=== PATIENT | female | born 1985 | race Caucasian/White ===

== ENCOUNTER 2019-01-02 12:45 | Emergency (ER) | payer SELFPAY ==
[~2019-01-02] VITALS: Ht 170.2 cm; Wt 81.6 kg
--- OUTSIDE RECORDS SUMMARY | 2019-01-02 12:51 | XMS REPORT ---
Author Author SHAYY DIAZ [facility] Address [address] [place] [address] Care Team Providers Care Wheelage Clerk Name Role Phone SHAYY DIAZ Unavailable PROBLEMS Type Condition ICD9-CM Code NCL16-KN Code Onset Dates Condition Status SNOMED Code Problem Leukorrhea, not specified as infective 623.5 Active 598355125 Problem Unspecified vaginitis and vulvovaginitis 616.10 Active 691336241 Problem Other sign and symptom in breast 611.79 Active 689890900 Problem Dysthymic disorder 300.4 Active 56556552 Problem Screening for malignant neoplasm of the cervix V76.2 Active 797289867 Problem Nondependent tobacco use disorder 305.1 Active 978924029 Problem Acute upper respiratory infections of unspecified site 465.9 Active 59583050 Problem Acute bronchitis 466.0 Active 92088886 Problem Acute sinusitis, unspecified 461.9 Active 48855442 Problem Acute pharyngitis 462 Active 046260634 Problem Other general counseling and advice for contraceptive management V25.09 Active 706532042 Problem General counseling for initiation of other contraceptive measures V25.02 Active 675998042436579 Problem Screening examination for venereal disease V74.5 Active 688548827 Problem Encounter for long-term (current) use of other medications V58.69 Active 514679406 Problem Papanicolaou smear of cervix with atypical squamous cells cannot exclude high grade squamous intraepithelial lesion (ASC-H) 795.02 Active 719336014 Problem Other symptoms involving urinary system 788.99 Active 035137021 Problem General counseling for prescription of oral contraceptives V25.01 Active 994586680414887 Problem Cellulitis and abscess of upper arm and forearm 682.3 Active 718969019 Problem Special screening examination, human papillomavirus [HPV] V73.81 Active 440561994 Problem Unspecified symptom associated with female genital organs 625.9 Active 777545903 ALLERGIES No Information ENCOUNTERS Encounter Location Date Diagnosis [facility] [id number], [place] [id number] Oct, [facility] [place] [address] [place] [address] [id number] Sep, Acute cystitis with hematuria N30.01 [facility] [place] [id number] [place] [address] [id number] Aug, Dysuria R30.0 ; Vaginal odor N89.8 ; Nausea R11.0 and CVA tenderness M54.9 [facility] [place] [id number] [place] [address] [id number] Jun, Vaginal irritation N89.8 and Vaginal odor N89.8 [facility] [id number] [place] [address] 76796- 3706 Jan, [facility] [id number] [place] [address] 45661- 9236 Jan, [facility] [place] [id number] [place] [address] [id number] Oct, [facility] [id number] [place] [address] 82636- 7176 Oct, [facility] [id number] [place] [address] 51604- 7002 Aug, [facility] [id number] [place] [address] 72980- 2176 March, [facility] [place] [id number], [place] [id number] March, [facility] [id number] [place] [address] 29592- 6186 March, [facility] [id number] [place] [address] 50941 2546 March, [facility] [address] [place] [address] [id number] March, [facility] [place] [address] [place] [address] [id number] March, [facility] [id number] [place] [address] 90737- 8586 March, [facility] [place] [facility] [address] [facility] [id number] [place] [address]- 8[address] March, [facility] [place] [address] [facility] [id number][place] [id number] Jan, [facility] [place] [facility] [address] [facility] [id number] [place] [address]- 0656 Jan, [facility] [place] [facility] [address] [facility] [id number] [address]- 9776 Jan, [facility] [place] [address] [facility] [id number] [place] [id number] Jan, [facility] [place] [facility] [address] [id number] [address]- 6706 Jan, [facility] [place] [facility] [address]00565100[place] [address]- 7801 Dec, [facility] [place] [address] [id number][place] 464994444 Dec, [facility] [place] [facility] [address] [id number] [address]- 6157 Dec, [facility] [place] [address] [id number], [place] [address]44826628 Dec, [facility] [place] [facility] [address]00565100[place] [address]- 5028 Dec, [facility] [place] [facility] [address] [id number] [address]- 0047 Dec, [facility] [place] [address] [facility] [id number], [place] 392141457 Dec, [facility] [place] [facility] [address]00565100[place] [address]- 9956 Dec, [facility] [place] [address] [facility] [id number][place] 545277239 Dec, [facility] [place] [facility] [address] [id number] [address]- 7550 Dec, [facility] [address] [id number] [address]- 3560 Nov, [facility] [place] [facility] [address] [facility] [id number] [address]- 7566 Nov, [facility] [place] [facility] [address] [facility] [id number] [address]- 7942 Nov, [facility] [place] [facility] [address] [facility] [id number] [address]- 3822 Nov, [facility] [place] [address] [id number], [place] 7480945[address] Nov, [facility] [place] [facility] [address] [facility] [id number] [place] [address]- 8765 Nov, [facility] [place] [address] [id number], [place] 540648653 Nov, [facility] [address]00565100[place] [address]- 8056 Nov, [facility] [place] [address] [id number], [place] 019385795 Oct, [facility] [address] [facility] [id number] [address]- 6260 Oct, [facility] [place] [address] [id number], [place] [id number] Sep, [facility] [address] [facility] [id number] [place] [address] 2546 Sep, [facility] [place] [address] [id number], [place] [id number] Sep, [facility] [place] [facility] [address] [id number] [address]- 2546 Sep, [facility] [place] [address] [id number], [place] 1915[address] Jul, [facility] [place] [address] [id number] [place] 110933[place] Jun, [facility] [place] [address] [id number], [place] 567929409 Jun, [facility] [place] [address] [id number] [place] 611[address] Apr, [facility] [place] [address] [id number] [place] [id number] March, [facility] [place] [address] [id number] [place] [id number] Jan, [facility] [address] [facility] [id number] [address]- 6859 Jan, [facility] [address] [facility] [id number] [place] [address]- 2627 Jan, [facility] [address] [facility] [id number] [place] [address] 59709- 9453 Jan, [facility] [address] [id number] 54[address]380[address]- 3235 Jan, [facility] [place] [address] [facility] [id number], [place] [id number] Jan, [facility] [place] [address] [facility] [id number], [place] 810394571 Aug, [facility] [place] [address] [id number], [place] 382664861 Aug, [facility] [address] [facility] [id number] [address]- 3268 Aug, [facility] [address]00565100[place] [address]- 6862 Aug, [facility] [place] [address] [id number], [place] 527061302 Aug, [facility] [place] [address] [facility] [id number], [place] 333531776 May, [facility] [address] [facility] [id number] [place] [address]- 8186 May, [facility] [place] [address] [id number], [place] [id number] May, [facility] [place] [address] [facility] [id number], [place] 320155441 May, [facility] [place] [address] [id number] [place] [address] Apr, [facility] [place] [address] [id number] [place] [address] Apr, [facility] [place] [address] [id number] [place] 691472444 March, [facility] [place] [address] [id number] [place] [id number] March, [facility] [place] [address] [id number] [place] 892759059 March, [facility] [place] [address] [id number] [place] 8380532[address] Dec, [facility] [place] [address] [id number] [place] 8440727[address] Nov, [facility] [place] [address] [id number] [place] 54897[address] Nov, [facility] [place] [facility] [address]00565100[place] [address]- 5876 Nov, [facility] [place] [facility] [address]00565100[place] [address]- 5956 Nov, [facility] [place] [facility] [address]00565100[place] [address]- 2606 Nov, [facility] [place] [address] [id number] [place] 5307207[address] Nov, [facility] [place] [address] [id number], [place] 793462768 Nov, [facility] [place] [facility] [address] [facility] [id number] [place] [address]- 2216 Nov, [facility] [place] [facility] [address] [facility] [id number] [address]- 4856 Nov, [facility] [place] [facility] [address] [facility] [id number] [place] [address]- 2346 Nov, [facility] [place] [address] [id number] [place] [id number] Nov, [facility] [place] [facility] [address] [id number] [address]- 3836 Oct, [facility] [address]00565100[place] [address]- 2669 Oct, [facility] [address]00565100[place] [address]- 6445 Sep, [facility] [address]00565100[place] [address]- 7397 Sep, [facility] [address]00565100[place] [address]- 8044 Dec, [facility] [id number] [place] [address] 30924- 1158 Sep, [facility] [address]00565100[place] [address]- 4159 Sep, [facility] [address]00565100[place] [address]- 6498 Sep, [facility] [address] [id number] [address]- 1083 Jun, IMMUNIZATIONS No Known Immunizations SOCIAL HISTORY Never Assessed REASON FOR VISIT UTI update PLAN OF CARE VITAL SIGNS MEDICATIONS Medication Instructions Dosage Frequency Start Date End Date Duration Status Phenazopyridine HCl 200 mg Orally Three times a day 1 tablet after meals 8h Oct, Oct, 2 day(s) Active RESULTS No Results PROCEDURES No Known procedures INSTRUCTIONS MEDICATIONS ADMINISTERED No Known Medications MEDICAL (GENERAL) HISTORY Type Description Date Medical History depression Medical History tachycardia
--- OUTSIDE RECORDS SUMMARY | 2019-01-02 12:51 | XMS REPORT ---
Author Author SHAYY DIAZ [facility] Address [address] [place] [address] Care Team Providers Care Disabilities Services Officer Name Role Phone SHAYY DIAZ Unavailable PROBLEMS Type Condition ICD9-CM Code DRF60-MD Code Onset Dates Condition Status SNOMED Code Problem Leukorrhea, not specified as infective 623.5 Active 787014594 Problem Unspecified vaginitis and vulvovaginitis 616.10 Active 340033735 Problem Other sign and symptom in breast 611.79 Active 257524299 Problem Dysthymic disorder 300.4 Active 14282183 Problem Screening for malignant neoplasm of the cervix V76.2 Active 897907130 Problem Nondependent tobacco use disorder 305.1 Active 238664412 Problem Acute upper respiratory infections of unspecified site 465.9 Active 64843340 Problem Acute bronchitis 466.0 Active 59215644 Problem Acute sinusitis, unspecified 461.9 Active 05670703 Problem Acute pharyngitis 462 Active 383350669 Problem Other general counseling and advice for contraceptive management V25.09 Active 659165988 Problem General counseling for initiation of other contraceptive measures V25.02 Active 533131358312331 Problem Screening examination for venereal disease V74.5 Active 743645626 Problem Encounter for long-term (current) use of other medications V58.69 Active 898937950 Problem Papanicolaou smear of cervix with atypical squamous cells cannot exclude high grade squamous intraepithelial lesion (ASC-H) 795.02 Active 137643038 Problem Other symptoms involving urinary system 788.99 Active 000307459 Problem General counseling for prescription of oral contraceptives V25.01 Active 344645896581612 Problem Cellulitis and abscess of upper arm and forearm 682.3 Active 999192304 Problem Special screening examination, human papillomavirus [HPV] V73.81 Active 592888050 Problem Unspecified symptom associated with female genital organs 625.9 Active 223788901 ALLERGIES Substance Reaction Event Type Date Status Bactrim DS nausea and vomiting Drug Allergy Sep, Active ENCOUNTERS Encounter Location Date Diagnosis [facility] [address] [id number] Oct, [facility] [id number] [place] [address] [id number] Sep, Acute cystitis with hematuria N30.01 [address] [place] [address] [id number] Aug, Dysuria R30.0 ; Vaginal odor N89.8 ; Nausea R11.0 and CVA tenderness M54.9 [id number] [place] [address] [id number] Jun, Vaginal irritation N89.8 and Vaginal odor N89.8 [facility] [id number] [place] [address] 88022- 2546 Jan, [facility] [address] [address]- [address] Jan, [facility] [address] [place] [address] [id number] Oct, [facility] [id number] [place] [address] 07510- 7566 Oct, [facility] [id number] [place] [address] 22637- 0041 Aug, [facility] [id number] [place] [address] 88876- 1113 March, [facility] [address] [id number] March, [facility] [id number] [place] [address] 87667- 1359 March, [facility] [id number] [place] [address] 49215 2546 March, [facility] [address] [place] [address] [id number] March, [address] [place] [address] [id number] March, [facility] [place] [facility] [address] [facility] [id number], [place] [address]- 8646 March, [facility] [place] [facility] [address] [facility] [id number], [place] [address]- 2699 March, [facility] [place] [address] [facility] [id number], [place] 151046986 Jan, [facility] [place] [facility] [address]00565100[place], [place] [address] 2546 Jan, [facility] [place] [facility] [address] [facility] [id number], [place] [address]- 2546 Jan, [facility] [place] [address] [id number], [place] 326810901 Jan, [facility] [place] [facility] [address]00565100[place], [place] [address]- 2546 Jan, [facility] [place] [facility] [address]005[address], [place] [address]- 8462 Dec, [facility] [place] [id number], [place] [address]115550 Dec, [facility] [place] [facility] [address]00565[address], [place] [address]- 5326 Dec, [facility] [place] [address] [id number], [place] 695777265 Dec, [facility] [place] [facility] [address] [id number], [place] [address]- 1566 Dec, [facility] [place] [facility] [address] [id number], [place] [address]- 2546 Dec, [facility] [place] [address] [facility] [id number], [place] 608927590 Dec, [facility] [place] [facility] [address] [id number], [place] [address]- 2506 Dec, [facility] [place] [address] [id number], [place] 698365452 Dec, [facility] [place] [facility] [address]00565100[place], [place] [address]- 7861 Dec, [facility] [place] [facility] [address] [facility] [id number], [place] [address]- 7951 Nov, [facility] [place] [facility] [address] [facility] [id number], [place] [address]- 6979 Nov, [facility] [place] [facility] [address] [facility] [id number], [place] [address]- 3575 Nov, [facility] [place] [facility] [address] [facility] [id number], [place] [address]- 7207 Nov, [facility] [place] [address] [facility] [id number], [place] 627481865 Nov, [facility] [place] [facility] [address] [facility] [id number], [place] [address]- 6540 Nov, [facility] [place] [id number], [place] 585470149 Nov, [facility] [place] [facility] [address] [facility] [id number], [place] [address]- 3298 Nov, [facility] [place] [address] [id number], [place] 723527594 Oct, [facility] [address] [facility] [id number], [place] [address]- 5709 Oct, [facility] [place] [address] [id number], [place] 962936709 Sep, [facility] [place] [facility] [address] [facility] [id number], [place] [address]- 7432 Sep, [facility] [place] [address] [id number], [place] 437686603 Sep, [facility] [place] [facility] [address] [facility] [id number], [place] [address]- 7149 Sep, [facility] [place] [address] [id number], [place] 221679605 Jul, [facility] [place] [address] [id number], [place] 588212863 Jun, [facility] [place] [address] [id number] [place] 1870[place] Jun, [facility] [place] [address] [id number] [place] [id number] Apr, [facility] [place] [address] [id number] [place] [id number] March, [facility] [place] [address] [id number] [place] 422354675 Jan, [facility] [place] [facility] [address] [facility] [id number], [place] [address]- 3086 Jan, [facility] [place] [facility] [address] [facility] [id number], [place] [address]- 0302 Jan, [facility] [place] [facility] [address] [facility] [id number], [place] [address]- 5443 Jan, [facility] [address]00565100[place], [place] [address]- 5093 Jan, [facility] [place] [address] [id number], [place] 838614262 Jan, [facility] [place] [address] [id number], [place] 013472221 Aug, [facility] [place] [address] [id number], [place] 569876865 Aug, [facility] [place] [facility] [address] [facility] [id number], [place] [address]- 6069 Aug, [facility] [place] [facility] [address] [facility] [id number], [place] [address]- 4609 Aug, [facility] [place] [address] [id number], [place] 019994386 Aug, [facility] [place] [address] [id number], [place] 688616250 May, [facility] [place] [facility] [address] [facility] [id number], [place] [address]- 1106 May, [facility] [place] [address] [id number], [place] 255721390 May, [facility] [place] [address] [id number] [place] [id number] May, [facility] [place] [address] [id number] [place] 267640849 Apr, [facility] [place] [address] [id number] [place] 352977[address] Apr, [facility] [place] [address] [id number] [place] [id number] March, [facility] [place] [address] [id number] [place] 165123755 March, [facility] [place] [address] [id number] [place] 031863068 March, [facility] [place] [address] [id number] [place] 589804391 Dec, [facility] [place] [address] [id number] [place] [id number] Nov, [facility] [place] [address] [id number] [place] 460317[address] Nov, [facility] [place] [facility] [address] [facility] [id number], [place] [address]- 8026 Nov, [facility] [place] [facility] [address] [facility] [id number], [place] [address]- 8826 Nov, [facility] [place] [facility] [address] [facility] [id number], [place] [address]- 8094 Nov, [facility] [place] [address] [id number], [place] [id number] Nov, [facility] [place] [address] [id number], [place] [id number] Nov, [facility] [place] [facility] [address] [facility] [id number], [place] [address]- 6917 Nov, [facility] [place] [facility] [address] [facility] [id number], [place] [address]- 0376 Nov, [facility] [address] [facility] [id number], [place] [address] Nov, [facility] [address] [id number] [place] [id number] Nov, [facility] [address] [id number] [address] Oct, [facility] [id number] [address] Oct, [facility] [id number], [place] [address] Sep, [facility] [address] [id number] [address] Sep, [facility] [id number], [place] [address] Dec, [facility] [id number] [place] [address] Sep, [facility] [id number], [place] [address] Sep, [facility] [id number], [place] [address] Sep, [facility] [address] [id number], [place] [address] Jun, IMMUNIZATIONS No Known Immunizations SOCIAL HISTORY Never Assessed REASON FOR VISIT UTI symptoms- frequent urination, pressure abd pain Aditi [facility] PLAN OF CARE Activity Details Follow Up prn Reason: VITAL SIGNS Height 67 in 2017-09-28 Weight 174.2 lbs 2017-09-28 Temperature 98.1 degrees Fahrenheit 2017-09-28 Heart Rate 86 bpm 2017-09-28 Respiratory Rate 16 2017-09-28 BMI 27.28 kg/m2 2017-09-28 Blood pressure systolic 122 mmHg 2017-09-28 Blood pressure diastolic 68 mmHg 2017-09-28 MEDICATIONS Medication Instructions Dosage Frequency Start Date End Date Duration Status Tenormin 50 mg Orally Once a day 1 tablet 24h Active Cranberry 405 MG Not-Taking Cipro 500 mg Orally Twice a day 1 tablet 12h Sep, Oct, 05 days Active Xanax 0.5 MG Orally Twice a day 1 tablet 12h Active Celexa 40 MG Orally Once a day 0.5 tablet 24h Active Zofran 8 MG Orally 2 times a day prn 1 tablet Aug, 30 day(s) Active RESULTS Name Result Date Reference Range UA LONG DIP (IN HOUSE) 2017-09-28 Lot # [id number] Exp date 01/2018 Clarity clear Color yellow Odor no GLU neg MARCUS neg KET trace SG 1.025 BLO 2+ pH 6.0 Protein neg URO 1.0 NIT neg REBECA trace Lot # Exp date PROCEDURES Procedure Date Ordered Result Body Site URINALYSIS, AUTO, W/O SCOPE Sep 28, 2017 INSTRUCTIONS MEDICATIONS ADMINISTERED No Known Medications MEDICAL (GENERAL) HISTORY Type Description Date Medical History depression Medical History tachycardia
--- OUTSIDE RECORDS SUMMARY | 2019-01-02 12:51 | XMS REPORT ---
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 Name Role Phone RABIA LINN Unavailable PROBLEMS Type Condition ICD9-CM Code POR90-SG Code Onset Dates Condition Status SNOMED Code Problem Leukorrhea, not specified as infective 623.5 Active 380374467 Problem Unspecified vaginitis and vulvovaginitis 616.10 Active 914661125 Problem Other sign and symptom in breast 611.79 Active 583380337 Problem Dysthymic disorder 300.4 Active 79332143 Problem Screening for malignant neoplasm of the cervix V76.2 Active 166639297 Problem Nondependent tobacco use disorder 305.1 Active 505590926 Problem Acute upper respiratory infections of unspecified site 465.9 Active 04747139 Problem Acute bronchitis 466.0 Active 21165215 Problem Acute sinusitis, unspecified 461.9 Active 73343347 Problem Acute pharyngitis 462 Active 714953323 Problem Other general counseling and advice for contraceptive management V25.09 Active 978606737 Problem General counseling for initiation of other contraceptive measures V25.02 Active 325247514558709 Problem Screening examination for venereal disease V74.5 Active 381450455 Problem Encounter for long-term (current) use of other medications V58.69 Active 155698812 Problem Papanicolaou smear of cervix with atypical squamous cells cannot exclude high grade squamous intraepithelial lesion (ASC-H) 795.02 Active 502150032 Problem Other symptoms involving urinary system 788.99 Active 619413567 Problem General counseling for prescription of oral contraceptives V25.01 Active 141377530534553 Problem Cellulitis and abscess of upper arm and forearm 682.3 Active 499908003 Problem Special screening examination, human papillomavirus [HPV] V73.81 Active 123856005 Problem Unspecified symptom associated with female genital organs 625.9 Active 966265744 ALLERGIES Substance Reaction Event Type Date Status Bactrim DS nausea and vomiting Drug Allergy Aug, Active ENCOUNTERS Encounter Location Date Diagnosis [facility] [id number] [id number] Oct, [place] [id number] [place] [id number] Sep, Acute cystitis with hematuria N30.01 [place] [id number] [place] [id number] Aug, Dysuria R30.0 ; Vaginal odor N89.8 ; Nausea R11.0 and CVA tenderness M54.9 [place] [id number] [place] [id number] Jun, Vaginal irritation N89.8 and Vaginal odor N89.8 [facility] [id number] [place] [address] Jan, [facility] [id number] [place] [address]- [address] Jan, [place] [id number] [place] [id number] Oct, [facility] [id number] [place] [address]- 9916 Oct, [facility] [id number] [place] [address]- [address] Aug, [facility] [id number] [place] [address]- 99[address] March, [facility] [id number] [place] [address] [id number] March, [facility] [id number] [place] [address]- 1616 March, [facility] [id number] [place] [address] 2546 March, [facility] [id number] [place] [address] [id number] March, [place] [id number] [place] [address] [phone] March, [facility] [place] [facility] [address] [facility] [id number] [place] [address] March, [facility] [place] [facility] [address] [facility] [id number] [address] March, [facility] [place] [address] [facility] [id number] [place] [id number] Jan, [facility] [place] [facility] [address] [facility] [id number] [address] Jan, [facility] [place] [facility] [address] [facility] [id number] [place] [address] Jan, [facility] [place] [address] [facility] [id number] [place] [id number] Jan, [facility] [place] [facility] [address], [place] [address] Jan, [facility] [place] [facility] [id number], [place] [address] Dec, [facility] [place] [address] [place] [id number] [id number] Dec, [facility] [place] [facility] [id number] [address] Dec, [facility] [place] [address] [id number] [place] [id number] Dec, [facility] [place] [facility] [address], [place] [address] Dec, [facility] [place] [facility] [address] [facility] [id number] [address] 18 Dec, 2013 [facility] [address] [facility] [id number] [place] [id number] Dec, [facility] [place] [facility] [address] [facility] [id number] [address]46 Dec, [facility] [place] [address] [place] [id number] [place] [id number] Dec, [facility] [place] [facility] [address] [id number] [address] Dec, [facility] [place] [facility] [address] [facility] [id number] [place] [address]- 5[address] Nov, [facility] [address] [facility] [id number] [place] [address]- 3848 Nov, [facility] [place] [facility] [address] [facility] [id number] [place] [address]- 5949 Nov, [facility] [address] [facility] [id number] [place] [address]- 2456 Nov, [facility] [place] [address] [facility] [id number] [place] [id number] Nov, [facility] [address], [place] [address] Nov, [facility] [place] [address] [facility] [id number] [place] [id number] Nov, [facility] [address] [facility] [id number] [address] Nov, [facility] [place] [address] [id number] [place] [id number] Oct, [facility] [address] [facility] [id number] [address] Oct, [facility] [place] [address] [id number] [place] [id number] Sep, [facility] [place] [facility] [address] [facility] [id number] [address]- [address]061 Sep, [facility] [place] [address] [id number] [place] [id number] Sep, [facility] [place] [facility] [address] [facility] [id number] [address] 6484 Sep, [facility] [place] [address] [id number] [place] [id number] Jul, [facility] [place] [address] [id number] [place] [id number] Jun, [facility] [place] [address] [id number] [place] [id number] Jun, [facility] [place] [address] [id number] [place] [id number] Apr, [facility] [place] [address] [id number] [place] [id number] March, [facility] [place] [address] [id number] [place] [id number] Jan, [facility] [place] [facility] [address] [facility] [id number] [place] [address]- 0126 Jan, [facility] [place] [facility] [address] [facility] [id number] [place] [address], [place] [address]- [address] Jan, [facility] [place] [facility] [address] [facility] [id number] [place] [address]- 5677 Jan, [facility] [place] [facility] [address] [id number] [address]- [address] Jan, [facility] [place] [address] [id number] [place] [id number] Jan, [facility] [place] [address] [id number] [place] [id number] Aug, [facility] [place] [address] [id number] [place] [id number] Aug, [facility] [place] [facility] [address] [facility] [id number], [place] [address]- 2796 Aug, [facility] [place] [facility] [address] [facility] [id number], [place] [address]- [address] Aug, [facility] [place] [address] [id number] [place] [id number] Aug, [facility] [place] [address] [id number] [place] [id number] May, [facility] [place] [facility] [address] [facility] [id number] [address]- [address]96 May, [facility] [place] [address] [id number] [place] [id number] May, [facility] [place] [address] [id number] [place] [address] May, [facility] [place] [address] [id number] [place] [id number] Apr, [facility] [place] [address] [id number] [place] [id number] Apr, [facility] [place] [address] [id number] [place] [id number] March, [facility] [place] [address] [id number] [place] [id number] March, [facility] [place] [address] [id number] [place] [id number] March, [facility] [place] [address] [id number] [place] [id number] Dec, [facility] [place] [address] [id number] [place] [id number] Nov, [facility] [place] [address] [id number] [place] [id number] Nov, [facility] [address] [facility] [id number] [address]- 6159 Nov, [facility] [place] [facility] [address], [place] [address]- 7[address] Nov, [facility] [place] [facility] [address] [facility] [id number], [place] [address]- [address]109 Nov, [facility] [place] [address] [id number] [place] [id number] Nov, [facility] [place] [address] [id number] [place] [id number] Nov, [facility] [place] [facility] [address] [facility] [id number] [address]- [address] Nov, [facility] [place] [facility] [address] [facility] [id number] [address]- 9844 Nov, [facility] [place] [facility] [address] [facility] [id number] [address]- 4327 Nov, [facility] [place] [address] [id number] [place] [id number] Nov, [facility] [address] [facility] [id number]75[place] [address]17 Oct, [facility] [address] [id number] [address]676 Oct, [facility] [address] [facility] [id number] [address]- [address] Sep, [facility] [address] [id number]707 Sep, [facility] [address] [id number] Dec, [facility] [id number], [place] [address]- 5106 Sep, [facility] [address] [address]- [address] Sep, [facility] [address] [facility] [id number] [address]- 1730 Sep, [facility] [address] [id number] [address] Jun, IMMUNIZATIONS No Known Immunizations SOCIAL HISTORY Never Assessed REASON FOR VISIT Possible UTI, bilat flank pain , states she still has vaginal odor Manuel RN PLAN OF CARE Activity Details Follow Up if not improving Reason: VITAL SIGNS Height 67 in 2017-08-13 Weight 166.4 lbs 2017-08-13 Temperature 96.9 degrees Fahrenheit 2017-08-13 Heart Rate 118 bpm 2017-08-13 Respiratory Rate 18 2017-08-13 BMI 26.06 kg/m2 2017-08-13 Blood pressure systolic 110 mmHg 2017-08-13 Blood pressure diastolic 60 mmHg 2017-08-13 MEDICATIONS Medication Instructions Dosage Frequency Start Date End Date Duration Status Celexa 40 MG Orally Once a day 0.5 tablet 24h Active Cipro 500 mg Orally Twice a day 1 tablet 12h Aug, Aug, 07 days Active Zofran 8 MG Orally 2 times a day prn 1 tablet Aug, 30 day(s) Active Xanax 0.5 MG Orally Twice a day 1 tablet 12h Active Tenormin 50 MG Orally Once a day 1 tablet 24h Active Cranberry 405 MG Not-Taking Fluconazole 200 mg Orally Once a day 1 tablet today, again in 5 days and last dose after another 5 days 24h Aug, Aug, 03 days Active RESULTS No Results PROCEDURES Procedure Date Ordered Result Body Site URINALYSIS, AUTO, W/O SCOPE Aug 13, 2017 URINE TEST Aug 13, 2017 URINE CULTURE/COLONY COUNT Aug 13, 2017 INSTRUCTIONS MEDICATIONS ADMINISTERED No Known Medications MEDICAL (GENERAL) HISTORY Type Description Date Medical History depression Medical History tachycardia
--- OUTSIDE RECORDS SUMMARY | 2019-01-02 12:52 | XMS REPORT ---
Author Author RABIA LINN [facility] Address [address] [place] [address] Care Team Providers [employer] Regist[employer] Name Role Phone RABIA LINN Unavailable PROBLEMS Type Condition ICD9-CM Code ONA56-CY Code Onset Dates Condition Status SNOMED Code Problem Leukorrhea, not specified as infective 623.5 Active 732732180 Problem Unspecified vaginitis and vulvovaginitis 616.10 Active 221123698 Problem Other sign and symptom in breast 611.79 Active 408510635 Problem Dysthymic disorder 300.4 Active 80611514 Problem Screening for malignant neoplasm of the cervix V76.2 Active 113584794 Problem Nondependent tobacco use disorder 305.1 Active 943282534 Problem Acute upper respiratory infections of unspecified site 465.9 Active 90502582 Problem Acute bronchitis 466.0 Active 33382021 Problem Acute sinusitis, unspecified 461.9 Active 94335912 Problem Acute pharyngitis 462 Active 412380696 Problem Other general counseling and advice for contraceptive management V25.09 Active 038022471 Problem General counseling for initiation of other contraceptive measures V25.02 Active 098661427334175 Problem Screening examination for venereal disease V74.5 Active 026726722 Problem Encounter for long-term (current) use of other medications V58.69 Active 434738544 Problem Papanicolaou smear of cervix with atypical squamous cells cannot exclude high grade squamous intraepithelial lesion (ASC-H) 795.02 Active 821361153 Problem Other symptoms involving urinary system 788.99 Active 266518132 Problem General counseling for prescription of oral contraceptives V25.01 Active 585630271861517 Problem Cellulitis and abscess of upper arm and forearm 682.3 Active 223026381 Problem Special screening examination, human papillomavirus [HPV] V73.81 Active 027006698 Problem Unspecified symptom associated with female genital organs 625.9 Active 192132111 ALLERGIES Substance Reaction Event Type Date Status Bactrim DS nausea and vomiting Drug Allergy Jun, Active ENCOUNTERS Encounter Location Date Diagnosis [facility] [address] [id number] Oct, [place] [id number] [place] [id number] Sep, Acute cystitis with hematuria N30.01 [place] [id number] [place] [address] [id number] Aug, Dysuria R30.0 ; Vaginal odor N89.8 ; Nausea R11.0 and CVA tenderness M54.9 [place] [id number] [place] [id number] Jun, Vaginal irritation N89.8 and Vaginal odor N89.8 [facility] [id number] [place] [address] Jan, [facility] [id number] [place] [address]- [address] Jan, [place] [id number] [place] [id number] Oct, [facility] [id number] [place] [address]- [address] Oct, [facility] [id number] [place] [address]- [address] Aug, [facility] [id number] [place] [address]- [address] March, [facility] [id number] [place] [address] [id number] March, [facility] [id number] [place] [address]60- 7466 March, [facility] [id number] [place] [id number] 2546 March, [facility] [address] [place] [address] [id number] March, [place] [id number] [place] [address] [id number] March, [facility] [place] [facility] [address] [facility] [id number] [place] [address] March, [facility] [place] [facility] [address] [facility] [id number] [address] March, [facility] [place] [address] [facility] [id number] [id number] Jan, [facility] [place] [facility] [address] [facility] [id number] [place] [address] Jan, [facility] [place] [facility] [address] [facility] [id number] [place] [address] 288[address] Jan, [facility] [place] [address] [facility] [id number] [id number] Jan, [facility] [place] [facility] [address] [address] Jan, [facility] [place] [facility] [address] [address] Dec, [facility] [place] [address] [id number] [id number] Dec, [facility] [place] [facility] [address] [id number] [address] Dec, [facility] [place] [address] [id number] [id number] Dec, [facility] [place] [facility] [address]65[address] [address] Dec, [facility] [place] [facility] [address] [facility] [id number] [place] [address] 18 Dec, 2013 [facility] [place] [address] [facility] [id number][place] [id number] Dec, [facility] [place] [facility] [address] [facility] [id number] [place] [address] 25[address] Dec, [facility] [place] [address] [id number] [id number] Dec, [facility] [place] [facility] [address] [id number] [place] [address] Dec, [facility] [place] [facility] [address] [facility] [id number] [place] [address]- 8[address] Nov, [facility] [address] [facility] [id number] [place] [address]- 1177 Nov, [facility] [place] [facility] [address] [facility] [id number] [place] [address]- 0373 Nov, [facility] [address] [facility] [id number] [place] [address]- 1588 Nov, [facility] [place] [address] [facility] [id number][place] [id number] Nov, [facility] [address] [address] Nov, [facility] [place] [address] [facility] [id number] [id number] Nov, [facility] [address] [facility] [id number] [place] [address] Nov, [facility] [place] [address] [id number] [id number] Oct, [facility] [address] [facility] [id number] [place] [address] Oct, [facility] [place] [address] [id number][place] [id number] Sep, [facility] [place] [facility] [address] [facility] [id number] [place] [address] 8261 Sep, [facility] [place] [address] [id number], [place] [id number] Sep, [facility] [place] [facility] [address] [facility] [id number] [place] [address] Sep, [facility] [place] [address] [id number] [place] [id number] Jul, [facility] [place] [address] [id number][place] [id number] Jun, [facility] [place] [address] [id number] [place] [id number] Jun, [facility] [place] [address] [id number] [place] [id number] Apr, [facility] [place] [address] [id number] [place] [id number] March, [facility] [place] [address] [id number] [place] [id number] Jan, [facility] [place] [facility] [address] [facility] [id number] [place] [address]- 7716 Jan, [facility] [place] [facility] [address] [facility] [id number] [place] [address], [place] [address]- [address] Jan, [facility] [place] [facility] [address] [facility] [id number] [place] [address]- 1256 Jan, [facility] [place] [facility] [address] [id number] [address]- [address] Jan, [facility] [place] [address] [id number] [place] [id number] Jan, [facility] [place] [address] [id number] [place] [id number] Aug, [facility] [place] [address] [id number] [place] [id number] Aug, [facility] [place] [facility] [address] [facility] [id number] [place] [address]- 365[address] Aug, [facility] [place] [facility] [address] [facility] [id number] [place] [address]- 0416 Aug, [facility] [place] [address] [id number] [place] [id number] Aug, [facility] [place] [address] [id number] [place] [id number] May, [facility] [place] [facility] [address] [facility] [id number] [place] [address]- [address]676 May, [facility] [place] [address] [id number] [place] [id number] May, [facility] [place] [address] [id number] [place] [id number] May, [facility] [place] [address] [id number] [place] [id number] Apr, [facility] [place] [address] [id number] [place] [id number] Apr, [facility] [place] [address] [id number] [place] [id number] March, [facility] [place] [address] [id number] [place] [id number] March, [facility] [place] [address] [id number] [place] [id number] March, [facility] [place] [address] [id number] [place] [id number] Dec, [facility] [place] [address] [id number] [place] [id number] Nov, [facility] [place] [address] [id number] [place] [id number] Nov, [facility] [address] [facility] [id number] [place] [address]- 0064 Nov, [facility] [place] [facility] [address] [address]- 57[address] Nov, [facility] [place] [facility] [address] [facility] [id number] [place] [address]- 8[address] Nov, [facility] [place] [address] [id number] [place] [id number] Nov, [facility] [place] [address] [id number], [place] [id number] Nov, [facility] [place] [facility] [address] [facility] [id number] [place] [address]- 0409 Nov, [facility] [place] [facility] [address] [facility] [id number] [place] [address]- 1836 Nov, [facility] [place] [facility] [address] [facility] [id number] [place] [address]- 9767 Nov, [facility] [place] [address] [id number][place] [id number] Nov, [facility] [address] [facility] [id number] [place] [address]- 8220 Oct, [facility] [id number] [address] Oct, [facility] [address] [facility] [id number] [place] [address]- 57[address] Sep, [facility] [address] [id number] [address]- 0[address] Sep, [facility] [address] [id number] [address] Dec, [facility] [address] [address]- 8525 Sep, [facility] [address] [address]- 8575 Sep, [facility] [address] [facility] [id number] [place] [address]- 70[address] Sep, [facility] [address] [id number] [address]- [address] Jun, IMMUNIZATIONS No Known Immunizations SOCIAL HISTORY Never Assessed REASON FOR VISIT UTI symptoms, fishy odor, leakage Manuel MCKEON PLAN OF CARE Activity Details Follow Up if not improving, recommend WWE with PAP Reason: VITAL SIGNS Height 67 in 2017-06-04 Weight 167.2 lbs 2017-06-04 Temperature 99.1 degrees Fahrenheit 2017-06-04 Heart Rate 108 bpm 2017-06-04 Respiratory Rate 18 2017-06-04 BMI 26.18 kg/m2 2017-06-04 Blood pressure systolic 120 mmHg 2017-06-04 Blood pressure diastolic 60 mmHg 2017-06-04 MEDICATIONS Medication Instructions Dosage Frequency Start Date End Date Duration Status Xanax 0.5 MG Orally Twice a day 1 tablet 12h Active Cranberry 405 MG Active Tenormin 50 MG Orally Once a day 1 tablet 24h Active Celexa 40 MG Orally Once a day 0.5 tablet 24h Active RESULTS Name Result Date Reference Range TRICHOMONAS (IN HOUSE) 2017-06-04 TRICHOMONAS negative Control positive Lot # [id number] Exp date 03/18 UA LONG DIP (IN HOUSE) 2017-06-04 Lot # [id number] Exp date 03/31/18 Clarity clear Color yellow Odor no GLU neg MARCUS neg KET neg SG 1.025 BLO trace-lysed pH 5.5 Protein neg URO o.2 NIT neg REBECA neg Lot # Exp date BACTERIAL VAGINOSIS (IN HOUSE) 2017-06-04 RESULTS negative Control positive Lot # [id number] Exp date 12/21 GC/CHLAM PROBE (STATE) 2017-06-04 CHLAMYDIA GC PROCEDURES Procedure Date Ordered Result Body Site Bacterial Vaginosis In House Jun 04, 2017 TRICHOMONAS ASSAY W/OPTIC Jun 04, 2017 No Charge Jun 04, 2017 URINALYSIS, AUTO, W/O SCOPE Jun 04, 2017 INSTRUCTIONS MEDICATIONS ADMINISTERED No Known Medications MEDICAL (GENERAL) HISTORY Type Description Date Medical History depression Medical History tachycardia
--- OUTSIDE RECORDS SUMMARY | 2019-01-02 12:52 | XMS REPORT | Continuity of Care Document ---
Author Author [facility] Address Unknown Phone Unavailable Allergies There is no data. Medications There is no data. Problems Date Dx Coded Attending Type Code Diagnosis Diagnosed By 05/18/2008 V22.0 PC NORMAL FIRST 05/18/2008 V22.0 PC NORMAL FIRST 05/18/2008 V22.0 PC NORMAL FIRST 05/18/2008 GABRIEL NIEVES DOA K V22.0 PC NORMAL FIRST 05/18/2008 GABRIEL NIEVES DOA K V22.0 PC NORMAL FIRST 05/18/2008 NIEVES DO EMILE K V22.0 PC NORMAL FIRST 05/18/2008 ARABELLA CARLOS APRN V22.0 PC NORMAL FIRST 05/18/2008 GABRIEL NIEVES DOA K V22.0 PC NORMAL FIRST 05/18/2008 NIEVES DO EMILE K V22.0 PC NORMAL FIRST 05/18/2008 GABRIEL NIEVES DOA K V22.0 PC NORMAL FIRST 05/31/2008 477.9 RHINITIS ALLERGIC 05/31/2008 477.9 RHINITIS ALLERGIC 05/31/2008 477.9 RHINITIS ALLERGIC 05/31/2008 GABRIEL NIEVES DOA K 477.9 RHINITIS ALLERGIC 05/31/2008 GABRIEL NIEVES DOA K 477.9 RHINITIS ALLERGIC 05/31/2008 NIEVES DO EMILE K 477.9 RHINITIS ALLERGIC 05/31/2008 ARABELLA CARLOS APRN 477.9 RHINITIS ALLERGIC 05/31/2008 NIEVES GABRIEL WHITTINGTONA K 477.9 RHINITIS ALLERGIC 05/31/2008 NIEVES DO EMILE K 477.9 RHINITIS ALLERGIC 05/31/2008 NIEVES DO EMILE K 477.9 RHINITIS ALLERGIC 06/15/2008 V22.1 PC OTHER NORMAL 06/15/2008 V22.1 PC OTHER NORMAL 06/15/2008 V22.1 PC OTHER NORMAL 06/15/2008 NIEVES DO, EMILE K V22.1 PC OTHER NORMAL 06/15/2008 NIEVES DO EMILE K V22.1 PC OTHER NORMAL 06/15/2008 NIEVES DO EMILE K V22.1 PC OTHER NORMAL 06/15/2008 ARABELLA CARLOS APRN V22.1 PC OTHER NORMAL 06/15/2008 NIEVES DO EMILE K V22.1 PC OTHER NORMAL 06/15/2008 NIEVES DO EMILE K V22.1 PC OTHER NORMAL 06/15/2008 NIEVES DO EMILE K V22.1 PC OTHER NORMAL 08/27/2008 V25.41 SURVEILLANCE OF CONTRACEPTIVE PILL 08/27/2008 V72.31 COMMERCIAL ELECTRICIAN EXAM, ROUTINE 08/27/2008 V25.41 SURVEILLANCE OF CONTRACEPTIVE PILL 08/27/2008 V72.31 COMMERCIAL ELECTRICIAN EXAM, ROUTINE 08/27/2008 V25.41 SURVEILLANCE OF CONTRACEPTIVE PILL 08/27/2008 V72.31 COMMERCIAL ELECTRICIAN EXAM, ROUTINE 08/27/2008 NIEVES DOGABRIELA K V25.41 SURVEILLANCE OF CONTRACEPTIVE PILL 08/27/2008 GABRIEL NIEVES DOA K V72.31 COMMERCIAL ELECTRICIAN EXAM, ROUTINE 08/27/2008 NIEVES DO EMILE K V25.41 SURVEILLANCE OF CONTRACEPTIVE PILL 08/27/2008 NIEVES DO EMILE K V72.31 COMMERCIAL ELECTRICIAN EXAM, ROUTINE 08/27/2008 NIEVES DO EMILE K V25.41 SURVEILLANCE OF CONTRACEPTIVE PILL 08/27/2008 NIEVES DO EMILE K V72.31 COMMERCIAL ELECTRICIAN EXAM, ROUTINE 08/27/2008 ARABELLA CARLOS APRN E V25.41 SURVEILLANCE OF CONTRACEPTIVE PILL 08/27/2008 ARABELLA CARLOS APRN V72.31 COMMERCIAL ELECTRICIAN EXAM, ROUTINE 08/27/2008 NIEVES DO EMILE K V25.41 SURVEILLANCE OF CONTRACEPTIVE PILL 08/27/2008 NIEVES DO EMILE K V72.31 COMMERCIAL ELECTRICIAN EXAM, ROUTINE 08/27/2008 NIEVES DO EMILE K V25.41 SURVEILLANCE OF CONTRACEPTIVE PILL 08/27/2008 NIEVES DO EMILE K V72.31 COMMERCIAL ELECTRICIAN EXAM, ROUTINE 08/27/2008 NIEVES DO EMILE K V25.41 SURVEILLANCE OF CONTRACEPTIVE PILL 08/27/2008 NIEVES DO EMILE K V72.31 COMMERCIAL ELECTRICIAN EXAM, ROUTINE 09/18/2008 380.10 OTITIS EXTERNA HEMORRHAGIC 09/18/2008 382.00 OTITIS MEDIA ACUTE SUPPURATIVE 09/18/2008 V72.41 TEST NEGATIVE RESULT 09/18/2008 380.10 OTITIS EXTERNA HEMORRHAGIC 09/18/2008 382.00 OTITIS MEDIA ACUTE SUPPURATIVE 09/18/2008 V72.41 TEST NEGATIVE RESULT 09/18/2008 380.10 OTITIS EXTERNA HEMORRHAGIC 09/18/2008 382.00 OTITIS MEDIA ACUTE SUPPURATIVE 09/18/2008 V72.41 TEST NEGATIVE RESULT 09/18/2008 NIEVES DO, EMILE K 380.10 OTITIS EXTERNA HEMORRHAGIC 09/18/2008 NIEVES DO, EMILE K 382.00 OTITIS MEDIA ACUTE SUPPURATIVE 09/18/2008 NIEVES DO, EMILE K V72.41 TEST NEGATIVE RESULT 09/18/2008 NIEVES DO, EMILE K 380.10 OTITIS EXTERNA HEMORRHAGIC 09/18/2008 NIEVES DO, EMILE K 382.00 OTITIS MEDIA ACUTE SUPPURATIVE 09/18/2008 NIEVES DO, EMILE K V72.41 TEST NEGATIVE RESULT 09/18/2008 NIEVES DO, EMILE K 380.10 OTITIS EXTERNA HEMORRHAGIC 09/18/2008 NIEVES DO, EMILE K 382.00 OTITIS MEDIA ACUTE SUPPURATIVE 09/18/2008 NIEVES DO, EMILE K V72.41 TEST NEGATIVE RESULT 09/18/2008 PAMGABRIEL NIELSEN APRNSIE E 380.10 OTITIS EXTERNA HEMORRHAGIC 09/18/2008 PAMGABRIEL NIELSEN APRNSIE E 382.00 OTITIS MEDIA ACUTE SUPPURATIVE 09/18/2008 PAMMORALES SPECIAL SERVICES AGENT, ARABELLA E V72.41 TEST NEGATIVE RESULT 09/18/2008 NIEVES DO, EMILE K 380.10 OTITIS EXTERNA HEMORRHAGIC 09/18/2008 NIEVES DO, EMILE K 382.00 OTITIS MEDIA ACUTE SUPPURATIVE 09/18/2008 NIEVES DO, EMILE K V72.41 TEST NEGATIVE RESULT 09/18/2008 NIEVES DO, EMILE K 380.10 OTITIS EXTERNA HEMORRHAGIC 09/18/2008 NIEVES DO, EMIEL K 382.00 OTITIS MEDIA ACUTE SUPPURATIVE 09/18/2008 NIEVES DO, EMILE K V72.41 TEST NEGATIVE RESULT 09/18/2008 NIEVES DO, EMILE K 380.10 OTITIS EXTERNA HEMORRHAGIC 09/18/2008 NIEVES DO, EMILE K 382.00 OTITIS MEDIA ACUTE SUPPURATIVE 09/18/2008 NIEVES DO, EMILE K V72.41 TEST NEGATIVE RESULT 09/21/2008 786.2 COUGH 09/21/2008 786.2 COUGH 09/21/2008 786.2 COUGH 09/21/2008 NIEVES DO, EMILE K 786.2 COUGH 09/21/2008 NIEVES DO, EMILE K 786.2 COUGH 09/21/2008 NIEVES DO, EMILE K 786.2 COUGH 09/21/2008 ARABELLA CARLOS APRN E 786.2 COUGH 09/21/2008 NIEVES DO, EMILE K 786.2 COUGH 09/21/2008 NIEVES DO, EMILE K 786.2 COUGH 09/21/2008 NIEVES DO, EMILE K 786.2 COUGH 11/22/2008 285.9 ANEMIA 11/22/2008 535.50 GASTRITIS 11/22/2008 285.9 ANEMIA 11/22/2008 535.50 GASTRITIS 11/22/2008 285.9 ANEMIA 11/22/2008 535.50 GASTRITIS 11/22/2008 NIEVES DO, EMILE K 285.9 ANEMIA 11/22/2008 NIEVES DO, EMILE K 535.50 GASTRITIS 11/22/2008 NIEVES DO, EMILE K 285.9 ANEMIA 11/22/2008 NIEVES DO, EMILE K 535.50 GASTRITIS 11/22/2008 NIEVES DO, EMILE K 285.9 ANEMIA 11/22/2008 NIEVES DO, EMILE K 535.50 GASTRITIS 11/22/2008 PAMARABELLA NIELSEN APRN E 285.9 ANEMIA 11/22/2008 [facility] E 535.50 GASTRITIS 11/22/2008 NIEVES DO, EMILE K 285.9 ANEMIA 11/22/2008 NIEVES DO, EMILE K 535.50 GASTRITIS 11/22/2008 NIEVES DO, EMILE K 285.9 ANEMIA 11/22/2008 NIEVES DO, EMILE K 535.50 GASTRITIS 11/22/2008 NIEVES DO, EMILE K 285.9 ANEMIA 11/22/2008 NIEVES DO, EMILE K 535.50 GASTRITIS 05/24/2009 300.00 anxiety 05/24/2009 795.03 Pap Smear (+ ) Low Grade Squamous Intraepithelial Lesion 05/24/2009 300.00 anxiety 05/24/2009 795.03 Pap Smear (+ ) Low Grade Squamous Intraepithelial Lesion 05/24/2009 300.00 anxiety 05/24/2009 795.03 Pap Smear (+ ) Low Grade Squamous Intraepithelial Lesion 05/24/2009 NIEVES DO, EMILE K 300.00 anxiety 05/24/2009 NIEVES DO, EMILE K 795.03 Pap Smear (+) Low Grade Squamous Intraepithelial Lesion 05/24/2009 NIEVES DO, EMILE K 300.00 anxiety 05/24/2009 NIEVES DO, EMILE K 795.03 Pap Smear (+) Low Grade Squamous Intraepithelial Lesion 05/24/2009 NIEVES DO, EMILE K 300.00 anxiety 05/24/2009 NIEVES DO, EMILE K 795.03 Pap Smear (+) Low Grade Squamous Intraepithelial Lesion 05/24/2009 [employer] AGENT, ARABELLA E 300.00 anxiety 05/24/2009 HELLWIG SPECIAL SERVICES AGENT, ARABELLA E 795.03 Pap Smear (+) Low Grade Squamous Intraepithelial Lesion 05/24/2009 NIEVES DO, EMILE K 300.00 anxiety 05/24/2009 NIEVES DO, EMILE K 795.03 Pap Smear (+) Low Grade Squamous Intraepithelial Lesion 05/24/2009 NIEVES DO, EMILE K 300.00 anxiety 05/24/2009 NIEVES DO, EMILE K 795.03 Pap Smear (+) Low Grade Squamous Intraepithelial Lesion 05/24/2009 NIEVES DO, EMILE K 300.00 anxiety 05/24/2009 NIEVES DO, EMILE K 795.03 Pap Smear (+) Low Grade Squamous Intraepithelial Lesion 06/12/2009 622.11 CERVICAL DYSPLASIA: MILD 06/12/2009 622.11 CERVICAL DYSPLASIA: MILD 06/12/2009 622.11 CERVICAL DYSPLASIA: MILD 06/12/2009 NIEVES DO, EMILE K 622.11 CERVICAL DYSPLASIA: MILD 06/12/2009 NIEVES DO, EMILE K 622.11 CERVICAL DYSPLASIA: MILD 06/12/2009 NIEVES DO, EMILE K 622.11 CERVICAL DYSPLASIA: MILD 06/12/2009 HELLWIG SPECIAL SERVICES AGENT, ARABELLA E 622.11 CERVICAL DYSPLASIA: MILD 06/12/2009 NIEVES DO, EMILE K 622.11 CERVICAL DYSPLASIA: MILD 06/12/2009 NIEVES DO, EMILE K 622.11 CERVICAL DYSPLASIA: MILD 06/12/2009 NIEVES DO, EMILE K 622.11 CERVICAL DYSPLASIA: MILD 12/20/2009 V62.4 SOCIAL MALADJUSTMENT 12/20/2009 V62.4 SOCIAL MALADJUSTMENT 12/20/2009 V62.4 SOCIAL MALADJUSTMENT 12/20/2009 NIEVES DO, EMILE K V62.4 SOCIAL MALADJUSTMENT 12/20/2009 NIEVES DO, EMILE K V62.4 SOCIAL MALADJUSTMENT 12/20/2009 NIEVES DO, EMILE K V62.4 SOCIAL MALADJUSTMENT 12/20/2009 ARABELLA CARLOS APRN V62.4 SOCIAL MALADJUSTMENT 12/20/2009 NIEVES DO, EMILE K V62.4 SOCIAL MALADJUSTMENT 12/20/2009 NIEVES DO, EMILE K V62.4 SOCIAL MALADJUSTMENT 12/20/2009 NIEVES DO, EMILE K V62.4 SOCIAL MALADJUSTMENT 01/30/2010 706.1 ACNE 01/30/2010 706.1 ACNE 01/30/2010 706.1 ACNE 01/30/2010 NIEVES DO, EMILE K 706.1 ACNE 01/30/2010 NIEVES DO, EMILE K 706.1 ACNE 01/30/2010 NIEVES DO, EMILE K 706.1 ACNE 01/30/2010 ARABELLA CARLOS APRN 706.1 ACNE 01/30/2010 NIEVES DO, EMILE K 706.1 ACNE 01/30/2010 NIEVES DO, EMILE K 706.1 ACNE 01/30/2010 NIEVES DO, EMILE K 706.1 ACNE 11/07/2010 V22.2 INCIDENTAL 11/07/2010 V25.9 CONTRACEPTIVE MANAGEMENT, UNSPECIFIED 11/07/2010 V22.2 INCIDENTAL 11/07/2010 V25.9 CONTRACEPTIVE MANAGEMENT, UNSPECIFIED 11/07/2010 V22.2 INCIDENTAL 11/07/2010 V25.9 CONTRACEPTIVE MANAGEMENT, UNSPECIFIED 11/07/2010 NIEVES DO, EMILE K V22.2 INCIDENTAL 11/07/2010 NIEVES DO, EMILE K V25.9 CONTRACEPTIVE MANAGEMENT, UNSPECIFIED 11/07/2010 NIEVES DO, EMILE K V22.2 INCIDENTAL 11/07/2010 NIEVES DO, EMILE K V25.9 CONTRACEPTIVE MANAGEMENT, UNSPECIFIED 11/07/2010 NIEVES DO, EMILE K V22.2 INCIDENTAL 11/07/2010 NIEVES DO, EMILE K V25.9 CONTRACEPTIVE MANAGEMENT, UNSPECIFIED 11/07/2010 ARABELLA CARLOS APRN V22.2 INCIDENTAL 11/07/2010 ARABELLA CARLOS APRN V25.9 CONTRACEPTIVE MANAGEMENT, UNSPECIFIED 11/07/2010 NIEVES DO, EMILE K V22.2 INCIDENTAL 11/07/2010 NIEVES DO, EMILE K V25.9 CONTRACEPTIVE MANAGEMENT, UNSPECIFIED 11/07/2010 NIEVES DO, EMILE K V22.2 INCIDENTAL 11/07/2010 NIEVES DO, EMILE K V25.9 CONTRACEPTIVE MANAGEMENT, UNSPECIFIED 11/07/2010 NIEVES DO, EMILE K V22.2 INCIDENTAL 11/07/2010 NIEVES DO, EMILE K V25.9 CONTRACEPTIVE MANAGEMENT, UNSPECIFIED 01/02/2011 599.0 URINARY TRACT INFECTION 01/02/2011 724.2 BACK PAIN, LOWER 01/02/2011 599.0 URINARY TRACT INFECTION 01/02/2011 724.2 BACK PAIN, LOWER 01/02/2011 599.0 URINARY TRACT INFECTION 01/02/2011 724.2 BACK PAIN, LOWER 01/02/2011 NIEVES DO, EMLIE K 599.0 URINARY TRACT INFECTION 01/02/2011 NIEVES DO, EMILE K 724.2 BACK PAIN, LOWER 01/02/2011 NIEVES DO, EMILE K 599.0 URINARY TRACT INFECTION 01/02/2011 NIEVES DO, EMILE K 724.2 BACK PAIN, LOWER 01/02/2011 NIEVES DO, EMILE K 599.0 URINARY TRACT INFECTION 01/02/2011 NIEVES DO, EMILE K 724.2 BACK PAIN, LOWER 01/02/2011 ARABELLA CARLOS APRN E 599.0 URINARY TRACT INFECTION 01/02/2011 ARABELLA CARLOS APRN E 724.2 BACK PAIN, LOWER 01/02/2011 NIEVES DO, EMILE K 599.0 URINARY TRACT INFECTION 01/02/2011 NIEVES DO, EMILE K 724.2 BACK PAIN, LOWER 01/02/2011 NIEVES DO, EMILE K 599.0 URINARY TRACT INFECTION 01/02/2011 NIEVES DO, EMILE K 724.2 BACK PAIN, LOWER 01/02/2011 NIEVES DO, EMILE K 599.0 URINARY TRACT INFECTION 01/02/2011 NIEVES DO, EMILE K 724.2 BACK PAIN, LOWER 01/05/2011 635.90 LEGALLY INDUCED UNSPECIFIED WITHOUT COMPLICATION 01/05/2011 789.09 ABDOMINAL PAIN OTHER SPECIFIED SITE 01/05/2011 795.04 ABNORMAL PAP - HGSIL 01/05/2011 V69.2 HIGH-RISK SEXUAL BEHAVIOR 01/05/2011 635.90 LEGALLY INDUCED UNSPECIFIED WITHOUT COMPLICATION 01/05/2011 789.09 ABDOMINAL PAIN OTHER SPECIFIED SITE 01/05/2011 795.04 ABNORMAL PAP - HGSIL 01/05/2011 V69.2 HIGH-RISK SEXUAL BEHAVIOR 01/05/2011 635.90 LEGALLY INDUCED UNSPECIFIED WITHOUT COMPLICATION 01/05/2011 789.09 ABDOMINAL PAIN OTHER SPECIFIED SITE 01/05/2011 795.04 ABNORMAL PAP - HGSIL 01/05/2011 V69.2 HIGH-RISK SEXUAL BEHAVIOR 01/05/2011 GABRIEL NIEVES DOA Dimitrios 635.90 LEGALLY INDUCED UNSPECIFIED WITHOUT COMPLICATION 01/05/2011 GABRIEL NIEVES DOA Dimitrios 789.09 ABDOMINAL PAIN OTHER SPECIFIED SITE 01/05/2011 GABRIEL NIEVES DOA Dimitrios 795.04 ABNORMAL PAP - HGSIL 01/05/2011 GABRIEL NIEVES DOA Dimitrios V69.2 HIGH-RISK SEXUAL BEHAVIOR 01/05/2011 GABRIEL NIEVES DOA K 635.90 LEGALLY INDUCED UNSPECIFIED WITHOUT COMPLICATION 01/05/2011 GABRIEL NIEVES DOA K 789.09 ABDOMINAL PAIN OTHER SPECIFIED SITE 01/05/2011 EMILE NIEVES DO 795.04 ABNORMAL PAP - HGSIL 01/05/2011 GABRIEL NIEVES DOA K V69.2 HIGH-RISK SEXUAL BEHAVIOR 01/05/2011 GABRIEL NIEVES DOA K 635.90 LEGALLY INDUCED UNSPECIFIED WITHOUT COMPLICATION 01/05/2011 GABRIEL NIEVES DOA Dimitrios 789.09 ABDOMINAL PAIN OTHER SPECIFIED SITE 01/05/2011 GABRIEL NIEVES DOA K 795.04 ABNORMAL PAP - HGSIL 01/05/2011 NIEVES DO EMILE K V69.2 HIGH-RISK SEXUAL BEHAVIOR 01/05/2011 ARABELLA CARLOS APRN 635.90 LEGALLY INDUCED UNSPECIFIED WITHOUT COMPLICATION 01/05/2011 ARABELLA CARLOS APRN E 789.09 ABDOMINAL PAIN OTHER SPECIFIED SITE 01/05/2011 ARABELLA CARLOS APRN 795.04 ABNORMAL PAP - HGSIL 01/05/2011 ARABELLA CARLOS APRN V69.2 HIGH-RISK SEXUAL BEHAVIOR 01/05/2011 NIEVES DO, EMILE K 635.90 LEGALLY INDUCED UNSPECIFIED WITHOUT COMPLICATION 01/05/2011 NIEVES DO, EMILE K 789.09 ABDOMINAL PAIN OTHER SPECIFIED SITE 01/05/2011 NIEVES DO, EMILE K 795.04 ABNORMAL PAP - HGSIL 01/05/2011 NIEVES DO, EMILE K V69.2 HIGH-RISK SEXUAL BEHAVIOR 01/05/2011 NIEVES DO, EMILE K 635.90 LEGALLY INDUCED UNSPECIFIED WITHOUT COMPLICATION 01/05/2011 NIEVES DO, EMILE K 789.09 ABDOMINAL PAIN OTHER SPECIFIED SITE 01/05/2011 NIEVES DO, EMILE K 795.04 ABNORMAL PAP - HGSIL 01/05/2011 NIEVES DO, EMILE K V69.2 HIGH-RISK SEXUAL BEHAVIOR 01/05/2011 NIEVES DO, EMILE K 635.90 LEGALLY INDUCED UNSPECIFIED WITHOUT COMPLICATION 01/05/2011 NIEVES DO, EMILE K 789.09 ABDOMINAL PAIN OTHER SPECIFIED SITE 01/05/2011 NIEVES DO EMILE K 795.04 ABNORMAL PAP - HGSIL 01/05/2011 NIEVES DO, EMILE K V69.2 HIGH-RISK SEXUAL BEHAVIOR 01/26/2011 784.1 THROAT PAIN 01/26/2011 784.1 THROAT PAIN 01/26/2011 784.1 THROAT PAIN 01/26/2011 NIEVES DO, EMILE K 784.1 THROAT PAIN 01/26/2011 NIEVES DO, EMILE K 784.1 THROAT PAIN 01/26/2011 NIEVES DO, EMILE K 784.1 THROAT PAIN 01/26/2011 ARABELLA CARLOS APRN 784.1 THROAT PAIN 01/26/2011 NIEVES DO, EMILE K 784.1 THROAT PAIN 01/26/2011 NIEVES DO, EMILE K 784.1 THROAT PAIN 01/26/2011 NIEVES DO, EMILE K 784.1 THROAT PAIN 01/28/2011 795.01 ABNORMAL PAP - ASCUS 01/28/2011 795.01 ABNORMAL PAP - ASCUS 01/28/2011 795.01 ABNORMAL PAP - ASCUS 01/28/2011 NIEVES DO, EMILE K 795.01 ABNORMAL PAP - ASCUS 01/28/2011 NIEVES DO, EMILE K 795.01 ABNORMAL PAP - ASCUS 01/28/2011 NIEVES DO, EMILE K 795.01 ABNORMAL PAP - ASCUS 01/28/2011 HELLWIG SPECIAL SERVICES AGENTGABRIELARABELLA E 795.01 ABNORMAL PAP - ASCUS 01/28/2011 NIEVES DO, EMILE K 795.01 ABNORMAL PAP - ASCUS 01/28/2011 NIEVES DO, EMILE K 795.01 ABNORMAL PAP - ASCUS 01/28/2011 NIEVES DO, EMILE K 795.01 ABNORMAL PAP - ASCUS 06/04/2011 788.1 pain during urination (dysuria) 06/04/2011 788.41 URINARY FREQUENCY 06/04/2011 788.63 URINARY URGENCY 06/04/2011 788.1 pain during urination (dysuria) 06/04/2011 788.41 URINARY FREQUENCY 06/04/2011 788.63 URINARY URGENCY 06/04/2011 788.1 pain during urination (dysuria) 06/04/2011 788.41 URINARY FREQUENCY 06/04/2011 788.63 URINARY URGENCY 06/04/2011 NIEVES DO, EMILE K 788.1 pain during urination (dysuria) 06/04/2011 NIEVES DO, EMILE K 788.41 URINARY FREQUENCY 06/04/2011 NIEVES DO, EMILE K 788.63 URINARY URGENCY 06/04/2011 NIEVES DO, EMILE K 788.1 pain during urination (dysuria) 06/04/2011 NIEVES DO, EMILE K 788.41 URINARY FREQUENCY 06/04/2011 NIEVES DO, EMILE K 788.63 URINARY URGENCY 06/04/2011 NIEVES DO, EMILE K 788.1 pain during urination (dysuria) 06/04/2011 NIEVES DO, EMILE K 788.41 URINARY FREQUENCY 06/04/2011 NIEVES DO, EMILE K 788.63 URINARY URGENCY 06/04/2011 [employer] AGENT ARABELLA E 788.1 pain during urination (dysuria) 06/04/2011 HELLW[employer] SERVICES AGENT ARABELLA E 788.41 URINARY FREQUENCY 06/04/2011 HELLWIG SPECIAL SERVICES AGENT ARABELLA E 788.63 URINARY URGENCY 06/04/2011 NIEVES DO, EMILE K 788.1 pain during urination (dysuria) 06/04/2011 NIEVES DO, EMILE K 788.41 URINARY FREQUENCY 06/04/2011 NIEVES DO, EMILE K 788.63 URINARY URGENCY 06/04/2011 NIEVES DO, EMILE K 788.1 pain during urination (dysuria) 06/04/2011 NIEVES DO, EMILE K 788.41 URINARY FREQUENCY 06/04/2011 NIEVES DO, EMILE K 788.63 URINARY URGENCY 06/04/2011 NIEVES DO, EMILE K 788.1 pain during urination (dysuria) 06/04/2011 NIEVES DOGABRIELA K 788.41 URINARY FREQUENCY 06/04/2011 NIEVES DO, EMILE K 788.63 URINARY URGENCY 10/15/2011 079.99 VIRAL SYNDROME 10/15/2011 079.99 VIRAL SYNDROME 10/15/2011 079.99 VIRAL SYNDROME 10/15/2011 NIEVES DO, EMILE K 079.99 VIRAL SYNDROME 10/15/2011 NIEVES DO, EMILE K 079.99 VIRAL SYNDROME 10/15/2011 NIEVES DO, EMILE K 079.99 VIRAL SYNDROME 10/15/2011 ARABELLA CARLOS APRN 079.99 VIRAL SYNDROME 10/15/2011 NIEVES DO EMILE K 079.99 VIRAL SYNDROME 10/15/2011 NIEVES DO, EMILE K 079.99 VIRAL SYNDROME 10/15/2011 NIEVES DO, EMILE K 079.99 VIRAL SYNDROME 11/02/2011 623.5 LEUKORRHEA NOT SPECIFIED INFECTIVE 11/02/2011 795.02 ABNORMAL PAP - ASCUS-H 11/02/2011 623.5 LEUKORRHEA NOT SPECIFIED INFECTIVE 11/02/2011 795.02 ABNORMAL PAP - ASCUS-H 11/02/2011 623.5 LEUKORRHEA NOT SPECIFIED INFECTIVE 11/02/2011 795.02 ABNORMAL PAP - ASCUS-H 11/02/2011 EMILE NIEVES DO 623.5 LEUKORRHEA NOT SPECIFIED INFECTIVE 11/02/2011 EMILE NIEVES DO 795.02 ABNORMAL PAP - ASCUS-H 11/02/2011 EMILE NIEVES DO 623.5 LEUKORRHEA NOT SPECIFIED INFECTIVE 11/02/2011 EMILE NIEVES DO 795.02 ABNORMAL PAP - ASCUS-H 11/02/2011 EMILE NIEVES DO 623.5 LEUKORRHEA NOT SPECIFIED INFECTIVE 11/02/2011 EMILE NIEVES DO 795.02 ABNORMAL PAP - ASCUS-H 11/02/2011 ARABELLA CARLOS APRN 623.5 LEUKORRHEA NOT SPECIFIED INFECTIVE 11/02/2011 ARABELLA CARLOS APRN 795.02 ABNORMAL PAP - ASCUS-H 11/02/2011 EZEQUIEL DO EMILE K 623.5 LEUKORRHEA NOT SPECIFIED INFECTIVE 11/02/2011 NIEVES DO, EMILE K 795.02 ABNORMAL PAP - ASCUS-H 11/02/2011 NIEVES DO, EMILE K 623.5 LEUKORRHEA NOT SPECIFIED INFECTIVE 11/02/2011 NIEVES DO, EMILE K 795.02 ABNORMAL PAP - ASCUS-H 11/02/2011 NIEVES DO, EMILE K 623.5 LEUKORRHEA NOT SPECIFIED INFECTIVE 11/02/2011 EZEQUIEL DO EMILE K 795.02 ABNORMAL PAP - ASCUS-H 11/17/2011 V76.2 Cervical Pap Smear 11/17/2011 V76.2 Cervical Pap Smear 11/17/2011 V76.2 Cervical Pap Smear 11/17/2011 EZEQUIEL DO EMILE K V76.2 Cervical Pap Smear 11/17/2011 NIEVES DO, EMILE K V76.2 Cervical Pap Smear 11/17/2011 NIEVES DO, EMILE K V76.2 Cervical Pap Smear 11/17/2011 ARABELLA CARLOS APRN V76.2 Cervical Pap Smear 11/17/2011 NIEVES DO, EMILE K V76.2 Cervical Pap Smear 11/17/2011 NIEVES DO, EMILE K V76.2 Cervical Pap Smear 11/17/2011 NIEVES DO, EMILE K V76.2 Cervical Pap Smear 01/27/2012 300.4 DYSTHYMIC DIS 01/27/2012 300.4 DYSTHYMIC DIS 01/27/2012 300.4 DYSTHYMIC DIS 01/27/2012 EZEQUIEL DO EMILE K 300.4 DYSTHYMIC DIS 01/27/2012 EZEQUIEL DO EMILE K 300.4 DYSTHYMIC DIS 01/27/2012 NIEVES DO EMILE K 300.4 DYSTHYMIC DIS 01/27/2012 ARABELLA CARLOS APRN 300.4 DYSTHYMIC DIS 01/27/2012 NIEVES DO EMILE K 300.4 DYSTHYMIC DIS 01/27/2012 NIEVES DO EMILE K 300.4 DYSTHYMIC DIS 01/27/2012 NIEVES DO, EMILE K 300.4 DYSTHYMIC DIS 03/01/2012 V25.02 Contraceptives 03/01/2012 V58.69 taking high- risk medication 03/01/2012 V25.02 Contraceptives 03/01/2012 V58.69 taking high- risk medication 03/01/2012 V25.02 Contraceptives 03/01/2012 V58.69 taking high- risk medication 03/01/2012 NIEVES DO, EMILE K V25.02 Contraceptives 03/01/2012 NIEVES DO, EMILE K V58.69 taking high-risk medication 03/01/2012 NIEVES DO, EMILE K V25.02 Contraceptives 03/01/2012 NIEVES DO, EMILE K V58.69 taking high-risk medication 03/01/2012 NIEVES DO, EMILE K V25.02 Contraceptives 03/01/2012 NIEVES DO, EMILE K V58.69 taking high-risk medication 03/01/2012 ARABELLA CARLOS APRN V25.02 Contraceptives 03/01/2012 ARABELLA CARLOS APRN V58.69 taking high-risk medication 03/01/2012 NIEVES DO, EMILE K V25.02 Contraceptives 03/01/2012 NIEVES DO, EMILE K V58.69 taking high-risk medication 03/01/2012 NIEVES DO, EMILE K V25.02 Contraceptives 03/01/2012 NIEVES DO, EMILE K V58.69 taking high-risk medication 03/01/2012 NIEVES DO, EMILE K V25.02 Contraceptives 03/01/2012 NIEVES DO, EMILE K V58.69 taking high-risk medication 03/29/2012 465.9 UPPER RESPIRATORY INFECTION 03/29/2012 465.9 UPPER RESPIRATORY INFECTION 03/29/2012 465.9 UPPER RESPIRATORY INFECTION 03/29/2012 NIEVES DO, EMILE K 465.9 UPPER RESPIRATORY INFECTION 03/29/2012 NIEVES DO, EMILE K 465.9 UPPER RESPIRATORY INFECTION 03/29/2012 NIEVES DO, EMILE K 465.9 UPPER RESPIRATORY INFECTION 03/29/2012 ARABELLA CARLOS APRN 465.9 UPPER RESPIRATORY INFECTION 03/29/2012 NIEVES DO, EMILE K 465.9 UPPER RESPIRATORY INFECTION 03/29/2012 NIEVES DO, EMILE K 465.9 UPPER RESPIRATORY INFECTION 03/29/2012 NIEVES DO, EMIEL K 465.9 UPPER RESPIRATORY INFECTION 05/02/2012 682.3 CELLULITIS AND ABSCESS OF UPPER ARM AND FOREARM 05/02/2012 682.3 CELLULITIS AND ABSCESS OF UPPER ARM AND FOREARM 05/02/2012 682.3 CELLULITIS AND ABSCESS OF UPPER ARM AND FOREARM 05/02/2012 EMILE NIEVES DO 682.3 CELLULITIS AND ABSCESS OF UPPER ARM AND FOREARM 05/02/2012 GABRIEL NIEVES DOA Dimitrios 682.3 CELLULITIS AND ABSCESS OF UPPER ARM AND FOREARM 05/02/2012 EMILE NIEVES DO K 682.3 CELLULITIS AND ABSCESS OF UPPER ARM AND FOREARM 05/02/2012 ARABELLA CARLOS APRN 682.3 CELLULITIS AND ABSCESS OF UPPER ARM AND FOREARM 05/02/2012 EMILE NIEVES DO 682.3 CELLULITIS AND ABSCESS OF UPPER ARM AND FOREARM 05/02/2012 EMILE NIEVES DO K 682.3 CELLULITIS AND ABSCESS OF UPPER ARM AND FOREARM 05/02/2012 EMILE NIEVES DO 682.3 CELLULITIS AND ABSCESS OF UPPER ARM AND FOREARM 05/25/2012 616.10 VAGINITIS VULVOVAGINITIS UNSPECIFIED 05/25/2012 616.10 VAGINITIS VULVOVAGINITIS UNSPECIFIED 05/25/2012 616.10 VAGINITIS VULVOVAGINITIS UNSPECIFIED 05/25/2012 EMILE NIEVES DO 616.10 VAGINITIS VULVOVAGINITIS UNSPECIFIED 05/25/2012 EMILE NIEVES DO 616.10 VAGINITIS VULVOVAGINITIS UNSPECIFIED 05/25/2012 EMILE NIEVES DO 616.10 VAGINITIS VULVOVAGINITIS UNSPECIFIED 05/25/2012 ARABELLA CARLOS APRN 616.10 VAGINITIS VULVOVAGINITIS UNSPECIFIED 05/25/2012 EMILE NIEVES DO K 616.10 VAGINITIS VULVOVAGINITIS UNSPECIFIED 05/25/2012 EMILE NIEVES DO K 616.10 VAGINITIS VULVOVAGINITIS UNSPECIFIED 05/25/2012 EMILE NIEVES DO K 616.10 VAGINITIS VULVOVAGINITIS UNSPECIFIED 08/02/2012 305.1 TOBACCO ABUSE 08/02/2012 788.99 OTHER SYMPTOMS INVOLVING URINARY SYSTEM 08/02/2012 305.1 TOBACCO ABUSE 08/02/2012 788.99 OTHER SYMPTOMS INVOLVING URINARY SYSTEM 08/02/2012 305.1 TOBACCO ABUSE 08/02/2012 788.99 OTHER SYMPTOMS INVOLVING URINARY SYSTEM 08/02/2012 NIEVES DO, EMILE K 305.1 TOBACCO ABUSE 08/02/2012 NIEVES DO, EMILE K 788.99 OTHER SYMPTOMS INVOLVING URINARY SYSTEM 08/02/2012 NIEVES DO, EMILE K 305.1 TOBACCO ABUSE 08/02/2012 NIEVES DO, EMILE K 788.99 OTHER SYMPTOMS INVOLVING URINARY SYSTEM 08/02/2012 NIEVES DO, EMILE K 305.1 TOBACCO ABUSE 08/02/2012 NIEVES DO, EMILE K 788.99 OTHER SYMPTOMS INVOLVING URINARY SYSTEM 08/02/2012 [employer], ARABELLA E 305.1 TOBACCO ABUSE 08/02/2012 [employer], ARABELLA E 788.99 OTHER SYMPTOMS INVOLVING URINARY SYSTEM 08/02/2012 NIEVES DO, EMILE K 305.1 TOBACCO ABUSE 08/02/2012 NIEVES DO, EMILE K 788.99 OTHER SYMPTOMS INVOLVING URINARY SYSTEM 08/02/2012 NIEVES DO, EMILE K 305.1 TOBACCO ABUSE 08/02/2012 NIEVES DO, EMILE K 788.99 OTHER SYMPTOMS INVOLVING URINARY SYSTEM 08/02/2012 NIEVES DO, EMILE K 305.1 TOBACCO ABUSE 08/02/2012 NIEVES DO, EMILE K 788.99 OTHER SYMPTOMS INVOLVING URINARY SYSTEM 02/14/2013 V25.09 CONTRACEPTIVE COUNSELING - GENERAL 02/14/2013 V73.81 HPV SCREENING 02/14/2013 V74.5 STD SCREEN 02/14/2013 V25.09 CONTRACEPTIVE COUNSELING - GENERAL 02/14/2013 V73.81 HPV SCREENING 02/14/2013 V74.5 STD SCREEN 02/14/2013 NIEVES DO EMILE K V25.09 CONTRACEPTIVE COUNSELING - GENERAL 02/14/2013 NIEVES DO, EMILE K V73.81 HPV SCREENING 02/14/2013 NIEEVS DO EMILE K V74.5 STD SCREEN 02/14/2013 NIEVES DO EMILE K V25.09 CONTRACEPTIVE COUNSELING - GENERAL 02/14/2013 NIEVES DO, EMILE K V73.81 HPV SCREENING 02/14/2013 NIEVES DO, EMILE K V74.5 STD SCREEN 02/14/2013 NIEVES DO EMILE K V25.09 CONTRACEPTIVE COUNSELING - GENERAL 02/14/2013 NIEVES DO, EMILE K V73.81 HPV SCREENING 02/14/2013 NIEVES DO, EMILE K V74.5 STD SCREEN 02/14/2013 PAMARABELLA NIELSEN APRN V25.09 CONTRACEPTIVE COUNSELING - GENERAL 02/14/2013 ARABELLA CARLOS APRN E V73.81 HPV SCREENING 02/14/2013 PAMARABELLA NIELSEN APRN V74.5 STD SCREEN 02/14/2013 NIEVES DO, EMILE K V25.09 CONTRACEPTIVE COUNSELING - GENERAL 02/14/2013 NIEVES DO, EMILE K V73.81 HPV SCREENING 02/14/2013 NIEVES DO, EMILE K V74.5 STD SCREEN 02/14/2013 NIEVES DO, EMILE K V25.09 CONTRACEPTIVE COUNSELING - GENERAL 02/14/2013 NIEVES DO, EMILE K V73.81 HPV SCREENING 02/14/2013 NIEVES DO, EMILE K V74.5 STD SCREEN 02/14/2013 NIEVES DO, EMILE K V25.09 CONTRACEPTIVE COUNSELING - GENERAL 02/14/2013 NIEVES DO, EMILE K V73.81 HPV SCREENING 02/14/2013 NIEVES DO, EMILE K V74.5 STD SCREEN 04/04/2013 461.9 SINUSITIS ACUTE 04/04/2013 466.0 BRONCHITIS, ACUTE 04/04/2013 NIEVES DO, EMILE K 461.9 SINUSITIS ACUTE 04/04/2013 NIEVES DO, EMILE K 466.0 BRONCHITIS, ACUTE 04/04/2013 NIEVES DO, EMILE K 461.9 SINUSITIS ACUTE 04/04/2013 NIEVES DO, EMILE K 466.0 BRONCHITIS, ACUTE 04/04/2013 NIEVES DO, EMILE K 461.9 SINUSITIS ACUTE 04/04/2013 NIEVES DO, EMILE K 466.0 BRONCHITIS, ACUTE 04/04/2013 PAMLARABELLA NIELSEN APRN 461.9 SINUSITIS ACUTE 04/04/2013 PAMARABELLA NIELSEN APRN 466.0 BRONCHITIS, ACUTE 04/04/2013 NIEVES DO, EMILE K 461.9 SINUSITIS ACUTE 04/04/2013 NIEVES DO, EMILE K 466.0 BRONCHITIS, ACUTE 04/04/2013 NIEVES DO, EMILE K 461.9 SINUSITIS ACUTE 04/04/2013 NIEVES DO, EMILE K 466.0 BRONCHITIS, ACUTE 04/04/2013 NIEVES DO, EMILE K 461.9 SINUSITIS ACUTE 04/04/2013 EMILE NIEVES DO K 466.0 BRONCHITIS, ACUTE 09/29/2013 EMILE INEVES DO K 462 ACUTE PHARYNGITIS 09/29/2013 GABRIEL NIEVES DOA K 462 ACUTE PHARYNGITIS 09/29/2013 ARABELLA CARLOS APRN 462 ACUTE PHARYNGITIS 09/29/2013 EMILE NIEVES DO K 462 ACUTE PHARYNGITIS 09/29/2013 GABRIEL NIEVES DOA K 462 ACUTE PHARYNGITIS 09/29/2013 NIEVES GABRIEL WHITT[place]A K 462 ACUTE PHARYNGITIS 11/08/2013 GABRIEL NIEVES DOA K V25.01 GENERAL COUNSELING ON PRESCRIPTION OF ORAL CONTRACEPTIVES 11/08/2013 ARABELLA CARLOS APRN V25.01 GENERAL COUNSELING ON PRESCRIPTION OF ORAL CONTRACEPTIVES 11/08/2013 EMILE NIEVES DO V25.01 GENERAL COUNSELING ON PRESCRIPTION OF ORAL CONTRACEPTIVES 11/08/2013 EMILE NIEVES DO V25.01 GENERAL COUNSELING ON PRESCRIPTION OF ORAL CONTRACEPTIVES 11/08/2013 EMILE NIEVES DO K V25.01 GENERAL COUNSELING ON PRESCRIPTION OF ORAL CONTRACEPTIVES 12/15/2013 ARABELLA CARLOS APRN 625.9 UNSPECIFIED SYMPTOM ASSOCIATED WITH FEMALE GENITAL ORGANS 12/15/2013 EMILE NIEVES DO 625.9 UNSPECIFIED SYMPTOM ASSOCIATED WITH FEMALE GENITAL ORGANS 12/15/2013 EMILE NIEVES DO K 625.9 UNSPECIFIED SYMPTOM ASSOCIATED WITH FEMALE GENITAL ORGANS 12/15/2013 EMILE NIEVES DO 625.9 UNSPECIFIED SYMPTOM ASSOCIATED WITH FEMALE GENITAL ORGANS 01/30/2014 EMILE NIEVES DO 611.79 OTHER SIGNS AND SYMPTOMS IN BREAST 01/30/2014 EMILE NIEVES DO 611.79 OTHER SIGNS AND SYMPTOMS IN BREAST Procedures Code [place] [address] GC/CHLAM PROBE (STATE) 02/14/2013 77654 PAP SMEAR 02/14/2013 Q0091 PAP SMEAR OBTAIN SMEAR 02/14/2013 02195 URINE TEST (IN- HOUSE) 02/14/2013 19849 TRICHOMONAS (IN-HOUSE) 02/14/2013 95210 CULTURE UROGENITAL 02/15/2013 63687 STREP A (IN-HOUSE) 09/29/2013 96787 TEST, URINE (IN- HOUSE) 11/08/2013 44670 UA LONG DIP 11/08/2013 87191 GC/CHLAM URINE (STATE) 11/08/2013 12551 TEST, URINE (IN- HOUSE) 12/15/2013 15980 UA LONG DIP 12/15/2013 40359 CULTURE UROGENITAL 12/16/2013 54741 ROUTINE VENIPUNCTURE 12/18/2013 51857 US PELVIC COMPL (REFLEX CPT - 73659) 12/18/2013 16028 HCV QUANTITATIVE RNA BY PCR 12/18/2013 64677 US BREAST(S) ULTRASOUND, BOTH 01/30/2014 57307 CULTURE WOUND (AEROBIC) 02/03/2014 42832 UA LONG DIP 03/21/2014 18726 CULTURE URINE 03/21/2014 10987 GC/CHLAM URINE (STATE) 03/21/2014 Results Test Result Range CULTURE, URINE - 08/13/17 13:01 CULTURE, URINE, ROUTINE SEE NOTE NRG Encounters ACCT No. Visit Date/Time Discharge Status Pt. Type Provider Facility Loc./Unit Complaint [id number] 03/21/2014 10:01:00 03/21/2014 23:59:59 CLS Outpatient EMILE NIEVES DO [id number] 01/30/2014 15:17:00 01/30/2014 23:59:59 CLS Outpatient EMILE NIEVES DO [id number] 12/18/2013 09:59:00 12/18/2013 23:59:59 CLS Outpatient EMILE NIEVES DO [id number] 12/15/2013 15:24:00 12/15/2013 23:59:59 CLS Outpatient ARABELLA CARLOS APRN [id number] 11/08/2013 10:20:00 11/08/2013 23:59:59 CLS Outpatient EMILE NIEVES DO [id number] 09/29/2013 15:34:00 09/29/2013 23:59:59 CLS Outpatient EMILE NIEVES DO [id number] 07/28/2013 15:12:00 07/28/2013 23:59:59 [place] [id number] 08/29/2012 16:01:00 08/29/2012 23:59:59 CLS Outpatient [id number] 04/04/2013 09:52:00 Document Registration [id number] 02/14/2013 10:13:00 Document Registration [id number] 09/28/2017 16:00:00 09/28/2017 23:59:59 [facility] Outpatient [facility] [place] [id number] 08/13/2017 12:40:00 Document Registration
[2019-01-02] MEDS ORDERED: NS IV 1000 ML 1,000 ML IV SCH (13:00)
[2019-01-02] MEDS ORDERED: CITA10TA12 (13:05)
[2019-01-02] MEDS ORDERED: ALPR0.5T (13:05)
[2019-01-02] MEDS ORDERED: [UNRECOGNIZED DRUG - OTHER] (13:05)
[2019-01-02 13:14] LABS: BASOPHILS # (AUTO) 0.1 10^3/uL (0.0-0.1); BASOPHILS % (AUTO) 1 % (0-10); EOSINOPHILS # (AUTO) 0.3 10^3/uL (0.0-0.3); EOSINOPHILS % (AUTO) 3 % (0-10); HEMATOCRIT 46 % (35-52); HEMOGLOBIN 15.1 G/DL (11.5-16.0); LYMPHOCYTES # (AUTO) 2.4 X 10^3 (1.0-4.0); LYMPHOCYTES % (AUTO) 24 % (12-44); MEAN CORPUSCULAR HEMOGLOBIN 30 PG (25-34); MEAN CORPUSCULAR HGB CONC 33 G/DL (32-36); MEAN CORPUSCULAR VOLUME 91 FL (80-99); MEAN PLATELET VOLUME 11.3 FL (7.4-10.4); MONOCYTES % (AUTO) 10 % (0-12); NEUTROPHILS # (AUTO) 6.2 X 10^3 (1.8-7.8); NEUTROPHILS % (AUTO) 62 % (42-75); PLATELET COUNT 241 10^3/uL (130-400); RED CELL DISTRIBUTION WIDTH 13.1 % (10.0-14.5)
[2019-01-02 13:35] LABS: ALANINE AMINOTRANSFERASE 53 U/L (0-55); ALBUMIN 4.5 GM/DL (3.2-4.5); ALKALINE PHOSPHATASE 115 U/L (40-136); BILIRUBIN,TOTAL 0.3 MG/DL (0.1-1.0); BUN/CREATININE RATIO 13; CALCIUM 10.7 MG/DL (8.5-10.1); CARBON DIOXIDE 27 MMOL/L (21-32); CHLORIDE 100 MMOL/L (98-107); CREATININE SERUM 0.78 MG/DL (0.60-1.30); GFR ESTIMATED > 60; GLUCOSE 107 MG/DL (70-105); POTASSIUM 3.7 MMOL/L (3.6-5.0); SODIUM 136 MMOL/L (135-145); TOTAL PROTEIN 7.9 GM/DL (6.4-8.2)
[2019-01-02 14:11] LABS: BILIRUBIN,URINE NEGATIVE (NEGATIVE); CLARITY,URINE CLEAR; COLOR,URINE YELLOW; GLUCOSE, URINE (UA) NEGATIVE (NEGATIVE); KETONES,URINE NEGATIVE (NEGATIVE); LEUKOCYTE ESTERASE ,URINE 1+ (NEGATIVE); NITRITE,URINE NEGATIVE (NEGATIVE); PH,URINE 7 (5-9); PROTEIN,URINE NEGATIVE (NEGATIVE); UROBILINOGEN,URINE NORMAL (NORMAL)
[2019-01-02] MEDS ORDERED: MECLIZINE 25 MG (ANTIVERT) TAB PO ONE (14:15)
[2019-01-02 14:21] LABS: BACTERIA,URINE FEW /HPF; RBC,URINE RARE /HPF
--- NOTE | 2019-01-02 14:36 | ED General ---
General Chief Complaint: Dizziness/Syncope Stated Complaint: LIGHT HEADED Nursing Triage Note: PT PRESENTS TO ER WITH COMPLAINT OF LIGHTHEADNESS AND DIZZINESS. PT STATES HER DIZZINESS STARTED WEDNESDAY MORNING. PT STATES SHE HAS HAD IT OFF AND ON SINCE. STATES SHE WAS TANNING, AND STOOD UP AND BECAME EXTREMELY LIGHTHEADED. Nursing Sepsis Screen: No Definite Risk Source of Information: Patient Exam Limitations: No Limitations History of Present Illness Date Seen by Provider: Jan 02, 2019 Time Seen by Provider: 12:57 Initial Comments 33-year-old female who presents to the emergency room with complaints of lightheadedness and dizziness that started 2 days ago. She's had intermittent dizziness on and off for the past 2 days. She denies nausea and vomiting. She reports that she witnessed hand on her lunch break and when she stood up from the bed she became extremely lightheaded. Timing/Duration: 2-3 Days Allergies and Home Medications Allergies Coded Allergies: Sulfa (Sulfonamide Antibiotics) (Verified Allergy, Unknown, 01/02/19) ciprofloxacin (Verified Allergy, Unknown, 01/02/19) Home Medications Meclizine HCl 25 Mg Tablet, 25 MG PO Q8H Prescribed by: SHYLA GREGORIO on 01/02/19 1442 Ondansetron HCl 4 Mg Tab, 4 MG PO Q4H PRN for NAUSEA/VOMITING-1ST LINE Prescribed by: SHYLA GREGORIO on 01/02/19 1442 Patient Home Medication List Home Medication List Reviewed: Yes Review of Systems Review of Systems Constitutional: see HPI, dizziness Cardiovascular: see HPI; No chest pain, No syncope All Other Systems Reviewed Negative Unless Noted: Yes Past Miqydpt-Bkubty-Pofosn Hx Past Med/Social Hx: Reviewed Nursing Past Med/Soc Hx Patient Social History Alcohol Use: Denies Use Recreational Drug Use: No Smoking Status: Current Everyday Smoker Type Used: Cigarettes Recent Foreign Travel: No Contact w/Someone Who Travel: No Recent Infectious Disease Expo: No Recent Hopitalizations: No Immunizations Up To Date Tetanus Booster (TDap): Unknown PED Vaccines UTD: Yes Seasonal Allergies Seasonal Allergies: No Past Medical History Surgeries: No Respiratory: No Cardiac: No Neurological: No 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 oz. 81.185570vx; BMI Method:Stated General Appearance: No Apparent Distress, WD/WN Eyes: Bilateral Eye Normal Inspection, Bilateral Eye PERRL, Bilateral Eye EOMI HEENT: PERRL/EOMI, TMs Normal, Normal ENT Inspection, Pharynx Normal Respiratory: Chest Non Tender, Lungs Clear, Normal Breath Sounds, No Accessory Muscle Use, No Respiratory Distress Cardiovascular: Regular Rate, Rhythm, No Edema, No Gallop, No JVD, No Murmur, Normal Peripheral Pulses Extremity: Normal Capillary Refill Neurologic/Psychiatric: Alert, Oriented x3, Normal Mood/Affect Skin: Normal Color, Warm/Dry Progress/Results/Core Measures Suspected Sepsis Recent Fever Within 48 Hours: No Infection Criteria Present: None New/Unexplained Altered Menta: No Sepsis Screen: No Definite Risk SIRS Temperature:96.8 Pulse: 102 Respiratory Rate: 15 Laboratory Tests 01/02/19 13:05: White Blood Count 10.0 Blood Pressure 146 /88 Mean: 107 Laboratory Tests 01/02/19 13:05: Creatinine 0.78, Platelet Count 241, Total Bilirubin 0.3 Results/Orders Lab Results Laboratory Tests Test 01/02/19 13:05 01/02/19 14:06 Range/Units White Blood Count 10.0 4.3-11.0 10^3/uL Red Blood Count 5.10 4.35-5.85 10^6/uL Hemoglobin 15.1 11.5-16.0 G/DL Hematocrit 46 35-52 % Mean Corpuscular Volume 91 80-99 FL Mean Corpuscular Hemoglobin 30 25-34 PG Mean Corpuscular Hemoglobin Concent 33 32-36 G/DL Red Cell Distribution Width 13.1 10.0-14.5 % Platelet Count 241 130-400 10^3/uL Mean Platelet Volume 11.3 H 7.4-10.4 FL Neutrophils (%) (Auto) 62 42-75 % Lymphocytes (%) (Auto) 24 12-44 % Monocytes (%) (Auto) 10 0-12 % Eosinophils (%) (Auto) 3 0-10 % Basophils (%) (Auto) 1 0-10 % Neutrophils # (Auto) 6.2 1.8-7.8 X 10^3 Lymphocytes # (Auto) 2.4 1.0-4.0 X 10^3 Monocytes # (Auto) 1.0 0.0-1.0 X 10^3 Eosinophils # (Auto) 0.3 0.0-0.3 10^3/uL Basophils # (Auto) 0.1 0.0-0.1 10^3/uL Sodium Level 136 135-145 MMOL/L Potassium Level 3.7 3.6-5.0 MMOL/L Chloride Level 100 98-107 MMOL/L Carbon Dioxide Level 27 21-32 MMOL/L Anion Gap 9 5-14 MMOL/L Blood Urea Nitrogen 10 7-18 MG/DL Creatinine 0.78 0.60-1.30 MG/DL Estimat Glomerular Filtration Rate > 60 BUN/Creatinine Ratio 13 Glucose Level 107 H 70-105 MG/DL Calcium Level 10.7 H 8.5-10.1 MG/DL Corrected Calcium 10.3 H 8.5-10.1 MG/DL Total Bilirubin 0.3 0.1-1.0 MG/DL Aspartate Amino Transf (AST/SGOT) 31 5-34 U/L Alanine Aminotransferase (ALT/SGPT) 53 0-55 U/L Alkaline Phosphatase 115 40-136 U/L Total Protein 7.9 6.4-8.2 GM/DL Albumin 4.5 3.2-4.5 GM/DL Urine Color YELLOW Urine Clarity CLEAR Urine pH 7 5-9 Urine Specific [place] 1.010 L 1.016-1.022 Urine Protein NEGATIVE NEGATIVE Urine Glucose (UA) NEGATIVE NEGATIVE Urine Ketones NEGATIVE NEGATIVE Urine Nitrite NEGATIVE NEGATIVE Urine Bilirubin NEGATIVE NEGATIVE Urine Urobilinogen NORMAL NORMAL MG/DL Urine Leukocyte Esterase 1+ H NEGATIVE Urine RBC (Auto) NEGATIVE NEGATIVE Urine RBC RARE /HPF Urine WBC 2-5 /HPF Urine Squamous Epithelial Cells 5-10 /HPF Urine Crystals NONE /LPF Urine Bacteria FEW H /HPF Urine Casts NONE /LPF Urine Mucus NEGATIVE /LPF Urine Culture Indicated NO My Orders Orders - SHYLA GREGORIO Comprehensive Metabolic Panel (01/02/19 12:55) Ua Culture If Indicated (01/02/19 12:55) Saline Lock/Iv-Start (01/02/19 12:55) Cbc With Automated Diff (01/02/19 12:55) Ns Iv 1000 Ml (Sodium Chloride 0.9%) (01/02/19 13:00) Ekg Tracing (01/02/19 12:55) Meclizine Tablet (Antivert Tablet) (01/02/19 14:15) Medications Given in ED Current Medications Medications Dose Ordered Sig/Amara Route Start Time Stop Time Status Last Admin Dose Admin Meclizine HCl 25 mg ONCE ONCE PO 01/02/19 14:15 01/02/19 14:16 DC 01/02/19 14:18 25 MG Vital Signs/I&O 01/02/19 01/02/19 12:45 15:00 Temp 96.8 Pulse 102 92 Resp 15 14 B/P (MAP) 146/88 (107) 134/84 (101) Pulse Ox 98 99 O2 Delivery Room Air Room Air Capillary Refill : Less Than 3 Seconds Blood Pressure Mean: 107 Progress Note : Time: 14:33 Progress Note I have seen and evaluated the patient. Her orthostatic blood pressures did not change from lying sitting or standing. [place]-Hallpike maneuver was performed and she did elicit increasing dizziness when her head was turned towards the right. Nystagmus is not noted. She will be treated with meclizine and home maneuver paperwork was provided. She agrees with plan of care, plans for discharge, return precautions were given. Departure Impression Primary Impression: Vertigo Additional Impression: Benign paroxysmal positional vertigo Qualified Codes: H81.11 - Benign paroxysmal vertigo, right ear Disposition: 01 HOME, SELF-CARE Condition: Stable/Unchanged Departure-Patient Inst. Decision time for Depature: 14:33 Patient Instructions: Vertigo (a Type of Dizziness) (DC) Add. Discharge Instructions: Take medications as directed. You may use the exercises that were provided for you to attempt to treat your vertigo. Return back to the emergency room for worsening symptoms or concerns as needed. Follow-up with her primary care provider within 1 week for recheck. All discharge instructions reviewed with patient and/or family. Voiced understanding. Scripts Meclizine HCl (Meclizine HCl) 25 Mg Tablet 25 MG PO Q8H, #10 TAB Prov: SHYLA GREGORIO 01/02/19 Ondansetron HCl (Zofran) 4 Mg Tab 4 MG PO Q4H PRN for NAUSEA/VOMITING-1ST LINE, #14 TAB Prov: SHYLA GREGORIO 01/02/19 SHYLA GREGORIO Jan 02, 2019 14:35
[2019-01-02] MEDS ORDERED: MECL-106 PO (14:42)
[2019-01-02] MEDS ORDERED: ONDN4T PO (14:42)
[2019-01-02 15:00] VITALS: BP 134/84
== END 2019-01-02 15:00 | disposition home or self-care (01) ==
LOC: EDUNIT# 12:45 → ER 12:46
DX: R42 Dizziness and giddiness (principal); H81.11 Benign paroxysmal vertigo, right ear; F41.9 Anxiety disorder, unspecified; F17.210 Nicotine dependence, cigarettes, uncomplicated; Z97.5 Presence of (intrauterine) contraceptive device; Z88.2 Allergy status to sulfonamides; Z88.1 Allergy status to other antibiotic agents
CPT/HCPCS: 36415; 80053; 81000; 85025; 93005

== ENCOUNTER → 2019-01-25 | Outpatient (CLI) | payer OTHER ==
[~2019-01-25] MED LIST: ALPR0.5T; CITA10TA12; MECL-106 PO; ONDN4T PO; [UNRECOGNIZED DRUG - OTHER]
--- NOTE | 2019-01-25 11:09 | Diagnostic Imaging Report ---
PROCEDURE: US Gallbladder. TECHNIQUE: Multiple real-time grayscale images were obtained over the right upper quadrant in various projections. INDICATION: Abdominal pain. FINDINGS: The liver is normal in size at 15 cm. No discrete liver mass is identified. Portal vein is patent and shows normal direction of flow. Gallbladder is without stones or sludge. No wall thickening or biliary duct dilatation is seen. The visualized pancreas is unremarkable. Right kidney is unremarkable. There is no ascites. IMPRESSION: Unremarkable gallbladder ultrasound. Dictated by: Dictated on workstation # [id number]
== END ==
LOC: RAD 07:51
PROVIDERS: ATTEND Surgery
DX: R10.13 Epigastric pain (principal)
CPT/HCPCS: 76705

== ENCOUNTER → 2019-02-03 | Outpatient (CLI) | payer OTHER ==
[~2019-02-03] MED LIST changes: +CATHETER FLUSH 10 ML SYR IV PRN
--- NOTE | 2019-02-03 18:39 | Diagnostic Imaging Report ---
INDICATION: Epigastric pain. EXAMINATION: Patient received 5.2 mCi Tc 99m Choletec with sequential imaging over the abdomen performed. At the 45 minute interval, gallbladder stimulation was performed with patient ingestion of a fatty meal with additional imaging and gallbladder ejection fraction quantified. FINDINGS: Uptake throughout the liver appears unremarkable. There is rapid excretion of radiopharmacy through the intrahepatic and extrahepatic bile ducts spilling into the proximal bowel. Activity began to accumulate within the gallbladder at the 30 minute interval. With gallbladder stimulation, there was very minimal gallbladder ejection. Calculated ejection fraction is 24% by the 1 hour interval, visually it may be even less. IMPRESSION: 1. Diminished gallbladder ejection calculated at 24%. This may overstate the true ejection. 2. No evidence for cystic or common duct obstruction, however. Dictated by: Dictated on workstation # [id number]
== END ==
LOC: CARD 08:33
PROVIDERS: ATTEND Surgery
DX: R10.13 Epigastric pain (principal)
CPT/HCPCS: 78227

== ENCOUNTER 2019-02-08 05:35 | Outpatient (CLI) | payer OTHER ==
[~2019-02-08] VITALS: Ht 168.9 cm; Wt 84.8 kg
[~2019-02-08 05:35] MED LIST changes: -ALPR0.5T; +ALPR0.5T PO; -CATHETER FLUSH 10 ML SYR IV PRN
[2019-02-08] MEDS ORDERED: CITA40TA19 PO (08:57)
[2019-02-09] MEDS ORDERED: METR500T PO (08:25)
[2019-02-09] MEDS ORDERED: DOCU-143 PO (09:41)
[2019-02-09] MEDS ORDERED: ACHD5005 PO (09:41)
== END 2019-02-08 09:18 | disposition home or self-care (01) ==
LOC: PREOP 05:35
PROVIDERS: ATTEND Surgery
DX: Z01.818 Encounter for other preprocedural examination (principal)

== ENCOUNTER 2019-02-09 06:59 | Day surgery (SDC) | payer OTHER ==
[~2019-02-09] VITALS: Ht 168.9 cm; Wt 84.8 kg
[~2019-02-09 06:59] MED LIST changes: +CITA40TA19 PO
--- OUTSIDE RECORDS SUMMARY | 2019-02-09 07:05 | XMS REPORT ---
Author Author Migration, Doctor Organization [facility] Address Unknown Phone Unavailable Care Team Providers Care Dance Master Name Role Phone Migration, Doctor Unavailable Unavailable PROBLEMS Type Condition ICD9-CM Code EVQ23-JN Code Onset Dates Condition Status SNOMED Code Problem Encounter for long-term (current) use of other medications V58.69 Active 872441221 Problem Screening examination for venereal disease V74.5 Active 330555053 Problem General counseling for initiation of other contraceptive measures V25.02 Active 472549070080764 Problem Other general counseling and advice for contraceptive management V25.09 Active 668342524 Problem Special screening examination, human papillomavirus [HPV] V73.81 Active 859475732 Problem General counseling for prescription of oral contraceptives V25.01 Active 884292701202389 Problem Other symptoms involving urinary system 788.99 Active 023113973 Problem Papanicolaou smear of cervix with atypical squamous cells cannot exclude high grade squamous intraepithelial lesion (ASC-H) 795.02 Active 867174583 Problem Leukorrhea, not specified as infective 623.5 Active 183947812 Problem Other sign and symptom in breast 611.79 Active 530488590 Problem Unspecified vaginitis and vulvovaginitis 616.10 Active 952896175 Problem Nondependent tobacco use disorder 305.1 Active 399846589 Problem Unspecified symptom associated with female genital organs 625.9 Active 343005092 Problem Dysthymic disorder 300.4 Active 86486926 Problem Cellulitis and abscess of upper arm and forearm 682.3 Active 250591551 Problem Screening for malignant neoplasm of the cervix V76.2 Active 993732700 Problem Acute bronchitis 466.0 Active 79052919 Problem Acute upper respiratory infections of unspecified site 465.9 Active 80182246 Problem Acute pharyngitis 462 Active 940642292 Problem Acute sinusitis, unspecified 461.9 Active 56802641 ALLERGIES No Information ENCOUNTERS Encounter Location Date Diagnosis [facility] 120 [facility] [id number] [place] [id number] Oct, [facility] [id number] [place] [address] [id number] Sep, Acute cystitis with hematuria N30.01 [facility] [place] [id number] [place] [address] [id number] Aug, Dysuria R30.0 ; Vaginal odor N89.8 ; Nausea R11.0 and CVA tenderness M54.9 [facility] [place] [id number] [place] [address] [id number] Jun, Vaginal irritation N89.8 and Vaginal odor N89.8 [facility] [id number] [place] [address] 46672- 2826 Jan, [facility] [address] [address]- [address] Jan, [facility] [place] [id number] [place] [address] [id number] Oct, [facility] [id number] [place] [address] 92315- 2326 Oct, [facility] [id number] [place] [address] 10553- 5254 Aug, [facility] [id number] [place] [address] 37554- 8176 March, [facility] [place] [id number] [place] [address] [id number] March, [facility] [id number] [place] [address] 63455- 7016 March, [facility] [id number] [place] [address] 36578- 2546 March, [facility] [id number] [place] [address] [id number] March, [facility] [id number] [place] [address] [id number] March, [facility] [id number] [place] [address] 06095- 9166 March, [facility] [address] [id number] [address] 0130 March, [facility] [place] [address] [facility] [id number], [place] [id number] Jan, [facility] [place] [facility] [address] [id number], [place] [address]- 7909 Jan, [facility] [place] [facility] [address]00565[address], [place] [address] 254 Jan, [facility] [place] [address] [id number], [place] [id number] Jan, [facility] [place] [facility] [address]00565100[place], [place] [address]- 2314 Jan, [facility] [place] [facility] [address]00565[address], [place] [address]- 8695 Dec, [facility] [place] [id number], [place] [address] Dec, [facility] [place] [facility] [address]00565[address], [place] [address]- 2716 Dec, [facility] [place] [id number], [place] [id number] Dec, [facility] [place] [facility] [address]00565100[place], [place] [address]- 3854 Dec, [facility] [place] [facility] [address]00565100[place], [place] [address]- 1402 Dec, [facility] [place] [id number], [place] [address] Dec, [facility] [place] [facility] [address] [id number], [place] [address]- 2875 Dec, [facility] [place] [id number], [place] [address] Dec, [facility] [place] [facility] [address]00565100[place], [place] [address]- 4433 Dec, [facility] [place] [facility] [address] [place] [address] 90151- 7863 Nov, [facility] [address] [facility] [id number], [place] [address]- 9524 Nov, [facility] [place] [facility] [address] [facility] [id number], [place] [address]- 7526 Nov, [facility] [address] [facility] [id number], [place] [address]- 6453 Nov, [facility] [place] [address] [id number], [place] [address]64430784 Nov, [facility] [place] [facility] [address] [facility] [id number], [place] [address]- 3338 Nov, [facility] [place] [address] [id number], [place] [id number] Nov, [facility] [address]00565100[place], [place] [address]- 4521 Nov, [facility] [place] [address] [id number], [place] 647836045 Oct, [facility] [address] [id number], [place] [address]- 0383 Oct, [facility] [place] [address] [id number], [place] [id number] Sep, [facility] [address] [id number], [place] [address]- 3143 Sep, [facility] [place] [address] [id number], [place] 368230594 Sep, [facility] [place] [facility] [address] [facility] [id number], [place] [address]- 3626 Sep, [facility] [place] [address] [id number], [place] 950431138 Jul, [facility] [place] [address] [id number], [place] 828364120 Jun, [facility] [place] [address] [id number], [place] 801498551 Jun, [facility] [place] [address] [id number], [place] 450120854 Apr, [facility] [place] [address] [id number] [place] [address] March, [facility] [place] [address] [id number] [place] [address] Jan, [facility] [place] [facility] [address] [facility] [id number] [place]- 2499 Jan, [facility] [place] [facility] [address] [facility] [id number] [place]- 1867 Jan, [facility] [place] [facility] [address] [facility] [id number] [place] 0[place] 5353 Jan, [facility] [place] [facility] [address] [facility] [id number] [place] 432[place]- 7009 Jan, [facility] [place] [address] [id number] [place] [address] Jan, [facility] [place] [address] [id number] [place] [id number] Aug, [facility] [place] [address] [id number], [place] 800757263 Aug, [facility] [address] [facility] [id number] [place] [address]- 8826 Aug, [facility] [address] [facility] [id number], [place] [address]- 7305 Aug, [facility] [place] [address] [id number] [place] [address] Aug, [facility] [place] [address] [id number], [place] 681632225 May, [facility] [address] [facility] [id number] [place] [address]- 0068 May, [facility] [place] [address] [id number] [place] 50224[address] May, [facility] [place] [address] [id number], [place] 811528338 May, [facility] [place] [address] [id number], [place] 079237391 Apr, [facility] [place] [address] [id number] [place] 450[place]461 Apr, [facility] [place] [address] [id number] [place] 17839[address] March, [facility] [place] [address] [id number] [place] [id number] March, [facility] [place] [address] [id number] [place] [id number] March, [facility] [place] [address] [id number] [place] 3834[address] Dec, [facility] [place] [address] [id number] [place] 137[address]34816 Nov, [facility] [place] [address] [id number] [place] [address] Nov, [facility] [place] [facility] [address] [facility] [id number], [place] [address]- 8916 Nov, [facility] [place] [facility] [address] [facility] [id number], [place] [address]- 8046 Nov, [facility] [place] [facility] [address] [facility] [id number], [place] [address]- 5856 Nov, [facility] [place] [address] [id number] [place] 62925[place] Nov, [facility] [place] [address] [id number] [place] 923328866 Nov, [facility] [place] [facility] [address] [facility] [id number], [place] [address]- 2576 Nov, [facility] [place] [facility] [address] [facility] [id number], [place] [address]- 2956 Nov, [facility] [place] [facility] [address] [facility] [id number], [place] [address]- 1056 Nov, [facility] [place] [address] [id number] [place] [address] Nov, [facility] [place] [facility] [address] [facility] [id number], [place] [address]- 3346 Oct, [facility] [address]00565[address], [place] [address]- 9251 15 Oct, 2011 [facility] [address]00565[address], [place] [address]- 7321 29 Sep, 2011 [facility] [address]65100[place], [place] [address]- 6998 Sep, [facility] [id number] [place] [address] 51623- 9034 Dec, [facility] [id number] [place] [address] 80041- 6451 Sep, [facility] [id number] [place] [address] 90242- 2190 Sep, [facility] [address]65100[place], [place] [address]- 1111 Sep, [facility] [address]65[address], [place] [address]- 3637 Jun, IMMUNIZATIONS No Known Immunizations SOCIAL HISTORY Never Assessed [place]ASON FOR [place] [place] VITAL SIGNS MEDICATIONS Unknown Medications RESULTS No Results PROCEDURES No Known procedures INSTRUCTIONS MEDICATIONS ADMINISTERED No Known Medications MEDICAL (GENERAL) HISTORY Type Description Date Medical History depression Medical History tachycardia
--- OUTSIDE RECORDS SUMMARY | 2019-02-09 07:05 | XMS REPORT ---
Author Author Migration, Doctor Organization [facility] Address Unknown Phone Unavailable Care Team Providers Care Kitchen Aide Name Role Phone Migration, Doctor Unavailable Unavailable PROBLEMS Type Condition ICD9-CM Code VUE85-TC Code Onset Dates Condition Status SNOMED Code Problem Encounter for long-term (current) use of other medications V58.69 Active 462955747 Problem Screening examination for venereal disease V74.5 Active 482592298 Problem General counseling for initiation of other contraceptive measures V25.02 Active 594912762304480 Problem Other general counseling and advice for contraceptive management V25.09 Active 939855061 Problem Special screening examination, human papillomavirus [HPV] V73.81 Active 498438751 Problem General counseling for prescription of oral contraceptives V25.01 Active 585814771906603 Problem Other symptoms involving urinary system 788.99 Active 357783485 Problem Papanicolaou smear of cervix with atypical squamous cells cannot exclude high grade squamous intraepithelial lesion (ASC-H) 795.02 Active 381505104 Problem Leukorrhea, not specified as infective 623.5 Active 438676407 Problem Other sign and symptom in breast 611.79 Active 003833908 Problem Unspecified vaginitis and vulvovaginitis 616.10 Active 852118959 Problem Nondependent tobacco use disorder 305.1 Active 441812448 Problem Unspecified symptom associated with female genital organs 625.9 Active 692621674 Problem Dysthymic disorder 300.4 Active 82677194 Problem Cellulitis and abscess of upper arm and forearm 682.3 Active 545363036 Problem Screening for malignant neoplasm of the cervix V76.2 Active 845000726 Problem Acute bronchitis 466.0 Active 89061575 Problem Acute upper respiratory infections of unspecified site 465.9 Active 13368434 Problem Acute pharyngitis 462 Active 435369702 Problem Acute sinusitis, unspecified 461.9 Active 19713854 ALLERGIES No Information ENCOUNTERS Encounter Location Date Diagnosis [facility] 120 [facility] [id number] [place] [id number] Oct, [facility] [id number] [place] [address] [id number] Sep, Acute cystitis with hematuria N30.01 [facility] [place] [id number] [place] [address] [id number] Aug, Dysuria R30.0 ; Vaginal odor N89.8 ; Nausea R11.0 and CVA tenderness M54.9 [facility] [place] [id number] [place] [address] [id number] Jun, Vaginal irritation N89.8 and Vaginal odor N89.8 [facility] [id number] [place] [address] 31591- 3686 Jan, [facility] [address] [address]85- 7141 Jan, [facility] [place] [id number] [place] [address] [id number] Oct, [facility] [id number] [place] [address] 52567- 6706 Oct, [facility] [id number] [place] [address] 88073- 9208 Aug, [facility] [id number] [place] [address] 09563- 1496 March, [facility] [place] [id number] [place] [address] [id number] March, [facility] [id number] [place] [address] 06418- 9026 March, [facility] [id number] [place] [address] 48237- 2546 March, [facility] [address] [place] [address] [id number] March, [facility] [address] [place] [address] [id number] March, [facility] [id number] [place] [address] 34011- 1486 March, [facility] [address] [id number], [place] [address]- 8700 March, [facility] [place] [address] [facility] [id number], [place] [address]88 Jan, [facility] [place] [facility] [address] [id number], [place] [address]- 1231 Jan, [facility] [place] [facility] [address]00565100[place], [place] [address] 2549 Jan, [facility] [place] [address] [id number], [place] 88[address]59726 Jan, [facility] [place] [facility] [address]00565100[place], [place] [address]- 4995 Jan, [facility] [place] [facility] [address]00565100[place], [place] [address]- 1167 Dec, [facility] [place] [id number], [place] 284049304 Dec, [facility] [place] [facility] [address]00565100[place], [place] [address]- 0591 Dec, [facility] [place] [id number], [place] 859872586 Dec, [facility] [place] [facility] [address]00565100[place], [place] [address]- 0435 Dec, [facility] [place] [facility] [address]00565100[place], [place] [address]- 6443 Dec, [facility] [place] [id number], [place] 701341794 Dec, [facility] [place] [facility] [address] [id number], [place] [address]- 0760 Dec, [facility] [place] [id number], [place] 772318599 Dec, [facility] [place] [facility] [address]00565100[place], [place] [address]- 7542 Dec, [facility] [place] [facility] [address] [place] [address] 86442- 6338 Nov, [facility] [address] [facility] [id number], [place] [address]- 3214 Nov, [facility] [place] [facility] [address] [facility] [id number], [place] [address]- 4803 Nov, [facility] [address] [facility] [id number], [place] [address]- 6259 Nov, [facility] [place] [address] [id number], [place] 198042445 Nov, [facility] [place] [facility] [address] [facility] [id number], [place] [address]- 0296 Nov, [facility] [place] [address] [id number], [place] 424212526 Nov, [facility] [address]00565100[place], [place] [address]- 5402 Nov, [facility] [place] [address] [id number], [place] 535800650 Oct, [facility] [address] [id number], [place] [address]- 0931 Oct, [facility] [place] [address] [id number], [place] 773050312 Sep, [facility] [address] [id number], [place] [address]- 9777 Sep, [facility] [place] [address] [id number], [place] 796895870 Sep, [facility] [place] [facility] [address] [facility] [id number], [place] [address]- 5997 Sep, [facility] [place] [address] [id number], [place] 41[address]79[address] Jul, [facility] [place] [address] [id number], [place] 7[address]10821 Jun, [facility] [place] [address] [id number], [place] 390159658 Jun, [facility] [place] [address] [id number], [place] 635860463 Apr, [facility] [place] [address] [id number] [place] 18[place] March, [facility] [place] [address] [id number] [place] 107[address] Jan, [facility] [place] [facility] [address] [facility] [id number] [place]48[place]- 1921 Jan, [facility] [place] [facility] [address] [facility] [id number] [place] 33786289- 1527 Jan, [facility] [place] [facility] [address] [facility] [id number] [place] 87415879- 8528 Jan, [facility] [place] [facility] [address] [facility] [id number] [place] 91488717- 3230 Jan, [facility] [place] [address] [id number] [place] [address]311940 Jan, [facility] [place] [address] [id number] [place] 945944022 Aug, [facility] [place] [address] [id number], [place] 429044274 Aug, [facility] [address] [facility] [id number] [place] [address]- 4963 Aug, [facility] [address] [facility] [id number], [place] [address]- 3627 Aug, [facility] [place] [address] [id number] [place] 287[address]88[address] Aug, [facility] [place] [address] [id number], [place] 514894247 May, [facility] [address] [facility] [id number] [place] [address]- 2596 May, [facility] [place] [address] [id number] [place] [address]82607976 May, [facility] [place] [address] [id number], [place] 810973610 May, [facility] [place] [address] [id number], [place] 095871478 Apr, [facility] [place] [address] [id number] [place] 07[place] Apr, [facility] [place] [address] [id number] [place] 483039392 March, [facility] [place] [address] [id number] [place] 600847709 March, [facility] [place] [address] [id number] [place] 224124535 March, [facility] [place] [address] [id number] [place] 821467635 Dec, [facility] [place] [address] [id number] [place] 35[address]3828 Nov, [facility] [place] [address] [id number] [place] 108422617 Nov, [facility] [place] [facility] [address] [facility] [id number], [place] [address]- 1506 Nov, [facility] [place] [facility] [address] [facility] [id number], [place] [address]- 6836 Nov, [facility] [place] [facility] [address] [facility] [id number], [place] [address]- 1276 Nov, [facility] [place] [address] [id number] [place] 232614540 Nov, [facility] [place] [address] [id number] [place] [id number] Nov, [facility] [place] [facility] [address] [facility] [id number], [place] [address]- 2596 Nov, [facility] [place] [facility] [address] [facility] [id number], [place] [address]- 4726 Nov, [facility] [place] [facility] [address] [facility] [id number], [place] [address]- 1236 Nov, [facility] [place] [address] [id number] [place] 467106485 Nov, [facility] [place] [facility] [address] [facility] [id number], [place] [address] Oct, [facility] [id number] [address] 15 Oct, 2011 [facility] [id number], [place] [address] 29 Sep, 2011 [facility] [id number], [place] [address] Sep, [facility] [id number] [place] [id number] Dec, [facility] [id number] [place] [address] Sep, [facility] [id number] [place] [address] Sep, [facility] [id number], [place] [address] Sep, [facility] [id number], [place] [address] Jun, IMMUNIZATIONS No Known Immunizations SOCIAL HISTORY Never Assessed REASON FOR VISIT EMR[place] [place] OF CARE VITAL SIGNS MEDICATIONS Unknown Medications RESULTS No Results PROCEDURES No Known procedures INSTRUCTIONS MEDICATIONS ADMINISTERED No Known Medications MEDICAL (GENERAL) HISTORY Type Description Date Medical History depression Medical History tachycardia
--- OUTSIDE RECORDS SUMMARY | 2019-02-09 07:05 | XMS REPORT ---
Author Author Migration, Doctor Organization [facility] Address Unknown Phone Unavailable Care Team Providers Care Master Planner Name Role Phone Migration, Doctor Unavailable Unavailable PROBLEMS Type Condition ICD9-CM Code MEK79-US Code Onset Dates Condition Status SNOMED Code Problem Encounter for long-term (current) use of other medications V58.69 Active 150444566 Problem Screening examination for venereal disease V74.5 Active 097966277 Problem General counseling for initiation of other contraceptive measures V25.02 Active 883815594733111 Problem Other general counseling and advice for contraceptive management V25.09 Active 212481463 Problem Special screening examination, human papillomavirus [HPV] V73.81 Active 382242053 Problem General counseling for prescription of oral contraceptives V25.01 Active 761260661720865 Problem Other symptoms involving urinary system 788.99 Active 914941791 Problem Papanicolaou smear of cervix with atypical squamous cells cannot exclude high grade squamous intraepithelial lesion (ASC-H) 795.02 Active 228826183 Problem Leukorrhea, not specified as infective 623.5 Active 397587638 Problem Other sign and symptom in breast 611.79 Active 415877212 Problem Unspecified vaginitis and vulvovaginitis 616.10 Active 782655974 Problem Nondependent tobacco use disorder 305.1 Active 112101727 Problem Unspecified symptom associated with female genital organs 625.9 Active 147106687 Problem Dysthymic disorder 300.4 Active 73939461 Problem Cellulitis and abscess of upper arm and forearm 682.3 Active 558739623 Problem Screening for malignant neoplasm of the cervix V76.2 Active 291793843 Problem Acute bronchitis 466.0 Active 73947521 Problem Acute upper respiratory infections of unspecified site 465.9 Active 45582496 Problem Acute pharyngitis 462 Active 225148089 Problem Acute sinusitis, unspecified 461.9 Active 12252348 ALLERGIES No Information ENCOUNTERS Encounter Location Date Diagnosis [facility] 120 [facility] [id number] [place] [id number] Oct, [facility] [id number] [place] [address] [id number] Sep, Acute cystitis with hematuria N30.01 [facility] [place] [id number] [place] [address] [id number] Aug, Dysuria R30.0 ; Vaginal odor N89.8 ; Nausea R11.0 and CVA tenderness M54.9 [facility] [place] [id number] [place] [address] [id number] Jun, Vaginal irritation N89.8 and Vaginal odor N89.8 [facility] [id number] [place] [address]27- 1096 Jan, [facility] [address] [address]- [address] Jan, [facility] [place] [id number] [place] [address] [id number] Oct, [facility] [id number] [place] [address] 74914- [address] Oct, [facility] [id number] [place] [address] 72233- [address]37 Aug, [facility] [id number] [place] [address] 06616- 1266 March, [facility] [place] [id number] [place] [address] [id number] March, [facility] [id number] [place] [address] 99802- [address] March, [facility] [id number] [place] [address] 11001- 2546 March, [facility] [id number] [place] [address] [id number] March, [facility] [id number] [place] [address] [id number] March, [facility] [id number] [place] [address] 06239- 0916 March, [facility] [address] [id number] [address]- 7472 March, [facility] [place] [address] W [facility] [id number], [place] [id number] Jan, [facility] [place] [facility] [address] [id number] [address]- 2940 Jan, [facility] [place] [facility] [address]00565100[place] [address] 2542 Jan, [facility] [place] [address] [id number], [place] [address]23643[address] Jan, [facility] [place] [facility] [address]00565100[place] [address]- 4574 Jan, [facility] [place] [facility] [address]00565100[place] [address]- 0903 Dec, [facility] [place] [id number], [place] [id number] Dec, [facility] [place] [facility] [address]00565100[place] [address]- 1765 Dec, [facility] [place] [id number], [place] [id number] Dec, [facility] [place] [facility] [address]00565100[place] [address]- 5691 Dec, [facility] [place] [facility] [address]00565100[place] [address]- 4095 Dec, [facility] [place] [id number], [place] 026613524 Dec, [facility] [place] [facility] [address] [id number] [address]- 8117 Dec, [facility] [place] [id number], [place] [id number] Dec, [facility] [place] [facility] [address]00565100[place] [address]- 9153 Dec, [facility] [place] [facility] [address] [place] [address] 45869- 0162 Nov, [facility] [address] [facility] [id number] [place] [address]- 8687 Nov, [facility] [place] [facility] [address] [facility] [id number] [address]- 2856 Nov, [facility] [address] [facility] [id number] [place] [address]- 6754 Nov, [facility] [place] [address] [id number], [place] [id number] Nov, [facility] [place] [facility] [address] [facility] [id number] [place] [address]- 8123 Nov, [facility] [place] [address] [id number], [place] 188530871 Nov, [facility] [address]00565100[place] [address]- 2432 Nov, [facility] [place] [address] [id number], [place] [id number] Oct, [facility] [address] [id number] [address]- 8588 Oct, [facility] [place] [address] [id number], [place] [id number] Sep, [facility] [address] [id number] [address]- 6781 Sep, [facility] [place] [address] [id number], [place] [id number] Sep, [facility] [place] [facility] [address] [facility] [id number] [place] [address]- 7527 Sep, [facility] [place] [address] [id number], [place] [id number] Jul, [facility] [place] [address] [id number], [place] [id number] Jun, [facility] [place] [address] [id number], [place] [id number] Jun, [facility] [place] [address] [id number], [place] [id number] Apr, [facility] [place] [address] [id number] [place] [id number] March, [facility] [place] [address] [id number] [place] [id number] Jan, [facility] [place] [facility] [address] [facility] [id number] [place] [id number]- 9933 Jan, [facility] [place] [facility] [address] [facility] [id number] [place] [id number]- 0924 Jan, [facility] [place] [facility] [address] [facility] [id number] [place] [id number]- 7558 Jan, [facility] [place] [facility] [address] [facility] [id number] [place] [id number]- 4274 Jan, [facility] [place] [address] [id number] [place] [id number] Jan, [facility] [place] [address] [id number] [place] [id number] Aug, [facility] [place] [address] [id number], [place] [id number] Aug, [facility] [address] [facility] [id number] [place] [address]- 8014 Aug, [facility] [address] [facility] [id number] [place] [address]- 2199 Aug, [facility] [place] [address] [id number] [place] [id number] Aug, [facility] [place] [address] [id number], [place] [id number] May, [facility] [address] [facility] [id number] [place] [address]- 7775 May, [facility] [place] [address] [id number] [place] [id number] May, [facility] [place] [address] [id number], [place] [id number] May, [facility] [place] [address] [id number], [place] [id number] Apr, [facility] [place] [address] [id number] [place] [id number] Apr, [facility] [place] [address] [id number] [place] [id number] March, [facility] [place] [address] [id number] [place] [id number] March, [facility] [place] [address] [id number] [place] [id number] March, [facility] [place] [address] [id number] [place] [id number] Dec, [facility] [place] [address] [id number] [place] [id number] Nov, [facility] [place] [address] [id number] [place] [id number] Nov, [facility] [place] [facility] [address] [facility] [id number] [place] [address]- 6626 Nov, [facility] [place] [facility] [address] [facility] [id number] [place] [address]- 7286 Nov, [facility] [place] [facility] [address] [facility] [id number] [place] [address]- 3706 Nov, [facility] [place] [address] [id number] [place] [id number] Nov, [facility] [place] [address] [id number] [place] [id number] Nov, [facility] [place] [facility] [address] [facility] [id number] [place] [address]- 2506 Nov, [facility] [place] [facility] [address] [facility] [id number] [place] [address]- 0526 Nov, [facility] [facility] [address] [facility] [id number] [place] [address]- 4476 Nov, [facility] [place] [address] [id number] [place] [id number] Nov, [facility] [facility] [address] [facility] [id number] [place] [address]- 7376 Oct, [facility] [address] [id number] [address]- 2361 Oct, [facility] [address]00565100[place] 79655579- 2012 Sep, [facility] [address]00565100[place] [address]- 9009 Sep, [facility] [address]00565100[place] [address]- 0123 Dec, [facility] [address]00565100[place] [address]- 1018 Sep, [facility] [address]00565100[place] [address]- 1931 Sep, [facility] [address]00565100[place] [address]- 4291 Sep, [facility] [address]00565100[place] [address]- 8949 Jun, IMMUNIZATIONS No Known Immunizations SOCIAL HISTORY Never Assessed REASON FOR VISIT EMR-[facility] PLAN OF CARE VITAL SIGNS MEDICATIONS Medication Instructions Dosage Frequency Start Date End Date Duration Status Metronidazole 500 mg SI tab(s) orally 2 times a day for 7 day(s) Nov, Active Zithromax Z-Jorge 250 mg 2 tablet by Oral route 1 time per day for 5 days on day 1 then take 1 tab daily on days 2-5 Jul, Active Celexa 40 mg take 1 tablet by Oral route 1 time per day Oct, Active Bactrim DS 800-160 mg 1 tablet by Oral route 2 times per day for 10 day(s) May, Active Flagyl 500 mg 1 tablet by Oral route 2 times per day for 7 days May Active Cleocin T 1 % 1 kiana by Topical route 2 times per day Sep, Active Doxycycline Hyclate 100 mg 1 tablet by Oral route 2 times per day for 10 days Apr, Active RESULTS No Results PROCEDURES No Known procedures INSTRUCTIONS MEDICATIONS ADMINISTERED No Known Medications MEDICAL (GENERAL) HISTORY Type Description Date Medical History depression Medical History tachycardia
--- OUTSIDE RECORDS SUMMARY | 2019-02-09 07:06 | XMS REPORT ---
Author Author Migration, Doctor Organization [facility] Address Unknown Phone Unavailable Care Team Providers Care Fur Polisher Name Role Phone Migration, Doctor Unavailable Unavailable PROBLEMS Type Condition ICD9-CM Code GNV05-RS Code Onset Dates Condition Status SNOMED Code Problem Encounter for long-term (current) use of other medications V58.69 Active 770644142 Problem Screening examination for venereal disease V74.5 Active 909391832 Problem General counseling for initiation of other contraceptive measures V25.02 Active 761300789127687 Problem Other general counseling and advice for contraceptive management V25.09 Active 411913255 Problem Special screening examination, human papillomavirus [HPV] V73.81 Active 932630795 Problem General counseling for prescription of oral contraceptives V25.01 Active 663476703230457 Problem Other symptoms involving urinary system 788.99 Active 143494317 Problem Papanicolaou smear of cervix with atypical squamous cells cannot exclude high grade squamous intraepithelial lesion (ASC-H) 795.02 Active 488313211 Problem Leukorrhea, not specified as infective 623.5 Active 071302506 Problem Other sign and symptom in breast 611.79 Active 461577478 Problem Unspecified vaginitis and vulvovaginitis 616.10 Active 550249702 Problem Nondependent tobacco use disorder 305.1 Active 694487015 Problem Unspecified symptom associated with female genital organs 625.9 Active 273588352 Problem Dysthymic disorder 300.4 Active 67610417 Problem Cellulitis and abscess of upper arm and forearm 682.3 Active 764025726 Problem Screening for malignant neoplasm of the cervix V76.2 Active 307976664 Problem Acute bronchitis 466.0 Active 85210762 Problem Acute upper respiratory infections of unspecified site 465.9 Active 36436722 Problem Acute pharyngitis 462 Active 931156828 Problem Acute sinusitis, unspecified 461.9 Active 68556119 ALLERGIES No Information ENCOUNTERS Encounter Location Date Diagnosis [facility] 120 [facility] [id number] [id number] Oct, [facility] [id number] [place] [address] [id number] Sep, Acute cystitis with hematuria N30.01 [facility] [place] [id number] [place] [address] [id number] Aug, Dysuria R30.0 ; Vaginal odor N89.8 ; Nausea R11.0 and CVA tenderness M54.9 [facility] [place] [id number] [place] [address] [id number] Jun, Vaginal irritation N89.8 and Vaginal odor N89.8 [facility] [id number] [place] [address] 78719- 6926 Jan, [facility] [address] [address]- [address] Jan, [facility] [place] [id number] [place] [address] [id number] Oct, [facility] [id number] [place] [address] 63179- 8656 Oct, [facility] [id number] [place] [address] 63057- 4032 Aug, [facility] [id number] [place] [address] 11022- 1836 March, [facility] [place] [id number] [place] [address] [id number] March, [facility] [id number] [place] [address] 70764- 9516 March, [facility] [id number] [place] [address] 99277- 2546 March, [facility] [id number] [place] [address] [id number] March, [facility] [address] [place] [address] [id number] March, [facility] [id number] [place] [address] 79333- 1606 March, [facility] [address] [id number] [address]- 9862 March, [facility] [place] [address] [facility] [id number], [place] [id number] Jan, [facility] [place] [facility] [address] [id number] [address]- 4069 Jan, [facility] [place] [facility] [address]00565100[place], [place] [address] 2547 Jan, [facility] [place] [address] [id number], [place] 446371154 Jan, [facility] [place] [facility] [address]00565100[place], [place] [address]- 0845 Jan, [facility] [place] [facility] [address]00565100[place], [place] [address]- 5462 Dec, [facility] [place] [id number], [place] [id number] Dec, [facility] [place] [facility] [address]00565100[place], [place] [address]- 3192 Dec, [facility] [place] [id number], [place] [id number] Dec, [facility] [place] [facility] [address]00565100[place] [address]- 7212 Dec, [facility] [place] [facility] [address]005[address]100[place] [address]- 7320 Dec, [facility] [place] [id number], [place] [id number] Dec, [facility] [place] [facility] [address] [id number] [address]- 0864 Dec, [facility] [place] [id number], [place] [id number] Dec, [facility] [place] [facility] [address]100[place], [place] [address]- 0226 Dec, [facility] [place] [facility] [id number] [place] [address] 18421- 6221 Nov, [facility] [address] [facility] [id number] [address]- 7511 Nov, [facility] [place] [facility] [address] [facility] [id number] [address]- 7667 Nov, [facility] [address] [facility] [id number][place] [address]- 7133 Nov, [facility] [place] [address] [id number], [place] [id number] Nov, [facility] [place] [facility] [address] [facility] [id number] [address]- 4044 Nov, [facility] [place] [address] [id number], [place] [id number] Nov, [facility] [address]005[address]100[place] [address]- 6893 Nov, [facility] [place] [address] [id number], [place] 848478893 Oct, [facility] [address] [id number] [address]- 3540 Oct, [facility] [place] [address] [id number], [place] 516782214 Sep, [facility] [address] [id number] [address]- 3969 Sep, [facility] [place] [address] [id number], [place] [id number] Sep, [facility] [place] [facility] [address] [facility] [id number], [place] [address]- 0261 Sep, [facility] [place] [address] [id number], [place] [id number] Jul, [facility] [place] [address] [id number], [place] 153357384 Jun, [facility] [place] [address] [id number], [place] 675974282 Jun, [facility] [place] [address] [id number], [place] [id number] Apr, [facility] [place] [address] [id number] [place] [id number] March, [facility] [place] [address] [id number] [place] [id number] Jan, [facility] [place] [facility] [address] [facility] [id number] [place] 028880[place]- 9565 Jan, [facility] [place] [facility] [address] [facility] [id number] [place] 937[place]- 7164 Jan, [facility] [place] [facility] [address] [facility] [id number] [place] 17874618- 4284 Jan, [facility] [place] [facility] [address] [facility] [id number] [place] 13059534- 7799 Jan, [facility] [place] [address] [id number] [place] [id number] Jan, [facility] [place] [address] [id number] [place] [id number] Aug, [facility] [place] [address] [id number], [place] [id number] Aug, [facility] [address] [facility] [id number] [place] [address]- 6899 Aug, [facility] [address] [facility] [id number], [place] [address]- 9241 Aug, [facility] [place] [address] [id number] [place] [id number] Aug, [facility] [place] [address] [id number], [place] [id number] May, [facility] [address] [facility] [id number] [place] [address]- 9407 May, [facility] [place] [address] [id number] [place] [id number] May, [facility] [place] [address] [id number], [place] [id number] May, [facility] [place] [address] [id number], [place] 033743690 Apr, [facility] [place] [address] [id number] [place] 8[place]3417[address] Apr, [facility] [place] [address] [id number] [place] [id number] March, [facility] [place] [address] [id number] [place] [id number] March, [facility] [place] [address] [id number] [place] [id number] March, [facility] [place] [address] [id number] [place] 065137146 Dec, [facility] [place] [address] [id number] [place] [id number] Nov, [facility] [place] [address] [id number] [place] [id number] Nov, [facility] [address] [facility] [id number] [address] Nov, [facility] [address] [facility] [id number] [address] Nov, [facility] [address] [facility] [id number][place] [address] Nov, [facility] [place] [address] [id number] [place] [id number] Nov, [facility] [place] [address] [id number] [place] [id number] Nov, [facility] [address] [facility] [id number], [place] [address] Nov, [facility] [address] [facility] [id number], [place] [address] Nov, [facility] [address] [facility] [id number][place] [address] Nov, [facility] [place] [address] [id number] [place] [id number] Nov, [facility] [address] [facility] [id number][place] [address] Oct, [facility] [id number] [address] 15 Oct, 2011 [facility] [id number], [place] [address] 29 Sep, 2011 [facility] [id number], [place] [address] Sep, [facility] [id number] [place] [address] Dec, [facility] [id number] [place] [address] Sep, [facility] [id number] [place] [address] Sep, [facility] [id number], [place] [address] Sep, [facility] [id number], [place] [address] Jun, IMMUNIZATIONS No Known Immunizations SOCIAL HISTORY Never Assessed [place] [place] VITAL SIGNS MEDICATIONS Unknown Medications RESULTS No Results PROCEDURES No Known procedures INSTRUCTIONS MEDICATIONS ADMINISTERED No Known Medications MEDICAL (GENERAL) HISTORY Type Description Date Medical History depression Medical History tachycardia
--- OUTSIDE RECORDS SUMMARY | 2019-02-09 07:06 | XMS REPORT ---
Author Author Migration, Doctor Organization [facility] Address Unknown Phone Unavailable Care Team Providers Care Minister Assistant Name Role Phone Migration, Doctor Unavailable Unavailable PROBLEMS Type Condition ICD9-CM Code HBN62-VA Code Onset Dates Condition Status SNOMED Code Problem Encounter for long-term (current) use of other medications V58.69 Active 014700178 Problem Screening examination for venereal disease V74.5 Active 848667866 Problem General counseling for initiation of other contraceptive measures V25.02 Active 110015998580371 Problem Other general counseling and advice for contraceptive management V25.09 Active 190755683 Problem Special screening examination, human papillomavirus [HPV] V73.81 Active 253569582 Problem General counseling for prescription of oral contraceptives V25.01 Active 455415519177338 Problem Other symptoms involving urinary system 788.99 Active 013511226 Problem Papanicolaou smear of cervix with atypical squamous cells cannot exclude high grade squamous intraepithelial lesion (ASC-H) 795.02 Active 048244698 Problem Leukorrhea, not specified as infective 623.5 Active 970437437 Problem Other sign and symptom in breast 611.79 Active 861153097 Problem Unspecified vaginitis and vulvovaginitis 616.10 Active 246469753 Problem Nondependent tobacco use disorder 305.1 Active 097451329 Problem Unspecified symptom associated with female genital organs 625.9 Active 902922057 Problem Dysthymic disorder 300.4 Active 88518639 Problem Cellulitis and abscess of upper arm and forearm 682.3 Active 999440512 Problem Screening for malignant neoplasm of the cervix V76.2 Active 027914802 Problem Acute bronchitis 466.0 Active 91878270 Problem Acute upper respiratory infections of unspecified site 465.9 Active 39698757 Problem Acute pharyngitis 462 Active 026365516 Problem Acute sinusitis, unspecified 461.9 Active 78502052 ALLERGIES No Information ENCOUNTERS Encounter Location Date Diagnosis [facility] 120 [facility] [id number] [place] [id number] Oct, [facility] [id number] [place] [address] [id number] Sep, Acute cystitis with hematuria N30.01 [facility] [place] [id number] [place] [address] [id number] Aug, Dysuria R30.0 ; Vaginal odor N89.8 ; Nausea R11.0 and [address]A tenderness M54.9 [facility] [place] [id number] [place] [address] [id number] Jun, Vaginal irritation N89.8 and Vaginal odor N89.8 [facility] [id number] [place] [address] 09818- 2056 Jan, [facility] [address] [address] Jan, [facility] [place] [id number] [place] [address] [id number] Oct, [facility] [id number] [place] [address] 71676- 8276 Oct, [facility] [id number] [place] [address] 09557- 0392 Aug, [facility] [id number] [place] [address] 77734- 1886 March, [facility] [place] [id number] [place] [address] [id number] March, [facility] [id number] [place] [address] 78608- 7756 March, [facility] [id number] [place] [address] 60372- 2546 March, [facility] [id number] [place] [address] [id number] March, [facility] [address] [place] [address] [id number] March, [facility] [id number] [place] [address] 20321- 2446 March, [facility] [address] [id number] [address]- 0071 March, [facility] [place] [address] [facility] [id number][place] [id number] Jan, [facility] [place] [facility] [address] [id number], [place] [address]- 5774 Jan, [facility] [place] [facility] [address]005[address], [place] [address] 254 Jan, [facility] [place] [address] [id number], [place] [id number] Jan, [facility] [place] [facility] [address]00565[address], [place] [address]- 9287 Jan, [facility] [place] [facility] [address]00565[address], [place] [address]- 3573 Dec, [facility] [place] [id number], [place] 795230642 Dec, [facility] [place] [facility] [address]00565[address], [place] [address]- 8586 Dec, [facility] [place] [id number], [place] [id number] Dec, [facility] [place] [facility] [address]00565[address], [place] [address]- 4792 Dec, [facility] [place] [facility] [address]00565[address], [place] [address]- 5687 Dec, [facility] [place] [id number], [place] [id number] Dec, [facility] [place] [facility] [address] [id number], [place] [address]- 1609 Dec, [facility] [place] [id number], [place] [id number] Dec, [facility] [place] [facility] [address]00565100[place], [place] [address]- 3313 Dec, [facility] [place] [facility] [id number] [place] [address] 44819- 3038 Nov, [facility] [address] [facility] [id number], [place] [address]- 4111 Nov, [facility] [place] [facility] [address] [facility] [id number], [place] [address]- 8379 Nov, [facility] [address] [facility] [id number], [place] [address]- 6315 Nov, [facility] [place] [address] [id number], [place] [id number] Nov, [facility] [place] [facility] [address] [facility] [id number], [place] [address]- 4612 Nov, [facility] [place] [address] [id number], [place] 788195766 Nov, [facility] [address]00565100[place], [place] [address]- 7238 Nov, [facility] [place] [address] [id number], [place] [id number] Oct, [facility] [address] [id number], [place] [address]- 6007 Oct, [facility] [place] [address] [id number], [place] 958[place]012 Sep, [facility] [address] [id number], [place] [address]- 0002 Sep, [facility] [place] [address] [id number], [place] 810628083 Sep, [facility] [place] [facility] [address] [facility] [id number], [place] [address]- 3479 Sep, [facility] [place] [address] [id number], [place] [id number] Jul, [facility] [place] [address] [id number], [place] 688403394 Jun, [facility] [place] [address] [id number], [place] 885966971 Jun, [facility] [address] [id number], [place] [id number] Apr, [facility] [address] [id number] [place] [address] March, [facility] [address] [id number] [place] 143148498 Jan, [facility] [place] [facility] [address] [facility] [id number] [place] 234[place] 0467 Jan, [facility] [place] [facility] [address] [facility] [id number] [place] 118809[place]- 3123 Jan, [facility] [place] [facility] [address] [facility] [id number] [place] 062088[place]- 9888 Jan, [facility] [place] [facility] [address] [facility] [id number] [place] 54544[place]- 7746 Jan, [facility] [address] [id number] [place] [id number] Jan, [facility] [address] [id number] [place] [id number] Aug, [facility] [address] [id number], [place] 188762791 Aug, [facility] [address] [facility] [id number] [place] [address]- 2669 Aug, [facility] [address] [facility] [id number], [place] [address]- 1639 Aug, [facility] [place] [address] [id number] [place] [id number] Aug, [facility] [place] [address] [id number], [place] 740066235 May, [facility] [address] [facility] [id number] [place] [address]- 9102 May, [facility] [place] [address] [id number] [place] 545694377 May, [facility] [address] [id number], [place] 142592741 May, [facility] [address] [id number], [place] 521057123 Apr, [facility] [address] [id number] [place] 723411276 Apr, [facility] [place] [address] [id number] [place] 618[address] March, [facility] [place] [address] [id number] [place] 937[place]98[place] March, [facility] [address] [id number] [place] 638647374 March, [facility] [place] [address] [id number] [place] 176855283 Dec, [facility] [place] [address] [id number] [place] 559366381 Nov, [facility] [place] [address] [id number] [place] 612622931 Nov, [facility] [place] [facility] [address] [facility] [id number], [place] [address]- 8596 Nov, [facility] [place] [facility] [address] [facility] [id number] [address]- 2876 Nov, [facility] [place] [facility] [address] [facility] [id number], [place] [address]- 6346 Nov, [facility] [place] [address] [id number] [place] [id number] Nov, [facility] [address] [id number] [place] 230073594 Nov, [facility] [place] [facility] [address] [facility] [id number], [place] [address]- 9756 Nov, [facility] [place] [facility] [address] [facility] [id number], [place] [address]- 8906 Nov, [facility] [place] [facility] [address] [facility] [id number], [place] [address]- 8236 Nov, [facility] [address] [id number] [place] [id number] Nov, [facility] [place] [facility] [address] [facility] [id number], [place] [address]- 2956 Oct, [facility] [address]00565[address], [place] [address]- 4733 15 Oct, 2011 [facility] [address]00565[address], [place] [address]- 8961 29 Sep, 2011 [facility] [address]00565[address], [place] [address]- 3557 Sep, [facility] [id number] [place] [address] 54329- 3262 Dec, [facility] [id number] [place] [address] 34620- 1044 Sep, [facility] [id number] [place] [address] 81354- 1337 Sep, [facility] [address]65[address], [place] [address]- 4527 Sep, [facility] [address]65[address], [place] [address]- 3950 Jun, IMMUNIZATIONS No Known Immunizations SOCIAL HISTORY Never Assessed REASON FOR VISIT [place] [place] VITAL SIGNS MEDICATIONS Unknown Medications RESULTS No Results PROCEDURES No Known procedures INSTRUCTIONS MEDICATIONS ADMINISTERED No Known Medications MEDICAL (GENERAL) HISTORY Type Description Date Medical History depression Medical History tachycardia
--- OUTSIDE RECORDS SUMMARY | 2019-02-09 07:06 | XMS REPORT ---
Author Author Migration, Doctor Organization [facility] Address Unknown Phone Unavailable Care Team Providers Care Fashion Stylist Name Role Phone Migration, Doctor Unavailable Unavailable PROBLEMS Type Condition ICD9-CM Code EYN88-XP Code Onset Dates Condition Status SNOMED Code Problem Encounter for long-term (current) use of other medications V58.69 Active 419558440 Problem Screening examination for venereal disease V74.5 Active 145301245 Problem General counseling for initiation of other contraceptive measures V25.02 Active 630907328130792 Problem Other general counseling and advice for contraceptive management V25.09 Active 971395315 Problem Special screening examination, human papillomavirus [HPV] V73.81 Active 411197765 Problem General counseling for prescription of oral contraceptives V25.01 Active 046694595917351 Problem Other symptoms involving urinary system 788.99 Active 464193141 Problem Papanicolaou smear of cervix with atypical squamous cells cannot exclude high grade squamous intraepithelial lesion (ASC-H) 795.02 Active 842543032 Problem Leukorrhea, not specified as infective 623.5 Active 361373195 Problem Other sign and symptom in breast 611.79 Active 429803795 Problem Unspecified vaginitis and vulvovaginitis 616.10 Active 524902665 Problem Nondependent tobacco use disorder 305.1 Active 010005642 Problem Unspecified symptom associated with female genital organs 625.9 Active 971556438 Problem Dysthymic disorder 300.4 Active 30185624 Problem Cellulitis and abscess of upper arm and forearm 682.3 Active 556202854 Problem Screening for malignant neoplasm of the cervix V76.2 Active 029379314 Problem Acute bronchitis 466.0 Active 70333068 Problem Acute upper respiratory infections of unspecified site 465.9 Active 78619522 Problem Acute pharyngitis 462 Active 179863115 Problem Acute sinusitis, unspecified 461.9 Active 95438694 ALLERGIES No Information ENCOUNTERS Encounter Location Date Diagnosis [facility] 120 [facility] [id number] [place] [id number] Oct, [facility] [id number] [place] [address] [id number] Sep, [facility]stit[facility] with [facility]uria N30.01 [facility] [place] [id number] [place] [address] [id number] Aug, Dysuria R30.0 ; Vaginal odor N89.8 ; Nausea R11.0 and CVA tenderness M54.9 [facility] [place] [id number] [place] [address] [id number] Jun, Vaginal irritation N89.8 and Vaginal odor N89.8 [facility] [id number] [place] [address] 82035- 7876 Jan, [facility] [address] [address]- 8447 Jan, [facility] [place] [id number] [place] [address] [id number] Oct, [facility] [id number] [place] [address] 01598- 4096 Oct, [facility] [id number] [place] [address] 73595- 1542 Aug, [facility] [id number] [place] [address] 43807- 4066 March, [facility] [place] [id number] [place] [address] [id number] March, [facility] [id number] [place] [address] 81952- 9796 March, [facility] [id number] [place] [address] 38015- 2546 March, [facility] [address] [place] [address] [id number] March, [facility] [address] [place] [address] [id number] March, [facility] [id number] [place] [address] 76682- 1326 March, [facility] [address] [id number], [place] [address]- 9649 March, [facility] [place] [address] [facility] [id number][place] 728180821 Jan, [facility] [place] [facility] [address] [id number], [place] [address]- 0380 Jan, [facility] [place] [facility] [address]00565[address], [place] [address] 2544 Jan, [facility] [place] [address] [id number], [place] 789274812 Jan, [facility] [place] [facility] [address]00565100[place], [place] [address]- 9148 Jan, [facility] [place] [facility] [address]00565100[place], [place] [address]- 3600 Dec, [facility] [place] [id number], [place] [id number] Dec, [facility] [place] [facility] [address]00565100[place], [place] [address]- 9243 Dec, [facility] [place] [id number], [place] 537719047 Dec, [facility] [place] [facility] [address]00565100[place], [place] [address]- 1537 Dec, [facility] [place] [facility] [address]00565100[place], [place] [address]- 9772 Dec, [facility] [place] [id number], [place] 062661474 Dec, [facility] [place] [facility] [address] [id number], [place] [address]- 7522 Dec, [facility] [place] [id number], [place] 765084096 Dec, [facility] [place] [facility] [address]00565100[place], [place] [address]- 7460 Dec, [facility] [place] [facility] [address] [place] [address] 17326- 5986 Nov, [facility] [address] [facility] [id number], [place] [address]- 7980 Nov, [facility] [place] [facility] [address] [facility] [id number], [place] [address]- 1770 Nov, [facility] [address] [facility] [id number], [place] [address]- 5549 Nov, [facility] [place] [address] [id number], [place] 054017979 Nov, [facility] [place] [facility] [address] [facility] [id number], [place] [address]- 6053 Nov, [facility] [place] [address] [id number], [place] [id number] Nov, [facility] [address]00565100[place], [place] [address]- 9752 Nov, [facility] [place] [address] [id number], [place] 452758597 Oct, [facility] [address] [id number], [place] [address]- 7400 Oct, [facility] [place] [address] [id number], [place] 876367701 Sep, [facility] [address] [id number], [place] [address]- 7835 Sep, [facility] [place] [address] [id number], [place] 487549057 Sep, [facility] [place] [facility] [address] [facility] [id number], [place] [address]- 9759 Sep, [facility] [place] [address] [id number], [place] 339183077 Jul, [facility] [place] [address] [id number], [place] 353614488 Jun, [facility] [place] [address] [id number], [place] 859020255 Jun, [facility] [place] [address] [id number], [place] 765871159 Apr, [facility] [place] [address] [id number] [place] [id number] March, [facility] [place] [address] [id number] [place] 935142614 Jan, [facility] [place] [facility] [address] [facility] [id number] [place] 151257[place]- 8344 Jan, [facility] [place] [facility] [address] [facility] [id number] [place] 77501[place]- 5214 Jan, [facility] [place] [facility] [address] [facility] [id number] [place] 9501112[place]- 6234 Jan, [facility] [place] [facility] [address] [facility] [id number] [place] 49284943- 3922 Jan, [facility] [place] [address] [id number] [place] [id number] Jan, [facility] [address] [id number] [place] [id number] Aug, [facility] [place] [address] [id number], [place] 415901686 Aug, [facility] [place] [facility] [address] [facility] [id number] [place] [address]- 6066 Aug, [facility] [place] [address] [facility] [id number], [place] [address]- 3018 Aug, [facility] [place] [address] [id number] [place] [id number] Aug, [facility] [place] [address] [id number], [place] 086788367 May, [facility] [place] [address] [facility] [id number] [place] [address]- 2386 May, [facility] [place] [address] [id number] [place] [id number] May, [facility] [place] [address] [id number], [place] 861477601 May, [facility] [place] [address] [id number], [place] 333316755 Apr, [facility] [place] [address] [id number] [place] [address] Apr, [facility] [place] [address] [id number] [place] 9110119[address] March, [facility] [place] [address] [id number] [place] 0668525[place] March, [facility] [place] [address] [id number] [place] [id number] March, [facility] [place] [address] [id number] [place] 143745[address] Dec, [facility] [place] [address] [id number] [place] 0778220[address] Nov, [facility] [place] [address] [id number] [place] 562480747 Nov, [facility] [place] [facility] [address] [facility] [id number], [place] [address]- 3736 Nov, [facility] [place] [facility] [address] [facility] [id number], [place] [address]- 2156 Nov, [facility] [place] [facility] [address] [facility] [id number], [place] [address]- 4186 Nov, [facility] [place] [address] [id number] [place] [id number] Nov, [facility] [place] [address] [id number] [place] [id number] Nov, [facility] [place] [facility] [address] [facility] [id number], [place] [address] Nov, [facility] [address] [facility] [id number], [place] [address] Nov, [facility] [address] [facility] [id number], [place] [address] Nov, [facility] [address] [id number] [place] [id number] Nov, [facility] [address] [facility] [id number], [place] [address] Oct, [facility] [id number] [address] 15 Oct, 2011 [facility] [id number] [address] 29 Sep, 2011 [facility] [id number], [place] [address] Sep, [facility] [id number] [place] [id number] Dec, [facility] [id number] [place] [id number] Sep, [facility] [id number] [place] [id number] Sep, [facility] [id number], [place] [address] Sep, [facility] [id number], [place] [address] Jun, IMMUNIZATIONS No Known Immunizations SOCIAL HISTORY Never Assessed REASON FOR VISIT EMR-[facility] PLAN OF CARE VITAL SIGNS MEDICATIONS Unknown Medications RESULTS No Results PROCEDURES No Known procedures INSTRUCTIONS MEDICATIONS ADMINISTERED No Known Medications MEDICAL (GENERAL) HISTORY Type Description Date Medical History depression Medical History tachycardia
--- OUTSIDE RECORDS SUMMARY | 2019-02-09 07:06 | XMS REPORT ---
Author Author Migration, Doctor Organization [facility] Address Unknown Phone Unavailable Care Team Providers Care Stencil Typist Name Role Phone Migration, Doctor Unavailable Unavailable PROBLEMS Type Condition ICD9-CM Code ACY06-HA Code Onset Dates Condition Status SNOMED Code Problem Encounter for long-term (current) use of other medications V58.69 Active 105823833 Problem Screening examination for venereal disease V74.5 Active 989264201 Problem General counseling for initiation of other contraceptive measures V25.02 Active 968858856506131 Problem Other general counseling and advice for contraceptive management V25.09 Active 256671528 Problem Special screening examination, human papillomavirus [HPV] V73.81 Active 898721986 Problem General counseling for prescription of oral contraceptives V25.01 Active 841976671205971 Problem Other symptoms involving urinary system 788.99 Active 554117526 Problem Papanicolaou smear of cervix with atypical squamous cells cannot exclude high grade squamous intraepithelial lesion (ASC-H) 795.02 Active 646399923 Problem Leukorrhea, not specified as infective 623.5 Active 582242471 Problem Other sign and symptom in breast 611.79 Active 734059957 Problem Unspecified vaginitis and vulvovaginitis 616.10 Active 397480438 Problem Nondependent tobacco use disorder 305.1 Active 093357443 Problem Unspecified symptom associated with female genital organs 625.9 Active 717469125 Problem Dysthymic disorder 300.4 Active 85031376 Problem Cellulitis and abscess of upper arm and forearm 682.3 Active 485042547 Problem Screening for malignant neoplasm of the cervix V76.2 Active 309587227 Problem Acute bronchitis 466.0 Active 89121999 Problem Acute upper respiratory infections of unspecified site 465.9 Active 02705848 Problem Acute pharyngitis 462 Active 131952749 Problem Acute sinusitis, unspecified 461.9 Active 61306116 ALLERGIES No Information ENCOUNTERS Encounter Location Date Diagnosis [facility] [address] [facility] [id number] [place] [id number] Oct, [facility] [id number] [place] [address] [id number] Sep, Acute cystitis with hematuria N30.01 [facility] [place] [id number] [place] [address] [id number] Aug, Dysuria R30.0 ; Vaginal odor N89.8 ; Nausea R11.0 and CVA tenderness M54.9 [facility] [place] [id number] [place] [address] [id number] Jun, Vaginal irritation N89.8 and Vaginal odor N89.8 [facility] [id number] [place] [address] 51107- 6246 Jan, [facility] [address] [address]- 4146 Jan, [facility] [place] [id number] [place] [address] [id number] Oct, [facility] [id number] [place] [address] 62935- 5286 Oct, [facility] [id number] [place] [address] 66456- 7646 Aug, [facility] [id number] [place] [address] 38418- 6126 March, [facility] [place] [id number] [place] [address] [id number] March, [facility] [id number] [place] [address] 54174- 1246 March, [facility] [id number] [place] [address] 21722- 2546 March, [facility] [id number] [place] [address] [id number] March, [facility] [id number] [place] [address] [id number] March, [facility] [id number] [place] [address] 25135- 4866 March, [facility] [address] [id number] [address]- 4630 March, [facility] [place] [address] [facility] [id number][place] [id number] Jan, [facility] [place] [facility] [address] [id number], [place] [address]- 4752 Jan, [facility] [place] [facility] [id number], [place] [address] 2547 Jan, [facility] [place] [address] [id number] [id number] Jan, [facility] [place] [facility] [id number], [place] [address]- 4583 Jan, [facility] [place] [facility] [id number], [place] [address]- 1530 Dec, [facility] [place] [id number], [place] [id number] Dec, [facility] [place] [facility] [id number], [place] [address]- 9384 Dec, [facility] [id number], [place] 310768800 Dec, [facility] [place] [facility] [id number], [place] [address]- 9127 Dec, [facility] [place] [facility] [id number], [place] [address]- 7677 Dec, [facility] [id number], [place] [id number] Dec, [facility] [place] [facility] [address] [id number], [place] [address]- 3667 Dec, [facility] [id number], [place] [id number] Dec, [facility] [place] [facility] [id number], [place] [address]- 0230 Dec, [facility] [place] [facility] [id number] [place] [address] 79501- 6482 Nov, [facility] [address] [facility] [id number], [place] [address]- 2173 Nov, [facility] [place] [facility] [address] [facility] [id number][place] [address]- 9254 Nov, [facility] [address] [facility] [id number], [place] [address]- 6464 Nov, [facility] [address] [id number], [place] [id number] Nov, [facility] [place] [facility] [address] [facility] [id number], [place] [address]- 6208 Nov, [facility] [address] [id number], [place] [id number] Nov, [facility] [id number], [place] [address]- 3266 Nov, [facility] [place] [address] [id number], [place] [id number] Oct, [facility] [address] [id number], [place] [address]- 5814 Oct, [facility] [address] [id number], [place] 845376026 Sep, [facility] [address] [id number], [place] [address]- 1298 Sep, [facility] [address] [id number], [place] 28230[address]857 Sep, [facility] [place] [facility] [address] [facility] [id number] [address]- 0157 Sep, [facility] [address] [id number], [place] [id number] Jul, [facility] [address] [id number], [place] 193984944 Jun, [facility] [address] [id number], [place] 488895959 Jun, [facility] [address] [id number], [place] 437407749 Apr, [facility] [address] [id number] [place] [id number] March, [facility] [address] [id number] [place] 332181894 Jan, [facility] [place] [facility] [address] [facility] [id number] [place] 43351570- 6196 Jan, [facility] [place] [facility] [address] [facility] [id number] [place] 34380477- 7181 Jan, [facility] [place] [facility] [address] [facility] [id number] [place] 49015822- 6569 Jan, [facility] [place] [facility] [address] [facility] [id number] [place] 79506907- 3585 Jan, [facility] [address] [id number] [place] 838889959 Jan, [facility] [address] [id number] [place] 185558103 Aug, [facility] [address] [id number], [place] 044535510 Aug, [facility] [address] [facility] [id number] [place] [address]- 5009 Aug, [facility] [address] [facility] [id number], [place] [address]- 3415 Aug, [facility] [address] [id number] [place] 102965219 Aug, [facility] [address] [id number], [place] 609596355 May, [facility] [address] [facility] [id number] [place] [address]- 6172 May, [facility] [address] [id number] [place] 013589964 May, [facility] [address] [id number], [place] 868185815 May, [facility] [address] [id number], [place] 472973254 Apr, [facility] [address] [id number] [place] 6[place] Apr, [facility] [address] [id number] [place] 0784[place]687 March, [facility] [address] [id number] [place] 79124[place]25 March, [facility] [address] [id number] [place] 8[place]259[address] March, [facility] [address] [id number] [place] 298528055 Dec, [facility] [address] [id number] [place] 00997[place] Nov, [facility] [address] [id number] [place] 256866803 Nov, [facility] [place] [facility] [address] [facility] [id number], [place] [address]- 5056 Nov, [facility] [place] [facility] [address] [facility] [id number], [place] [address]- 5966 Nov, [facility] [place] [facility] [address] [facility] [id number], [place] [address]- 3246 Nov, [facility] [address] [id number] [place] 025502328 Nov, [facility] [address] [id number] [place] 367122672 Nov, [facility] [place] [facility] [address] [facility] [id number], [place] [address]- 8726 Nov, [facility] [place] [facility] [address] [facility] [id number], [place] [address]- 0126 Nov, [facility] [place] [facility] [address] [facility] [id number][place] [address]- 5066 Nov, [facility] [address] [id number] [place] [id number] Nov, [facility] [place] [facility] [address] [facility] [id number], [place] [address]- 4316 Oct, [facility] [id number], [place] [address]- 6433 15 Oct, 2011 [facility] [id number], [place] [address]- 8395 29 Sep, 2011 [facility] [id number], [place] [address]- 3208 Sep, [facility] [id number] [place] [address] 59372- 5103 Dec, [facility] [id number] [place] [address] 62628- 4992 Sep, [facility] [id number] [place] [address] 52752- 4967 Sep, [facility] [id number], [place] [address]- 1395 Sep, [facility] [id number], [place] [address]- 7837 Jun, IMMUNIZATIONS No Known Immunizations SOCIAL HISTORY Never Assessed REASON FOR VISIT [place] [place] VITAL SIGNS MEDICATIONS Unknown Medications RESULTS No Results PROCEDURES No Known procedures INSTRUCTIONS MEDICATIONS ADMINISTERED No Known Medications MEDICAL (GENERAL) HISTORY Type Description Date Medical History depression Medical History tachycardia
--- OUTSIDE RECORDS SUMMARY | 2019-02-09 07:07 | XMS REPORT ---
Author Author Migration, Doctor Organization [facility] Address Unknown Phone Unavailable Care Team Providers Care Small Order Cutter Name Role Phone Migration, Doctor Unavailable Unavailable PROBLEMS Type Condition ICD9-CM Code OEW32-OK Code Onset Dates Condition Status SNOMED Code Problem Encounter for long-term (current) use of other medications V58.69 Active 354216060 Problem Screening examination for venereal disease V74.5 Active 585779785 Problem General counseling for initiation of other contraceptive measures V25.02 Active 369896010607889 Problem Other general counseling and advice for contraceptive management V25.09 Active 483663613 Problem Special screening examination, human papillomavirus [HPV] V73.81 Active 423342820 Problem General counseling for prescription of oral contraceptives V25.01 Active 828176906660299 Problem Other symptoms involving urinary system 788.99 Active 876455150 Problem Papanicolaou smear of cervix with atypical squamous cells cannot exclude high grade squamous intraepithelial lesion (ASC-H) 795.02 Active 483284478 Problem Leukorrhea, not specified as infective 623.5 Active 018398613 Problem Other sign and symptom in breast 611.79 Active 623766166 Problem Unspecified vaginitis and vulvovaginitis 616.10 Active 202154071 Problem Nondependent tobacco use disorder 305.1 Active 910263723 Problem Unspecified symptom associated with female genital organs 625.9 Active 783566465 Problem Dysthymic disorder 300.4 Active 89392312 Problem Cellulitis and abscess of upper arm and forearm 682.3 Active 277869711 Problem Screening for malignant neoplasm of the cervix V76.2 Active 596890861 Problem Acute bronchitis 466.0 Active 03112882 Problem Acute upper respiratory infections of unspecified site 465.9 Active 12611580 Problem Acute pharyngitis 462 Active 509895373 Problem Acute sinusitis, unspecified 461.9 Active 53656990 ALLERGIES No Information ENCOUNTERS Encounter Location Date Diagnosis [facility] 120 [facility] [id number] [place] [id number] Oct, [facility] [id number] [place] [address] [id number] Sep, Acute cystitis with hematuria N30.01 [facility] [place] [id number] [place] [address] [id number] Aug, Dysuria R30.0 ; Vaginal odor N89.8 ; Nausea R11.0 and CVA tenderness M54.9 [facility] [place] [id number] [place] [address] [id number] Jun, Vaginal irritation N89.8 [address] Vaginal odor N89.8 [facility] [id number] [place] [address] 12905- 7676 Jan, [facility] [address] [address]- 9924 Jan, [facility] [place] [id number] [place] [address] [id number] Oct, [facility] [id number] [place] [address] 50899- 0956 Oct, [facility] [id number] [place] [address] 04219- 3167 Aug, [facility] [id number] [place] [address] 79234- 3776 March, [facility] [place] [id number] [place] [address] [id number] March, [facility] [id number] [place] [address] 60755- 4586 March, [facility] [id number] [place] [address] 55831- 2546 March, [facility] [id number] [place] [address] [id number] March, [facility] [id number] [place] [address] [id number] March, [facility] [id number] [place] [address] 44398- 0006 March, [facility] [address] [id number] [address]- 6076 March, [facility] [address] [facility] [id number][place] 939144788 Jan, [facility] [place] [facility] [address] [id number] [address]- 5140 Jan, [facility] [place] [facility] [address]00565100[place] [address] 2541 Jan, [facility] [address] [id number], [place] 082987446 Jan, [facility] [place] [facility] [address]00565100[place] [address]- 8394 Jan, [facility] [place] [facility] [address]00565100[place] [address]- 5667 Dec, [facility] [id number], [place] 940485719 Dec, [facility] [place] [facility] [address]00565100[place] [address]- 8264 Dec, [facility] [id number], [place] 680808086 Dec, [facility] [place] [facility] [address]00565[address] [address]- 3480 Dec, [facility] [place] [facility] [address]00565[address] [address]- 2377 Dec, [facility] [id number], [place] 998257323 Dec, [facility] [place] [facility] [address] [id number] [address]- 8431 Dec, [facility] [id number], [place] 290488117 Dec, [facility] [place] [facility] [address]005[address] [address]- 7395 Dec, [facility] [place] [facility] [address] [place] [address] 02228- 8586 Nov, [facility] [address] [facility] [id number] [address]- 6495 Nov, [facility] [place] [facility] [address] [facility] [id number] [address]- 7232 Nov, [facility] [address] [facility] [id number] [address]- 0989 Nov, [facility] [address] [id number], [place] [id number] Nov, [facility] [place] [facility] [address] [facility] [id number] [address]- 4169 Nov, [facility] [address] [id number], [place] 417218677 Nov, [facility] [address]005[address] [address]- 5100 Nov, [facility] [address] [id number], [place] 817011720 Oct, [facility] [address] [id number] [address]- 0566 Oct, [facility] [address] [id number], [place] 366481638 Sep, [facility] [address] [id number] [address]- 8378 Sep, [facility] [address] [id number], [place] 404876660 Sep, [facility] [place] [facility] [address] [facility] [id number] [address]- 0362 Sep, [facility] [address] [id number], [place] 962234368 Jul, [facility] [address] [id number], [place] 966112366 Jun, [facility] [address] [id number], [place] 020060105 Jun, [facility] [address] [id number], [place] 157580851 Apr, [facility] [place] [address] [id number] [place] 309500216 March, [facility] [address] [id number] [place] 796608726 Jan, [facility] [place] [facility] [address] [facility] [id number] [place] 31737172- 0066 Jan, [facility] [place] [facility] [address] [facility] [id number] [place] 85640359- 0311 Jan, [facility] [place] [facility] [address] [facility] [id number] [place] 38490409- 7311 Jan, [facility] [place] [facility] [address] [facility] [id number] [place] 40139116- 9563 Jan, [facility] [address] [id number] [place] [id number] Jan, [facility] [address] [id number] [place] [id number] Aug, [facility] [address] [id number], [place] 583892758 Aug, [facility] [address] [facility] [id number] [place] [address]- 2774 Aug, [facility] [address] [facility] [id number] [address]- 8886 Aug, [facility] [place] [address] [id number] [place] [id number] Aug, [facility] [address] [id number], [place] 515932758 May, [facility] [address] [facility] [id number] [place] [address]- 5056 May, [facility] [address] [id number] [place] [id number] May, [facility] [place] [address] [id number], [place] 389907816 May, [facility] [place] [address] [id number], [place] 276428963 Apr, [facility] [place] [address] [id number] [place] 455945[place] Apr, [facility] [place] [address] [id number] [place] 597709720 March, [facility] [place] [address] [id number] [place] 549640398 March, [facility] [place] [address] [id number] [place] 4774873[address] March, [facility] [place] [address] [id number] [place] 843674949 Dec, [facility] [place] [address] [id number] [place] 731802621 Nov, [facility] [place] [address] [id number] [place] [id number] Nov, [facility] [place] [facility] [address] [facility] [id number] [address]- 8386 Nov, [facility] [place] [facility] [address] [facility] [id number] [place] [address]- 6106 Nov, [facility] [place] [facility] [address] [facility] [place] [id number] [place] [address] Nov, [facility] [address] [id number] [place] [id number] Nov, [facility] [address] [id number] [place] [id number] Nov, [facility] [address] [facility] [place] [id number] [place] [address] Nov, [facility] [address] [facility] [place] [id number] [place] [address] Nov, [facility] [address] [facility] [place] [id number] [place] [address] Nov, [facility] [address] [id number] [place] [id number] Nov, [facility] [address] [facility] [place] [id number] [place] [address] Oct, [facility] [id number] [address] 15 Oct, 2011 [facility] [id number] [address] 29 Sep[address] [facility] [id number] [address] Sep, [facility] [id number] [place] [address] Dec, [facility] [id number] [place] [address] Sep, [facility] [id number] [place] [address] Sep, [facility] [id number] [address] Sep, [facility] [id number] [address] Jun, IMMUNIZATIONS No Known Immunizations SOCIAL HISTORY Never Assessed REASON FOR [place]ISIT [place] [place] C[place] VITAL SIGNS MEDICATIONS Unknown Medications RESULTS No Results PROCEDURES No Known procedures INSTRUCTIONS MEDICATIONS ADMINISTERED No Known Medications MEDICAL (GENERAL) HISTORY Type Description Date Medical History depression Medical History tachycardia
--- OUTSIDE RECORDS SUMMARY | 2019-02-09 07:07 | XMS REPORT ---
Author Author Migration, Doctor Organization [facility] Address Unknown Phone Unavailable Care Team Providers Care Contact Clerk Name Role Phone Migration, Doctor Unavailable Unavailable PROBLEMS Type Condition ICD9-CM Code WUC76-IZ Code Onset Dates Condition Status SNOMED Code Problem Encounter for long-term (current) use of other medications V58.69 Active 675161626 Problem Screening examination for venereal disease V74.5 Active 596737071 Problem General counseling for initiation of other contraceptive measures V25.02 Active 532075174887097 Problem Other general counseling and advice for contraceptive management V25.09 Active 676135103 Problem Special screening examination, human papillomavirus [HPV] V73.81 Active 132476186 Problem General counseling for prescription of oral contraceptives V25.01 Active 865953210901070 Problem Other symptoms involving urinary system 788.99 Active 425890526 Problem Papanicolaou smear of cervix with atypical squamous cells cannot exclude high grade squamous intraepithelial lesion (ASC-H) 795.02 Active 044052445 Problem Leukorrhea, not specified as infective 623.5 Active 263163182 Problem Other sign and symptom in breast 611.79 Active 004592752 Problem Unspecified vaginitis and vulvovaginitis 616.10 Active 867823321 Problem Nondependent tobacco use disorder 305.1 Active 397819436 Problem Unspecified symptom associated with female genital organs 625.9 Active 993478635 Problem Dysthymic disorder 300.4 Active 80339192 Problem Cellulitis and abscess of upper arm and forearm 682.3 Active 078337788 Problem Screening for malignant neoplasm of the cervix V76.2 Active 581653770 Problem Acute bronchitis 466.0 Active 84229232 Problem Acute upper respiratory infections of unspecified site 465.9 Active 87653986 Problem Acute pharyngitis 462 Active 008480893 Problem Acute sinusitis, unspecified 461.9 Active 30558492 ALLERGIES No Information ENCOUNTERS Encounter Location Date Diagnosis [facility] 120 [facility] [id number] [place] [id number] Oct, [facility] [id number] [place] [address] [id number] Sep, Acute cystitis with hematuria N30.01 [facility] [place] [id number] [place] [address] [id number] Aug, Dysuria R30.0 ; Vaginal odor N89.8 ; Nausea R11.0 and CVA tenderness M54.9 [facility] [place] [id number] [place] [address] [id number] Jun, Vaginal irritation N89.8 and Vaginal odor N89.8 [facility] [id number] [place] [address] 47230- 1926 Jan, [facility] [address] [address] Jan, [facility] [place] [id number] [place] [address] [id number] Oct, [facility] [id number] [place] [address] 41133- 2056 Oct, [facility] [id number] [place] [address] 07459- 9844 Aug, [facility] [id number] [place] [address] 62313- 2206 March, [facility] [place] [id number] [place] [address] [id number] March, [facility] [id number] [place] [address] 86919- 5596 March, [facility] [id number] [place] [address] 86070- 2546 March, [facility] [id number] [place] [address] [id number] March, [facility] [id number] [place] [address] [id number] March, [facility] [id number] [place] [address] 20339- 3226 March, [facility] [address] [id number] [address] 389[address] March, [facility] [place] [address] [facility] [id number][place] [id number] Jan, [facility] [place] [facility] [address] [id number], [place] [address]- 7856 Jan, [facility] [place] [facility] [address]00565100[place], [place] [address] 2548 Jan, [facility] [place] [address] [id number], [place] [address] Jan, [facility] [place] [facility] [address]00565100[place], [place] [address]- 9813 Jan, [facility] [place] [facility] [address]00565100[place], [place] [address]- 5977 Dec, [facility] [place] [id number], [place] [address] Dec, [facility] [place] [facility] [id number], [place] [address]- 2215 Dec, [facility] [place] [id number], [place] [id number] Dec, [facility] [place] [facility] [address]00565100[place], [place] [address]- 2437 Dec, [facility] [place] [facility] [address]00565100[place], [place] [address]- 3220 Dec, [facility] [place] [id number], [place] 25[address]25 Dec, [facility] [place] [facility] [address] [id number], [place] [address]- 5707 Dec, [facility] [place] [id number], [place] [id number] Dec, [facility] [place] [facility] [address]00565100[place], [place] [address]- 4751 Dec, [facility] [place] [facility] [id number] [place] [address] 05476- 3921 Nov, [facility] [address] [facility] [id number] [address]- 3757 Nov, [facility] [place] [facility] [address] [facility] [id number] [address]- 4313 Nov, [facility] [address] [facility] [id number] [address]- 4678 Nov, [facility] [place] [address] [id number], [place] 494133001 Nov, [facility] [place] [facility] [address] [facility] [id number] [address]- 2628 Nov, [facility] [place] [address] [id number], [place] [address] Nov, [facility] [address]00565100[place], [place] [address]- 7746 Nov, [facility] [place] [address] [id number], [place] [id number] Oct, [facility] [address] [id number], [place] [address]- 5552 Oct, [facility] [place] [address] [id number], [place] 9[address]16926 Sep, [facility] [address] [id number], [place] [address]- 9636 Sep, [facility] [place] [address] [id number], [place] [id number] Sep, [facility] [place] [facility] [address] [facility] [id number] [address]- 3396 Sep, [facility] [place] [address] [id number], [place] 8[address] Jul, [facility] [place] [address] [id number], [place] 930210143 Jun, [facility] [place] [address] [id number], [place] 070237520 Jun, [facility] [place] [address] [id number], [place] 36[address]81 Apr, [facility] [place] [address] [id number] [place] [id number] March, [facility] [place] [address] [id number] [place] 0[place] Jan, [facility] [place] [facility] [address] [facility] [id number] [place] 67804[place]- 6784 Jan, [facility] [place] [facility] [address] [facility] [id number] [place] 67[place]- 4813 Jan, [facility] [place] [facility] [address] [facility] [id number] [place] 44265[place]- 7286 Jan, [facility] [place] [facility] [address] [facility] [id number] [place] 63750916- 5180 Jan, [facility] [place] [address] [id number] [place] [id number] Jan, [facility] [place] [address] [id number] [place] [id number] Aug, [facility] [place] [address] [id number], [place] 041225455 Aug, [facility] [address] [facility] [id number] [place] [address]- 6591 Aug, [facility] [address] [facility] [id number], [place] [address]- 4657 Aug, [facility] [place] [address] [id number] [place] 635[place]697 Aug, [facility] [place] [address] [id number], [place] 579303331 May, [facility] [address] [facility] [id number] [place] [address]- 1367 May, [facility] [place] [address] [id number] [place] [id number] May, [facility] [place] [address] [id number], [place] 212146196 May, [facility] [place] [address] [id number], [place] [id number] Apr, [facility] [place] [address] [id number] [place] 6[address] Apr, [facility] [place] [address] [id number] [place] [id number] March, [facility] [place] [address] [id number] [place] [address] March, [facility] [place] [address] [id number] [place] 928737378 March, [facility] [place] [address] [id number] [place] 807394326 Dec, [facility] [place] [address] [id number] [place] [id number] Nov, [facility] [place] [address] [id number] [place] [id number] Nov, [facility] [place] [facility] [address] [facility] [id number] [address]- 3546 Nov, [facility] [place] [facility] [address] [facility] [id number] [address]- 7086 Nov, [facility] [place] [facility] [address] [facility] [id number] [address]- 2986 Nov, [facility] [place] [address] [id number] [place] [id number] Nov, [facility] [place] [address] [id number] [place] [id number] Nov, [facility] [place] [facility] [address] [facility] [id number] [address]- 2806 Nov, [facility] [place] [facility] [address] [facility] [id number] [address]- 9036 Nov, [facility] [place] [facility] [address] [facility] [id number] [address]- 4356 Nov, [facility] [place] [address] [id number] [place] 717033289 Nov, [facility] [place] [facility] [address] [facility] [id number], [place] [address]- 9826 Oct, [facility] [address]00565100[place], [place] [address]- 7732 15 Oct, 2011 [facility] [id number], [place] [address]- 6475 29 Sep, 2011 [facility] [id number], [place] [address]- 5891 Sep, [facility] [id number] [place] [address] 92762- 4074 Dec, [facility] [id number] [place] [address] 82558- 9808 Sep, [facility] [id number] [place] [address] 73973- 1542 Sep, [facility] [address]00565100[place], [place] [address]- 6670 Sep, [facility] [address]00565100[place], [place] [address]- 6171 Jun, IMMUNIZATIONS No Known Immunizations SOCIAL HISTORY Never Assessed REASON FOR VISIT EMR-[facility] PLAN OF CARE VITAL SIGNS MEDICATIONS Unknown Medications RESULTS No Results PROCEDURES No Known procedures INSTRUCTIONS MEDICATIONS ADMINISTERED No Known Medications MEDICAL (GENERAL) HISTORY Type Description Date Medical History depression Medical History tachycardia
--- OUTSIDE RECORDS SUMMARY | 2019-02-09 07:07 | XMS REPORT ---
Author Author Migration, Doctor Organization [facility] Address Unknown Phone Unavailable Care Team Providers Care Director Of Laboratory Operations Name Role Phone Migration, Doctor Unavailable Unavailable PROBLEMS Type Condition ICD9-CM Code DGN10-RY Code Onset Dates Condition Status SNOMED Code Problem Encounter for long-term (current) use of other medications V58.69 Active 970907443 Problem Screening examination for venereal disease V74.5 Active 634925877 Problem General counseling for initiation of other contraceptive measures V25.02 Active 288899375028357 Problem Other general counseling and advice for contraceptive management V25.09 Active 473549799 Problem Special screening examination, human papillomavirus [HPV] V73.81 Active 652883695 Problem General counseling for prescription of oral contraceptives V25.01 Active 952589442955822 Problem Other symptoms involving urinary system 788.99 Active 216759077 Problem Papanicolaou smear of cervix with atypical squamous cells cannot exclude high grade squamous intraepithelial lesion (ASC-H) 795.02 Active 074802551 Problem Leukorrhea, not specified as infective 623.5 Active 788228602 Problem Other sign and symptom in breast 611.79 Active 749444443 Problem Unspecified vaginitis and vulvovaginitis 616.10 Active 348101978 Problem Nondependent tobacco use disorder 305.1 Active 470616158 Problem Unspecified symptom associated with female genital organs 625.9 Active 866036166 Problem Dysthymic disorder 300.4 Active 12397255 Problem Cellulitis and abscess of upper arm and forearm 682.3 Active 060594700 Problem Screening for malignant neoplasm of the cervix V76.2 Active 221111425 Problem Acute bronchitis 466.0 Active 33137148 Problem Acute upper respiratory infections of unspecified site 465.9 Active 85550756 Problem Acute pharyngitis 462 Active 077480427 Problem Acute sinusitis, unspecified 461.9 Active 57333690 ALLERGIES No Information ENCOUNTERS Encounter Location Date Diagnosis [facility] 120 [facility] [id number] [place] [id number] Oct, [facility] [id number] [place] [address] [id number] Sep, Acute cystitis with hematuria N30.01 [facility] [place] [id number] [place] [address] [id number] Aug, Dysuria R30.0 ; Vaginal odor N89.8 ; Nausea R11.0 and CVA tenderness M54.9 [facility] [place] [id number] [place] [address] [id number] Jun, Vaginal irritation N89.8 and Vaginal odor N89.8 [facility] [id number] [place] [address] 21724- 3916 Jan, [facility] [address] [address]- 4896 Jan, [facility] [place] [id number] [place] [address] [id number] Oct, [facility] [id number] [place] [address] 08795- 8056 Oct, [facility] [id number] [place] [address] 44649- 5228 Aug, [facility] [id number] [place] [address] 13830- 5806 March, [facility] [place] [id number] [place] [address] [id number] March, [facility] [id number] [place] [address] 51853- 3916 March, [facility] [id number] [place] [address] 39259- 2546 March, [facility] [id number] [place] [address] [id number] March, [facility] [id number] [place] [address] [id number] March, [facility] [id number] [place] [address] 06206- 7706 March, [facility] [address] [id number], [place] [address]- 7114 March, [facility] [place] [address] [facility] [id number], [place] [id number] Jan, [facility] [place] [facility] [address] [id number], [place] [address]- 4380 Jan, [facility] [place] [facility] [address]00565100[place], [place] [address] 2544 Jan, [facility] [place] [address] [id number], [place] [address] Jan, [facility] [place] [facility] [address]00565100[place], [place] [address]- 5332 Jan, [facility] [place] [facility] [address]00565100[place], [place] [address]- 2827 Dec, [facility] [place] [id number], [place] [id number] Dec, [facility] [place] [facility] [address]00565100[place], [place] [address]- 8088 Dec, [facility] [place] [id number], [place] 45[address]3060 Dec, [facility] [place] [facility] [address]00565100[place], [place] [address]- 8166 Dec, [facility] [place] [facility] [address]00565100[place], [place] [address]- 0200 Dec, [facility] [place] [id number], [place] 82[address]89186 Dec, [facility] [place] [facility] [address] [id number], [place] [address]- 0578 Dec, [facility] [place] [id number], [place] 469038089 Dec, [facility] [place] [facility] [address]00565100[place], [place] [address]- 2672 Dec, [facility] [place] [facility] [address] [place] [address] 98927- 6434 Nov, [facility] [address] [facility] [id number], [place] [address]- 3356 Nov, [facility] [place] [facility] [address] [facility] [id number], [place] [address]- 7308 Nov, [facility] [address] [facility] [id number], [place] [address]- 3761 Nov, [facility] [place] [address] [id number], [place] 273651590 Nov, [facility] [place] [facility] [address] [facility] [id number], [place] [address]- 4914 Nov, [facility] [place] [address] [id number], [place] 286134789 Nov, [facility] [address]00565100[place], [place] [address]- 0091 Nov, [facility] [place] [address] [id number], [place] 036340853 Oct, [facility] [address] [id number], [place] [address]- 8763 Oct, [facility] [place] [address] [id number], [place] 331700876 Sep, [facility] [address] [id number], [place] [address]- 6627 Sep, [facility] [place] [address] [id number], [place] 606135699 Sep, [facility] [place] [facility] [address] [facility] [id number], [place] [address]- 1002 Sep, [facility] [place] [address] [id number], [place] 192855582 Jul, [facility] [place] [address] [id number], [place] [id number] Jun, [facility] [place] [address] [id number], [place] 746234539 Jun, [facility] [place] [address] [id number], [place] 091956568 Apr, [facility] [place] [address] [id number] [place] [id number] March, [facility] [place] [address] [id number] [place] 2496[address] Jan, [facility] [place] [facility] [address] [facility] [id number] [place]- 6211 Jan, [facility] [place] [facility] [address] [facility] [id number] [place] 6[place]27[place]- 6471 Jan, [facility] [place] [facility] [address] [facility] [id number] [place] 57[address]- 4055 Jan, [facility] [place] [facility] [address] [facility] [id number] [place] 35[place]66[place]- 5291 Jan, [facility] [place] [address] [id number] [place] 500[address]72[address] Jan, [facility] [place] [address] [id number] [place] [id number] Aug, [facility] [place] [address] [id number], [place] 821082567 Aug, [facility] [address] [facility] [id number] [place] [address]- 1638 Aug, [facility] [address] [facility] [id number], [place] [address]- 2703 Aug, [facility] [place] [address] [id number] [place] [address]018782 Aug, [facility] [place] [address] [id number], [place] 465648881 May, [facility] [address] [facility] [id number] [place] [address]- 1898 May, [facility] [place] [address] [id number] [place] [id number] May, [facility] [place] [address] [id number], [place] 57[address]20767 May, [facility] [place] [address] [id number], [place] 560604755 Apr, [facility] [place] [address] [id number] [place] [id number] Apr, [facility] [place] [address] [id number] [place] 010803203 March, [facility] [place] [address] [id number] [place] 540554753 March, [facility] [place] [address] [id number] [place] [id number] March, [facility] [place] [address] [id number] [place] 989378930 Dec, [facility] [place] [address] [id number] [place] [id number] Nov, [facility] [place] [address] [id number] [place] [address]10[address] Nov, [facility] [place] [facility] [address] [facility] [id number], [place] [address]- 1146 Nov, [facility] [place] [facility] [address] [facility] [id number], [place] [address]- 7576 Nov, [facility] [place] [facility] [address] [facility] [id number] [address]- 2326 Nov, [facility] [place] [address] [id number] [place] 7447927[address] Nov, [facility] [place] [address] [id number] [place] [id number] Nov, [facility] [place] [facility] [address] [facility] [id number][place] [address]- 1996 Nov, [facility] [place] [facility] [address] [facility] [id number], [place] [address]- 6656 Nov, [facility] [address] [facility] [id number], [place] [address] Nov, [facility] [address] [id number] [place] [id number] Nov, [facility] [address] [facility] [id number], [place] [address] Oct, [facility] [place] [id number] [address] 15 Oct, 2011 [facility] [place] [id number] [address] 29 Sep, 2011 [facility] [place] [id number] [address] Sep, [facility] [place] [id number] [place] [address] Dec, [facility] [place] [id number] [place] [address] Sep, [facility] [place] [id number] [place] [address] Sep, [facility] [place] [id number], [place] [address] Sep, [facility] [place] [id number] [address] Jun, IMMUNIZATIONS No Known Immunizations SOCIAL HISTORY Never Assessed REASON FOR VISIT EMR-[facility] PLAN OF CARE VITAL SIGNS MEDICATIONS Unknown Medications RESULTS No Results PROCEDURES No Known procedures INSTRUCTIONS MEDICATIONS ADMINISTERED No Known Medications MEDICAL (GENERAL) HISTORY Type Description Date Medical History depression Medical History tachycardia
--- OUTSIDE RECORDS SUMMARY | 2019-02-09 07:08 | XMS REPORT ---
Author Author Migration, Doctor Organization [facility] Address Unknown Phone Unavailable Care Team Providers Care Scientific Publications Editor Name Role Phone Migration, Doctor Unavailable Unavailable PROBLEMS Type Condition ICD9-CM Code JXP70-ZZ Code Onset Dates Condition Status SNOMED Code Problem Encounter for long-term (current) use of other medications V58.69 Active 937639462 Problem Screening examination for venereal disease V74.5 Active 237262634 Problem General counseling for initiation of other contraceptive measures V25.02 Active 668590299903261 Problem Other general counseling and advice for contraceptive management V25.09 Active 579355470 Problem Special screening examination, human papillomavirus [HPV] V73.81 Active 821738201 Problem General counseling for prescription of oral contraceptives V25.01 Active 847192647383092 Problem Other symptoms involving urinary system 788.99 Active 638173895 Problem Papanicolaou smear of cervix with atypical squamous cells cannot exclude high grade squamous intraepithelial lesion (ASC-H) 795.02 Active 830468464 Problem Leukorrhea, not specified as infective 623.5 Active 861822018 Problem Other sign and symptom in breast 611.79 Active 708832247 Problem Unspecified vaginitis and vulvovaginitis 616.10 Active 539023826 Problem Nondependent tobacco use disorder 305.1 Active 414069941 Problem Unspecified symptom associated with female genital organs 625.9 Active 419185997 Problem Dysthymic disorder 300.4 Active 26652629 Problem Cellulitis and abscess of upper arm and forearm 682.3 Active 322104758 Problem Screening for malignant neoplasm of the cervix V76.2 Active 044444474 Problem Acute bronchitis 466.0 Active 70289061 Problem Acute upper respiratory infections of unspecified site 465.9 Active 23271476 Problem Acute pharyngitis 462 Active 037831754 Problem Acute sinusitis, unspecified 461.9 Active 26869461 ALLERGIES No Information ENCOUNTERS Encounter Location Date Diagnosis [facility] 120 [facility] [id number] [place] [id number] Oct, [facility] [id number] [place] [address] [id number] Sep, Acute cystitis with hematuria N30.01 [facility] [place] [id number] [place] [address] [id number] Aug, Dysuria R30.0 ; Vaginal odor N89.8 ; Nausea R11.0 and CVA tenderness M54.9 [facility] [place] [id number] [place] [address] [id number] Jun, Vaginal irritation N89.8 [address] Vaginal odor N89.8 [facility] [id number] [place] [address] 09394- 6486 Jan, [facility] [address] [address] Jan, [facility] [place] [id number] [place] [address] [id number] Oct, [facility] [id number] [place] [address] 96620- 1466 Oct, [facility] [id number] [place] [address] 10211- 9278 Aug, [facility] [id number] [place] [address] 95818- 3576 March, [facility] [place] [id number] [place] [address] [id number] March, [facility] [id number] [place] [address] 83179- 0626 March, [facility] [id number] [place] [address] 87735- 2546 March, [facility] [id number] [place] [address] [id number] March, [facility] [address] [place] [address] [id number] March, [facility] [id number] [place] [address] 88158- 5976 March, [facility] [address] [id number], [place] [address]- 8742 March, [facility] [place] [address] [facility] [id number] [address]28[place] Jan, [facility] [place] [facility] [address] [id number], [place] [address]- 0403 Jan, [facility] [place] [facility] [address]00565[address], [place] [address] 2545 Jan, [facility] [place] [address] [id number], [place] [id number] Jan, [facility] [place] [facility] [address]00565100[place], [place] [address]- 9690 Jan, [facility] [place] [facility] [address]00565100[place], [place] [address]- 6553 Dec, [facility] [place] [id number], [place] 767353753 Dec, [facility] [place] [facility] [address]00565100[place], [place] [address]- 9974 Dec, [facility] [place] [id number], [place] 918563807 Dec, [facility] [place] [facility] [address]00565100[place], [place] [address]- 7784 Dec, [facility] [place] [facility] [address]00565100[place], [place] [address]- 7952 Dec, [facility] [place] [id number], [place] [id number] Dec, [facility] [place] [facility] [address] [id number], [place] [address]- 1528 Dec, [facility] [place] [id number], [place] 657144059 Dec, [facility] [place] [facility] [address]00565100[place], [place] [address]- 5453 Dec, [facility] [place] [facility] [id number] [place] [address] 92795- 9665 Nov, [facility] [address] [facility] [id number], [place] [address]- 4590 Nov, [facility] [place] [facility] [address] [facility] [id number], [place] [address]- 6670 Nov, [facility] [address] [facility] [id number], [place] [address]- 3665 Nov, [facility] [place] [address] [id number], [place] [id number] Nov, [facility] [place] [facility] [address] [facility] [id number], [place] [address]- 0194 Nov, [facility] [place] [address] [id number], [place] 645910216 Nov, [facility] [address]00565[address], [place] [address]- 1449 Nov, [facility] [place] [address] [id number], [place] 210063355 Oct, [facility] [address] [id number], [place] [address]- 6159 Oct, [facility] [place] [address] [id number], [place] [id number] Sep, [facility] [address] [id number], [place] [address]- 3992 Sep, [facility] [place] [address] [id number], [place] 251252526 Sep, [facility] [place] [facility] [address] [facility] [id number], [place] [address]- 4710 Sep, [facility] [place] [address] [id number], [place] 3[place] Jul, [facility] [place] [address] [id number], [place] 998239691 Jun, [facility] [place] [address] [id number], [place] 321112698 Jun, [facility] [place] [address] [id number], [place] 159499996 Apr, [facility] [place] [address] [id number] [place] [id number] March, [facility] [place] [address] [id number] [place] [id number] Jan, [facility] [place] [facility] [address] [facility] [id number] [place] 00[place]- 0792 Jan, [facility] [place] [facility] [address] [facility] [id number] [place] 327[place]- 2916 Jan, [facility] [place] [facility] [address] [facility] [id number] [place] 47814[place]- 4926 Jan, [facility] [place] [facility] [address] [facility] [id number] [place] 830[place]- 8428 Jan, [facility] [place] [address] [id number] [place] [id number] Jan, [facility] [place] [address] [id number] [place] 914098757 Aug, [facility] [place] [address] [id number], [place] 317778192 Aug, [facility] [address] [facility] [id number] [place] [address]- 9945 Aug, [facility] [address] [facility] [id number], [place] [address]- 9396 Aug, [facility] [place] [address] [id number] [place] [id number] Aug, [facility] [place] [address] [id number], [place] 835966714 May, [facility] [address] [facility] [id number] [place] [address]- 1868 May, [facility] [place] [address] [id number] [place] 095661675 May, [facility] [place] [address] [id number], [place] 595607833 May, [facility] [place] [address] [id number], [place] 516633787 Apr, [facility] [place] [address] [id number] [place] 282948[place] Apr, [facility] [place] [address] [id number] [place] 438666361 March, [facility] [place] [address] [id number] [place] [id number] March, [facility] [place] [address] [id number] [place] [id number] March, [facility] [place] [address] [id number] [place] 519072972 Dec, [facility] [place] [address] [id number] [place] 943669223 Nov, [facility] [place] [address] [id number] [place] 196260282 Nov, [facility] [place] [facility] [address] [facility] [id number], [place] [address]- 3786 Nov, [facility] [place] [facility] [address] [facility] [id number], [place] [address]- 0836 Nov, [facility] [place] [facility] [address] [facility] [id number], [place] [address]- 7906 Nov, [facility] [place] [address] [id number] [place] [id number] Nov, [facility] [place] [address] [id number] [place] [id number] Nov, [facility] [place] [facility] [address] [facility] [id number], [place] [address]- 1786 Nov, [facility] [place] [facility] [address] [facility] [id number], [place] [address]- 3016 Nov, [facility] [place] [facility] [address] [facility] [id number], [place] [address]- 3036 Nov, [facility] [place] [address] [id number] [place] [id number] Nov, [facility] [place] [facility] [address] [facility] [id number], [place] [address]- [address] Oct, [facility] [address]00565100[place], [place] [address]- 9[address] [address], [address] [facility] [address]00565100[place], [place] [address]- 2488 [address], [address] [facility] [address]00565100[place], [place] [address]- [address]290 Sep, [facility] [id number] [place] [address] 89546- 2388 Dec, [facility] [id number] [place] [address] 67911- 6310 Sep, [facility] [id number] [place] [address] 39658- 8985 Sep, [facility] [address]00565100[place], [place] [address]- [address] Sep, [facility] [address]65[address], [place] [address]- 6581 Jun, IMMUNIZATIONS No Known Immunizations SOCIAL HISTORY Never Assessed REASON FOR VISIT EMR-[facility] PLAN OF CARE VITAL SIGNS MEDICATIONS Unknown Medications RESULTS No Results PROCEDURES No Known procedures INSTRUCTIONS MEDICATIONS ADMINISTERED No Known Medications MEDICAL (GENERAL) HISTORY Type Description Date Medical History depression Medical History tachycardia
--- OUTSIDE RECORDS SUMMARY | 2019-02-09 07:08 | XMS REPORT ---
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 Name Role Phone Migration, Doctor Unavailable Unavailable PROBLEMS Type Condition ICD9-CM Code FAO10-DQ Code Onset Dates Condition Status SNOMED Code Problem Encounter for long-term (current) use of other medications V58.69 Active 572750497 Problem Screening examination for venereal disease V74.5 Active 705189978 Problem General counseling for initiation of other contraceptive measures V25.02 Active 467509779776009 Problem Other general counseling and advice for contraceptive management V25.09 Active 895501756 Problem Special screening examination, human papillomavirus [HPV] V73.81 Active 568469744 Problem General counseling for prescription of oral contraceptives V25.01 Active 203289958062057 Problem Other symptoms involving urinary system 788.99 Active 372143661 Problem Papanicolaou smear of cervix with atypical squamous cells cannot exclude high grade squamous intraepithelial lesion (ASC-H) 795.02 Active 282372166 Problem Leukorrhea, not specified as infective 623.5 Active 188225223 Problem Other sign and symptom in breast 611.79 Active 477858059 Problem Unspecified vaginitis and vulvovaginitis 616.10 Active 448686392 Problem Nondependent tobacco use disorder 305.1 Active 908665164 Problem Unspecified symptom associated with female genital organs 625.9 Active 305428077 Problem Dysthymic disorder 300.4 Active 33072596 Problem Cellulitis and abscess of upper arm and forearm 682.3 Active 486280537 Problem Screening for malignant neoplasm of the cervix V76.2 Active 736046392 Problem Acute bronchitis 466.0 Active 82682917 Problem Acute upper respiratory infections of unspecified site 465.9 Active 98444274 Problem Acute pharyngitis 462 Active 344478291 Problem Acute sinusitis, unspecified 461.9 Active 36135576 ALLERGIES No Information ENCOUNTERS Encounter Location Date Diagnosis [facility] 120 [facility] [id number] [place] [id number] Oct, [facility] [id number] [place] [address] [id number] Sep, Acute cystitis with hematuria N30.01 [facility] [place] [id number] [place] [address] [id number] Aug, Dysuria R30.0 ; Vaginal odor N89.8 ; Nausea R11.0 [address] M54.9 [facility] [place] [id number] [place] [address] [id number] Jun, Vaginal irritation N89.8 and Vaginal odor N89.8 [facility] [id number] [place] [address] 13701- 7636 Jan, [facility] [address] [address]- [address]42 Jan, [facility] [place] [id number] [place] [address] [id number] Oct, [facility] [id number] [place] [address] 70347- 1366 Oct, [facility] [id number] [place] [address] 59041- 5505 Aug, [facility] [id number] [place] [address] 23961- 7926 March, [facility] [place] [id number] [place] [address] [id number] March, [facility] [id number] [place] [address] 90564- 5736 March, [facility] [id number] [place] [address] 86552- 2546 March, [facility] [id number] [place] [address] [id number] March, [facility] [id number] [place] [address] [id number] March, [facility] [id number] [place] [address] 69194- 1106 March, [facility] [address] [id number], [place] [address]- 3485 March, [facility] [place] [address] [facility] [id number][place] 415667277 Jan, [facility] [place] [facility] [address] [id number], [place] [address]- 1043 Jan, [facility] [place] [facility] [address]00565100[place], [place] [address] 254 Jan, [facility] [place] [address] [id number], [place] 412997194 Jan, [facility] [place] [facility] [address]00565100[place], [place] [address]- 9715 Jan, [facility] [place] [facility] [address]00565100[place], [place] [address]- 9362 Dec, [facility] [place] [id number], [place] 426369560 Dec, [facility] [place] [facility] [address]00565100[place], [place] [address]- 0731 Dec, [facility] [place] [id number], [place] 569212089 Dec, [facility] [place] [facility] [address]00565100[place], [place] [address]- 5606 Dec, [facility] [place] [facility] [address]00565100[place], [place] [address]- 7699 Dec, [facility] [place] [id number], [place] 263761645 Dec, [facility] [place] [facility] [address] [id number], [place] [address]- 2192 Dec, [facility] [place] [id number], [place] 029887464 Dec, [facility] [place] [facility] [address]00565100[place], [place] [address]- 6206 Dec, [facility] [place] [facility] [address] [place] [address] 75447- 4273 Nov, [facility] [address] [facility] [id number], [place] [address]- 1194 Nov, [facility] [place] [facility] [address] [facility] [id number], [place] [address]- 2978 Nov, [facility] [address] [facility] [id number], [place] [address]- 4177 Nov, [facility] [place] [address] [id number], [place] 144319636 Nov, [facility] [place] [facility] [address] [facility] [id number], [place] [address]- 4872 Nov, [facility] [place] [address] [id number], [place] 375907430 Nov, [facility] [address]00565100[place], [place] [address]- 9631 Nov, [facility] [place] [address] [id number], [place] 468703631 Oct, [facility] [address] [id number], [place] [address]- 8888 Oct, [facility] [place] [address] [id number], [place] 850785635 Sep, [facility] [address] [id number], [place] [address]- 2824 Sep, [facility] [place] [address] [id number], [place] 722833808 Sep, [facility] [place] [facility] [address] [facility] [id number], [place] [address]- 9189 Sep, [facility] [place] [address] [id number], [place] 550090863 Jul, [facility] [place] [address] [id number], [place] 719247032 Jun, [facility] [place] [address] [id number], [place] 254585101 Jun, [facility] [place] [address] [id number], [place] 969591799 Apr, [facility] [place] [address] [id number] [place] [id number] March, [facility] [place] [address] [id number] [place] 315767244 Jan, [facility] [place] [facility] [address] [facility] [id number] [place] 19241603- 8596 Jan, [facility] [place] [facility] [address] [facility] [id number] [place] 81016[place]- 3277 Jan, [facility] [place] [facility] [address] [facility] [id number] [place] 59134532- 8847 Jan, [facility] [place] [facility] [address] [facility] [id number] [place] 261065[place]- 0946 Jan, [facility] [place] [address] [id number] [place] [id number] Jan, [facility] [place] [address] [id number] [place] 899514822 Aug, [facility] [place] [address] [id number], [place] 020041273 Aug, [facility] [address] [facility] [id number] [place] [address]- 3226 Aug, [facility] [address] [facility] [id number], [place] [address]- 1875 Aug, [facility] [place] [address] [id number] [place] [id number] Aug, [facility] [place] [address] [id number], [place] 757276974 May, [facility] [address] [facility] [id number] [place] [address]- 4095 May, [facility] [place] [address] [id number] [place] 797128933 May, [facility] [place] [address] [id number], [place] 872412755 May, [facility] [place] [address] [id number], [place] 121511169 Apr, [facility] [place] [address] [id number] [place] 114321729 Apr, [facility] [place] [address] [id number] [place] 186562032 March, [facility] [place] [address] [id number] [place] [id number] March, [facility] [place] [address] [id number] [place] 960931224 March, [facility] [place] [address] [id number] [place] 176768623 Dec, [facility] [place] [address] [id number] [place] [id number] Nov, [facility] [place] [address] [id number] [place] [id number] Nov, [facility] [place] [facility] [address] [facility] [id number], [place] [address]- 4766 Nov, [facility] [place] [facility] [address] [facility] [id number], [place] [address]- 8666 Nov, [facility] [place] [facility] [address] [facility] [id number], [place] [address]- 8256 Nov, [facility] [place] [address] [id number] [place] [id number] Nov, [facility] [place] [address] [id number] [place] [id number] Nov, [facility] [place] [facility] [address] [facility] [id number][place] [address]- 1056 Nov, [facility] [place] [facility] [address] [facility] [id number][place] [address]- 5716 Nov, [facility] [place] [facility] [address] [facility] [id number], [place] [address]- 0116 Nov, [facility] [place] [address] [id number] [place] [id number] Nov, [facility] [place] [facility] [address] [facility] [id number], [place] [address]- 1036 Oct, [facility] [address]00565100[place], [place] [address]- 9884 15 Oct, 2011 [facility] [id number] [address] 29 Sep, 2011 [facility] [address] [address] Sep, [facility] [id number] [place] [id number] Dec, [facility] [id number] [place] [address] Sep, [facility] [id number] [place] [address] Sep, [facility] [id number] [address] Sep, [facility] [id number], [place] [address] Jun, IMMUNIZATIONS No Known Immunizations SOCIAL HISTORY Never Assessed REASON FOR VISIT EMR-[facility] PLAN OF CARE VITAL SIGNS MEDICATIONS Unknown Medications RESULTS No Results PROCEDURES No Known procedures INSTRUCTIONS MEDICATIONS ADMINISTERED No Known Medications MEDICAL (GENERAL) HISTORY Type Description Date Medical History depression Medical History tachycardia
--- OUTSIDE RECORDS SUMMARY | 2019-02-09 07:08 | XMS REPORT ---
Author Author Migration, Doctor Organization [facility] Address Unknown Phone Unavailable Care Team Providers Care [employer] I Assembler Name Role Phone Migration, Doctor Unavailable Unavailable PROBLEMS Type Condition ICD9-CM Code UIL28-WS Code Onset Dates Condition Status SNOMED Code Problem Encounter for long-term (current) use of other medications V58.69 Active 174215959 Problem Screening examination for venereal disease V74.5 Active 391100239 Problem General counseling for initiation of other contraceptive measures V25.02 Active 091979469885922 Problem Other general counseling and advice for contraceptive management V25.09 Active 012469742 Problem Special screening examination, human papillomavirus [HPV] V73.81 Active 445553718 Problem General counseling for prescription of oral contraceptives V25.01 Active 992321161919801 Problem Other symptoms involving urinary system 788.99 Active 185098463 Problem Papanicolaou smear of cervix with atypical squamous cells cannot exclude high grade squamous intraepithelial lesion (ASC-H) 795.02 Active 887303231 Problem Leukorrhea, not specified as infective 623.5 Active 457443396 Problem Other sign and symptom in breast 611.79 Active 985362151 Problem Unspecified vaginitis and vulvovaginitis 616.10 Active 334474451 Problem Nondependent tobacco use disorder 305.1 Active 574699406 Problem Unspecified symptom associated with female genital organs 625.9 Active 036510931 Problem Dysthymic disorder 300.4 Active 27680935 Problem Cellulitis and abscess of upper arm and forearm 682.3 Active 589516000 Problem Screening for malignant neoplasm of the cervix V76.2 Active 076144618 Problem Acute bronchitis 466.0 Active 84669709 Problem Acute upper respiratory infections of unspecified site 465.9 Active 43991604 Problem Acute pharyngitis 462 Active 405249083 Problem Acute sinusitis, unspecified 461.9 Active 07912354 ALLERGIES No Information ENCOUNTERS Encounter Location Date Diagnosis [facility] [address] [facility] [id number] [place] [id number] Oct, [facility] [id number] [place] [id number] Sep, Acute cystitis with hematuria N30.01 [facility] [place] [id number] [place] [address] [id number] Aug, Dysuria R30.0 ; Vaginal odor N89.8 ; Nausea R11.0 and CVA tenderness M54.9 [facility] [place] [id number] [place] [id number] Jun, Vaginal irritation N89.8 and Vaginal odor N89.8 [facility] [place] [id number] [place] [address]46- 5966 Jan, [facility] [address] [address] Jan, [facility] [place] [id number] [place] [address] [id number] Oct, [facility] [id number] [place] [address] 15283- 5526 Oct, [facility] [id number] [place] [address] 95927- 5729 Aug, [facility] [id number] [place] [address] 42816- 2746 March, [facility] [place] [id number] [place] [address] [id number] March, [facility] [id number] [place] [address] 98948- 1036 March, [facility] [id number] [place] [address] 72665- 2546 March, [facility] [id number] [place] [address] [id number] March, [facility] [id number] [place] [address] [id number] March, [facility] [id number] [place] [address]24- 2186 March, [facility] [address] [id number] [address] March, [facility] [place] [address] [facility] [id number] [id number] Jan, [facility] [place] [facility] [address] [id number] [address] Jan, [facility] [place] [facility] [address], [place] [address]43 Jan, [facility] [place] [address] [id number] [id number] Jan, [facility] [place] [facility] [address]005[address], [place] [address] 285[address] Jan, [facility] [place] [facility] [address], [place] [address] Dec, [facility] [place] [id number], [place] [id number] Dec, [facility] [place] [facility] [address], [place] [address] 14[address] Dec, [facility] [place] [id number], [place] [id number] Dec, [facility] [place] [facility] [address], [place] [address] 118[address] Dec, [facility] [place] [facility] [address], [place] [address] Dec, [facility] [place] [id number] [id number] Dec, [facility] [place] [facility] [address] [id number] [address] Dec, [facility] [place] [id number][place] [id number] Dec, [facility] [place] [facility] [address], [place] [address] Dec, [facility] [place] [facility] [address] [place] [address] 57341- 5346 Nov, [facility] [address] [facility] [id number], [place] [address] Nov, [facility] [place] [facility] [address] [facility] [id number] [address] 4365 Nov, [facility] [address] [facility] [id number], [place] [address] Nov, [facility] [place] [address] [id number][place] [id number] Nov, [facility] [place] [facility] [address] [facility] [id number] [address] 97[address] Nov, [facility] [place] [address] [id number], [place] [address] Nov, [facility] [address]65100[place], [place] [address] Nov, [facility] [place] [address] [id number], [place] [id number] Oct, [facility] [address] [id number], [place] [address] Oct, [facility] [place] [address] [id number], [place] [id number] Sep, [facility] [address] [id number], [place] [address] 7163 Sep, [facility] [place] [address] [id number], [place] [id number] Sep, [facility] [place] [facility] [address] [facility] [id number], [place] [address]- 2147 Sep, [facility] [place] [address] [id number], [place] [id number] Jul, [facility] [place] [address] [id number], [place] [id number] Jun, [facility] [place] [address] [id number], [place] [address] Jun, [facility] [place] [address] [id number], [place] [id number] Apr, [facility] [place] [address] [id number] [place] [id number] March, [facility] [place] [address] [id number] [place] [id number] Jan, [facility] [place] [facility] [address] [facility] [id number] [place] [id number]- [address]2 Jan, [facility] [place] [facility] [address] [facility] [id number] [place] 1268[address]- 1434 Jan, [facility] [place] [facility] [address] [facility] [id number] [place] [address]- [address]89 Jan, [facility] [place] [facility] [address] [facility] [id number] [place] 23840[place]- 2681 Jan, [facility] [place] [address] [id number] [place] [id number] Jan, [facility] [place] [address] [id number] [place] [id number] Aug, [facility] [place] [address] [id number], [place] [id number] Aug, [facility] [address] [facility] [id number] [place] [address]- 9315 Aug, [facility] [address] [facility] [id number][place] [address]- [address]31 Aug, [facility] [place] [address] [id number] [place] [id number] Aug, [facility] [place] [address] [id number], [place] [address] May, [facility] [address] [facility] [id number] [place] [address]- 6379 May, [facility] [place] [address] [id number] [place] [id number] May, [facility] [place] [address] [id number], [place] [id number] May, [facility] [place] [address] [id number], [place] [address] Apr, [facility] [place] [address] [id number] [place] [id number] Apr, [facility] [place] [address] [id number] [place] 8[address] March, [facility] [place] [address] [id number] [place] [id number] March, [facility] [place] [address] [id number] [place] [address] March, [facility] [place] [address] [id number] [place] [address] Dec, [facility] [place] [address] [id number] [place] [address] Nov, [facility] [place] [address] [id number] [place] [id number] Nov, [facility] [place] [facility] [address] [facility] [id number][place] [address]- 1226 Nov, [facility] [place] [facility] [address] [facility] [id number][place] [address]- 5696 Nov, [facility] [place] [facility] [address] [facility] [id number], [place] [address]- 8776 Nov, [facility] [place] [address] [id number] [place] [id number] Nov, [facility] [place] [address] [id number] [place] [id number] Nov, [facility] [place] [facility] [address] [facility] [id number][place] [address]- 2556 Nov, [facility] [place] [facility] [address] [facility] [id number][place] [address]- [address] Nov, [facility] [place] [facility] [address] [facility] [id number], [place] [address]- 9436 Nov, [facility] [place] [address] [id number] [place] [id number] Nov, [facility] [place] [facility] [address] [facility] [id number][place] [address]- 1786 Oct, [facility] [place] [address]00565100[place], [place] [address]- [address] 15 Oct, 2011 [facility] [place] [address]00565100[place], [place] [address]- 7146 29 Sep, 2011 [facility] [place] [address]00565100[place], [place] [address]- 1315 Sep, [facility] [place] [id number] [place] [address] 58097- 3308 Dec, [facility] [place] [id number] [place] [address] 65218- 6989 Sep, [facility] [place] [id number] [place] [address] 18097- 5993 Sep, [facility] [place] [address]65[address], [place] [address]- 8294 Sep, [facility] [place] [address]00565100[place], [place] [address]- 6273 Jun, IMMUNIZATIONS No Known Immunizations SOCIAL HISTORY Never Assessed [place]IT [place] [place] VITAL SIGNS MEDICATIONS Unknown Medications RESULTS No Results PROCEDURES No Known procedures INSTRUCTIONS MEDICATIONS ADMINISTERED No Known Medications MEDICAL (GENERAL) HISTORY Type Description Date Medical History depression Medical History tachycardia
--- OUTSIDE RECORDS SUMMARY | 2019-02-09 07:10 | XMS REPORT | Continuity of Care Document ---
Author Organization Unknown Address Unknown Allergies Active Description Code Type Severity Reaction Onset Reported/Identified Relationship to Patient Clinical Status Yes No Known Drug Allergies [id number] Drug Allergy Unknown N/A 07/16/2008 Yes ciprofloxacin [id number] Drug Allergy Unknown N/A 01/02/2019 Yes Sulfa (Sulfonamide Antibiotics) [id number] Drug Allergy Unknown N/A 2018 Medications There is no data. Problems Date Dx Coded Attending Type Code Diagnosis Diagnosed By 05/18/2008 V22.0 PC NORMAL FIRST 05/18/2008 V22.0 PC NORMAL FIRST 05/18/2008 V22.0 PC NORMAL FIRST 05/18/2008 EMILE NIEVES DO V22.0 PC NORMAL FIRST 05/18/2008 EMILE NIEVES DO K V22.0 PC NORMAL FIRST 05/18/2008 EMILE NIEVES DO K V22.0 PC NORMAL FIRST 05/18/2008 ARABELLA CARLOS APRN V22.0 PC NORMAL FIRST 05/18/2008 EMILE NIEVES DO K V22.0 PC NORMAL FIRST 05/18/2008 EMILE NIEVES DO K V22.0 PC NORMAL FIRST 05/18/2008 EMILE NIEVES DO K V22.0 PC NORMAL FIRST 05/31/2008 477.9 RHINITIS ALLERGIC 05/31/2008 477.9 RHINITIS ALLERGIC 05/31/2008 477.9 RHINITIS ALLERGIC 05/31/2008 GABRIEL NIEVES DOA K 477.9 RHINITIS ALLERGIC 05/31/2008 GABRIEL NIEVES DOA K 477.9 RHINITIS ALLERGIC 05/31/2008 GABRIEL NIEVES DOA K 477.9 RHINITIS ALLERGIC 05/31/2008 ARABELLA CARLOS APRN 477.9 RHINITIS ALLERGIC 05/31/2008 GABRIEL NIEVES DOA K 477.9 RHINITIS ALLERGIC 05/31/2008 GABRIEL NIEVES DOA K 477.9 RHINITIS ALLERGIC 05/31/2008 EMILE NIEVES DO K 477.9 RHINITIS ALLERGIC 06/15/2008 V22.1 PC OTHER NORMAL 06/15/2008 V22.1 PC OTHER NORMAL 06/15/2008 V22.1 PC OTHER NORMAL 06/15/2008 NIEVES DO EMILE K V22.1 PC OTHER NORMAL 06/15/2008 NIEVES DO EMILE K V22.1 PC OTHER NORMAL 06/15/2008 NIEVES DO EMILE K V22.1 PC OTHER NORMAL 06/15/2008 PAMLMORALES TECHNOLOGIST INFECTIOUS DISEASEARABELLA Velarde E V22.1 PC OTHER NORMAL 06/15/2008 NIEVES DO EMILE K V22.1 PC OTHER NORMAL 06/15/2008 NIEVES DO EMILE K V22.1 PC OTHER NORMAL 06/15/2008 NIEVES DO EMILE K V22.1 PC OTHER NORMAL 08/27/2008 V25.41 SURVEILLANCE OF CONTRACEPTIVE PILL 08/27/2008 V72.31 FOREST BOTANY INSTRUCTOR EXAM, ROUTINE 08/27/2008 V25.41 SURVEILLANCE OF CONTRACEPTIVE PILL 08/27/2008 V72.31 FOREST BOTANY INSTRUCTOR EXAM, ROUTINE 08/27/2008 V25.41 SURVEILLANCE OF CONTRACEPTIVE PILL 08/27/2008 V72.31 FOREST BOTANY INSTRUCTOR EXAM, ROUTINE 08/27/2008 NIEVES GABRIEL WHITTINGTONA K V25.41 SURVEILLANCE OF CONTRACEPTIVE PILL 08/27/2008 GABRIEL NIEVES DOA K V72.31 FOREST BOTANY INSTRUCTOR EXAM, ROUTINE 08/27/2008 NIEVES GABRIEL WHITTINGTONA K V25.41 SURVEILLANCE OF CONTRACEPTIVE PILL 08/27/2008 NIEVES GABRIEL WHITTINGTONA K V72.31 FOREST BOTANY INSTRUCTOR EXAM, ROUTINE 08/27/2008 GABRIEL NIEVES DOA K V25.41 SURVEILLANCE OF CONTRACEPTIVE PILL 08/27/2008 EZEQUIEL WHITTINGTON EMILE K V72.31 FOREST BOTANY INSTRUCTOR EXAM, ROUTINE 08/27/2008 PAMLMORALES TECHNOLOGIST INFECTIOUS DISEASEARABELLA Velarde E V25.41 SURVEILLANCE OF CONTRACEPTIVE PILL 08/27/2008 PAMLLALY NIELSEN APRNE E V72.31 FOREST BOTANY INSTRUCTOR EXAM, ROUTINE 08/27/2008 EZEQUIEL WHITTINGTON EMILE K V25.41 SURVEILLANCE OF CONTRACEPTIVE PILL 08/27/2008 NIEVES DO EMILE K V72.31 FOREST BOTANY INSTRUCTOR EXAM, ROUTINE 08/27/2008 NIEVES GABRIEL WHITTINGTONA K V25.41 SURVEILLANCE OF CONTRACEPTIVE PILL 08/27/2008 EZEQUIEL WHITTINGTON EMILE K V72.31 FOREST BOTANY INSTRUCTOR EXAM, ROUTINE 08/27/2008 EZEQUIEL WHITTINGTON EMILE K V25.41 SURVEILLANCE OF CONTRACEPTIVE PILL 08/27/2008 NIEVES DO, EMILE K V72.31 FOREST BOTANY INSTRUCTOR EXAM, ROUTINE 09/18/2008 380.10 OTITIS EXTERNA HEMORRHAGIC 09/18/2008 382.00 OTITIS MEDIA ACUTE SUPPURATIVE 09/18/2008 V72.41 TEST NEGATIVE RESULT 09/18/2008 380.10 OTITIS EXTERNA HEMORRHAGIC 09/18/2008 382.00 OTITIS MEDIA ACUTE SUPPURATIVE 09/18/2008 V72.41 TEST NEGATIVE RESULT 09/18/2008 380.10 OTITIS EXTERNA HEMORRHAGIC 09/18/2008 382.00 OTITIS MEDIA ACUTE SUPPURATIVE 09/18/2008 V72.41 TEST NEGATIVE RESULT 09/18/2008 NIEVES DO EMILE K 380.10 OTITIS EXTERNA HEMORRHAGIC 09/18/2008 NIEVES DO, EMILE K 382.00 OTITIS MEDIA ACUTE SUPPURATIVE 09/18/2008 NIEVES DO, EMILE K V72.41 TEST NEGATIVE RESULT 09/18/2008 EZEQUIEL WHITTINGTON EMILE K 380.10 OTITIS EXTERNA HEMORRHAGIC 09/18/2008 NIEVES DO, EMILE K 382.00 OTITIS MEDIA ACUTE SUPPURATIVE 09/18/2008 NIEVES DO, EMILE K V72.41 TEST NEGATIVE RESULT 09/18/2008 NIEVES DO EMILE K 380.10 OTITIS EXTERNA HEMORRHAGIC 09/18/2008 NIEVES DO, EMILE K 382.00 OTITIS MEDIA ACUTE SUPPURATIVE 09/18/2008 NIEVSE DO, EMILE K V72.41 TEST NEGATIVE RESULT 09/18/2008 PAMARABELLA NIELSEN APRN E 380.10 OTITIS EXTERNA HEMORRHAGIC 09/18/2008 PAMLALY NIELSEN APRNE E 382.00 OTITIS MEDIA ACUTE SUPPURATIVE 09/18/2008 PAMGABRIEL NIELSEN APRNSIE E V72.41 TEST NEGATIVE RESULT 09/18/2008 NIEVES DO EMILE K 380.10 OTITIS EXTERNA HEMORRHAGIC 09/18/2008 NIEVES DO EMILE K 382.00 OTITIS MEDIA ACUTE SUPPURATIVE 09/18/2008 NIEVES DO, EMILE K V72.41 TEST NEGATIVE RESULT 09/18/2008 NIEVES DO, EMILE K 380.10 OTITIS EXTERNA HEMORRHAGIC 09/18/2008 NIEVES DO EMILE K 382.00 OTITIS MEDIA ACUTE SUPPURATIVE [...] NIEVES DO, EMILE K 535.50 GASTRITIS 11/22/2008 ARABELLA CARLOS APRN 285.9 ANEMIA 11/22/2008 ARABELLA CARLOS APRN E 535.50 GASTRITIS 11/22/2008 NIEVES DO, [...] (+) Low Grade Squamous Intraepithelial Lesion 05/24/2009 PAMLARABELLA NIELSEN APRN E 300.00 anxiety 05/24/2009 PAMARABELLA NIELSEN APRN E 795.03 Pap Smear (+) Low Grade [...] K 622.11 CERVICAL DYSPLASIA: MILD 06/12/2009 HELLWIG TECHNOLOGIST INFECTIOUS DISEASELALY VelardeE E 622.11 CERVICAL DYSPLASIA: MILD 06/12/2009 NIEVES DO, EMILE K 622.11 CERVICAL DYSPLASIA: MILD 06/12/2009 NIEVES DO, EMILE K 622.11 CERVICAL DYSPLASIA: MILD 06/12/2009 NIEVES DOEMILE K 622.11 CERVICAL DYSPLASIA: MILD 12/20/2009 V62.4 SOCIAL MALADJUSTMENT 12/20/2009 V62.4 SOCIAL MALADJUSTMENT 12/20/2009 V62.4 SOCIAL MALADJUSTMENT 12/20/2009 NIEVES DOEMILE K V62.4 SOCIAL MALADJUSTMENT 12/20/2009 NIEVES DOGABRIELA K V62.4 SOCIAL MALADJUSTMENT 12/20/2009 NIEVES DOGABRIELA K V62.4 SOCIAL MALADJUSTMENT 12/20/2009 ARABELLA CARLOS APRN V62.4 SOCIAL MALADJUSTMENT 12/20/2009 NIEVES DOEMILE K V62.4 SOCIAL MALADJUSTMENT 12/20/2009 NIEVES DOGABRIELA K V62.4 SOCIAL MALADJUSTMENT 12/20/2009 NIEVES DO EMILE K V62.4 SOCIAL MALADJUSTMENT 01/30/2010 706.1 ACNE 01/30/2010 706.1 ACNE 01/30/2010 706.1 ACNE 01/30/2010 NIEVES DOGABRIELA K 706.1 ACNE 01/30/2010 NIEVES DO, EMILE K 706.1 ACNE 01/30/2010 NIEVES DO, EMILE K 706.1 ACNE 01/30/2010 ARABELLA CARLOS APRN 706.1 ACNE 01/30/2010 NIEVES DO, EMILE K 706.1 ACNE 01/30/2010 NIEVES DOGABRIELA K 706.1 ACNE 01/30/2010 NIEVES DOGABRIELA K 706.1 ACNE 11/07/2010 V22.2 INCIDENTAL 11/07/2010 V25.9 CONTRACEPTIVE MANAGEMENT, UNSPECIFIED 11/07/2010 V22.2 INCIDENTAL 11/07/2010 V25.9 CONTRACEPTIVE MANAGEMENT, UNSPECIFIED 11/07/2010 V22.2 INCIDENTAL 11/07/2010 V25.9 CONTRACEPTIVE MANAGEMENT, UNSPECIFIED 11/07/2010 GABRIEL NIEVES DOA K V22.2 INCIDENTAL 11/07/2010 NIEVES DOGABRIELA K V25.9 CONTRACEPTIVE MANAGEMENT, UNSPECIFIED 11/07/2010 GABRIEL NIEVES DOA K V22.2 INCIDENTAL 11/07/2010 GABRIEL NIEVES DOA K V25.9 CONTRACEPTIVE MANAGEMENT, UNSPECIFIED 11/07/2010 NIEVES DO, EMILE K V22.2 INCIDENTAL 11/07/2010 NIEVES DO, EIMLE K V25.9 CONTRACEPTIVE MANAGEMENT, UNSPECIFIED 11/07/2010 HELLWIG TECHNOLOGIST INFECTIOUS DISEASEARABELLA E V22.2 INCIDENTAL 11/07/2010 HELLWIG TECHNOLOGIST INFECTIOUS DISEASEGABRIELARABELLA E V25.9 CONTRACEPTIVE MANAGEMENT, UNSPECIFIED 11/07/2010 NIEVES DO, [...] EMILE K 724.2 BACK PAIN, LOWER 01/02/2011 HELLWIG TECHNOLOGIST INFECTIOUS DISEASELALYE E 599.0 URINARY TRACT INFECTION 01/02/2011 HELLWIG TECHNOLOGIST INFECTIOUS DISEASELALYE E 724.2 BACK PAIN, LOWER 01/02/2011 NIEVES DO, EMILE K 599.0 URINARY TRACT INFECTION 01/02/2011 NIEVES DO, EMILE K 724.2 BACK PAIN, LOWER 01/02/2011 NIEVES DO, EMILE K 599.0 URINARY TRACT INFECTION 01/02/2011 NIEVES DO, EMILE K 724.2 BACK PAIN, LOWER 01/02/2011 GABRIEL NIEVES DOA K 599.0 URINARY TRACT INFECTION 01/02/2011 EMILE NIEVES DO K 724.2 BACK PAIN, LOWER 01/05/2011 635.90 [...] HGSIL 01/05/2011 V69.2 HIGH-RISK SEXUAL BEHAVIOR 01/05/2011 EMILE NIEVES DO K 635.90 LEGALLY INDUCED UNSPECIFIED WITHOUT COMPLICATION 01/05/2011 GABRIEL NIEVES DOA K 789.09 ABDOMINAL PAIN OTHER SPECIFIED SITE 01/05/2011 GABRIEL NIEVES DOA K 795.04 ABNORMAL PAP - HGSIL 01/05/2011 GABRIEL NIEVES DOA K V69.2 HIGH-RISK SEXUAL BEHAVIOR 01/05/2011 GABRIEL NIEVES DOA K 635.90 LEGALLY INDUCED UNSPECIFIED WITHOUT COMPLICATION 01/05/2011 GABRIEL NIEVES DOA K 789.09 ABDOMINAL PAIN OTHER SPECIFIED SITE 01/05/2011 GABRIEL NIEVES DOA K 795.04 ABNORMAL PAP - HGSIL 01/05/2011 GABRIEL NIEVES DOA K V69.2 HIGH-RISK SEXUAL BEHAVIOR 01/05/2011 EZEQUIEL WHITTINGTON EMILE K 635.90 LEGALLY INDUCED UNSPECIFIED WITHOUT COMPLICATION 01/05/2011 GABRIEL NIEVES DOA K 789.09 ABDOMINAL PAIN OTHER SPECIFIED SITE 01/05/2011 GABRIEL NIEVES DOA K 795.04 ABNORMAL PAP - HGSIL 01/05/2011 EZEQUILE WHITTINGTON EMILE K V69.2 HIGH-RISK SEXUAL BEHAVIOR 01/05/2011 ARABELLA CARLOS APRN 635.90 LEGALLY INDUCED UNSPECIFIED WITHOUT COMPLICATION 01/05/2011 ARABELLA CARLOS APRN 789.09 ABDOMINAL PAIN OTHER SPECIFIED SITE 01/05/2011 PAMARABELLA NIELSEN APRN E 795.04 ABNORMAL PAP - HGSIL 01/05/2011 PAMMORALES FARIASNARABELLA E V69.2 HIGH-RISK SEXUAL BEHAVIOR 01/05/2011 NIEVES DO, [...] DO, EMILE K 784.1 THROAT PAIN 01/26/2011 TERRANCE TECHNOLOGIST INFECTIOUS DISEASEARABELLA E 784.1 THROAT PAIN 01/26/2011 NIEVES DO, EMILE [...] K 795.01 ABNORMAL PAP - ASCUS 01/28/2011 ARABELLA CARLOS APRN 795.01 ABNORMAL PAP - ASCUS 01/28/2011 NIEVES [...] DO, EMILE K 788.63 URINARY URGENCY 06/04/2011 ARABELLA CARLOS APRN 788.1 pain during urination (dysuria) 06/04/2011 ARABELLA CARLOS APRN 788.41 URINARY FREQUENCY 06/04/2011 ARABELLA CARLOS APRN 788.63 URINARY URGENCY 06/04/2011 NIEVES DO, EMILE [...] CARLOS APRN 079.99 VIRAL SYNDROME 10/15/2011 NIEVES DO, EMILE [...] DO 623.5 LEUKORRHEA NOT SPECIFIED INFECTIVE 11/02/2011 GABRIEL NIEVES DOA K 795.02 ABNORMAL PAP - ASCUS-H 11/02/2011 EMILE NIEVES DO 623.5 LEUKORRHEA NOT SPECIFIED INFECTIVE 11/02/2011 NIEVES DOEMILE 795.02 ABNORMAL PAP - ASCUS-H 11/02/2011 EZEQUIEL DOEMILE K 623.5 LEUKORRHEA NOT SPECIFIED INFECTIVE 11/02/2011 EZEQUIEL DOEMILE K 795.02 ABNORMAL PAP - ASCUS-H 11/02/2011 ARABELLA CARLOS APRN 623.5 LEUKORRHEA NOT SPECIFIED INFECTIVE 11/02/2011 ARABELLA CARLOS APRN 795.02 ABNORMAL PAP - ASCUS-H 11/02/2011 EZEQUIEL DOEMILE K 623.5 LEUKORRHEA NOT SPECIFIED INFECTIVE 11/02/2011 EZEQUIEL DOEMILE K 795.02 ABNORMAL PAP - ASCUS-H 11/02/2011 EZEQUIEL DOEMILE K 623.5 LEUKORRHEA NOT SPECIFIED INFECTIVE 11/02/2011 EZEQUIEL DOEMILE 795.02 ABNORMAL PAP - ASCUS-H 11/02/2011 EZEQUIEL DOEMILE 623.5 LEUKORRHEA NOT SPECIFIED INFECTIVE 11/02/2011 EMILE NIEVES DO 795.02 ABNORMAL PAP - ASCUS-H 11/17/2011 V76.2 Cervical Pap Smear 11/17/2011 V76.2 Cervical Pap Smear 11/17/2011 V76.2 Cervical Pap Smear 11/17/2011 EMILE NIEVES DO K V76.2 Cervical Pap Smear 11/17/2011 EZEQUIEL DOEMILE K V76.2 Cervical Pap Smear 11/17/2011 NIEVES DOGABRIELA K V76.2 Cervical Pap Smear 11/17/2011 ARABELLA CARLOS APRN V76.2 Cervical Pap Smear 11/17/2011 EZEQUIEL DOEMILE K V76.2 Cervical Pap Smear 11/17/2011 NIEVES DOGABRIELA K V76.2 Cervical Pap Smear 11/17/2011 NIEVES DOGABRIELA K V76.2 Cervical Pap Smear 01/27/2012 300.4 DYSTHYMIC DIS 01/27/2012 300.4 DYSTHYMIC DIS 01/27/2012 300.4 DYSTHYMIC DIS 01/27/2012 EMILE NIEVES DO K 300.4 DYSTHYMIC DIS 01/27/2012 EMILE NIEVES DO K 300.4 DYSTHYMIC DIS 01/27/2012 EZEQUIEL DOEMILE K 300.4 DYSTHYMIC DIS 01/27/2012 ARABELLA CARLOS APRN 300.4 DYSTHYMIC DIS 01/27/2012 NIEVES DO, EMILE K 300.4 DYSTHYMIC DIS 01/27/2012 NIEVES DO, EMILE K 300.4 DYSTHYMIC DIS 01/27/2012 NIEVES [...] DO, EMILE K 465.9 UPPER RESPIRATORY INFECTION 05/02/2012 682.3 CELLULITIS AND ABSCESS OF UPPER ARM AND FOREARM 05/02/2012 682.3 CELLULITIS AND ABSCESS OF UPPER ARM AND FOREARM 05/02/2012 682.3 CELLULITIS AND ABSCESS OF UPPER ARM AND FOREARM 05/02/2012 NIEVES DO, EMILE K 682.3 CELLULITIS AND ABSCESS OF UPPER ARM AND FOREARM 05/02/2012 NIEVES DO, EMILE K 682.3 CELLULITIS AND ABSCESS OF UPPER ARM AND FOREARM 05/02/2012 NIEVES DO, EMILE K 682.3 CELLULITIS AND ABSCESS OF UPPER ARM AND FOREARM 05/02/2012 ARABELLA CARLOS APRN 682.3 CELLULITIS AND ABSCESS OF UPPER ARM AND FOREARM 05/02/2012 EZEQUIEL DOGABRIELA K 682.3 CELLULITIS AND ABSCESS OF UPPER ARM AND FOREARM 05/02/2012 NIEVES DO EMILE K 682.3 CELLULITIS AND ABSCESS OF UPPER ARM AND FOREARM 05/02/2012 NIEVES DO, EMILE K 682.3 CELLULITIS AND ABSCESS OF UPPER ARM AND FOREARM 05/25/2012 616.10 VAGINITIS VULVOVAGINITIS UNSPECIFIED 05/25/2012 616.10 VAGINITIS VULVOVAGINITIS UNSPECIFIED 05/25/2012 616.10 VAGINITIS VULVOVAGINITIS UNSPECIFIED 05/25/2012 EMILE NIEVES DO K 616.10 VAGINITIS VULVOVAGINITIS UNSPECIFIED 05/25/2012 GABRIEL NIEVES DOA K 616.10 VAGINITIS VULVOVAGINITIS UNSPECIFIED 05/25/2012 GABRIEL NIEVES DOA K 616.10 VAGINITIS VULVOVAGINITIS UNSPECIFIED 05/25/2012 ARABELLA CARLOS APRN 616.10 VAGINITIS VULVOVAGINITIS UNSPECIFIED 05/25/2012 GABRIEL NIEVES DOA K 616.10 VAGINITIS VULVOVAGINITIS UNSPECIFIED 05/25/2012 GABRIEL NIEVES DOA K 616.10 VAGINITIS VULVOVAGINITIS UNSPECIFIED 05/25/2012 NIEVES DO EMILE K 616.10 VAGINITIS VULVOVAGINITIS UNSPECIFIED 08/02/2012 305.1 [...] 788.99 OTHER SYMPTOMS INVOLVING URINARY SYSTEM 08/02/2012 PAMLMORALES TECHNOLOGIST INFECTIOUS DISEASEGABRIELARABELLA E 305.1 TOBACCO ABUSE 08/02/2012 TERRANCE FARIASN ARABELLA E 788.99 OTHER SYMPTOMS INVOLVING URINARY [...] HPV SCREENING 02/14/2013 V74.5 STD SCREEN 02/14/2013 GABRILE NIEVES DOA K V25.09 CONTRACEPTIVE COUNSELING - GENERAL 02/14/2013 NIEVES DO EMILE K V73.81 HPV SCREENING 02/14/2013 NIEVES DO EMILE K V74.5 STD SCREEN 02/14/2013 GABRIEL NIEVES DOA K V25.09 CONTRACEPTIVE COUNSELING - GENERAL 02/14/2013 NIEVES DO, EMILE K V73.81 HPV SCREENING 02/14/2013 NIEVES DO, EMILE K V74.5 STD SCREEN 02/14/2013 NIEVES DO, EMILE K V25.09 CONTRACEPTIVE COUNSELING - GENERAL 02/14/2013 NIEVES DO, EMILE K V73.81 HPV SCREENING 02/14/2013 NIEVES DO, EMILE K V74.5 STD SCREEN 02/14/2013 HELLWIG TECHNOLOGIST INFECTIOUS DISEASEARABELLA Velarde V25.09 CONTRACEPTIVE COUNSELING - GENERAL 02/14/2013 HELLWIG TECHNOLOGIST INFECTIOUS DISEASEARABELLA Velarde E V73.81 HPV SCREENING 02/14/2013 HELLWIG TECHNOLOGIST INFECTIOUS DISEASEARABELLA Velarde E V74.5 STD SCREEN 02/14/2013 NIEVES DO, EMILE [...] DO, EMILE K 466.0 BRONCHITIS, ACUTE 04/04/2013 PAMLWIG TECHNOLOGIST INFECTIOUS DISEASEARABELLA Velarde 461.9 SINUSITIS ACUTE 04/04/2013 PAMLWIG TECHNOLOGIST INFECTIOUS DISEASEARABELLA Velarde 466.0 BRONCHITIS, ACUTE 04/04/2013 NIEVES DO, EMILE K 461.9 SINUSITIS ACUTE 04/04/2013 NIEVES DO, EMILE K 466.0 BRONCHITIS, ACUTE 04/04/2013 NIEVES DO, EMILE K 461.9 SINUSITIS ACUTE 04/04/2013 NIEVES DO, EMILE K 466.0 BRONCHITIS, ACUTE 04/04/2013 NIEVES DO, EMILE K 461.9 SINUSITIS ACUTE 04/04/2013 NIEVES DO, EMILE K 466.0 BRONCHITIS, ACUTE 09/29/2013 NIEVES DO, EMILE K 462 ACUTE PHARYNGITIS 09/29/2013 NIEVES DO, EMILE K 462 ACUTE PHARYNGITIS 09/29/2013 ARABELLA CARLOS APRN 462 ACUTE PHARYNGITIS 09/29/2013 NIEVES DO, EMILE K 462 ACUTE PHARYNGITIS 09/29/2013 NIEVES DO, EMILE K 462 ACUTE PHARYNGITIS 09/29/2013 NIEVES DO, EMILE K 462 ACUTE PHARYNGITIS 11/08/2013 NIEVES DO EMILE K V25.01 GENERAL COUNSELING ON PRESCRIPTION OF ORAL CONTRACEPTIVES 11/08/2013 ARABELLA CARLOS APRN V25.01 GENERAL COUNSELING ON PRESCRIPTION OF ORAL CONTRACEPTIVES 11/08/2013 NIEVES DO EMILE K V25.01 GENERAL COUNSELING ON PRESCRIPTION OF ORAL CONTRACEPTIVES 11/08/2013 NIEVES DO EMILE K V25.01 GENERAL COUNSELING ON PRESCRIPTION OF ORAL CONTRACEPTIVES 11/08/2013 NIEVES DO EMILE K V25.01 GENERAL COUNSELING ON PRESCRIPTION OF ORAL CONTRACEPTIVES 12/15/2013 ARABELLA CARLOS APRN 625.9 UNSPECIFIED SYMPTOM ASSOCIATED WITH FEMALE GENITAL ORGANS 12/15/2013 NIEVES DO EMILE K 625.9 UNSPECIFIED SYMPTOM ASSOCIATED WITH FEMALE GENITAL ORGANS 12/15/2013 NIEVES DO EMILE K 625.9 UNSPECIFIED SYMPTOM ASSOCIATED WITH FEMALE GENITAL ORGANS 12/15/2013 NIEVES DO, EMILE K 625.9 UNSPECIFIED SYMPTOM ASSOCIATED WITH FEMALE GENITAL ORGANS 01/30/2014 NIEVES DO EMILE K 611.79 OTHER SIGNS AND SYMPTOMS IN BREAST 01/30/2014 NIEVES DO EMILE K 611.79 OTHER SIGNS AND SYMPTOMS IN BREAST 01/02/2019 SHYLA GREGORIO Ot F17.210 NICOTINE DEPENDENCE, CIGARETTES, UNCOMPL 01/02/2019 SHYLA GREGORIO Ot F41.9 ANXIETY DISORDER, UNSPECIFIED 01/02/2019 SHYLA GREGORIO Ot H81.11 BENIGN PAROXYSMAL VERTIGO, RIGHT EAR 01/02/2019 SHYLA GREGORIO Ot R42 DIZZINESS AND GIDDINESS 01/02/2019 DARLINE SHYLA Ot Z88.1 ALLERGY STATUS TO OTHER ANTIBIOTIC AGENT 01/02/2019 DARLINE SHYLA Ot Z88.2 ALLERGY STATUS TO SULFONAMIDES STATUS 01/02/2019 DARLINE SHYLA Ot Z97.5 PRESENCE OF (INTRAUTERINE) CONTRACEPTIVE 01/04/2019 SHYLA GREGORIO Ot F17.210 NICOTINE DEPENDENCE, CIGARETTES, UNCOMPL 01/04/2019 DARLINE SHYLA Ot F41.9 ANXIETY DISORDER, UNSPECIFIED 01/04/2019 BENJAMIN GREGORIOIS Ot H81.11 BENIGN PAROXYSMAL VERTIGO, RIGHT EAR 01/04/2019 DARLINE SHYLA Ot R42 DIZZINESS AND GIDDINESS 01/04/2019 DARLINE SHYLA Ot Z88.1 ALLERGY STATUS TO OTHER ANTIBIOTIC AGENT 01/04/2019 TAYLORSHYLA HAQUE Ot Z88.2 ALLERGY STATUS TO SULFONAMIDES STATUS 01/04/2019 SHYLA GREGORIO Ot Z97.5 PRESENCE OF (INTRAUTERINE) CONTRACEPTIVE 02/06/2019 RJ MCMULLEN DO Ot R10.13 EPIGASTRIC PAIN Procedures Code Description [place] [address] GC/CHLAM PROBE (STATE) 02/14/2013 24310 PAP SMEAR 02/14/2013 Q0091 PAP SMEAR OBTAIN SMEAR 02/14/2013 37675 URINE TEST (IN- HOUSE) 02/14/2013 52930 TRICHOMONAS (IN-HOUSE) 02/14/2013 52519 CULTURE UROGENITAL 02/15/2013 48310 STREP A (IN-HOUSE) 09/29/2013 61869 TEST, URINE (IN- HOUSE) 11/08/2013 99186 UA LONG DIP 11/08/2013 36297 GC/CHLAM URINE (STATE) 11/08/2013 54495 TEST, URINE (IN- HOUSE) 12/15/2013 07151 UA LONG DIP 12/15/2013 02468 CULTURE UROGENITAL 12/16/2013 04614 ROUTINE VENIPUNCTURE 12/18/2013 82459 US PELVIC COMPL (REFLEX CPT - 92879) 12/18/2013 71589 HCV QUANTITATIVE RNA BY PCR 12/18/2013 52710 US BREAST(S) ULTRASOUND, BOTH 01/30/2014 04842 CULTURE WOUND (AEROBIC) 02/03/2014 73797 UA LONG DIP 03/21/2014 32903 CULTURE URINE 03/21/2014 01810 GC/CHLAM URINE (STATE) 03/21/2014 Results Test Result Range CULTURE, URINE - 08/13/17 13:01 CULTURE, URINE, ROUTINE SEE NOTE NRG Complete blood count (CBC) with automated white blood cell (WBC) differential - 01/02/19 13:05 Blood leukocytes automated count (number/volume) 10.0 10*3/uL 4.3-11.0 Blood erythrocytes automated count (number/volume) 5.10 10*6/uL 4.35-5.85 Venous blood hemoglobin measurement (mass/volume) 15.1 g/dL 11.5-16.0 Blood hematocrit (volume fraction) 46 % 35-52 Automated erythrocyte mean corpuscular volume 91 [foz_us] 80-99 Automated erythrocyte mean corpuscular hemoglobin (mass per erythrocyte) 30 pg 25-34 Automated erythrocyte mean corpuscular hemoglobin concentration measurement ( mass/volume) 33 g/dL 32-36 Automated erythrocyte distribution width ratio 13.1 % 10.0-14.5 Automated blood platelet count (count/volume) 241 10*3/uL 130-400 Automated blood platelet mean volume measurement 11.3 [foz_us] 7.4-10.4 Automated blood neutrophils/100 leukocytes 62 % 42-75 Automated blood lymphocytes/100 leukocytes 24 % 12-44 Blood monocytes/100 leukocytes 10 % 0-12 Automated blood eosinophils/100 leukocytes 3 % 0-10 Automated blood basophils/100 leukocytes 1 % 0-10 Blood neutrophils automated count (number/volume) 6.2 10*3 1.8-7.8 Blood lymphocytes automated count (number/volume) 2.4 10*3 1.0-4.0 Blood monocytes automated count (number/volume) 1.0 10*3 0.0-1.0 Automated eosinophil count 0.3 10*3/uL 0.0-0.3 Automated blood basophil count (count/volume) 0.1 10*3/uL 0.0-0.1 Comprehensive metabolic panel - 01/02/19 13:05 Serum or plasma sodium measurement (moles/volume) 136 mmol/L 135-145 Serum or plasma potassium measurement (moles/volume) 3.7 mmol/L 3.6-5.0 Serum or plasma chloride measurement (moles/volume) 100 mmol/L 98-107 Carbon dioxide 27 mmol/L 21-32 Serum or plasma anion gap determination (moles/volume) 9 mmol/L 5-14 Serum or plasma urea nitrogen measurement (mass/volume) 10 mg/dL 7-18 Serum or plasma creatinine measurement (mass/volume) 0.78 mg/dL 0.60-1.30 Serum or plasma urea nitrogen/creatinine mass ratio 13 NRG Serum or plasma creatinine measurement with calculation of estimated glomerular filtration rate > NRG Serum or plasma glucose measurement (mass/volume) 107 mg/dL 70-105 Serum or plasma calcium measurement (mass/volume) 10.7 mg/dL 8.5-10.1 Serum or plasma total bilirubin measurement (mass/volume) 0.3 mg/dL 0.1-1.0 Serum or plasma alkaline phosphatase measurement (enzymatic activity/volume) 115 U/L 40-136 Serum or plasma aspartate aminotransferase measurement (enzymatic activity/ volume) 31 U/L 5-34 Serum or plasma alanine aminotransferase measurement (enzymatic activity/volume ) 53 U/L 0-55 Serum or plasma protein measurement (mass/volume) 7.9 g/dL 6.4-8.2 Serum or plasma albumin measurement (mass/volume) 4.5 g/dL 3.2-4.5 CALCIUM CORRECTED 10.3 mg/dL 8.5-10.1 Complete urinalysis with reflex to culture - 01/02/19 14:06 Urine color determination YELLOW NRG Urine clarity determination CLEAR NRG Urine pH measurement by test strip 7 5-9 Specific gravity of urine by test strip 1.010 1.016- 1.022 Urine protein assay by test strip, semi-quantitative NEGATIVE NEGATIVE Urine glucose detection by automated test strip NEGATIVE NEGATIVE Erythrocytes detection in urine sediment by light microscopy NEGATIVE NEGATIVE Urine ketones detection by automated test strip NEGATIVE NEGATIVE Urine nitrite detection by test strip NEGATIVE NEGATIVE Urine total bilirubin detection by test strip NEGATIVE NEGATIVE Urine urobilinogen measurement by automated test strip (mass/volume) NORMAL NORMAL Urine leukocyte esterase detection by dipstick 1+ NEGATIVE Automated urine sediment erythrocyte count by microscopy (number/high power field) RARE NRG Automated urine sediment leukocyte count by microscopy (number/high power field ) [HPF] NRG Bacteria detection in urine sediment by light microscopy FEW NRG Squamous epithelial cells detection in urine sediment by light microscopy 5-10 NRG Crystals detection in urine sediment by light microscopy NONE NRG Casts detection in urine sediment by light microscopy NONE NRG Mucus detection in urine sediment by light microscopy NEGATIVE NRG Complete urinalysis with reflex to culture NO NRG Encounters ACCT No. Visit Date/Time Discharge Status Pt. Type Provider Facility Loc./Unit Complaint [id number] 03/21/2014 10:01:00 03/21/2014 23:59:59 CLS Outpatient EMILE NIEVES DO [id number] 01/30/2014 15:17:00 01/30/2014 23:59:59 CLS Outpatient NIEVES EMILE [place] [id number] 12/18/2013 09:59:00 12/18/2013 23:59:59 CLS Outpatient NIEVES EMILE [place] [id number] 12/15/2013 15:24:00 12/15/2013 23:59:59 CLS Outpatient TERRANCE ARABELLA PRITCHARD [id number] 11/08/2013 10:20:00 11/08/2013 23:59:59 CLS Outpatient EMILE NIEVES DO [id number] 09/29/2013 15:34:00 09/29/2013 23:59:59 CLS Outpatient EMILE NIEVES DO [id number] 07/28/2013 15:12:00 07/28/2013 23:59:59 CLS Outpatient NIEVES EMILE [place] [id number] 08/29/2012 16:01:00 08/29/2012 23:59:59 CLS Outpatient [id number] 04/04/2013 09:52:00 Document Registration [id number] 02/14/2013 10:13:00 Document Registration [id number] 02/08/2019 05:35:00 02/08/2019 09:18:00 DIS Outpatient RJ MCMULLEN DO [facility] PREOP BILIARY DYSKINESIA [id number] 02/03/2019 08:33:00 02/03/2019 23:59:59 CLS Outpatient RJ MCMULLEN DO [facility] CARD ABD PAIN,EPIGASTRIC [id number] 01/25/2019 07:51:00 01/25/2019 23:59:59 CLS Outpatient RJ MCMULLEN DO [facility] RAD ABD PAIN [id number] 01/02/2019 12:46:00 01/02/2019 15:00:00 DIS Emergency SHYLA GREGORIO [facility] ER LIGHT HEADED [id number] 02/09/2019 06:59:00 ACT Outpatient RJ MCMULLEN DO [facility] SDC BILIARY DYSKINESIA [id number] 09/28/2017 16:00:00 09/28/2017 23:59:59 CLS Outpatient CINTHYA ESQUEDA APRN [facility] [id number] 08/13/2017 12:40:00 Document Registration
[2019-02-09] MEDS ORDERED: ceFAZolin 2 GM IV Premixed 50 ML IV ONE (07:15)
[2019-02-09] MEDS ORDERED: CATHETER FLUSH 10 ML SYR IV PRN (07:15)
[2019-02-09] MEDS ORDERED: NEOSTIGMINE 1 MG/ML 5 ML SYRINGE ONE ×2 (07:20→07:50)
[2019-02-09] MEDS ORDERED: proPOfol 200 MG/20 ML (DIPRIVAN) VIAL IV ONE ×2 (07:20→07:50)
[2019-02-09] MEDS ORDERED: GLYCOPYRROLATE 0.2 MG/ML (ROBINUL) 2 ML VIAL ONE ×2 (07:20→07:50)
[2019-02-09] MEDS ORDERED: ONDANSETRON 4 MG/2 ML (SDV) Z0FRAN ONE ×3 (07:20→09:21)
[2019-02-09] MEDS ORDERED: LIDOCAINE PF 2% 5 ML (XYLOCAINE) VIAL ONE ×2 (07:20→07:50)
[2019-02-09] MEDS ORDERED: ROCURONIUM 10 MG/ML 5 ML SYRINGE IV ONE ×2 (07:20→07:50)
[2019-02-09] MEDS ORDERED: SEVOFLURANE (ULTANE) 15 ML INHAL SOLN ONE ×2 (07:20→07:50)
[2019-02-09] MEDS ORDERED: DEXAMETHASONE 10 MG/ML (DECADRON) 1 ML VIAL ONE ×2 (07:20→07:50)
[2019-02-09] MEDS ORDERED: LIDOCAINE 1% INJ 20 ML 20 ML VIAL ONE (07:25)
[2019-02-09] MEDS ORDERED: BUP/EPI 0.5% 1:200,000 (SENSORCAINE) 30 ML VIAL ONE (07:25)
[2019-02-09] MEDS ORDERED: MIDAZOLAM 2 MG/2 ML (VERSED) VIAL IV ONE (07:30)
[2019-02-09 07:35] VITALS: BP 122/82
[2019-02-09] MEDS: LACTATED RINGERS 1,000 ML IV PRN ×2 (07:35→09:36)
--- NOTE | 2019-02-09 07:43 | Progress Note-Pre Operative ---
Pre-Operative Progress Note H&P Reviewed The H&P was reviewed, patient examined and found to have biliary dyskinesia. Risks and benefits discussed for laparoscopic cholecystectomy all other indicated procedures and she wishes to proceed. Date Seen by Provider: Feb 09, 2019 Time Seen by Provider: 07:42 Date H&P Reviewed: Feb 09, 2019 Time H&P Reviewed: 07:43 Pre-Operative Diagnosis: biliary dyskinesia RJ MCMULLEN DO Feb 09, 2019 07:43
[2019-02-09] MEDS ORDERED: fentaNYL INJECTION 100 MCG/2 ML AMP ONE ×2 (07:50→09:39)
[2019-02-09] MEDS ORDERED: METR500T PO (08:25)
--- NOTE | 2019-02-09 09:40 | Progress Note-Post Operative ---
Post-Operative Progess Note Surgeon (s)/Contact Center Team Lead (s) Surgeon RJ MCMULLEN DO Contact Center Team Lead: Dr. Platt Pre-Operative Diagnosis biliary dyskinesia Post-Operative Diagnosis same Procedure & Operative Findings Date of Procedure 02/09/19 Procedure Performed/Findings lap juan a c ioc Anesthesia Type gen Estimated Blood Loss Estimated blood loss (mL): min Specimens/Packing Specimens Removed gallbladder RJ MCMULLEN DO Feb 09, 2019 09:40
[2019-02-09] MEDS ORDERED: DOCU-143 PO (09:41)
[2019-02-09] MEDS ORDERED: ACHD5005 PO (09:41)
--- NOTE | 2019-02-09 09:42 | Discharge Inst-Simple/Standard ---
Discharge Inst-Standard Discharge Medications New, Converted or Re-Newed RX: RX on Chart Patient Instructions/Follow Up Plan of Care/Instructions/FU: 2 weeks Hermila Activity as Tolerated: No Discharge Diet: Regular Diet Other Inst to Patient Follow up Appt: Make appointment for 2 weeks. Instructions: No lifting greater than 10 pounds. No strenuous activity. May shower in 24 hours, no tub bath or soaking. Use incentive spirometer at home as directed. No Smoking Skin/Wound Care: You have special glue over incisions it will fall off on its own. Symptoms to Report: Appetite Changes, Extremity Discoloration, Numbness/Tingling, Swelling Increased , Bleeding Excessive, Eyesight Changes, Pain Increased, Urine Color Change, Constipation(Persistent), Fever over 101 degree F, Pain/Pressure in chest, Urinating Difficulty, Cough Up/Vomit Blood, Heart Beat Irreg/Pounding, Pain/ Pressure in jaw, Vaginal Bleeding Increase, Cramps in feet or legs, Lightheadedness, Pain/Pressure in shoulder, Diarrhea(Persistent), Memory Changes Suddenly, Questions/Concerns, Weight gain consecutive days, Dizziness/ Fainting, Nausea/Vomiting, Shortness of Breath, Weight gain over 2 pounds. If eyes or skin turn yellow notify physician. If questions or concerns contact your physician Or seek help at emergency department. RJ MCMULLEN DO Feb 09, 2019 09:42
[2019-02-09] MEDS ORDERED: HYDROmorphone 2 MG/ML VIAL (DILAUDID) IV ONE (10:00)
[2019-02-09] MEDS: ONDANSETRON 4 MG/2 ML (SDV) Z0FRAN IVP PRN ×2 (10:20→10:59)
[2019-02-09 10:40] VITALS: BP 115/78
[2019-02-09] MEDS ORDERED: HYDROcodone/APAP 5 MG/325 MG (LORTAB) TAB ONE (10:43)
[2019-02-09] MEDS ORDERED: HYDROcodone/APAP 5 MG/325 MG (LORTAB) TAB PO ONE (10:45)
[2019-02-09 11:10] VITALS: BP 110/70
[2019-02-09 11:40] VITALS: BP 117/77
[2019-02-09 11:50] VITALS: BP 117/77
--- NOTE | 2019-02-09 12:19 | Diagnostic Imaging Report ---
INDICATION: Gallbladder disease. FINDINGS: Intraoperative cholangiogram demonstrates normal caliber of the intrahepatic and extrahepatic biliary ducts. No intrinsic or extrinsic filling defects are appreciated. There is free spill of contrast into the duodenum. There is no pathological extravasation of contrast. IMPRESSION: Unremarkable intraoperative cholangiogram status post cholecystectomy. Please correlate with the formal operative report. Dictated by: Dictated on workstation # [id number]
--- NOTE | 2019-02-09 12:57 | Anesthesia-General Post-Op ---
General Patient Condition Mental Status/LOC: Same as Preop Cardiovascular: Satisfactory Nausea/Vomiting: Absent Respiratory: Satisfactory Pain: Controlled Complications: Absent Post Op Complications Complications None Follow Up Care/Instructions Patient Instructions None needed. Anesthesia/Patient Condition Patient Condition Patient is doing well, no complaints, stable vital signs, no apparent adverse anesthesia problems. No complications reported per nursing. ADRIAN CARR CRNA Feb 09, 2019 12:56
--- NOTE | 2019-02-10 06:31 | OPERATIVE REPORT ---
DATE OF SERVICE: 02/09/2019 PREOPERATIVE DIAGNOSIS: Biliary dyskinesia. POSTOPERATIVE DIAGNOSIS: Biliary dyskinesia. PROCEDURE: Laparoscopic cholecystectomy with intraoperative cholangiogram. SURGEON: Rj Cleaning DO GRADING CLERK: Dr. Platt, assisted in retraction, dissection, and closure. ANESTHESIA: General. ESTIMATED BLOOD LOSS: Minimal. COMPLICATIONS: None. INDICATIONS: The patient is a 33-year-old female with abdominal pain and workup that was consistent with biliary dyskinesia. She understands risks and benefits of procedure and wished to proceed with procedure. Consent was signed in the chart. PROCEDURE: The patient was taken to the operating suite. She was prepped and draped in sterile fashion. Timeout was performed. Local anesthetic was infiltrated below the umbilicus. Incision was made and dissection was taken down to the fascia, which was scored, elevated and the abdomen was entered. A 0 Vicryl was placed in a nqqxbq-fr-egqen fashion for closure at the end. Balloon trocar was inserted in the abdomen and the abdomen was insufflated. Under direct visualization of laparoscope, two 5 mm trocars were placed in the right lower quadrant. The gallbladder was then grasped and elevated. There were some adhesions to the gallbladder and cautery was used to take these off of the gallbladder. The cystic duct and cystic artery were then dissected out. Clips were placed on the proximal and distal portion of the cystic artery and distal portion of the cystic duct. The duct was then partially transected. Arrow catheter was inserted into the duct and cholangiogram was performed. There were no filling defects. Contrast made its way into the duodenum without difficulty. The catheter was removed. Clips were placed on the proximal portion of the cystic duct and then the duct and artery were then completely transected. Hook cautery was used to dissect the gallbladder from the gallbladder fossa achieving hemostasis. Once removed, it was then placed in an Endobag and removed through the 12 mm trocar site. The abdomen was then irrigated with copious amounts of irrigation. The hemostasis was achieved. The abdomen was then desufflated, the trocars were then removed. The 0 Vicryl that was placed at the beginning of the case was then tied closing the 12 mm fascial defect. The skin was then closed using 4-0 Monocryl in a subcuticular fashion. The abdomen was then washed and dried and Skin Affix was placed over the incisions. The patient tolerated the procedure well without any complications. She was taken to recovery room in stable condition. Job ID: [id number] DocumentID: [id number] Dictated Date: 02/09/2019 21:01:21 Molecular Physicist Date: 02/10/2019 05:36:22 Dictated By: RJ CLEANING DO
== END 2019-02-09 11:50 | disposition home or self-care (01) ==
LOC: SDC 06:59
PROVIDERS: ATTEND Surgery
DX: K81.1 Chronic cholecystitis (principal); F41.9 Anxiety disorder, unspecified; E16.2 Hypoglycemia, unspecified; F17.210 Nicotine dependence, cigarettes, uncomplicated; Z79.899 Other long term (current) drug therapy
CPT/HCPCS: 84703; 87081; 88304

== ENCOUNTER 2019-03-30 05:45 | Outpatient (CLI) | payer OTHER ==
[~2019-03-30] VITALS: Ht 168.9 cm; Wt 84.8 kg
[~2019-03-30 05:45] MED LIST changes: +ACHD5005 PO; +DOCU-143 PO; +METR500T PO
[2019-03-30] MEDS ORDERED: SPIR25TA5 PO (09:55)
== END 2019-03-30 09:57 | disposition home or self-care (01) ==
LOC: PREOP 05:45
PROVIDERS: ATTEND Surgery
DX: Z01.818 Encounter for other preprocedural examination (principal)

== ENCOUNTER 2019-04-03 07:03 | Day surgery (SDC) | payer OTHER ==
[~2019-04-03] VITALS: Ht 168.9 cm; Wt 84.8 kg
[~2019-04-03 07:03] MED LIST changes: +SPIR25TA5 PO
[2019-04-03] MEDS ORDERED: LACTATED RINGERS 1,000 ML IV ONE (07:06)
--- OUTSIDE RECORDS SUMMARY | 2019-04-03 07:06 | XMS REPORT ---
Author Author Migration, Doctor Organization [facility] Address Unknown Phone Unavailable Care Team Providers Care Building Code Inspector Name Role Phone Migration, Doctor Unavailable Unavailable PROBLEMS Type Condition ICD9-CM Code QQX32-QW Code Onset Dates Condition Status SNOMED Code Problem Encounter for long-term (current) use of other medications V58.69 Active 353353805 Problem Screening examination for venereal disease V74.5 Active 671337946 Problem General counseling for initiation of other contraceptive measures V25.02 Active 058839179770986 Problem Other general counseling and advice for contraceptive management V25.09 Active 342224914 Problem Special screening examination, human papillomavirus [HPV] V73.81 Active 474008444 Problem General counseling for prescription of oral contraceptives V25.01 Active 035959670827294 Problem Other symptoms involving urinary system 788.99 Active 339961746 Problem Papanicolaou smear of cervix with atypical squamous cells cannot exclude high grade squamous intraepithelial lesion (ASC-H) 795.02 Active 876195519 Problem Leukorrhea, not specified as infective 623.5 Active 230480006 Problem Other sign and symptom in breast 611.79 Active 121422222 Problem Unspecified vaginitis and vulvovaginitis 616.10 Active 023000727 Problem Nondependent tobacco use disorder 305.1 Active 264684595 Problem Unspecified symptom associated with female genital organs 625.9 Active 411651831 Problem Dysthymic disorder 300.4 Active 37857783 Problem Cellulitis and abscess of upper arm and forearm 682.3 Active 602013411 Problem Screening for malignant neoplasm of the cervix V76.2 Active 547998252 Problem Acute bronchitis 466.0 Active 84909228 Problem Acute upper respiratory infections of unspecified site 465.9 Active 60876136 Problem Acute pharyngitis 462 Active 295445800 Problem Acute sinusitis, unspecified 461.9 Active 18597665 ALLERGIES No Information ENCOUNTERS Encounter Location Date Diagnosis [facility] [address] [facility] [id number] [place] [id number] Oct, [facility] [id number] [place] [id number] Sep, Acute cystitis with hematuria N30.01 [facility] [place] [id number] [place] [id number] Aug, Dysuria R30.0 ; Vaginal odor N89.8 ; Nausea R11.0 and CVA tenderness M54.9 [facility] [place] [id number] [place] [address] [id number] Jun, Vaginal irritation N89.8 and Vaginal odor N89.8 [facility] [id number] [place] [address] Jan, [facility] [address] [address] Jan, [facility] [place] [id number] [place] [id number] Oct, [facility] [id number] [place] [address] Oct, [facility] [id number] [place] [phone] Aug, [facility] [id number] [place] [address] March, [facility] [place] [id number] [place] [id number] March, [facility] [id number] [place] [address] March, [facility] [id number] [place] [address] March, [facility] [id number] [place] [id number] March, [facility] [id number] [place] [id number] March, [facility] [id number] [place] [address] March, [facility] [address] [id number] [address] March, [facility] [place] [address] [facility] [id number][place] [id number] Jan, [facility] [place] [facility] [address] [id number] [address] Jan, [facility] [place] [facility] [id number] [address] Jan, [facility] [place] [address] [id number][place] [id number] Jan, [facility] [place] [facility] [id number] [address] Jan, [facility] [place] [facility] [id number] [address] Dec, [facility] [place] [id number], [place] [id number] Dec, [facility] [place] [facility] [address]100[place] [address] Dec, [facility] [place] [id number], [place] [id number] Dec, [facility] [place] [facility] [id number] [address] Dec, [facility] [place] [facility] [id number] [address] Dec, [facility] [place] [id number], [place] [id number] Dec, [facility] [place] [facility] [address] [id number] [address] Dec, [facility] [place] [id number], [place] [id number] Dec, [facility] [place] [facility] [id number] [address] Dec, [facility] [place] [facility] [id number] [place] [address] Nov, [facility] [address] [facility] [id number] [place] [address] Nov, [facility] [place] [facility] [address] [facility] [id number] [place] [address] Nov, [facility] [address] [facility] [id number] [place] [address] Nov, [facility] [place] [address] [id number][place] [id number] Nov, [facility] [place] [facility] [address] [facility] [id number] [place] [address] Nov, [facility] [place] [address] [id number], [place] [id number] Nov, [facility] [address] [address] Nov, [facility] [place] [address] [id number], [place] [id number] Oct, [facility] [address] [id number] [address] Oct, [facility] [place] [address] [id number], [place] [id number] Sep, [facility] [address] [id number] [address] Sep, [facility] [place] [address] [id number], [place] [id number] Sep, [facility] [place] [facility] [address] [facility] [id number] [place] [address] Sep, [facility] [place] [address] [id number][place] [id number] Jul, [facility] [place] [address] [id number], [place] [id number] Jun, [facility] [place] [address] [id number], [place] [id number] Jun, [facility] [place] [address] [id number], [place] [id number] Apr, [facility] [place] [address] [id number] [place] [id number] March, [facility] [place] [address] [id number] [place] [id number] Jan, [facility] [place] [facility] [address] [facility] [id number] [place] [address] Jan, [facility] [place] [facility] [address] [facility] [id number] [place] [address] Jan, [facility] [place] [facility] [address] [facility] [id number] [place] [address] Jan, [facility] [place] [facility] [address] [facility] [id number] [place] [address] Jan, [facility] [place] [address] [id number] [place] [id number] Jan, [facility] [place] [address] [id number] [place] [id number] Aug, [facility] [place] [address] [id number], [place] [id number] Aug, [facility] [address] [facility] [id number] [place] [address] Aug, [facility] [address] [facility] [id number] [place] [address] Aug, [facility] [place] [address] [id number] [place] [id number] Aug, [facility] [place] [address] [id number], [place] [id number] May, [facility] [address] [facility] [id number] [place] [address] May, [facility] [place] [address] [id number] [place] [id number] May, [facility] [place] [address] [id number], [place] [id number] May, [facility] [place] [address] [id number], [place] [id number] Apr, [facility] [place] [address] [id number] [place] [id number] Apr, [facility] [place] [address] [id number] [place] [id number] March, [facility] [place] [address] [id number] [place] [id number] March, [facility] [place] [address] [id number] [place] [id number] March, [facility] [place] [address] [id number] [place] [id number] Dec, [facility] [place] [address] [id number] [place] [id number] Nov, [facility] [place] [address] [id number] [place] [id number] Nov, [facility] [place] [facility] [address] [facility] [id number] [place] [address] Nov, [facility] [place] [facility] [address] [facility] [id number] [place] [address] Nov, [facility] [place] [facility] [address] [facility] [id number] [place] [address] Nov, [facility] [place] [address] [id number] [place] [id number] Nov, [facility] [place] [address] [id number] [place] [id number] Nov, [facility] [place] [facility] [address] [facility] [id number] [place] [address] Nov, [facility] [place] [facility] [address] [facility] [id number] [place] [address] Nov, [facility] [place] [facility] [address] [facility] [id number] [place] [address] Nov, [facility] [place] [address] [id number] [place] [id number] Nov, [facility] [place] [facility] [address] [facility] [id number] [place] [address] Oct, [facility] [id number] [address] 15 Oct, 2011 [facility] [id number] [address] 29 Sep, 2011 [facility] [id number] [address] Sep, [facility] [id number] [place] [address] Dec, [facility] [id number] [place] [address] Sep, [facility] [id number] [place] [address] Sep, [facility] [id number] [address] Sep, [facility] [id number] [address] Jun, IMMUNIZATIONS No Known Immunizations SOCIAL HISTORY Never Assessed REASON FOR VISIT EMR[place] [place]AN OF CARE VITAL SIGNS MEDICATIONS Unknown Medications RESULTS No Results PROCEDURES No Known procedures INSTRUCTIONS MEDICATIONS ADMINISTERED No Known Medications MEDICAL (GENERAL) HISTORY Type Description Date Medical History depression Medical History tachycardia
--- OUTSIDE RECORDS SUMMARY | 2019-04-03 07:06 | XMS REPORT ---
Author Author Migration, Doctor Organization [facility] Address Unknown Phone Unavailable Care Team Providers Care Clinical Laboratory Technician Name Role Phone Migration, Doctor Unavailable Unavailable PROBLEMS Type Condition ICD9-CM Code OOJ10-GH Code Onset Dates Condition Status SNOMED Code Problem Encounter for long-term (current) use of other medications V58.69 Active 239411784 Problem Screening examination for venereal disease V74.5 Active 664307158 Problem General counseling for initiation of other contraceptive measures V25.02 Active 856009939504653 Problem Other general counseling and advice for contraceptive management V25.09 Active 979899689 Problem Special screening examination, human papillomavirus [HPV] V73.81 Active 406215054 Problem General counseling for prescription of oral contraceptives V25.01 Active 848116956279625 Problem Other symptoms involving urinary system 788.99 Active 987879114 Problem Papanicolaou smear of cervix with atypical squamous cells cannot exclude high grade squamous intraepithelial lesion (ASC-H) 795.02 Active 661065819 Problem Leukorrhea, not specified as infective 623.5 Active 604935400 Problem Other sign and symptom in breast 611.79 Active 326337424 Problem Unspecified vaginitis and vulvovaginitis 616.10 Active 873081772 Problem Nondependent tobacco use disorder 305.1 Active 296322545 Problem Unspecified symptom associated with female genital organs 625.9 Active 957574741 Problem Dysthymic disorder 300.4 Active 05246855 Problem Cellulitis and abscess of upper arm and forearm 682.3 Active 728877017 Problem Screening for malignant neoplasm of the cervix V76.2 Active 710189671 Problem Acute bronchitis 466.0 Active 34491783 Problem Acute upper respiratory infections of unspecified site 465.9 Active 76742147 Problem Acute pharyngitis 462 Active 102254283 Problem Acute sinusitis, unspecified 461.9 Active 92988867 ALLERGIES No Information ENCOUNTERS Encounter Location Date Diagnosis [facility] [address] [facility] [id number] [place] [id number] Oct, [facility] [id number] [place] [address] [id number] Sep, Acute cystitis with hematuria N30.01 [facility] [id number] [place] [address] [id number] Aug, Dysuria R30.0 ; Vaginal odor N89.8 ; Nausea R11.0 and CVA tenderness M54.9 [facility] [place] [id number] [place] [address] [id number] Jun, Vaginal irritation N89.8 and Vaginal odor N89.8 [facility] [id number] [place] [address] Jan, [facility] [address] [address] Jan, [facility] [id number] [place] [address] [id number] Oct, [facility] [id number] [place] [address] Oct, [facility] [id number] [place] [address] Aug, [facility] [id number] [place] [address] March, [facility] [id number] [place] [address] [id number] March, [facility] [id number] [place] [address] March, [facility] [id number] [place] [address] March, [facility] [id number] [place] [address] [phone] March, [facility] [address] [place] [address] [phone] March, [facility] [id number] [place] [address] March, [facility] [address] [id number] [address] March, [facility] [place] [address] [facility] [id number][place] [id number] Jan, [facility] [place] [facility] [address] [id number] [address] Jan, [facility] [place] [facility] [address]00565100[place], [place] [address] Jan, [facility] [place] [address] [id number][place] [id number] Jan, [facility] [place] [facility] [address]00565100[place], [place] [address] Jan, [facility] [place] [facility] [address]00565100[place], [place] [address] Dec, [facility] [place] [id number], [place] [id number] Dec, [facility] [place] [facility] [address]00565100[place], [place] [address] Dec, [facility] [id number], [place] [id number] Dec, [facility] [place] [facility] [address]00565100[place], [place] [address] Dec, [facility] [place] [facility] [address]00565100[place], [place] [address] Dec, [facility] [place] [id number], [place] [id number] Dec, [facility] [place] [facility] [address] [id number], [place] [address] Dec, [facility] [id number], [place] [id number] Dec, [facility] [place] [facility] [address]00565100[place], [place] [address] Dec, [facility] [place] [facility] [address] [place] [address] Nov, [facility] [address] [facility] [id number] [address] Nov, [facility] [place] [facility] [address] [facility] [id number], [place] [address] Nov, [facility] [address] [facility] [id number], [place] [address] Nov, [facility] [address] [id number], [place] [address] Nov, [facility] [place] [facility] [address] [facility] [id number], [place] [address] Nov, [facility] [address] [id number], [place] [address] Nov, [facility] [address]00565100[place], [place] [address] Nov, [facility] [address] [id number], [place] [address]648[address]133 Oct, [facility] [address] [id number], [place] [address] Oct, [facility] [address] [id number], [place] [address]384[address]171 Sep, [facility] [address] [id number], [place] [address] Sep, [facility] [address] [id number], [place] [id number] Sep, [facility] [place] [facility] [address] [facility] [id number], [place] [address] Sep, [facility] [address] [id number], [place] [id number] Jul, [facility] [address] [id number], [place] 336598904 Jun, [facility] [address] [id number], [place] [id number] Jun, [facility] [address] [id number], [place] [id number] Apr, [facility] [address] [id number] [place] [id number] March, [facility] [address] [id number] [place] [id number] Jan, [facility] [place] [facility] [address] [facility] [id number] [place] [address] Jan, [facility] [place] [facility] [address] [facility] [id number] [place] [address] Jan, [facility] [place] [facility] [address] [facility] [id number] [place] [address] Jan, [facility] [place] [facility] [address] [facility] [id number] [place] [address] Jan, [facility] [address] [id number] [place] 2005[address] Jan, [facility] [address] [id number] [place] 1512[address]491 Aug, [facility] [address] [id number], [place] 8547[address] Aug, [facility] [address] [facility] [id number] [place] [address] Aug, [facility] [address] [facility] [id number], [place] [address] Aug, [facility] [address] [id number] [place] [id number] Aug, [facility] [address] [id number], [place] [id number] May, [facility] [address] [facility] [id number] [place] [address] May, [facility] [address] [id number] [place] 1356[address] May, [facility] [address] [id number], [place] 67548[address] May, [facility] [address] [id number], [place] 017181807 Apr, [facility] [address] [id number] [place] [id number] Apr, [facility] [address] [id number] [place] [address]64[address] March, [facility] [address] [id number] [place] [address] March, [facility] [address] [id number] [place] [id number] March, [facility] [address] [id number] [place] 8005[address] Dec, [facility] [address] [id number] [place] [id number] Nov, [facility] [address] [id number] [place] 1285[address]47 Nov, [facility] [place] [facility] [address] [facility] [id number], [place] [address] Nov, [facility] [place] [facility] [address] [facility] [id number], [place] [address] Nov, [facility] [place] [facility] [address] [facility] [id number][place] [address] Nov, [facility] [address] [id number] [place] [id number] Nov, [facility] [address] [id number] [place] [id number] Nov, [facility] [place] [facility] [address] [facility] [id number], [place] [address] Nov, [facility] [place] [facility] [address] [facility] [id number], [place] [address] Nov, [facility] [place] [facility] [address] [facility] [id number], [place] [address] Nov, [facility] [address] [id number] [place] [id number] Nov, [facility] [place] [facility] [address] [facility] [id number], [place] [address] Oct, [facility] [address]00565100[place], [place] [address] 15 Oct, 2011 [facility] [address]00565100[place], [place] [address] 29 Sep, 2011 [facility] [address]00565100[place], [place] [address] Sep, [facility] [id number] [place] [address] Dec, [facility] [id number] [place] [address] Sep, [facility] [id number] [place] [address] Sep, [facility] [address]00565100[place], [place] [address] Sep, [facility] [address]00565100[place], [place] [address] Jun, IMMUNIZATIONS No Known Immunizations SOCIAL HISTORY Never Assessed REASON FOR VISIT EMR-[facility] PLAN OF CARE VITAL SIGNS MEDICATIONS Unknown Medications RESULTS No Results PROCEDURES No Known procedures INSTRUCTIONS MEDICATIONS ADMINISTERED No Known Medications MEDICAL (GENERAL) HISTORY Type Description Date Medical History depression Medical History tachycardia
--- OUTSIDE RECORDS SUMMARY | 2019-04-03 07:06 | XMS REPORT ---
Author Author Migration, Doctor Organization [facility] Address Unknown Phone Unavailable Care Team Providers Care Payroll Professional Name Role Phone Migration, Doctor Unavailable Unavailable PROBLEMS Type Condition ICD9-CM Code ENE68-QQ Code Onset Dates Condition Status SNOMED Code Problem Encounter for long-term (current) use of other medications V58.69 Active 321316931 Problem Screening examination for venereal disease V74.5 Active 740506726 Problem General counseling for initiation of other contraceptive measures V25.02 Active 115770400824400 Problem Other general counseling and advice for contraceptive management V25.09 Active 984438570 Problem Special screening examination, human papillomavirus [HPV] V73.81 Active 604256837 Problem General counseling for prescription of oral contraceptives V25.01 Active 255586497202055 Problem Other symptoms involving urinary system 788.99 Active 179832426 Problem Papanicolaou smear of cervix with atypical squamous cells cannot exclude high grade squamous intraepithelial lesion (ASC-H) 795.02 Active 027070503 Problem Leukorrhea, not specified as infective 623.5 Active 240971050 Problem Other sign and symptom in breast 611.79 Active 719130554 Problem Unspecified vaginitis and vulvovaginitis 616.10 Active 685871859 Problem Nondependent tobacco use disorder 305.1 Active 720068711 Problem Unspecified symptom associated with female genital organs 625.9 Active 272778782 Problem Dysthymic disorder 300.4 Active 05678115 Problem Cellulitis and abscess of upper arm and forearm 682.3 Active 708564436 Problem Screening for malignant neoplasm of the cervix V76.2 Active 108586694 Problem Acute bronchitis 466.0 Active 45032187 Problem Acute upper respiratory infections of unspecified site 465.9 Active 94295318 Problem Acute pharyngitis 462 Active 439447018 Problem Acute sinusitis, unspecified 461.9 Active 38515944 ALLERGIES No Information ENCOUNTERS Encounter Location Date Diagnosis [facility] [address] [facility] [id number] [place] [id number] Oct, [facility] [id number] [place] [address] [id number] Sep, Acute cystitis with hematuria N30.01 [facility] [id number] [place] [address] [id number] Aug, Dysuria R30.0 ; Vaginal odor N89.8 ; Nausea R11.0 and CVA tenderness M54.9 [facility] [id number] [place] [address] [id number] Jun, Vaginal irritation N89.8 and Vaginal odor N89.8 [facility] [id number] [place] [address] Jan, [facility] [address] [address] Jan, [facility] [place] [id number] [place] [address] [id number] Oct, [facility] [id number] [place] [address] Oct, [facility] [id number] [place] [address] Aug, [facility] [id number] [place] [address] March, [facility] [place] [id number] [place] [address] [id number] March, [facility] [id number] [place] [address] March, [facility] [id number] [place] [address] March, [facility] [id number] [place] [address] [id number] March, [facility] [id number] [place] [address] [id number] March, [facility] [id number] [place] [address] March, [facility] [address] [id number] [address] March, [facility] [address] [facility] [id number] [place] [id number] Jan, [facility] [place] [facility] [address] [id number] [address] Jan, [facility] [place] [facility] [address]00565100[place], [place] [address] Jan, [facility] [address] [id number] [place] 605813843 Jan, [facility] [place] [facility] [address]00565100[place], [place] [address] Jan, [facility] [place] [facility] [address]00565100[place], [place] [address] Dec, [facility] [id number] [place] [id number] Dec, [facility] [place] [facility] [address]00565100[place], [place] [address] Dec, [facility] [id number] [place] 940749671 Dec, [facility] [place] [facility] [address]00565100[place], [place] [address] Dec, [facility] [place] [facility] [address]00565100[place], [place] [address] Dec, [facility] [id number] [place] [id number] Dec, [facility] [place] [facility] [address] [id number] [address] Dec, [facility] [id number] [place] 744937067 Dec, [facility] [place] [facility] [address]00565100[place], [place] [address] Dec, [facility] [place] [facility] [id number] [place] [address] Nov, [facility] [address] [facility] [id number][place] [address] Nov, [facility] [place] [facility] [address] [facility] [id number][place] [address] Nov, [facility] [address] [facility] [id number][place] [address] Nov, [facility] [address] [id number] [place] 995212192 Nov, [facility] [place] [facility] [address] [facility] [id number][place] [address] Nov, [facility] [address] [id number] [place] 878234732 Nov, [facility] [address]00565100[place], [place] [address] Nov, [facility] [address] [id number] [place] 341469271 Oct, [facility] [address] [id number] [address] Oct, [facility] [address] [id number] [place] 417859729 Sep, [facility] [address] [id number] [address] Sep, [facility] [address] [id number] [place] [id number] Sep, [facility] [place] [facility] [address] [facility] [id number][place] [address] Sep, [facility] [address] [id number] [place] [id number] Jul, [facility] [address] [id number] [place] 856877333 Jun, [facility] [address] [id number] [place] 518705883 Jun, [facility] [address] [id number] [place] 868635512 Apr, [facility] [address] [id number] [place] [id number] March, [facility] [address] [id number] [place] 014737639 Jan, [facility] [place] [facility] [address] [facility] [id number] [place] [address] Jan, [facility] [place] [facility] [address] [facility] [id number] [place] [address] Jan, [facility] [place] [facility] [address] [facility] [id number] [place] [address] Jan, [facility] [place] [facility] [address] [facility] [id number] [place] [address] Jan, [facility] [address] [id number] [place] [id number] Jan, [facility] [address] [id number] [place] 65[address]2087 Aug, [facility] [address] [id number] [place] 085102711 Aug, [facility] [address] [facility] [id number] [place] [address] Aug, [facility] [address] [facility] [id number][place] [address] Aug, [facility] [address] [id number] [place] 065384741 Aug, [facility] [address] [id number] [place] 589175474 May, [facility] [address] [facility] [id number] [place] [address] May, [facility] [address] [id number] [place] 949120934 May, [facility] [address] [id number] [place] [id number] May, [facility] [address] [id number] [place] [id number] Apr, [facility] [place] [address] [id number] [place] 047671822 Apr, [facility] [place] [address] [id number] [place] 058646728 March, [facility] [place] [address] [id number] [place] 146146839 March, [facility] [place] [address] [id number] [place] [id number] March, [facility] [place] [address] [id number] [place] 127078915 Dec, [facility] [place] [address] [id number] [place] 875916783 Nov, [facility] [place] [address] [id number] [place] 050860902 Nov, [facility] [place] [facility] [address] [facility] [id number][place] [address] Nov, [facility] [place] [facility] [address] [facility] [id number][place] [address] Nov, [facility] [place] [facility] [address] [facility] [id number][place] [address] Nov, [facility] [place] [address] [id number] [place] 676884483 Nov, [facility] [place] [address] [id number] [place] [id number] Nov, [facility] [place] [facility] [address] [facility] [id number][place] [address] Nov, [facility] [address] [facility] [id number] [address] Nov, [facility] [address] [facility] [id number] [address] Nov, [facility] [address] [id number] [place] [id number] Nov, [facility] [address] [facility] [id number] [address] Oct, [facility] [id number] [address] 15 Oct, 2011 [facility] [id number] [address] 29 Sep, 2011 [facility] [id number] [address] Sep, [facility] [id number] [place] [address] Dec, [facility] [id number] [place] [id number] Sep, [facility] [id number] [place] [address] Sep, [facility] [id number] [address] Sep, [facility] [id number], [place] [address] Jun, IMMUNIZATIONS No Known Immunizations SOCIAL HISTORY Never Assessed REASON FOR VISIT EMR-[facility] PLAN OF CARE VITAL SIGNS MEDICATIONS Unknown Medications RESULTS No Results PROCEDURES No Known procedures INSTRUCTIONS MEDICATIONS ADMINISTERED No Known Medications MEDICAL (GENERAL) HISTORY Type Description Date Medical History depression Medical History tachycardia
[2019-04-03] MEDS ORDERED: LACTATED RINGERS 1,000 ML IV STA (07:09)
[2019-04-03] MEDS ORDERED: HURRICAINE EXT TUBE (BENZOCAINE) XX PRN (07:15)
[2019-04-03] MEDS ORDERED: PROPOFOL INJECTION 50 ML IV ONE (07:17)
[2019-04-03] MEDS ORDERED: LIDOCAINE PF 2% 5 ML (XYLOCAINE) VIAL ONE (07:18)
[2019-04-03] MEDS ORDERED: MIDAZOLAM 2 MG/2 ML (VERSED) VIAL ONE ×2 (07:18→07:25)
[2019-04-03 07:19] VITALS: BP 115/82
[2019-04-03] MEDS ORDERED: MIDAZOLAM 2 MG/2 ML (VERSED) VIAL IV ONE (07:30)
--- NOTE | 2019-04-03 08:25 | Progress Note-Pre Operative ---
Pre-Operative Progress Note H&P Reviewed The H&P was reviewed, patient examined and no changes noted. Time Seen by Provider: 08:21 Date H&P Reviewed: Apr 03, 2019 Time H&P Reviewed: 08:22 Pre-Operative Diagnosis: Gastritis, Upper abd pain, Family hx of colon ca HALIMA ADAMS DO Apr 03, 2019 08:24
[2019-04-03] MEDS ORDERED: HURRICAINE EXT TUBE (BENZOCAINE) ONE (08:27)
[2019-04-03 09:15] VITALS: BP 109/66
--- NOTE | 2019-04-03 09:29 | Progress Note-Post Operative ---
Post-Operative Progess Note Surgeon (s)/Nail Welter (s) Surgeon HALIMA ADAMS DO Nail Welter: none Pre-Operative Diagnosis Gastritis, Upper abd pain, Family hx of colon ca Post-Operative Diagnosis Gastritis Internal Hemorrhoids Procedure & Operative Findings Date of Procedure 04/03/19 Procedure Performed/Findings EGD with bx Colonoscopy Anesthesia Type IV sedation by MACHINE RIVETER Estimated Blood Loss Estimated blood loss (mL): scant Specimens/Packing Specimens Removed Antral bx body of stomach bx GE jxn bx HALIMA ADAMS DO Apr 03, 2019 09:29
--- NOTE | 2019-04-03 09:30 | Endoscopy Discharge Instruct ---
Endo Procedure/Findings Findings 1.: Gastritis 2.: Internal Hemorrhoids Discharge Instructions - Activity: You might feel a little sleepy until tomorrow. This is due to the medicine you received to relax you. Until tomorrow, you should: NOT drive a car, operate machinery or power tools. NOT drink any alcoholic beverages. NOT make any important decisions or sign importortant papers. Do not return to work until tomorrow, unless otherwise instructed. Resume previous activities tomorrow. Diet: Start by taking liquids. If you tolerate liquids, advance to solid food. Make an appointment for one week Notify Physician - If you experience excessive bleeding, unusual abdominal pain, fever, or chest pain, contact your doctor immediately. Follow-Up: - I have received and understand the above instructions and will call my doctor if I have any further questions. Patient Signature Date Nurse Signature Other (Relationship) HALIMA ADAMS DO Apr 03, 2019 09:30
[2019-04-03 09:45] VITALS: BP 92/55
[2019-04-03 10:48] VITALS: BP 92/55
--- NOTE | 2019-04-03 12:40 | Anesthesia-General Post-Op ---
MAC Patient Condition Mental Status/LOC: Same as Preop Cardiovascular: Satisfactory Nausea/Vomiting: Absent Respiratory: Satisfactory Pain: Controlled Complications: Absent Post Op Complications Complications None Follow Up Care/Instructions Patient Instructions None needed. Anesthesiology Discharge Order Discharge Order Patient is doing well, no complaints, stable vital signs, no apparent adverse anesthesia problems. No complications reported per nursing. ADRIAN CARR CRNA Apr 03, 2019 12:40
--- NOTE | 2019-04-04 04:22 | OPERATIVE REPORT ---
DATE OF SERVICE: PREOPERATIVE DIAGNOSES: Gastritis, upper abdominal pain, family history of colonoscopy. POSTOPERATIVE DIAGNOSES: 1. Gastritis. 2. Esophagitis. 3. Internal hemorrhoids. 4. Small hiatal hernia. PROCEDURES: 1. EGD with biopsy. 2. Colonoscopy. SURGEON: Vivek lPatt DO. ADULT AND PEDIATRIC NEUROLOGIST: None. ANESTHESIA: IV sedation by the FIELD SERVICE TECHNICIAN POULTRY. SPECIMEN: Biopsy from the antrum as well as a biopsy from the body of stomach and the GE junction. BLOOD LOSS: Scant. FLUIDS: Per anesthesia. POSTOPERATIVE CONDITION: Stable. INDICATION FOR PROCEDURE: The patient is a 33-year-old female who has been having some upper abdominal pain and chronic gastritis and she has a family history of colon cancer, needs an EGD and colonoscopy. FINDINGS: The patient had some gastritis as well as looked like possibly a small hiatal hernia and then had some hemorrhoids on the colonoscopy. PROCEDURE NOTE: After informed consent was obtained, the patient was brought to the endoscopy suite, placed in the bed in left lateral decubitus position. She was administered IV sedation by the FIELD SERVICE TECHNICIAN POULTRY who then monitored her vitals the entire time, heart rate, blood pressure and pulse ox. A scope was inserted down the mouth through the esophagus into the stomach. Upon entering the stomach and the antrum, saw some gastritis, took a picture of this, pushed into the duodenum. Duodenum looked fine. Backed up and did a biopsy of the antrum, did a biopsy of the body of stomach as well and then retroflexed the scope, saw what looked like a small hiatal hernia, took a picture of this and then pulled back into the GE junction, it looked like she had a mild esophagitis and did a biopsy here as well. I then pulled the scope up the esophagus and out the mouth. Switched scopes, switched gloves, went down below, started the colonoscopy, pushed the scope all the way in to about 140 cm, able to get to the cecum, took a picture of appendiceal orifice, noted the ileocecal valve, able to get into the terminal ileum, took a picture of this, looked fine and then slowly withdrew the scope insufflating to look circumferentially at the [place] ros[place] looking at the cecum up the ascending colon to the hepatic flexure, down the transverse colon, splenic flexure, into the descending colon, then down into the sigmoid and finally into the rectum, retroflexed the rectal vault, saw some very minimal internal hemorrhoids and then removed the scope. The patient tolerated the procedure and she was recovered in the endoscopy suite. Job ID: [id number] DocumentID: [id number] Dictated Date: 04/03/2019 16:32:28 Plaque Maker Date: 04/04/2019 04:21:11 Dictated By: VIVEK PLATT DO
== END 2019-04-03 10:00 | disposition home or self-care (01) ==
LOC: ENDO 07:03
PROVIDERS: ATTEND Surgery
DX: Z12.11 Encounter for screening for malignant neoplasm of colon (principal); K64.8 Other hemorrhoids; Z80.0 Family history of malignant neoplasm of digestive organs; K29.50 Unspecified chronic gastritis without bleeding; K20.9 Esophagitis, unspecified; K21.9 Gastro-esophageal reflux disease without esophagitis; K44.9 Diaphragmatic hernia without obstruction or gangrene; F41.9 Anxiety disorder, unspecified; F17.210 Nicotine dependence, cigarettes, uncomplicated; Z79.899 Other long term (current) drug therapy
CPT/HCPCS: 84703

== ENCOUNTER → 2019-06-07 | Outpatient (CLI) | payer OTHER ==
[2019-06-07 10:02] LABS: CARBON DIOXIDE 25 MMOL/L (21-32); CHLORIDE 105 MMOL/L (98-107); POTASSIUM 3.9 MMOL/L (3.6-5.0); SODIUM 139 MMOL/L (135-145)
[2019-06-07 10:03] LABS: ALANINE AMINOTRANSFERASE 16 U/L (0-55); ALBUMIN 4.1 GM/DL (3.2-4.5); ALKALINE PHOSPHATASE 107 U/L (40-136); BILIRUBIN,TOTAL 0.5 MG/DL (0.1-1.0); BUN/CREATININE RATIO 13; CALCIUM 9.7 MG/DL (8.5-10.1); CREATININE SERUM 0.83 MG/DL (0.60-1.30); GFR ESTIMATED > 60; GLUCOSE 87 MG/DL (70-105); TOTAL PROTEIN 7.1 GM/DL (6.4-8.2)
== END ==
LOC: LAB 09:25
PROVIDERS: ATTEND Nurse Practitioner Family
DX: O24.419 Gestational diabetes mellitus in pregnancy, unspecified control (principal); O99.280 Endocrine, nutritional and metabolic diseases complicating pregnancy, unspecified trimester; E83.52 Hypercalcemia; Z3A.00 Weeks of gestation of pregnancy not specified
CPT/HCPCS: 36415; 80053; 83036

== ENCOUNTER → 2019-06-21 | Outpatient (CLI) | payer OTHER ==
--- NOTE | 2019-06-21 14:12 | Diagnostic Imaging Report ---
PROCEDURE: US PELVIC (NON OB) TECHNIQUE: Multiple real-time grayscale images were obtained over the pelvis in various projections transabdominally. INDICATION: Acute pelvic pain. FINDINGS: The uterus measures 9.4 x 6.1 x 4.7 cm. Endometrium is 4 mm in thickness. IUD appears to be appropriately centered in the endometrial canal. No myometrial mass is seen. The right ovary measures 6.2 x 4.0 x 5.0 cm and contains a 4.7 x 3.8 x 5.7 cm cyst. Left ovary measures 2.8 x 2.1 x 1.2 cm. Trace free fluid is noted. IMPRESSION: 1. IUD is appropriately centered in the endometrial canal. 2. 5.7 cm simple appearing right ovarian cyst. Dictated by: Dictated on workstation # [id number]
== END ==
LOC: RAD 10:00
PROVIDERS: ATTEND Obstetrics & Gynecology
DX: R10.2 Pelvic and perineal pain (principal); Z97.5 Presence of (intrauterine) contraceptive device
CPT/HCPCS: 76856

== ENCOUNTER 2019-08-17 05:28 | Outpatient (CLI) | payer OTHER ==
[~2019-08-17] VITALS: Ht 168 cm; Wt 81.8 kg
[2019-08-17] MEDS ORDERED: OMEP20TA7 PO (08:57)
[2019-08-17] MEDS ORDERED: SPIR50TA4 PO (08:57)
== END 2019-08-17 09:45 | disposition home or self-care (01) ==
LOC: PREOP 05:28
PROVIDERS: ATTEND Obstetrics & Gynecology
DX: Z01.818 Encounter for other preprocedural examination (principal)

== ENCOUNTER 2019-08-30 11:43 | Emergency (ER) | payer OTHER ==
[~2019-08-30] VITALS: Ht 167 cm; Wt 84.7 kg
[~2019-08-30 11:43] MED LIST changes: +ACET-789 PO; +OMEP20TA7 PO; +SPIR50TA4 PO; +SUCR1TAB36 PO
[2019-08-30 12:22] LABS: BILIRUBIN,URINE NEGATIVE (NEGATIVE); CLARITY,URINE CLEAR; COLOR,URINE YELLOW; GLUCOSE, URINE (UA) NEGATIVE (NEGATIVE); KETONES,URINE NEGATIVE (NEGATIVE); LEUKOCYTE ESTERASE ,URINE NEGATIVE (NEGATIVE); NITRITE,URINE NEGATIVE (NEGATIVE); PH,URINE 7 (5-9); PROTEIN,URINE NEGATIVE (NEGATIVE)
[2019-08-30 12:23] LABS: BASOPHILS % (AUTO) 0 % (0-10); EOSINOPHILS # (AUTO) 0.4 10^3/uL (0.0-0.3); EOSINOPHILS % (AUTO) 3 % (0-10); HEMATOCRIT 43 % (35-52); LYMPHOCYTES # (AUTO) 2.5 X 10^3 (1.0-4.0); LYMPHOCYTES % (AUTO) 19 % (12-44); MEAN CORPUSCULAR HEMOGLOBIN 30 PG (25-34); MEAN CORPUSCULAR HGB CONC 33 G/DL (32-36); MEAN CORPUSCULAR VOLUME 90 FL (80-99); MEAN PLATELET VOLUME 10.7 FL (7.4-10.4); MONOCYTES # (AUTO) 1.3 X 10^3 (0.0-1.0); MONOCYTES % (AUTO) 9 % (0-12); NEUTROPHILS # (AUTO) 9.4 X 10^3 (1.8-7.8); NEUTROPHILS % (AUTO) 69 % (42-75); PLATELET COUNT 236 10^3/uL (130-400); RED CELL DISTRIBUTION WIDTH 13.2 % (10.0-14.5); WHITE BLOOD COUNT 13.6 10^3/uL (4.3-11.0)
[2019-08-30] MEDS ORDERED: CATHETER FLUSH 10 ML SYR IV PRN (12:30)
[2019-08-30] MEDS ORDERED: NS 100 ML (IVPB) BAG IV ONE (12:30)
[2019-08-30] MEDS ORDERED: HOLD METFORMIN - RECEIVED CONTRAST 20 ML VIAL IV SCH (12:30)
[2019-08-30] MEDS ORDERED: IOHEXOL 350 MG/ML 100 ML (OMNIPAQUE 350) VIAL IV ONE (12:30)
[2019-08-30 12:35] LABS: AMPHETAMINE SCREEN, URINE NEGATIVE (NEGATIVE); BACTERIA,URINE FEW /HPF; BARBITURATE SCREEN URINE NEGATIVE (NEGATIVE); BENZODIAZEPINES SCREEN URINE POSITIVE (NEGATIVE); CANNABINOID SCREEN, URINE NEGATIVE (NEGATIVE); COCAINE SCREEN URINE NEGATIVE (NEGATIVE); METHADONE STAT NEGATIVE (NEGATIVE); METHAMPHETAMINE SCREEN URINE S NEGATIVE (NEGATIVE); OPIATE SCREEN URINE NEGATIVE (NEGATIVE); OXYCODONE STAT NEGATIVE (NEGATIVE); PROPOXYPHENE STAT NEGATIVE (NEGATIVE); TRICYCLIC ANTIDEPRESSANTS SCRE NEGATIVE (NEGATIVE); WBC,URINE 0-2 /HPF
[2019-08-30 12:43] LABS: ALANINE AMINOTRANSFERASE 35 U/L (0-55); ALKALINE PHOSPHATASE 122 U/L (40-136); BILIRUBIN,TOTAL 0.4 MG/DL (0.1-1.0); BUN/CREATININE RATIO 9; CALCIUM 9.5 MG/DL (8.5-10.1); CARBON DIOXIDE 27 MMOL/L (21-32); CHLORIDE 103 MMOL/L (98-107); CREATININE SERUM 0.79 MG/DL (0.60-1.30); GFR ESTIMATED > 60; GLUCOSE 76 MG/DL (70-105); SODIUM 138 MMOL/L (135-145); TOTAL PROTEIN 7.1 GM/DL (6.4-8.2)
--- NOTE | 2019-08-30 12:48 | ED Abdominal Pain ---
General Chief Complaint: Abdominal/GI Problems Stated Complaint: BLOATING;ISSUES WITH BOWEL MOVEMENTS;ABD PAIN Nursing Triage Note: SENT OVER FROM DR TRIANA FOR A CT SCAN. ON WEDNESDAY HAD A LAP APPY, ENDOMETRIOUS CLEANED OUT AND CYST ON OVERY REMOVED. SINCE THEN HAS HAD ABD PAIN/BLOATING. BEEN TAKING LARGE AMOUNT OF MEDICATIONS FOR A BM AND NOW HAVING DIARRHEA. WAS SEEN AT [facility] ON SAT. Sepsis Screen: No Definite Risk History of Present Illness Date Seen by Provider: Aug 30, 2019 Time Seen by Provider: 12:15 Initial Comments Patient presents with 6 days of constipation. Reports attempting Miralax, enemas, supporitories and Mag Citrate with only small liquid stool. Patient reports abdominal bloating, denies nausea or vomiting, states has had decreased flatus. Patient reports that on the of this month Dr. Stapleton removed several areas of endometriosis and her appendix. Patient reports that she was seen in the [place] ER on 08/26/2019 for same complaints and had x-rays and a IV fluids. Timing/Duration: 5-6 Days Severity/Quality: Mild Location: Generalized Abdomen Radiation: No Radiation Activities at Onset: None Associated Symptoms: Denies Symptoms Allergies and Home Medications Allergies Coded Allergies: Sulfa (Sulfonamide Antibiotics) (Verified Allergy, Unknown, 01/02/19) ciprofloxacin (Verified Allergy, Unknown, 01/02/19) Home Medications Acetaminophen with Codeine 1 Each Tablet, 1 EACH PO Q4H Prescribed by: MICHELLE MACDONALD on 08/25/19 1216 Alprazolam 0.5 Mg Tablet, 0.5 MG PO BID PRN for ANXIETY, (Reported) Citalopram Hydrobromide 40 Mg Tablet, 40 MG PO DAILY, (Reported) Omeprazole 20 Mg Tablet.dr, 20 MG PO DAILY, (Reported) Spironolactone 50 Mg Tablet, 50 MG PO DAILY, (Reported) Sucralfate 1 Gm Tablet, 1 GM PO QID, (Reported) Patient Home Medication List Home Medication List Reviewed: Yes Review of Systems Review of Systems Constitutional: no symptoms reported, see HPI EENTM: No Symptoms Reported, See HPI Respiratory: No Symptoms Reported, See HPI Cardiovascular: No Symptoms Reported, See HPI Gastrointestinal: See HPI, Abdomen Distended, Constipated Genitourinary: No Symptoms Reported, See HPI Musculoskeletal: no symptoms reported, see HPI Skin: no symptoms reported, see HPI Psychiatric/Neurological: No Symptoms Reported, See HPI Endocrine: No Symptoms Reported, See HPI Hematologic/Lymphatic: No Symptoms Reported, See HPI All Other Systems Reviewed Negative Unless Noted: Yes Past Sakqnhb-Bavezi-Mwajum Hx Past Med/Social Hx: Reviewed Nursing Past Med/Soc Hx Patient Social History Alcohol Use: Denies Use Recreational Drug Use: No Smoking Status: Current Everyday Smoker Type Used: Cigarettes 2nd Hand Smoke Exposure: Yes Recent Foreign Travel: No Contact w/Someone Who Travel: No Recent Infectious Disease Expo: No Recent Hopitalizations: No Immunizations Up To Date Tetanus Booster (TDap): Unknown PED Vaccines UTD: Yes Date of Influenza Vaccine: Aug 01, 2019 Seasonal Allergies Seasonal Allergies: No Past Medical History Surgeries: Yes (wisdom,d&c) Appendectomy, Gallbladder Respiratory: No Currently Using CPAP: No Currently Using BIPAP: No Cardiac: No Neurological: No Female Reproductive Disorders: Polycystic Ovarian Dis 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 0.0oz. 84.767294dt; 30.00 BMI Method:Stated General Appearance: WD/WN, no apparent distress HEENT: PERRL/EOMI, normal ENT inspection Neck: non-tender, full range of motion Respiratory: chest non-tender, lungs clear, normal breath sounds, no respiratory distress, no accessory muscle use Cardiovascular: normal peripheral pulses, regular rate, rhythm, no edema Gastrointestinal: distended; No guarding, No rebound; tenderness (generalized); No hernia, No mass; other (RLQ hypoactive, all other quadrants normal) Rectal: deferred Extremities: normal range of motion, non-tender, normal inspection Back: normal inspection, no CVA tenderness 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-XII nml as tested, no motor/sensory deficits, alert, normal mood/affect, oriented x 3 Skin: normal color, warm/dry Lymphatic: no adenopathy Progress/Results/Core Measures Results/Orders Lab Results Laboratory Tests Test 08/30/19 12:15 Range/Units White Blood Count 13.6 H 4.3-11.0 10^3/uL Red Blood Count 4.75 4.35-5.85 10^6/uL Hemoglobin 14.0 11.5-16.0 G/DL Hematocrit 43 35-52 % Mean Corpuscular Volume 90 80-99 FL Mean Corpuscular Hemoglobin 30 25-34 PG Mean Corpuscular Hemoglobin Concent 33 32-36 G/DL Red Cell Distribution Width 13.2 10.0-14.5 % Platelet Count 236 130-400 10^3/uL Mean Platelet Volume 10.7 H 7.4-10.4 FL Neutrophils (%) (Auto) 69 42-75 % Lymphocytes (%) (Auto) 19 12-44 % Monocytes (%) (Auto) 9 0-12 % Eosinophils (%) (Auto) 3 0-10 % Basophils (%) (Auto) 0 0-10 % Neutrophils # (Auto) 9.4 H 1.8-7.8 X 10^3 Lymphocytes # (Auto) 2.5 1.0-4.0 X 10^3 Monocytes # (Auto) 1.3 H 0.0-1.0 X 10^3 Eosinophils # (Auto) 0.4 H 0.0-0.3 10^3/uL Basophils # (Auto) 0.0 0.0-0.1 10^3/uL Urine Color YELLOW Urine Clarity CLEAR Urine pH 7 5-9 Urine Specific [place] 1.005 L 1.016-1.022 Urine Protein NEGATIVE NEGATIVE Urine Glucose (UA) NEGATIVE NEGATIVE Urine Ketones NEGATIVE NEGATIVE Urine Nitrite NEGATIVE NEGATIVE Urine Bilirubin NEGATIVE NEGATIVE Urine Urobilinogen NORMAL NORMAL MG/DL Urine Leukocyte Esterase NEGATIVE NEGATIVE Urine RBC (Auto) 4+ H NEGATIVE Urine RBC NONE /HPF Urine WBC 0-2 /HPF Urine Squamous Epithelial Cells 10-25 H /HPF Urine Crystals NONE /LPF Urine Bacteria FEW H /HPF Urine Casts NONE /LPF Urine Mucus NEGATIVE /LPF Urine Culture Indicated NO Sodium Level 138 135-145 MMOL/L Potassium Level 4.0 3.6-5.0 MMOL/L Chloride Level 103 98-107 MMOL/L Carbon Dioxide Level 27 21-32 MMOL/L Anion Gap 8 5-14 MMOL/L Blood Urea Nitrogen 7 7-18 MG/DL Creatinine 0.79 0.60-1.30 MG/DL Estimat Glomerular Filtration Rate > 60 BUN/Creatinine Ratio 9 Glucose Level 76 70-105 MG/DL Calcium Level 9.5 8.5-10.1 MG/DL Corrected Calcium 9.5 8.5-10.1 MG/DL Total Bilirubin 0.4 0.1-1.0 MG/DL Aspartate Amino Transf (AST/SGOT) 26 5-34 U/L Alanine Aminotransferase (ALT/SGPT) 35 0-55 U/L Alkaline Phosphatase 122 40-136 U/L Total Protein 7.1 6.4-8.2 GM/DL Albumin 4.0 3.2-4.5 GM/DL Urine Opiates Screen NEGATIVE NEGATIVE Urine Oxycodone Screen NEGATIVE NEGATIVE Urine Methadone Screen NEGATIVE NEGATIVE Urine Propoxyphene Screen NEGATIVE NEGATIVE Urine Barbiturates Screen NEGATIVE NEGATIVE Ur Tricyclic Antidepressants Screen NEGATIVE NEGATIVE Urine Phencyclidine Screen NEGATIVE NEGATIVE Urine Amphetamines Screen NEGATIVE NEGATIVE Urine Methamphetamines Screen NEGATIVE NEGATIVE Urine Benzodiazepines Screen POSITIVE H NEGATIVE Urine Cocaine Screen NEGATIVE NEGATIVE Urine Cannabinoids Screen NEGATIVE NEGATIVE My Orders Orders - 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,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 Drug Screen Stat (Urine) (08/30/19 11:44) Ua Culture If Indicated (08/30/19 11:44) Urine Bedside (08/30/19 11:44) Ct Abdomen/Pelvis W (08/30/19 12:10) Cbc With Automated Diff (08/30/19 12:11) Comprehensive Metabolic Panel (08/30/19 12:11) Iohexol Injection (Omnipaque 350 Mg/Ml 1 (08/30/19 12:30) Received Contrast (Hold Metformin- Contr (08/30/19 12:30) Ns (Ivpb) (Sodium Chloride 0.9% Ivpb Bag (08/30/19 12:30) Sodium Chloride Flush (Catheter Flush Sy (08/30/19 12:30) Ns Iv 1000 Ml (Sodium Chloride 0.9%) (08/30/19 13:00) Medications Given in ED Current Medications Medications Dose Ordered Sig/Amara Route Start Time Stop Time Status Last Admin Dose Admin Iohexol 100 ml ONCE ONCE IV 08/30/19 12:30 08/30/19 12:31 DC 08/30/19 13:04 96 ML Sodium Chloride 10 ml NEEDED PRN IV 08/30/19 12:30 08/30/19 13:57 DC 08/30/19 13:05 10 ML Sodium Chloride 100 ml ONCE ONCE IV 08/30/19 12:30 08/30/19 12:31 DC 08/30/19 13:05 80 ML Vital Signs/I&O 08/30/19 08/30/19 11:50 14:43 Temp 36.9 Pulse 89 86 Resp 16 18 B/P (MAP) 108/71 (83) 130/85 Pulse Ox 96 100 O2 Delivery Room Air Room Air Blood Pressure Mean: 83 POS Progress Progress Note : Time: 12:15 Progress Note Seen and evaluated. Patient returned from CT at 1310. Patient remains free of nausea and denies wanting anything for the abdominal pain. Labs reviewed. 1400 Patient came out of her room to desk, told staff that she was being summoned to work and needed to leave AMA. 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 Diagnostic Imaging Diagonstic Imaging: CT Plain Films/CT/US/NM/MRI: abdomen, pelvis Comments NAME: BLANCA CHAVEZ [facility] REC#: [id number] PT STATUS: REG ER : 1985 PHYSICIAN: BILL READ ADMIT DATE: 08/30/19/ER Draft POSDate of Exam:08/30/19 CT ABDOMEN/PELVIS W CT ABDOMEN/PELVIS W PROCEDURE: CT abdomen and pelvis with contrast. TECHNIQUE: Multiple contiguous axial images were obtained through the abdomen and pelvis after administration of intravenous contrast. INDICATION: Surgery for endometriosis and appendectomy with abdominal distention. COMPARISON: None. FINDINGS: There is mild basal atelectasis with a small amount of right pleural fluid. Visualized heart is normal in size. There is mild low density in the liver indicating steatosis. Gallbladder is surgically absent. No pancreatic, splenic, adrenal gland, or renal abnormality is identified. There is mild pneumoperitoneum. There is a moderate amount of gas within the left abdominal wall subcutaneous tissues and musculature. There is an intrauterine device present within the endometrial canal. 1.5 cm cyst is seen in the right ovary. Small amount of pelvic fluid may be physiologic or related to recent surgery. Partially opacified urinary bladder is unremarkable. The appendix is surgically absent. There is no evidence of organized fluid collection to indicate significant hematoma or abscess. IMPRESSION: Mild basilar atelectasis and right pleural fluid with pneumoperitoneum and left abdominal wall gas likely related to recent surgery. No significant hematoma or abscess is identified. Bladder is unremarkable without evidence of perivesicular contrast extravasation. Dictated on workstation # [id number] Dict: 08/30/19 1311 Trans: 08/30/19 1315 [id number] Interpreted by: ALAN WALTERS MD Electronically signed by: Reviewed: Other (radiology report reviewed), Reviewed by Me Departure Impression Primary Impression: Abdominal pain Qualified Codes: R10.84 - Generalized abdominal pain Disposition: 07 AGAINST MEDICAL ADVICE Condition: Stable Departure-Patient Inst. Referrals: MICHELLE LEMOS MD (PCP/Family) Primary Care Physician Copy Copies To 1: MICHELLE LEMOS MD, AMY ARNP Aug 30, 2019 12:47 POS
[2019-08-30] MEDS ORDERED: NS IV 1000 ML 1,000 ML IV SCH (13:00)
--- NOTE | 2019-08-30 13:15 | Diagnostic Imaging Report ---
CT ABDOMEN/PELVIS W PROCEDURE: CT abdomen and pelvis with contrast. TECHNIQUE: Multiple contiguous axial images were obtained through the abdomen and pelvis after administration of intravenous contrast. INDICATION: Surgery for endometriosis and appendectomy with abdominal distention. COMPARISON: None. FINDINGS: There is mild basal atelectasis with a small amount of right pleural fluid. Visualized heart is normal in size. There is mild low density in the liver indicating steatosis. Gallbladder is surgically absent. No pancreatic, splenic, adrenal gland, or renal abnormality is identified. There is mild pneumoperitoneum. There is a moderate amount of gas within the left abdominal wall subcutaneous tissues and musculature. There is an intrauterine device present within the endometrial canal. 1.5 cm cyst is seen in the right ovary. Small amount of pelvic fluid may be physiologic or related to recent surgery. Partially opacified urinary bladder is unremarkable. The appendix is surgically absent. There is no evidence of organized fluid collection to indicate significant hematoma or abscess. IMPRESSION: Mild basilar atelectasis and right pleural fluid with pneumoperitoneum and left abdominal wall gas likely related to recent surgery. No significant hematoma or abscess is identified. Bladder is unremarkable without evidence of perivesicular contrast extravasation. Dictated by: Dictated on workstation # [id number]
--- NOTE | 2019-08-30 13:55 | NUR ---
Pt left AMA at this time.
[2019-08-30 14:43] VITALS: BP 130/85
== END 2019-08-30 13:57 | disposition left against medical advice (07) ==
LOC: EDUNIT# 11:43 → ER 11:44
DX: R10.84 Generalized abdominal pain (principal); K21.9 Gastro-esophageal reflux disease without esophagitis; F41.9 Anxiety disorder, unspecified; F17.210 Nicotine dependence, cigarettes, uncomplicated; Z90.49 Acquired absence of other specified parts of digestive tract; Z88.2 Allergy status to sulfonamides; Z88.1 Allergy status to other antibiotic agents; Z80.0 Family history of malignant neoplasm of digestive organs
CPT/HCPCS: 36415; 74177; 80053; 80306; 81000; 84703; 85025; 99282

== ENCOUNTER → 2019-09-18 | Outpatient (CLI) | payer OTHER ==
[~2019-09-18] MED LIST changes: +CATHETER FLUSH 10 ML SYR IV PRN
--- NOTE | 2019-09-19 12:31 | Diagnostic Imaging Report ---
INDICATION: Carcinoid tumor of the appendix. TECHNIQUE: Patient was administered 6.2 mCi of indium-111 octreotide, and whole body imaging was performed after a 4-hour delay as well as a 24-hour delay. FINDINGS: Normal physiologic activity within the liver, spleen, kidneys, and bladder is noted. There is some excretion of activity on the 24-hour images within the GI tract. No abnormal focus of tracer accumulation is identified. IMPRESSION: Normal 4-hour and 24-hour octreotide scan. Dictated by: Dictated on workstation # [id number]
--- NOTE | 2019-09-19 12:39 | Diagnostic Imaging Report ---
INDICATION: Carcinoid tumor of the appendix. TECHNIQUE: Patient was administered 6.2 mCi of indium-111 octreotide, and SPECT imaging of the abdomen and pelvis was performed. FINDINGS: There is physiologic activity within the liver and spleen as well as bilateral kidneys. No abnormal accumulations of activity are identified. IMPRESSION: Unremarkable SPECT octreotide scan. Dictated by: Dictated on workstation # [id number]
== END ==
LOC: CARD 09:46
PROVIDERS: ATTEND Internal Medicine Hematology & Oncology
DX: D3A.020 Benign carcinoid tumor of the appendix (principal)
CPT/HCPCS: 78803; 78804

== ENCOUNTER 2019-09-26 08:30 | Outpatient (CLI) | payer OTHER ==
[~2019-09-26] VITALS: Ht 170 cm; Wt 81.8 kg
[~2019-09-26 08:30] MED LIST changes: -CATHETER FLUSH 10 ML SYR IV PRN
[2019-09-26] MEDS ORDERED: PANT40TA2 PO (08:44)
[2019-09-26] MEDS ORDERED: ONDN4T PO (08:44)
== END 2019-09-26 09:07 | disposition home or self-care (01) ==
LOC: PREOP 08:30
PROVIDERS: ATTEND Surgery
DX: Z01.818 Encounter for other preprocedural examination (principal)

== ENCOUNTER 2019-10-02 06:49 | Inpatient (IN) | payer OTHER ==
[~2019-10-02] VITALS: Ht 170 cm; Wt 81.8 kg
[2019-10-02] VITALS (13 sets, daily range): BP systolic 106–134; BP diastolic 61–89
[~2019-10-02 06:49] MED LIST changes: +PANT40TA2 PO
[2019-10-02] MEDS ORDERED: proPOfol 200 MG/20 ML (DIPRIVAN) VIAL IV ONE (06:58)
[2019-10-02] MEDS ORDERED: LIDOCAINE PF 2% 5 ML (XYLOCAINE) VIAL ONE (06:58)
[2019-10-02] MEDS ORDERED: SEVOFLURANE (ULTANE) 15 ML INHAL SOLN ONE ×3 (06:58→09:30)
[2019-10-02] MEDS ORDERED: DEXAMETHASONE 10 MG/ML (DECADRON) 1 ML VIAL ONE (06:58)
[2019-10-02] MEDS ORDERED: GLYCOPYRROLATE 0.2 MG/ML (ROBINUL) 2 ML VIAL ONE (06:58)
[2019-10-02] MEDS ORDERED: ROCURONIUM 10 MG/ML 5 ML SYRINGE IV ONE (06:58)
[2019-10-02] MEDS ORDERED: MIDAZOLAM 2 MG/2 ML (VERSED) VIAL ONE (06:58)
[2019-10-02] MEDS ORDERED: NEOSTIGMINE 3 MG/3 ML VIAL ONE (06:58)
[2019-10-02] MEDS ORDERED: fentaNYL INJECTION 100 MCG/2 ML AMP ONE (06:58)
[2019-10-02] MEDS ORDERED: ONDANSETRON 4 MG/2 ML (SDV) Z0FRAN ONE ×2 (06:58→10:21)
[2019-10-02] MEDS ORDERED: BUP/EPI 0.5% 1:200,000 (MARCAINE) 10ML VIAL IJ ONE (07:18)
[2019-10-02 07:21] LABS: BASOPHILS % (AUTO) 0 % (0-10); EOSINOPHILS # (AUTO) 0.2 10^3/uL (0.0-0.3); EOSINOPHILS % (AUTO) 3 % (0-10); HEMATOCRIT 44 % (35-52); HEMOGLOBIN 14.8 G/DL (11.5-16.0); LYMPHOCYTES % (AUTO) 21 % (12-44); MEAN CORPUSCULAR HEMOGLOBIN 30 PG (25-34); MEAN CORPUSCULAR HGB CONC 34 G/DL (32-36); MEAN CORPUSCULAR VOLUME 89 FL (80-99); MEAN PLATELET VOLUME 10.8 FL (7.4-10.4); MONOCYTES % (AUTO) 11 % (0-12); NEUTROPHILS # (AUTO) 6.1 X 10^3 (1.8-7.8); NEUTROPHILS % (AUTO) 65 % (42-75); PLATELET COUNT 240 10^3/uL (130-400); RED CELL DISTRIBUTION WIDTH 13.6 % (10.0-14.5); WHITE BLOOD COUNT 9.4 10^3/uL (4.3-11.0)
[2019-10-02] MEDS ORDERED: ceFAZolin 2 GM IV Premixed 50 ML IV ONE (07:30)
[2019-10-02] MEDS: LACTATED RINGERS 1,000 ML IV PRN ×2 (07:41→09:17)
[2019-10-02] MEDS ORDERED: MIDAZOLAM 2 MG/2 ML (VERSED) VIAL IVP ONE (07:45)
[2019-10-02] MEDS ORDERED: ceFAZolin 2 GM/50 ML NS 50 ML ONE (07:47)
--- NOTE | 2019-10-02 08:11 | Progress Note-Pre Operative ---
Pre-Operative Progress Note H&P Reviewed The H&P was reviewed, patient examined and no changes noted. Time Seen by Provider: 08:03 Date H&P Reviewed: Oct 02, 2019 Time H&P Reviewed: 08:04 Pre-Operative Diagnosis: Carcinoid tumor of Appendix HALIMA ADAMS DO Oct 02, 2019 08:11 POS
[2019-10-02] MEDS ORDERED: OMEP40CA36 PO (08:13)
[2019-10-02] MEDS ORDERED: HYDROmorphone 2 MG/ML VIAL (DILAUDID) ONE (08:23)
[2019-10-02] MEDS ORDERED: ROPIVACAINE 5MG/ML 30ML VIAL ONE (08:36)
[2019-10-02] MEDS: KETOROLAC 30 MG/ML VIAL IVP SCH ×3 (09:30→21:45)
[2019-10-02] MEDS ORDERED: KETOROLAC 30 MG/ML VIAL ONE (09:30)
--- NOTE | 2019-10-02 09:44 | Progress Note-Post Operative ---
Post-Operative Progess Note Surgeon (s)/Mold Construction Supervisor (s) Surgeon HALIMA ADAMS DO Mold Construction Supervisor: Hermila Pre-Operative Diagnosis Carcinoid tumor of Appendix Post-Operative Diagnosis same pending path Procedure & Operative Findings Date of Procedure 10/02/19 Procedure Performed/Findings Lap Hand asst Right Hemicolectomy Anesthesia Type GET Estimated Blood Loss Estimated blood loss (mL): scant Specimens/Packing Specimens Removed Portion of TI, Cecum and Ascending colon HALIMA ADAMS DO Oct 02, 2019 09:44 POS
[2019-10-02] MEDS ORDERED: ONDANSETRON 4 MG/2 ML (SDV) Z0FRAN IVP PRN ×2 (09:45→10:15)
[2019-10-02] MEDS ORDERED: HYDROmorphone 2 MG/ML VIAL (DILAUDID) IV ONE (10:15)
[2019-10-02] MEDS: LACTATED RINGERS 1,000 ML IV SCH ×2 (10:24→20:22)
[2019-10-02] MEDS ORDERED: CATHETER FLUSH 10 ML SYR IV PRN (11:45)
[2019-10-02] MEDS: metroNIDAZOLE 500MG/100ML IVPB 100 ML IV SCH ×2 (12:35→20:17)
[2019-10-02] MEDS: ACETAMINOPHEN 500 MG TAB (TYLENOL) PO SCH ×2 (12:36→20:17)
--- NOTE | 2019-10-02 13:54 | OPERATIVE REPORT ---
DATE OF SERVICE: 10/02/2019 PREOPERATIVE DIAGNOSIS: Carcinoid tumor. POSTOPERATIVE DIAGNOSIS: Carcinoid tumor, pending pathology. PROCEDURE: Laparoscopic hand-assisted right hemicolectomy. SURGEON: Vivek Platt DO. LITHOPONE MILL WORKER: Hai Cleaning DO ANESTHESIA: General endotracheal tube. SPECIMEN: Portion of the right colon and portion of the terminal ileum. BLOOD LOSS: Scant. FLUIDS: Per anesthesia. POSTOPERATIVE CONDITION: Stable. INDICATION FOR PROCEDURE: The patient is a 34-year-old female who unfortunately had an appendectomy, found to have a carcinoid tumor in it, and needed a right hemicolectomy for completion surgery. FINDINGS: The patient had a right hemicolectomy performed, did not see anything in the liver, did not feel any lymph nodes. PROCEDURE NOTE: After informed consent was obtained, the patient was brought to the operating room, placed on the table in supine position. She was sterilely prepped and draped in normal fashion. A midline incision was made just above the umbilicus. Approximately 6 cm incision was made and carried down through the skin and subcutaneous tissue, then deepened down to subcutaneous tissue with Bovie electrocautery down to fascia. Fascia was incised with Bovie electrocautery, bluntly entered the abdomen, swept a finger around and then increased the incision superiorly and inferiorly, placed a GelPort and then placed a trocar through the Gelport, created pneumoperitoneum and then using direct visualization with a scope, made a small 5 mm incision down below using local lidocaine, 11 blade for stab incision and VersaStep system, all done under direct visualization and into the same and just above with a 12 port. Once this was done, then used the Bovie electrocautery and scored the pericolic gutter right at the cecum all the way up to the hepatic flexure and then gently pulled this into the midline along the white line of Toldt, freed up nicely, came across the top, pulled everything and could see the duodenum and once we had freed all this up and the right colon was loose, then opened the Gelport and able to pull all this through the abdominal wall, made a defect in the mesentery at the small intestine about 6 cm away from the terminal ileum and then across here placed a STEVEN, clamped and fired, thereby transecting, went above and made a small defect in the mesentery of the right colon and then made a small hole in the colon as well as a small hole in the terminal ileum, put the Endo-STEVEN one part of the stapler on either colon, clamped together, held for 30 seconds and then fired thereby creating the [id number] functional end-to-end anastomosis. I used a reload STEVEN and above this closed this enterocolostomy with a stapler and then used the LigaSure to come across the mesentery, clamping, coagulating and transecting in this fashion coming all the way across so that it was completely removed this part of the colon, passed this off the table through one 3-0 Vicryl crotch stitch, irrigated a little bit, placed this back into the abdomen, looked with the scope. Everything looked good. No bleeding and at this point elected to close the midline incision, closed with a #1 double stranded PDS suture running from superior portion to inferior portion tying to itself, looked at this with the scope, looked good and then removed the 5 mm and 12 mm port. Copiously irrigated the incision with normal saline and then closed the incision with 4-0 undyed Monocryl subcuticular stitches, running in the midline. A single interrupted 4-0 undyed suture at the 5 mm incision and two 4- 0 undyed Monocryl subcuticular stitch at the superior 12 mm incision. Area was cleaned and dried. Dermabond was placed. The patient tolerated the procedure. Sponge, instrument and needle count correct at the end of the case. Dr. Cleaning assisted in this case helping to make incisions, close incisions, identify anatomy and hold anatomy out of the way as well as help with the resections. Job ID: [id number] DocumentID: [id number] Dictated Date: 10/02/2019 09:43:05 Food Aide Date: 10/02/2019 13:54:25 Dictated By: DO DEVIN DENTON
[2019-10-02] MEDS ORDERED: ALPRAZolam 0.5 MG (XANAX) TAB PO PRN (16:15)
[2019-10-02] MEDS: ceFAZolin 2 GM/50 ML NS 50 ML IV SCH (17:07)
[2019-10-02] MEDS: ALPRAZolam 0.5 MG (XANAX) TAB PO SCH (20:17)
[2019-10-03] MEDS: ceFAZolin 2 GM/50 ML NS 50 ML IV SCH
[2019-10-03] MEDS: LACTATED RINGERS 1,000 ML IV SCH ×2 (03:03→09:58)
[2019-10-03] MEDS: ACETAMINOPHEN 500 MG TAB (TYLENOL) PO SCH ×2 (03:30→12:17)
[2019-10-03 03:45] VITALS: BP 114/61
[2019-10-03] MEDS: KETOROLAC 30 MG/ML VIAL IVP SCH ×3 (04:09→16:01)
[2019-10-03 07:30] VITALS: BP 118/58
--- NOTE | 2019-10-03 08:22 | Anesthesia-General Post-Op ---
General Patient Condition Mental Status/LOC: Same as Preop Cardiovascular: Satisfactory Nausea/Vomiting: Absent Respiratory: Satisfactory Pain: Controlled Complications: Absent Post Op Complications Complications None Follow Up Care/Instructions Patient Instructions None needed. Anesthesia/Patient Condition Patient Condition Patient is doing well, no complaints, stable vital signs, no apparent adverse anesthesia problems. No complications reported per nursing. [place] [facility] [place]: JENNIFFER Chao CRNA Oct 03, 2019 08:21 POS
--- NOTE | 2019-10-03 08:38 | Progress Note - Surgery ---
JENI LAMA,MED STUDENT 10/03/19 0838: Subjective Date Seen by a Provider: Oct 03, 2019 Time Seen by a Provider: 08:15 Subjective/Events-last exam Patient is 1 day pos-op of a colon resection. She says that she is feeling well and has some appetite. she reports having a liquids for breakfast and some of the solid food that was brought up later this morning. She says that she has not had a bowel movement since surgery but she has started to have flatulence. She says that she is voiding but that the quantity of her voids are less than normal. She reports that she has been getting up and walking around. Review of Systems General: No Chills, No Malaise HEENT: No Head Aches, No Visual Changes, No Ear Pain, No Sore Throat Pulmonary: No Dyspnea, No Cough Cardiovascular: Edema; No: Chest Pain Gastrointestinal: No: Nausea, Vomiting, Abdominal Pain, Diarrhea Musculoskeletal: other (She denies any muscle pain or weakness) Neurological: No: Weakness, Numbness Objective Exam Vital Signs Date Time Temp Pulse Resp B/P (MAP) Pulse Ox O2 Delivery O2 Flow Rate FiO2 10/03/19 07:30 37.2 86 20 118/58 (78) 96 Room Air 10/03/19 03:45 37.0 79 18 114/61 (78) 94 Room Air 10/02/19 23:30 37.0 87 20 112/61 (78) 92 Room Air 10/02/19 21:00 37.3 10/02/19 21:00 96 Room Air 2.00 10/02/19 19:32 37.3 99 20 134/61 (85) 96 Room Air 10/02/19 19:00 37.3 10/02/19 15:56 36.7 81 20 106/62 (77) 94 Room Air 10/02/19 11:10 37.2 97 16 122/76 (91) 95 Nasal Cannula 2.00 10/02/19 11:05 36.4 18 124/82 (96) 96 Nasal Cannula 2 10/02/19 11:05 Nasal Cannula 2 10/02/19 11:00 Nasal Cannula 2 10/02/19 11:00 18 124/82 (96) 95 Nasal Cannula 2 10/02/19 10:50 18 122/79 (93) 97 OxyMask 3 10/02/19 10:48 OxyMask 3 10/02/19 10:40 18 119/83 (95) 97 OxyMask 6 10/02/19 10:35 OxyMask 6 10/02/19 10:30 18 123/80 (94) 97 OxyMask 6 10/02/19 10:20 OxyMask 6 10/02/19 10:20 18 117/68 (84) 96 OxyMask 6 10/02/19 10:12 18 126/80 (95) 96 OxyMask 6 10/02/19 10:08 37.2 16 120/89 (99) 94 OxyMask 6 10/02/19 10:08 OxyMask 6 I & O 10/03/19 07:00 Intake Total 2115 ml Output Total 1200 ml Balance 915 ml Capillary Refill : Less Than 3 Seconds General Appearance: No Apparent Distress, WD/WN Neck: Non Tender, Supple Respiratory: Chest Non Tender, Lungs Clear, Normal Breath Sounds, No Accessory Muscle Use Cardiovascular: Regular Rate, Rhythm, No Murmur, Normal Peripheral Pulses Peripheral Pulses: 2+ Dorsalis Pedis (R), 2+ Left Dors-Pedis (L), 2+ Radial Pulses (R), 2+ Radial Pulses (L) Gastrointestinal: non tender, soft, no organomegaly, no pulsatile mass, other (bowel sounds were present on ausculation ) Extremity: Normal Capillary Refill, Normal Inspection, Non Tender, No Calf Tenderness, Pedal Edema Neurologic/Psychiatric: Oriented x3, No Motor/Sensory Deficits, Normal Mood/Affect Skin: Normal Color, Warm/Dry Results Lab Laboratory Tests 10/02/19 13:36: Glucometer 140H VIVEK PLATT DO 10/03/19 1258: Subjective Time Seen by a Provider: 12:41 Subjective/Events-last exam Pt seen and examined, looks good. Assessment/Plan Assessment/Plan Assessment/Plan S/P Right Colon resection Pt is tolerating diet with flatus, no BM yet. Pain is well controlled and she wants to go home. Supervisory-Addendum Brief Verification & Attestation Participated in pt care: history, MDM, physical Personally performed: exam, history, MDM Care discussed with: Medical Student Procedures: n/a Verification and Attestation of Medical Student E/M Service A medical student performed and documented this service in my presence. I reviewed and verified all information documented by the medical student and made modifications to such information, when appropriate. I personally performed the physical exam and medical decision making. Vivek Platt, Oct 03, 2019,12:58 JENI LAMA,MED STUDENT Oct 03, 2019 08:38 VIVEK PORTER DO Oct 03, 2019 12:58 POS
[2019-10-03] MEDS ORDERED: PANTOPRAZOLE 40 MG (PROTONIX) VIAL IVP SCH (09:00)
[2019-10-03] MEDS ORDERED: ENOXAPARIN 40 MG/0.4 ML (LOVENOX) SYR SC SCH (09:45)
[2019-10-03] MEDS: ALPRAZolam 0.5 MG (XANAX) TAB PO SCH (09:57)
[2019-10-03 12:00] VITALS: BP 89/53
[2019-10-03] MEDS ORDERED: KETO10TA PO (13:00)
--- NOTE | 2019-10-03 13:01 | Discharge Inst-Surgical ---
Discharge Inst-Surgical Reconcile Patient Problems Problems Reviewed?: Yes Depart Medication/Instructions New, Converted or Re-Newed RX: Transmitted to Pharmacy Patient Instructions Follow up Appt: Make appointment for 1 week. [phone] Instructions: No lifting greater than 20 pounds. No strenuous activity. May shower in 24 hours, no tub bath or soaking. Use incentive spirometer at home as directed. No Smoking Skin/Wound Care: May remove bandages in am. You need to leave the Dermabond on incision it will fall off on it's own. Symptoms to Report: Appetite Changes, Extremity Discoloration, Numbness/Tingling, Swelling Increased, Bleeding Excessive, Eyesight Changes, Pain Increased, Urine Color Change, Constipation(Persistent), Fever over 101 degree F, Pain/Pressure in chest, Urinating Difficulty, Cough Up/Vomit Blood, Heart Beat Irreg/Pounding, Pain/Pressure in jaw, Cramps in feet or legs, Lightheadedness, Pain/Pressure in shoulder, Diarrhea(Persistent), Memory Changes Suddenly, Questions/Concerns, Weight gain consecutive days, Dizziness/Fainting, Nausea/Vomiting, Shortness of Breath, Weight gain over 2 pounds If questions or concerns contact your physician Or seek help at emergency department. Activity Activity as Tolerated: Yes Activity Instructions: Avoid Stress to Incision Driving Instructions: No Driving/Refer to Diet Discharge Diet: No Restrictions (increase fluids, ok to use miralax in 2 days if needed) Diet After 24 Hours: Clear Liquid if Nauseous If Any Problems/Questions/Issu: Contact Your Physician, Go to Emergency Room Skin/Wound Care Infection Signs and Symptoms: Increased Redness, Foul Odor of Wound, Increased Drainage, Skin Itchy or Has a Rash, Increased Swelling, Temperature Above 101 F Bathing Instructions: Shower Stitches/Vinny/Dermabond Dis: Dermond HALIMA ADAMS DO Oct 03, 2019 13:01 POS
[2019-10-03 15:26] VITALS: BP 125/75
[2019-10-03 16:02] VITALS: BP 125/75
--- OUTSIDE RECORDS SUMMARY | 2019-10-26 16:19 | XMS REPORT | Continuity of Care Document ---
Author Organization Unknown Address Unknown Phone Unavailable Allergies Active Description Code Type Severity Reaction Onset Reported/Identified Relationship to Patient Clinical Status Yes No Known Drug Allergies [id number] Drug Allergy Unknown N/A 07/16/2008 Yes ciprofloxacin [id number] Brown g Allergy Unknown N/A 01/02/2019 Yes Sulfa (Sulfonamide Antibiotics) [id number] Drug Allergy Unknown N/A 019 Yes ciprofloxacin [id number] Brown g Allergy Moderate GI UPSET/DIZZIN 9 Yes Sulfa (Sulfonamide Antibiotics) [id number] Drug Allergy Moderate GI UPSET/DIZZIN 09/26/2019 Yes sulfamethoxazole [id number] Drug Allergy Moderate GI UPSET/DIZZIN Yes trimethoprim [id number] Drug Allergy Moderate GI UPSET/DIZZIN 9 Medications There is no data. Problems Date Dx Coded Attending Type Code Diagnosis Diagnosed By 05/18/2008 V22.0 PC N ORMAL FIRST 05/18/2008 V22.0 PC N ORMAL FIRST 05/18/2008 V22.0 PC N ORMAL FIRST 05/18/2008 EMILE NIEVES DO V22.0 PC NORMAL FIRST 05/18/2008 EMILE NIEVES DO V22.0 PC NORMAL FIRST 05/18/2008 EMILE NIEVES DO V22.0 PC NORMAL FIRST 05/18/2008 ARABELLA CARLOS APRN V22.0 PC NORMAL FIRST 05/18/2008 EMIEL NIEVES DO V22.0 PC NORMAL FIRST 05/18/2008 EMILE NIEVES DO V22.0 PC NORMAL FIRST 05/18/2008 EMILE NIEVES DO V22.0 PC NORMAL FIRST 05/31/2008 477.9 RHIN ITIS ALLERGIC 05/31/2008 477.9 RHIN ITIS ALLERGIC 05/31/2008 477.9 RHIN ITIS ALLERGIC 05/31/2008 NIEVES DO, EMILE K 477.9 RHINITIS ALLERGIC 05/31/2008 NIEVES DO, EMILE K 477.9 RHINITIS ALLERGIC 05/31/2008 NIEVES DO, EMILE K 477.9 RHINITIS ALLERGIC 05/31/2008 ARABELLA CARLOS APRN 477.9 RHINITIS ALLERGIC 05/31/2008 NIEVES DO, EMILE K 477.9 RHINITIS ALLERGIC 05/31/2008 NIEVES DO, EMILE K 477.9 RHINITIS ALLERGIC 05/31/2008 NIEVES DO, EMILE K 477.9 RHINITIS ALLERGIC 06/15/2008 V22.1 PC O THER NORMAL 06/15/2008 V22.1 PC O THER NORMAL 06/15/2008 V22.1 PC O THER NORMAL 06/15/2008 GABRIEL NIEVES DOA K V22.1 PC OTHER NORMAL 06/15/2008 NIEVES DO EMILE K V22.1 PC OTHER NORMAL 06/15/2008 EZEQUIEL WHITTINGTON EMILE K V22.1 PC OTHER NORMAL 06/15/2008 ARABELLA CARLOS APRN V22.1 PC OTHER NORMAL 06/15/2008 NIEVES DO EMILE K V22.1 PC OTHER NORMAL 06/15/2008 NIEVES DO EMILE K V22.1 PC OTHER NORMAL 06/15/2008 NIEVES DO EMILE K V22.1 PC OTHER NORMAL 08/27/2008 V25.41 ASHELY VEILLANCE OF CONTRACEPTIVE PILL 08/27/2008 V72.31 ARM MAKER EXAM, ROUTINE 08/27/2008 V25.41 ASHELY VEILLANCE OF CONTRACEPTIVE PILL 08/27/2008 V72.31 ARM MAKER EXAM, ROUTINE 08/27/2008 V25.41 ASHELY VEILLANCE OF CONTRACEPTIVE PILL 08/27/2008 V72.31 ARM MAKER EXAM, ROUTINE 08/27/2008 EZEQUIEL WHITTINGTON EMILE K V25.41 SURVEILLANCE OF CONTRACEPTIVE PILL 08/27/2008 NIEVES GABRIEL WHITTINGTONA K V72.31 ARM MAKER EXAM, ROUTINE 08/27/2008 NIEVES GABRIEL WHITTINGTONA K V25.41 SURVEILLANCE OF CONTRACEPTIVE PILL 08/27/2008 NIEVES DO EMILE K V72.31 ARM MAKER EXAM, ROUTINE 08/27/2008 NIEVES DO EMILE K V25.41 SURVEILLANCE OF CONTRACEPTIVE PILL 08/27/2008 EZEQUIEL WHITTINGTON EMILE K V72.31 ARM MAKER EXAM, ROUTINE 08/27/2008 ARABELLA CARLOS APRN V25.41 SURVEILLANCE OF CONTRACEPTIVE PILL 08/27/2008 ARABELLA CARLOS APRN V72.31 ARM MAKER EXAM, ROUTINE 08/27/2008 EMILE NIEVES DO K V25.41 SURVEILLANCE OF CONTRACEPTIVE PILL 08/27/2008 GABRIEL NIEVES DOA K V72.31 ARM MAKER EXAM, ROUTINE 08/27/2008 GABRIEL NIEVES DOA K V25.41 SURVEILLANCE OF CONTRACEPTIVE PILL 08/27/2008 GABRIEL NIEVES DOA K V72.31 ARM MAKER EXAM, ROUTINE 08/27/2008 GABRIEL NIEVES DOA K V25.41 SURVEILLANCE OF CONTRACEPTIVE PILL 08/27/2008 GABRIEL NIEVES DOA K V72.31 ARM MAKER EXAM, ROUTINE 09/18/2008 380.10 BRODIE TIS EXTERNA HEMORRHAGIC 09/18/2008 382.00 BRODIE TIS MEDIA ACUTE SUPPURATIVE 09/18/2008 V72.41 PRE GNANCY TEST NEGATIVE RESULT 09/18/2008 380.10 BRODIE TIS EXTERNA HEMORRHAGIC 09/18/2008 382.00 BRODIE TIS MEDIA ACUTE SUPPURATIVE 09/18/2008 V72.41 PRE GNANCY TEST NEGATIVE RESULT 09/18/2008 380.10 BRODIE TIS EXTERNA HEMORRHAGIC 09/18/2008 382.00 BRODIE TIS MEDIA ACUTE SUPPURATIVE 09/18/2008 V72.41 PRE GNANCY TEST NEGATIVE RESULT 09/18/2008 GABRIEL NIEVES DOA K 380.10 OTITIS EXTERNA HEMORRHAGIC 09/18/2008 EZEQUIEL WHITTINGTON EMILE K 382.00 OTITIS MEDIA ACUTE SUPPURATIVE 09/18/2008 GABRIEL NIEVES DOA K V72.41 TEST NEGATIVE RESULT 09/18/2008 GABRIEL NIEVES DOA K 380.10 OTITIS EXTERNA HEMORRHAGIC 09/18/2008 EZEQUIEL WHITTINGTON EMILE K 382.00 OTITIS MEDIA ACUTE SUPPURATIVE 09/18/2008 EZEQUIEL WHITTINGTON EMILE K V72.41 TEST NEGATIVE RESULT 09/18/2008 EZEQUIEL WHITTINGTON EMILE K 380.10 OTITIS EXTERNA HEMORRHAGIC 09/18/2008 EZEQUIEL WHITTINGTON EMILE K 382.00 OTITIS MEDIA ACUTE SUPPURATIVE 09/18/2008 EZEQUIEL WHITTINGTON EMILE K V72.41 TEST NEGATIVE RESULT 09/18/2008 ARABELLA CARLOS APRN E 380.10 OTITIS EXTERNA HEMORRHAGIC 09/18/2008 [employer] DATA INTEGRITY SPECIALIST, ARABELLA E 382.00 OTITIS MEDIA ACUTE SUPPURATIVE 09/18/2008 ARABELLA CARLOS APRN V72.41 TEST NEGATIVE RESULT 09/18/2008 NIEVES DO, [...] COUGH 09/21/2008 786.2 COUGH 09/21/2008 NIEVES DO, EIMLE K 786.2 COUGH 09/21/2008 NIEVES DO, EMILE K 786.2 COUGH 09/21/2008 NIEVES DO, EMILE K 786.2 COUGH 09/21/2008 ARABELLA CARLOS APRN 786.2 COUGH 09/21/2008 NIEVES DO, EMILE K 786.2 COUGH 09/21/2008 NIEVES DO, EMILE K 786.2 COUGH 09/21/2008 NIEVES DO, EMILE K 786.2 COUGH 11/22/2008 285.9 ANEMIA 11/22/2008 535.50 GAS TRITIS 11/22/2008 285.9 ANEMIA 11/22/2008 535.50 GAS TRITIS 11/22/2008 285.9 ANEMIA 11/22/2008 535.50 GAS TRITIS 11/22/2008 NIEVES DO, EMILE K 285.9 ANEMIA 11/22/2008 NIEVES DO, EMILE K 535.50 GASTRITIS 11/22/2008 NIEVES DO, EMILE K 285.9 ANEMIA 11/22/2008 NIEVES DO, EMILE K 535.50 GASTRITIS 11/22/2008 NIEVES DO, EMILE K 285.9 ANEMIA 11/22/2008 NIEVES DO, EMILE K 535.50 GASTRITIS 11/22/2008 ARABELLA CARLOS APRN 285.9 ANEMIA 11/22/2008 [facility] DATA INTEGRITY SPECIALISTGABRIELARABELLA E 535.50 GASTRITIS 11/22/2008 NIEVES DO, EMILE K 285.9 ANEMIA 11/22/2008 NIEVES DO, EMILE K 535.50 GASTRITIS 11/22/2008 NIEVES DO, EMILE K 285.9 ANEMIA 11/22/2008 NIEVES DO, EMILE K 535.50 GASTRITIS 11/22/2008 NIEVES DO, EMILE K 285.9 ANEMIA 11/22/2008 NIEVES DO, EMILE K 535.50 GASTRITIS 05/24/2009 300.00 anxiety 05/24/2009 795.03 Pap Smear (+) Low Grade Squamous Intraepithelial Lesion 05/24/2009 300.00 anxiety 05/24/2009 795.03 Pap Smear (+) Low Grade Squamous Intraepithelial Lesion 05/24/2009 300.00 anxiety 05/24/2009 795.03 Pap Smear (+) Low Grade Squamous [...] (+) Low Grade Squamous Intraepithelial Lesion 05/24/2009 [facility]TEGRITY SPECIALIST, ARABELLA E 300.00 anxiety 05/24/2009 [facility] MACHO ARABELLA E 795.03 Pap Smear (+) Low Grade Squamous Intraepithelial Lesio n 05/24/2009 NIEVES DO, EMILE K 300.00 anxiety [...] Low Grade Squamous Intraepithelial Lesion 06/12/2009 622.11 CER VICAL DYSPLASIA: MILD 06/12/2009 622.11 CER VICAL DYSPLASIA: MILD 06/12/2009 622.11 CER VICAL DYSPLASIA: MILD 06/12/2009 EMILE NIEVES DO 622.11 CERVICAL DYSPLASIA: MILD 06/12/2009 EMILE NIEVES DO 622.11 CERVICAL DYSPLASIA: MILD 06/12/2009 EMILE NIEVES DO 622.11 CERVICAL DYSPLASIA: MILD 06/12/2009 ARABELLA CARLOS APRN 622.11 CERVICAL DYSPLASIA: MILD 06/12/2009 EMILE NIEVES DO 622.11 CERVICAL DYSPLASIA: MILD 06/12/2009 EMILE NIEVES DO 622.11 CERVICAL DYSPLASIA: MILD 06/12/2009 EMILE NIEVES DO 622.11 CERVICAL DYSPLASIA: MILD 12/20/2009 V62.4 SOCI AL MALADJUSTMENT 12/20/2009 V62.4 SOCI AL MALADJUSTMENT 12/20/2009 V62.4 SOCI AL MALADJUSTMENT 12/20/2009 EMILE NIEVES DO V62.4 SOCIAL MALADJUSTMENT 12/20/2009 EMILE NIEVES DO V62.4 SOCIAL MALADJUSTMENT 12/20/2009 EMILE NIEVES DO V62.4 SOCIAL MALADJUSTMENT 12/20/2009 ARABELLA CARLOS APRN V62.4 SOCIAL MALADJUSTMENT 12/20/2009 EMILE NIEVES DO V62.4 SOCIAL MALADJUSTMENT 12/20/2009 EMILE NIEVES DO V62.4 SOCIAL MALADJUSTMENT 12/20/2009 EMILE NIEVES DO V62.4 SOCIAL MALADJUSTMENT 01/30/2010 706.1 ACNE 01/30/2010 706.1 ACNE 01/30/2010 706.1 ACNE 01/30/2010 EMILE NIEVES DO 706.1 ACNE 01/30/2010 EMILE NIEVES DO 706.1 ACNE 01/30/2010 EMILE NIEVES DO 706.1 ACNE 01/30/2010 ARABELLA CARLOS APRN 706.1 ACNE 01/30/2010 EMILE NIEVES DO 706.1 ACNE 01/30/2010 EMILE NIEVES DO 706.1 ACNE 01/30/2010 NIEVES DO, EMILE K 706.1 ACNE 11/07/2010 V22.2 PREG NANT INCIDENTAL 11/07/2010 V25.9 CONT RACEPTIVE MANAGEMENT, UNSPECIFIED 11/07/2010 V22.2 PREG NANT INCIDENTAL 11/07/2010 V25.9 CONT RACEPTIVE MANAGEMENT, UNSPECIFIED 11/07/2010 V22.2 PREG NANT INCIDENTAL 11/07/2010 V25.9 CONT RACEPTIVE MANAGEMENT, UNSPECIFIED 11/07/2010 NIEVES DO, EMILE K V22.2 INCIDENTAL 11/07/2010 NIEVES DO, EMILE K V25.9 CONTRACEPTIVE MANAGEMENT, UNSPECIFIED 11/07/2010 NIEVES DO, EMILE K V22.2 INCIDENTAL 11/07/2010 NIEVES DO, EMILE K V25.9 CONTRACEPTIVE MANAGEMENT, UNSPECIFIED 11/07/2010 NIEVES DO, EMILE K V22.2 INCIDENTAL 11/07/2010 NIEVES DO, EMILE K V25.9 CONTRACEPTIVE MANAGEMENT, UNSPECIFIED 11/07/2010 TERRANCE PRITCHARD ARABELLA E V22.2 INCIDENTAL 11/07/2010 TERRANCE PRITCHARD ARABELLA E V25.9 CONTRACEPTIVE MANAGEMENT, UNSPECIFIED 11/07/2010 NIEVES DO, EMILE K V22.2 INCIDENTAL 11/07/2010 NIEVES DO, EMILE K V25.9 CONTRACEPTIVE MANAGEMENT, UNSPECIFIED 11/07/2010 NIEVES DO, EMILE K V22.2 INCIDENTAL 11/07/2010 NIEVES DO, EMILE K V25.9 CONTRACEPTIVE MANAGEMENT, UNSPECIFIED 11/07/2010 NIEVES DO, EIMLE K V22.2 INCIDENTAL 11/07/2010 NIEVES DO, EMILE K V25.9 CONTRACEPTIVE MANAGEMENT, UNSPECIFIED 01/02/2011 599.0 URIN ANTONIO TRACT INFECTION 01/02/2011 724.2 BACK PAIN, LOWER 01/02/2011 599.0 URIN ANTONIO TRACT INFECTION 01/02/2011 724.2 BACK PAIN, LOWER 01/02/2011 599.0 URIN ANTONIO TRACT INFECTION 01/02/2011 724.2 BACK PAIN, LOWER 01/02/2011 NIEVES DO, EMILE K 599.0 URINARY TRACT INFECTION 01/02/2011 NIEVES DO, EMILE K 724.2 BACK PAIN, LOWER 01/02/2011 NIEVES DO, EMILE K 599.0 URINARY TRACT INFECTION 01/02/2011 NIEVES DO, EMILE K 724.2 BACK PAIN, LOWER 01/02/2011 NIEVES DO, EMILE K 599.0 URINARY TRACT INFECTION 01/02/2011 NIEVES DO, EMILE K 724.2 BACK PAIN, LOWER 01/02/2011 HELLW[employer] DATA INTEGRITY SPECIALIST, ARABELLA E 599.0 URINARY TRACT INFECTION 01/02/2011 HELLWIG DATA INTEGRITY SPECIALIST, ARABELLA E 724.2 BACK PAIN, LOWER 01/02/2011 NIEVES DO, EMILE K 599.0 URINARY TRACT INFECTION 01/02/2011 NIEVES DO, EMILE K 724.2 BACK PAIN, LOWER 01/02/2011 NIEVES DO, EMILE K 599.0 URINARY TRACT INFECTION 01/02/2011 NIEVES DO, EMILE K 724.2 BACK PAIN, LOWER 01/02/2011 NIEVES DO, EMILE K 599.0 URINARY TRACT INFECTION 01/02/2011 NIEVES DO, EMILE K 724.2 BACK PAIN, LOWER 01/05/2011 635.90 LEG ALLY INDUCED UNSPECIFIED WITHOUT COMPLICATION 01/05/2011 789.09 ABD OMINAL PAIN OTHER SPECIFIED SITE 01/05/2011 795.04 ABN ORMAL PAP - HGSIL 01/05/2011 V69.2 HIGH -RISK SEXUAL BEHAVIOR 01/05/2011 635.90 LEG ALLY INDUCED UNSPECIFIED WITHOUT COMPLICATION 01/05/2011 789.09 ABD OMINAL PAIN OTHER SPECIFIED SITE 01/05/2011 795.04 ABN ORMAL PAP - HGSIL 01/05/2011 V69.2 HIGH -RISK SEXUAL BEHAVIOR 01/05/2011 635.90 LEG ALLY INDUCED UNSPECIFIED WITHOUT COMPLICATION 01/05/2011 789.09 ABD OMINAL PAIN OTHER SPECIFIED SITE 01/05/2011 795.04 ABN ORMAL PAP - HGSIL 01/05/2011 V69.2 HIGH -RISK SEXUAL BEHAVIOR 01/05/2011 NIEVES DO, EMILE K 635.90 LEGALLY INDUCED UNSPECIFIED WITHOUT COMPLICATION 01/05/2011 NIEVES DO EMILE K 789.09 ABDOMINAL PAIN OTHER SPECIFIED SITE 01/05/2011 NIEVES DO EMILE K 795.04 ABNORMAL PAP - HGSIL 01/05/2011 NIEVES DO EMILE K V69.2 HIGH-RISK SEXUAL BEHAVIOR 01/05/2011 NIEVES DO EMILE K 635.90 LEGALLY INDUCED UNSPECIFIED WITHOUT [...] EMILE K V69.2 HIGH-RISK SEXUAL BEHAVIOR 01/05/2011 TERRANCE DATA INTEGRITY SPECIALISTARABELLA Velarde 635.90 LEGALLY INDUCED UNSPECIFIED WITHOUT COMPLICAT ION 01/05/2011 PAMLWIG DATA INTEGRITY SPECIALISTARABELLA 789.09 ABDOMINAL PAIN OTHER SPECIFIED SITE 01/05/2011 PAMLMORALES DATA INTEGRITY SPECIALISTARABELLA Velarde 795.04 ABNORMAL PAP - HGSIL 01/05/2011 PAMLWIG DATA INTEGRITY SPECIALISTARABELLA Velarde E V69.2 HIGH-RISK SEXUAL BEHAVIOR 01/05/2011 NIEVES [...] K V69.2 HIGH-RISK SEXUAL BEHAVIOR 01/26/2011 784.1 THRO AT PAIN 01/26/2011 784.1 THRO AT PAIN 01/26/2011 784.1 THRO AT PAIN 01/26/2011 NIEVES DOGABRIELA K 784.1 THROAT PAIN 01/26/2011 NIEVES DO, EMILE K 784.1 THROAT PAIN 01/26/2011 NIEVES DO, EMILE K 784.1 THROAT PAIN 01/26/2011 ARABELLA CARLOS APRN 784.1 THROAT PAIN 01/26/2011 NIEVES DO, EMILE K 784.1 THROAT PAIN 01/26/2011 NIEVES DO, EMILE K 784.1 THROAT PAIN 01/26/2011 NIEVES DOGABRIELA K 784.1 THROAT PAIN 01/28/2011 795.01 ABN ORMAL PAP - ASCUS 01/28/2011 795.01 ABN ORMAL PAP - ASCUS 01/28/2011 795.01 ABN ORMAL PAP - ASCUS 01/28/2011 GABRIEL NIEVES DOA K 795.01 ABNORMAL PAP - ASCUS 01/28/2011 NIEVES DOGABRIELA K 795.01 ABNORMAL PAP - ASCUS 01/28/2011 NIEVES DO, EMILE K 795.01 ABNORMAL PAP - ASCUS 01/28/2011 ARABELLA CARLOS APRN 795.01 ABNORMAL PAP - ASCUS 01/28/2011 NIEVES DOGABRIELA K 795.01 ABNORMAL PAP - ASCUS 01/28/2011 NIEVES DO EMILE K 795.01 ABNORMAL PAP - ASCUS 01/28/2011 NIEVES GABRIEL WHITTINGTONA K 795.01 ABNORMAL PAP - ASCUS 06/04/2011 788.1 pain during urination (dysuria) 06/04/2011 788.41 URI NARY FREQUENCY 06/04/2011 788.63 URI NARY URGENCY 06/04/2011 788.1 pain during urination (dysuria) 06/04/2011 788.41 URI NARY FREQUENCY 06/04/2011 788.63 URI NARY URGENCY 06/04/2011 788.1 pain during urination (dysuria) 06/04/2011 788.41 URI NARY FREQUENCY 06/04/2011 788.63 URI NARY URGENCY 06/04/2011 NIEVES DO, EMILE K 788.1 [...] K 788.1 pain during urination (dysuria) 06/04/2011 NIEEVS DO, EMILE K 788.41 URINARY FREQUENCY 06/04/2011 NIEVES DO, EMILE K 788.63 URINARY URGENCY 06/04/2011 NIEVES DO, EMILE K 788.1 pain during urination (dysuria) 06/04/2011 NIEVES DO, EMILE K 788.41 URINARY FREQUENCY 06/04/2011 NIEVES DO, EMILE K 788.63 URINARY URGENCY 10/15/2011 079.99 VIR AL SYNDROME 10/15/2011 079.99 VIR AL SYNDROME 10/15/2011 079.99 VIR AL SYNDROME 10/15/2011 NIEVES DO, EMILE K 079.99 VIRAL SYNDROME 10/15/2011 NIEVES DO, EMILE K 079.99 VIRAL SYNDROME 10/15/2011 NIEVES DO, EMILE K 079.99 VIRAL SYNDROME 10/15/2011 ARABELLA CARLOS APRN 079.99 VIRAL SYNDROME 10/15/2011 EMILE NIEVES DO 079.99 VIRAL SYNDROME 10/15/2011 EMILE NIEVES DO 079.99 VIRAL SYNDROME 10/15/2011 EMILE NIEVES DO 079.99 VIRAL SYNDROME 11/02/2011 623.5 LEUK ORRHEA NOT SPECIFIED INFECTIVE 11/02/2011 795.02 ABN ORMAL PAP - ASCUS-H 11/02/2011 623.5 LEUK ORRHEA NOT SPECIFIED INFECTIVE 11/02/2011 795.02 ABN ORMAL PAP - ASCUS-H 11/02/2011 623.5 LEUK ORRHEA NOT SPECIFIED INFECTIVE 11/02/2011 795.02 ABN ORMAL PAP - ASCUS-H 11/02/2011 EMILE NIEVES DO [...] APRN 795.02 ABNORMAL PAP - ASCUS-H 11/02/2011 EMILE NIEVES DO 623.5 LEUKORRHEA NOT SPECIFIED INFECTIVE 11/02/2011 EMILE NIEVES DO 795.02 ABNORMAL PAP - ASCUS-H 11/02/2011 EMILE NIEVES DO 623.5 LEUKORRHEA NOT SPECIFIED INFECTIVE 11/02/2011 EMILE NIEVES DO 795.02 ABNORMAL PAP - ASCUS-H 11/02/2011 EMILE NIEVES DO 623.5 LEUKORRHEA NOT SPECIFIED INFECTIVE 11/02/2011 EMILE NIEVES DO 795.02 ABNORMAL PAP - ASCUS-H 11/17/2011 V76.2 Cerv ical Pap Smear 11/17/2011 V76.2 Cerv ical Pap Smear 11/17/2011 V76.2 Cerv ical Pap Smear 11/17/2011 EMILE NIEVES DO K V76.2 Cervical Pap Smear 11/17/2011 EMILE NIEVES DO K V76.2 Cervical Pap Smear 11/17/2011 NIEVES DOGABRIELA K V76.2 Cervical Pap Smear 11/17/2011 ARABELLA CARLOS APRN V76.2 Cervical Pap Smear 11/17/2011 EMILE NIEVES DO K V76.2 Cervical Pap Smear 11/17/2011 GABRIEL NIEVES DOA K V76.2 Cervical Pap Smear 11/17/2011 NIEVES DOGABRIELA K V76.2 Cervical Pap Smear 01/27/2012 300.4 DYST HYMIC DIS 01/27/2012 300.4 DYST HYMIC DIS 01/27/2012 300.4 DYST HYMIC DIS 01/27/2012 EMILE NIEVES DO K 300.4 DYSTHYMIC DIS 01/27/2012 EMILE NIEVES DO K 300.4 DYSTHYMIC DIS 01/27/2012 EMILE NIEVES DO K 300.4 DYSTHYMIC DIS 01/27/2012 ARABELLA CARLOS APRN 300.4 DYSTHYMIC DIS 01/27/2012 EMILE NIEVES DO K 300.4 DYSTHYMIC DIS 01/27/2012 EMILE NIEVES DO K 300.4 DYSTHYMIC DIS 01/27/2012 EMILE NIEVES DO K 300.4 DYSTHYMIC DIS 03/01/2012 V25.02 Con traceptives 03/01/2012 V58.69 jacqueline ing high-risk medication 03/01/2012 V25.02 Con traceptives 03/01/2012 V58.69 jacqueline ing high-risk medication 03/01/2012 V25.02 Con traceptives 03/01/2012 V58.69 jacqueline ing high-risk medication 03/01/2012 EMILE NIEVES DO K V25.02 Contraceptives 03/01/2012 EMILE NIEVES DO K V58.69 taking high-risk medication 03/01/2012 EMILE NIEVES DO K V25.02 Contraceptives 03/01/2012 EMILE NIEVES DO K V58.69 taking high-risk medication 03/01/2012 EMILE NIEVES DO K V25.02 Contraceptives 03/01/2012 EMILE NIEVES DO K V58.69 taking high-risk medication 03/01/2012 ARABELLA [...] K V58.69 taking high-risk medication 03/29/2012 465.9 UPPE R RESPIRATORY INFECTION 03/29/2012 465.9 UPPE R RESPIRATORY INFECTION 03/29/2012 465.9 UPPE R RESPIRATORY INFECTION 03/29/2012 NIEVES DO, EMILE K 465.9 UPPER RESPIRATORY INFECTION 03/29/2012 NIEVES DO, EMILE K 465.9 UPPER RESPIRATORY INFECTION 03/29/2012 NIEVES DO, EMILE K 465.9 UPPER RESPIRATORY INFECTION 03/29/2012 ARABELLA CARLOS APRN E 465.9 UPPER RESPIRATORY INFECTION 03/29/2012 NIEVES DO, EMILE K 465.9 UPPER RESPIRATORY INFECTION 03/29/2012 NIEVES DO, EMILE K 465.9 UPPER RESPIRATORY INFECTION 03/29/2012 NIEVES DO, EMILE K 465.9 UPPER RESPIRATORY INFECTION 05/02/2012 682.3 CELL ULITIS AND ABSCESS OF UPPER ARM AND FOREARM 05/02/2012 682.3 CELL ULITIS AND ABSCESS OF UPPER ARM AND FOREARM 05/02/2012 682.3 CELL ULITIS AND ABSCESS OF UPPER ARM AND FOREARM [...] OF UPPER ARM AND FOREARM 05/25/2012 616.10 VAG INITIS VULVOVAGINITIS UNSPECIFIED 05/25/2012 616.10 VAG INITIS VULVOVAGINITIS UNSPECIFIED 05/25/2012 616.10 VAG INITIS VULVOVAGINITIS UNSPECIFIED 05/25/2012 EMILE NIEVES DO K [...] NIEVES DOA K 616.10 VAGINITIS VULVOVAGINITIS UNSPECIFIED 08/02/2012 305.1 TOBA DIRECTOR CONTENT MARKETING ABUSE 08/02/2012 788.99 OTH ER SYMPTOMS INVOLVING URINARY SYSTEM 08/02/2012 305.1 TOBA DIRECTOR CONTENT MARKETING ABUSE 08/02/2012 788.99 OTH ER SYMPTOMS INVOLVING URINARY SYSTEM 08/02/2012 305.1 TOBA DIRECTOR CONTENT MARKETING ABUSE 08/02/2012 788.99 OTH ER SYMPTOMS INVOLVING URINARY SYSTEM 08/02/2012 GABRIEL NIEVES DOA K 305.1 TOBACCO ABUSE 08/02/2012 GABRIEL NIEVES DOA K 788.99 OTHER SYMPTOMS INVOLVING URINARY SYSTEM 08/02/2012 GABRIEL NIEVES DOA K 305.1 TOBACCO ABUSE 08/02/2012 GABRIEL NIEVES DOA K 788.99 OTHER SYMPTOMS INVOLVING URINARY SYSTEM 08/02/2012 GABRIEL NIEVES DOA K 305.1 TOBACCO ABUSE 08/02/2012 NIEVES DO EMILE K 788.99 OTHER SYMPTOMS INVOLVING URINARY SYSTEM 08/02/2012 ARABELLA CARLOS APRN 305.1 TOBACCO ABUSE 08/02/2012 ARABELLA CARLOS APRN 788.99 OTHER SYMPTOMS INVOLVING URINARY SYSTEM 08/02/2012 [...] OTHER SYMPTOMS INVOLVING URINARY SYSTEM 02/14/2013 V25.09 CON TRACEPTIVE COUNSELING - GENERAL 02/14/2013 V73.81 HPV SCREENING 02/14/2013 V74.5 STD SCREEN 02/14/2013 V25.09 CON TRACEPTIVE COUNSELING - GENERAL 02/14/2013 V73.81 HPV SCREENING [...] DO EMILE K V74.5 STD SCREEN 02/14/2013 ARABELLA CARLOS APRN V25.09 CONTRACEPTIVE COUNSELING - GENERAL 02/14/2013 ARABELLA CARLOS APRN E V73.81 HPV SCREENING 02/14/2013 ARABELLA CARLOS APRN V74.5 STD SCREEN 02/14/2013 NIEVES DO EMILE K V25.09 CONTRACEPTIVE COUNSELING - GENERAL 02/14/2013 NIEVSE DO EMILE K V73.81 HPV SCREENING 02/14/2013 [...] EMILE K V74.5 STD SCREEN 04/04/2013 461.9 SINU SITIS ACUTE 04/04/2013 466.0 BRON CHITIS, ACUTE 04/04/2013 NIEVES DO, EMILE K 461.9 SINUSITIS ACUTE 04/04/2013 NIEVES DO, EMILE K 466.0 BRONCHITIS, ACUTE 04/04/2013 NIEVES DO, EMILE K 461.9 SINUSITIS ACUTE 04/04/2013 NIEVES DO, EMILE K 466.0 BRONCHITIS, ACUTE 04/04/2013 NIEVES DO, EMILE K 461.9 SINUSITIS ACUTE 04/04/2013 NIEVES DO, EMILE K 466.0 BRONCHITIS, ACUTE 04/04/2013 ARABELLA CARLOS APRN 461.9 SINUSITIS ACUTE 04/04/2013 ARABELLA CARLOS APRN E 466.0 BRONCHITIS, ACUTE 04/04/2013 NIEVES DO, EMILE K 461.9 SINUSITIS ACUTE 04/04/2013 NIVEES DO, EMILE K 466.0 BRONCHITIS, ACUTE 04/04/2013 [...] V25.01 GENERAL COUNSELING ON PRESCRIPTION OF ORAL CONTRACEPTI VES 11/08/2013 EMILE NIEVES DO K V25.01 GENERAL COUNSELING ON PRESCRIPTION OF ORAL CONTRACEPTIVES 11/08/2013 GABRIEL NIEVES DOA K V25.01 GENERAL COUNSELING ON PRESCRIPTION OF ORAL CONTRACEPTIVES 11/08/2013 GABRIEL NIEVES DOA K V25.01 GENERAL COUNSELING ON PRESCRIPTION OF ORAL CONTRACEPTIVES 12/15/2013 ARABELLA CARLOS APRN 625.9 UNSPECIFIED SYMPTOM ASSOCIATED WITH FEMALE GENITAL ORG ANS 12/15/2013 GABRIEL NIEVES DOA K 625.9 UNSPECIFIED SYMPTOM ASSOCIATED WITH FEMALE GENITAL ORGANS 12/15/2013 NIEVES DOGABRIELA K 625.9 UNSPECIFIED SYMPTOM ASSOCIATED WITH FEMALE GENITAL ORGANS 12/15/2013 GABRIEL NIEVES DOA K 625.9 UNSPECIFIED SYMPTOM ASSOCIATED WITH FEMALE GENITAL ORGANS 01/30/2014 EMILE NIEVES DO K 611.79 OTHER SIGNS AND SYMPTOMS IN BREAST 01/30/2014 EMILE NIEVES DO 611.79 OTHER SIGNS AND SYMPTOMS IN BREAST 01/02/2019 SHYLA GREGORIO Ot F17.210 NICOTINE DEPENDENCE, CIGARETTES, UNCOMPL 01/02/2019 SHYLA GREGORIO Ot F41.9 ANXIETY DISORDER, UNSPECIFIED 01/02/2019 SHYLA GREGORIO Ot H81.11 BENIGN PAROXYSMAL VERTIGO, RIGHT EAR 01/02/2019 SHYLA GREGORIO Ot R42 DIZZINESS AND GIDDINESS 01/02/2019 SHYLA GREGORIO Ot Z88.1 ALLERGY STATUS TO OTHER ANTIBIOTIC AGENT 01/02/2019 SHYLA GREGORIO Ot Z88.2 ALLERGY STATUS TO SULFONAMIDES STATUS 01/02/2019 SHYLA GREGORIO Ot Z97.5 PRESENCE OF (INTRAUTERINE) CONTRACEPTIVE 01/04/2019 SHYLA GREGORIO Ot F17.210 NICOTINE DEPENDENCE, CIGARETTES, UNCOMPL 01/04/2019 SHYLA GREGORIO Ot F41.9 ANXIETY DISORDER, UNSPECIFIED 01/04/2019 SHYLA GREGORIO Ot H81.11 BENIGN PAROXYSMAL VERTIGO, RIGHT EAR 01/04/2019 SHYLA GREGORIO Ot R42 DIZZINESS AND GIDDINESS 01/04/2019 SHYLA GREGORIO Ot Z88.1 ALLERGY STATUS TO OTHER ANTIBIOTIC AGENT 01/04/2019 SHYLA GREGORIO Ot Z88.2 ALLERGY STATUS TO SULFONAMIDES STATUS 01/04/2019 SHYLA GREGORIO Ot Z97.5 PRESENCE OF (INTRAUTERINE) CONTRACEPTIVE 02/06/2019 RJ MCMULLEN DO Ot R10. 13 EPIGASTRIC PAIN 02/08/2019 RJ MCMULLEN DO Ot Z01.818 ENCOUNTER FOR OTHER PREPROCEDURAL EXAMIN 02/09/2019 RJ MCMULLEN DO Ot Z01.818 ENCOUNTER FOR OTHER PREPROCEDURAL EXAMIN 02/09/2019 RJ MCMULLEN DO Ot E16. 2 HYPOGLYCEMIA, UNSPECIFIED 02/09/2019 RJ MCMULLEN DO D Ot F17.210 NICOTINE DEPENDENCE, CIGARETTES, UNCOMPL 02/09/2019 MCMULLEN DORJ D Ot F41. 9 ANXIETY DISORDER, UNSPECIFIED 02/09/2019 RJ MCMULLEN DO Ot K81. 1 CHRONIC CHOLECYSTITIS 02/09/2019 RJ MCMULLEN DO Ot Z79.899 OTHER PROFILER (CURRENT) DRUG THERAPY 02/13/2019 RJ MCMULLEN DO Ot E16. 2 HYPOGLYCEMIA, UNSPECIFIED 02/13/2019 RJ MCMULLEN DO Ot F17.210 NICOTINE DEPENDENCE, CIGARETTES, UNCOMPL 02/13/2019 MCMULLEN DORJ Ot F41. 9 ANXIETY DISORDER, UNSPECIFIED 02/13/2019 RJ MCMULLEN DO Ot K81. 1 CHRONIC CHOLECYSTITIS 02/13/2019 RJ MCMULLEN DO Ot Z79.899 OTHER PROFILER (CURRENT) DRUG THERAPY 03/09/2019 RJ MCMULLEN DO Ot R10. 13 EPIGASTRIC PAIN 03/09/2019 RJ MCMULLEN DO Ot R10. 13 EPIGASTRIC PAIN 03/09/2019 MCMULLENRJ JAFFE DO D Ot R10. 13 EPIGASTRIC PAIN 03/09/2019 MCMULLENRJ JAFFE DO D Ot R10. 13 EPIGASTRIC PAIN 03/30/2019 HALIMA ADAMS DO Ot Z01.8 18 ENCOUNTER FOR OTHER PREPROCEDURAL EXAMIN 03/31/2019 HALIMA ADAMS DO Ot Z01.8 18 ENCOUNTER FOR OTHER PREPROCEDURAL EXAMIN 04/03/2019 RJ MCMULLEN DO Ot R10. 13 EPIGASTRIC PAIN 04/03/2019 RJ MCMULLEN DO Ot R10. 13 EPIGASTRIC PAIN 04/03/2019 DELMAN DO, HALIMA B Ot F17.2 10 NICOTINE DEPENDENCE, CIGARETTES, UNCOMPL 04/03/2019 DELMAN DO, HALIMA B Ot F41.9 ANXIETY DISORDER, UNSPECIFIED 04/03/2019 DELMAN DO, HALIMA B Ot K20.9 ESOPHAGITIS, UNSPECIFIED 04/03/2019 DELMAN DO, HALIMA B Ot K21.9 GASTRO-ESOPHAGEAL REFLUX DISEASE WITHOUT 04/03/2019 DELMAN DO, HALIMA B Ot K29.5 0 UNSPECIFIED CHRONIC GASTRITIS WITHOUT BL 04/03/2019 DELMAN DO, HALIMA B Ot K44.9 DIAPHRAGMATIC HERNIA WITHOUT OBSTRUCTION 04/03/2019 DELMAN DO, HALIMA B Ot K64.8 OTHER HEMORRHOIDS 04/03/2019 DELMAN DO, HALIMA B Ot Z12.1 1 ENCOUNTER FOR SCREENING FOR MALIGNANT NE 04/03/2019 BRYAN DO, HALIMA B Ot Z79.8 99 OTHER PROFILER (CURRENT) DRUG THERAPY 04/03/2019 DELJESSICA DO, HALIMA B Ot Z80.0 FAMILY HISTORY OF MALIGNANT NEOPLASM OF 04/06/2019 BRYAN DO, HALIMA B Ot F17.2 10 NICOTINE DEPENDENCE, CIGARETTES, UNCOMPL 04/06/2019 BRYAN DO, HALIMA B Ot F41.9 ANXIETY DISORDER, UNSPECIFIED 04/06/2019 DELJESSICA DO, HALIMA B Ot K20.9 ESOPHAGITIS, UNSPECIFIED 04/06/2019 DELJESSICA DO, HALIMA B Ot K21.9 GASTRO-ESOPHAGEAL REFLUX DISEASE WITHOUT 04/06/2019 DELMAN DO, HALIMA B Ot K29.5 0 UNSPECIFIED CHRONIC GASTRITIS WITHOUT BL 04/06/2019 BRYAN DO, HALIMA B Ot K44.9 DIAPHRAGMATIC HERNIA WITHOUT OBSTRUCTION 04/06/2019 BRYAN DO, AHLIMA B Ot K64.8 OTHER HEMORRHOIDS 04/06/2019 DELJESSICA DO, HALIMA B Ot Z12.1 1 ENCOUNTER FOR SCREENING FOR MALIGNANT NE 04/06/2019 BRYAN DO, HALIMA B Ot Z79.8 99 OTHER PROFILER (CURRENT) DRUG THERAPY 04/06/2019 DELJESSICA DO, HALIMA B Ot Z80.0 FAMILY HISTORY OF MALIGNANT NEOPLASM OF 04/25/2019 RJ MCMULLEN DO D Ot R10. 13 EPIGASTRIC PAIN 04/25/2019 RJ MCMULLEN DO Ot R10. 13 EPIGASTRIC PAIN 04/25/2019 RJ MCMULLEN DO D Ot R10. 13 EPIGASTRIC PAIN 06/09/2019 LINNEA HARRISON DATA INTEGRITY SPECIALIST Ot E83.52 HYPERCALCEMIA 06/09/2019 LINNEA HARRISON DATA INTEGRITY SPECIALIST Ot O24.419 GESTATIONAL DIABETES MELLITUS IN PREGNAN 06/09/2019 LINNEA HARRISON DATA INTEGRITY SPECIALIST Ot O99.280 ENDO, NUTRITIONAL AND METAB DISEASES COM 06/09/2019 LINNEA HARRISON DATA INTEGRITY SPECIALIST Ot Z3A.00 WEEKS OF GESTATION OF NOT SPEC 08/17/2019 MICHELLE LEMOS MD, Ot Z01.818 ENCOUNTER FOR OTHER PREPROCEDURAL EXAMIN 08/25/2019 MICHELLE LEMOS MD, Ot E66.9 OBESITY, UNSPECIFIED 08/25/2019 MICHELLE LEMOS MD, Ot F17.200 NICOTINE DEPENDENCE, UNSPECIFIED, UNCOMP 08/25/2019 MICHELLE LEMOS MD, Ot F41.9 ANXIETY DISORDER, UNSPECIFIED 08/25/2019 MICHELLE LEMOS MD, Ot G89.29 OTHER CHRONIC PAIN 08/25/2019 MICHELLE LEMOS MD, Ot K21.9 GASTRO-ESOPHAGEAL REFLUX DISEASE WITHOUT 08/25/2019 MICHELLE LEMOS MD, Ot K37 UNSPECIFIED APPENDICITIS 08/25/2019 MICHELLE LEMOS MD, Ot 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.6 FEMALE PELVIC PERITONEAL ADHESIONS (POST 08/25/2019 MICHELLE LEMOS MD, Ot N80.0 ENDOMETRIOSIS OF UTERUS 08/25/2019 MICHELLE LEMOS MD, Ot N83.201 UNSPECIFIED OVARIAN CYST, RIGHT SIDE 08/25/2019 MICHELLE LEMOS MD, Ot R10.2 PELVIC AND PERINEAL PAIN 08/25/2019 MICHELLE LEMOS MD, Ot R59.9 ENLARGED LYMPH NODES, UNSPECIFIED 08/25/2019 MICHELLE LEMOS MD, Ot Z68.41 BODY MASS INDEX (BMI) 40.0-44.9, ADULT 08/25/2019 MICHELLE LEMOS MD, Ot Z88.1 ALLERGY STATUS TO OTHER ANTIBIOTIC AGENT 08/25/2019 MICHELLE LEMOS MD, Ot Z88.2 ALLERGY STATUS TO SULFONAMIDES STATUS 08/25/2019 MICHELLE LEMOS MD, Ot Z90.49 ACQUIRED ABSENCE OF OTHER SPECIFIED PART 08/30/2019 RORO, BILL WOOL SORTER Ot F17.210 NICOTINE DEPENDENCE, CIGARETTES, UNCOMPL 08/30/2019 RORO, BILL WOOL SORTER Ot F41.9 ANXIETY DISORDER, UNSPECIFIED 08/30/2019 RORO, BILL WOOL SORTER Ot K21.9 GASTRO-ESOPHAGEAL REFLUX DISEASE WITHOUT 08/30/2019 RORO, BILL WOOL SORTER Ot R10.84 GENERALIZED ABDOMINAL PAIN 08/30/2019 RORO, BILL WOOL SORTER Ot R10.9 UNSPECIFIED ABDOMINAL PAIN 08/30/2019 RORO, BILL WOOL SORTER Ot Z80.0 FAMILY HISTORY OF MALIGNANT NEOPLASM OF 08/30/2019 RORO, BILL WOOL SORTER Ot Z88.1 ALLERGY STATUS TO OTHER ANTIBIOTIC AGENT 08/30/2019 RORO, BILL WOOL SORTER Ot Z88.2 ALLERGY STATUS TO SULFONAMIDES STATUS 08/30/2019 RORO, BILL WOOL SORTER Ot Z90.49 ACQUIRED ABSENCE OF OTHER SPECIFIED PART 09/04/2019 RORO, BILL WOOL SORTER Ot F17.210 NICOTINE DEPENDENCE, CIGARETTES, UNCOMPL 09/04/2019 RORO, BILL WOOL SORTER Ot F41.9 ANXIETY DISORDER, UNSPECIFIED 09/04/2019 RORO, BILL WOOL SORTER Ot K21.9 GASTRO-ESOPHAGEAL REFLUX DISEASE WITHOUT 09/04/2019 RORO, BILL WOOL SORTER Ot R10.84 GENERALIZED ABDOMINAL PAIN 09/04/2019 RORO, BILL WOOL SORTER Ot R10.9 UNSPECIFIED ABDOMINAL PAIN 09/04/2019 RORO, BILL WOOL SORTER Ot Z80.0 FAMILY HISTORY OF MALIGNANT NEOPLASM OF 09/04/2019 RORO, BILL WOOL SORTER Ot Z88.1 ALLERGY STATUS TO OTHER ANTIBIOTIC AGENT 09/04/2019 RORO, BILL WOOL SORTER Ot Z88.2 ALLERGY STATUS TO SULFONAMIDES STATUS 09/04/2019 RORO, BILL WOOL SORTER Ot Z90.49 ACQUIRED ABSENCE OF OTHER SPECIFIED PART 09/05/2019 MICHELLE LEMOS MD Ot E66.9 OBESITY, UNSPECIFIED 09/05/2019 MICHELLE LEMOS MD, Ot F17.200 NICOTINE DEPENDENCE, UNSPECIFIED, UNCOMP 09/05/2019 MICHELLE LEMOS MD, Ot F41.9 ANXIETY DISORDER, UNSPECIFIED 09/05/2019 MICHELLE LEMOS MD, Ot G89.29 OTHER CHRONIC PAIN 09/05/2019 MICHELLE LEMOS MD, Ot K21.9 GASTRO-ESOPHAGEAL REFLUX DISEASE WITHOUT 09/05/2019 MICHELLE LEMOS MD, Ot K37 UNSPECIFIED APPENDICITIS 09/05/2019 MICHELLE LEMOS MD, Ot N73.6 FEMALE PELVIC PERITONEAL ADHESIONS (POST 09/05/2019 MICHELLE LEMOS MD, Ot N80.0 ENDOMETRIOSIS OF UTERUS 09/05/2019 MICHELLE LEMOS MD, Ot N83.201 UNSPECIFIED OVARIAN CYST, RIGHT SIDE 09/05/2019 MICHELLE LEMOS MD, Ot R10.2 PELVIC AND PERINEAL PAIN 09/05/2019 MICHELLE LEMOS MD, Ot R59.9 ENLARGED LYMPH NODES, UNSPECIFIED 09/05/2019 MICHELLE LEMOS MD, Ot Z68.41 BODY MASS INDEX (BMI) 40.0-44.9, ADULT 09/05/2019 MICHELLE LEMOS MD, Ot Z88.1 ALLERGY STATUS TO OTHER ANTIBIOTIC AGENT 09/05/2019 MICHELLE LEMOS MD, Ot Z88.2 ALLERGY STATUS TO SULFONAMIDES STATUS 09/05/2019 MICHELLE LEMOS MD, Ot Z90.49 ACQUIRED ABSENCE OF OTHER SPECIFIED PART 09/07/2019 MICHELLE LEMOS MD, Ot E66.9 OBESITY, UNSPECIFIED 09/07/2019 MICHELLE LEMOS MD, Ot F17.200 NICOTINE DEPENDENCE, UNSPECIFIED, UNCOMP 09/07/2019 MICHELLE LEMOS MD, Ot F41.9 ANXIETY DISORDER, UNSPECIFIED 09/07/2019 MICHELLE LEMOS MD, Ot G89.29 OTHER CHRONIC PAIN 09/07/2019 MICHELLE LEMOS MD, Ot K21.9 GASTRO-ESOPHAGEAL REFLUX DISEASE WITHOUT 09/07/2019 MICHELLE LEMSO MD, Ot K37 UNSPECIFIED APPENDICITIS 09/07/2019 MICHELLE LEMOS MD, Ot N73.6 FEMALE PELVIC PERITONEAL ADHESIONS (POST 09/07/2019 MICHELLE LEMSO MD, Ot N80.0 ENDOMETRIOSIS OF UTERUS 09/07/2019 AMINTA MD, MICHELLE G Ot N83.201 UNSPECIFIED OVARIAN CYST, RIGHT SIDE 09/07/2019 MICHELLE LEMOS MD Ot R10.2 PELVIC AND PERINEAL PAIN 09/07/2019 MICHELLE LEMOS MD, Ot R59.9 ENLARGED LYMPH NODES, UNSPECIFIED 09/07/2019 MICHELLE LEMOS MD, Ot Z68.41 BODY MASS INDEX (BMI) 40.0-44.9, ADULT 09/07/2019 MICHELLE LEMOS MD, Ot Z88.1 ALLERGY STATUS TO OTHER ANTIBIOTIC AGENT 09/07/2019 MICHELLE LEMOS MD, Ot Z88.2 ALLERGY STATUS TO SULFONAMIDES STATUS 09/07/2019 MICHELLE LEMOS MD, Ot Z90.49 ACQUIRED ABSENCE OF OTHER SPECIFIED PART 09/11/2019 MCMULLEN RJ WHITTINGTON D Ot R10. 13 EPIGASTRIC PAIN 09/11/2019 [place] RJ WHITTINGTON D Ot R10. 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 13 EPIGASTRIC PAIN 09/20/2019 MCMULLEN SIMA WHITTINGTONTT D Ot R10. 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 09/20/2019 ORTIZ CAROL Velarde Ot Z80.0 FAMILY HISTORY OF MALIGNANT NEOPLASM OF 09/20/2019 ORTIZ CAROL Velarde Ot Z87.891 PERSONAL HISTORY OF NICOTINE DEPENDENCE 09/20/2019 ORTIZCAROL Ot 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 09/20/2019 ORTIZCAROL Ot Z80.0 FAMILY HISTORY OF MALIGNANT NEOPLASM OF 09/20/2019 ORTIZ, CAROL Velarde Ot Z87.891 PERSONAL HISTORY OF NICOTINE DEPENDENCE 09/21/2019 ORTIZCAROL Ot 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 09/24/2019 ORTIZCAROL Ot 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 09/27/2019 HALIMA ADAMS DO Ot Z01.8 18 ENCOUNTER FOR OTHER PREPROCEDURAL EXAMIN 10/03/2019 HALIMA ADAMS DO Ot C7A.8 OTHER MALIGNANT NEUROENDOCRINE TUMORS 10/03/2019 HALIMA ADAMS DO Ot D3A.0 20 BENIGN CARCINOID TUMOR OF THE APPENDIX 10/03/2019 HALIMA ADAMS DO Ot F17.2 10 NICOTINE DEPENDENCE, CIGARETTES, UNCOMPL 10/03/2019 HALIMA ADAMS DO Ot F41.9 ANXIETY DISORDER, UNSPECIFIED 10/03/2019 HALIMA ADAMS DO Ot K21.9 GASTRO-ESOPHAGEAL REFLUX DISEASE WITHOUT 10/03/2019 HALIMA ADAMS DO Ot Z80.0 FAMILY HISTORY OF MALIGNANT NEOPLASM OF 10/03/2019 HALIMA ADAMS DO Ot Z90.4 9 ACQUIRED ABSENCE OF OTHER SPECIFIED PART Procedures Code [place] [address] GC/C HLAM PROBE (STATE) 02/14/2013 12849 PAP SMEAR 02/14/2013 Q0091 PAP SMEAR OBTAIN SMEAR 02/14/2013 74580 URIN E TEST (IN- HOUSE) 02/14/2013 03356 TRIC HOMONAS (IN-HOUSE) 02/14/2013 51130 CULT URE UROGENITAL 02/15/2013 18473 STRE P A (IN-HOUSE) 09/29/2013 84683 PREG CINTHYA TEST, URINE (IN- HOUSE) 11/08/2013 88221 UA L RENNY DIP 11/08/2013 84590 GC/C HLAM URINE (STATE) 11/08/2013 31593 PREG CINTHYA TEST, URINE (IN- HOUSE) 12/15/2013 05951 UA L RENNY DIP 12/15/2013 73667 CULT URE UROGENITAL 12/16/2013 73744 ROUT INE VENIPUNCTURE 12/18/2013 02321 US P ELVIC COMPL (REFLEX CPT- 75374) 12/18/2013 29420 HCV QUANTITATIVE RNA BY PCR 12/18/2013 01562 US B REAST(S) ULTRASOUND, BOTH 01/30/2014 64838 CULT URE WOUND (AEROBIC) 02/03/2014 28051 UA L RENNY DIP 03/21/2014 82444 CULT URE URINE 03/21/2014 12657 GC/C HLAM URINE (STATE) 03/21/2014 [id number] RE SECTION OF RIGHT LARGE INTESTINE, OPEN 10/02/2019 Results Test Result Range Complete blood count (CBC) with automate d white blood cell (WBC) differential - 01/02/19 13:05 Blood leukocytes automated count (number/volume) 10.0 10*3/uL 4.3-11.0 Blood erythrocytes automated count (number/volume) 5.10 10*6/uL 4.35-5.85 Venous blood hemoglobin measurement (mass/volume) 15.1 g/dL 11.5-16.0 Blood hematocrit (volume fraction) 46 % 35-52 Automated erythrocyte mean corpuscular volume 91 [ foz_us] 80-99 Automated erythrocyte mean corpuscular h emoglobin (mass per erythrocyte) 30 pg 25-34 Automated erythrocyte mean corpuscular h emoglobin concentration measurement (mass/volume) 33 g/dL 32-36 Automated erythrocyte distribution width ratio 13. 1 % 10.0- 14.5 Automated blood platelet count (count/volume) 241 10*3/uL [...] 10*3 1.0-4.0 Blood monocytes automated count (number/volume) 1. 0 10*3 0.0-1.0 Automated eosinophil count 0.3 10*3/uL 0 .0-0.3 Automated blood basophil count (count/volume) 0.1 10*3/uL 0.0-0.1 Comprehensive metabolic panel - 01/02/19 13:05 Serum or plasma sodium measurement (moles/volume) 136 mmol/L 135-145 Serum or plasma potassium measurement (moles/volume) 3.7 mmol/L 3.6-5.0 Serum or plasma chloride measurement (moles/volume) 100 mmol/L 98-107 Carbon dioxide 27 mmol/L 21-32 Serum or plasma anion gap determination (moles/volume) 9 mmol/L 5-14 Serum or plasma urea nitrogen measurement (mass/volume ) 10 mg/dL 7-18 Serum or plasma creatinine measurement (mass/volume) 0.78 mg/dL 0.60-1.30 Serum or plasma urea nitrogen/creatinine mass ratio 13 NRG Serum or plasma creatinine measurement w ith calculation of estimated glomerular filtration rate > NRG Serum or plasma glucose measurement (mass/volume) 107 mg/dL 70-105 Serum or plasma calcium measurement (mass/volume) 10.7 mg/dL 8.5-10.1 Serum or plasma total bilirubin measurement (mass/volu me) 0.3 mg/dL 0.1-1.0 Serum or plasma alkaline phosphatase jonnathan surement (enzymatic activity/volume) 115 U/L 40-136 Serum or plasma aspartate aminotransfera se measurement (enzymatic activity/volume) 31 U/L 5-34 Serum or plasma alanine aminotransferase measurement (enzymatic activity/volume) 53 U/L 0-55 Serum or plasma protein measurement (mass/volume) 7.9 g/dL 6.4-8.2 Serum or plasma albumin measurement (mass/volume) 4.5 g/dL 3.2-4.5 CALCIUM CORRECTED 10.3 mg/dL 8.5-10.1 Complete urinalysis with reflex to cultu re - 01/02/19 14:06 Urine color determination YELLOW NRG Urine clarity determination CLEAR NR G Urine pH measurement by test strip 7 5-9 Specific gravity of urine by test strip 1.010 1.016-1.022 Urine protein assay by test strip, semi-quantitative NEGATIVE NEGATIVE Urine glucose detection by automated test strip NE GATIVE NEGATIVE Erythrocytes detection in urine sediment by light micr oscopy NEGATIVE NEGATIVE Urine ketones detection by automated test strip NE GATIVE NEGATIVE Urine nitrite detection by test strip NEGATIVE NEGATIVE Urine total bilirubin detection by test strip NEGA TIVE NEGATIVE Urine urobilinogen measurement by automated test strip (mass/volume) NORMAL NORMAL Urine leukocyte esterase detection by dipstick 1+ NEGATIVE Automated urine sediment erythrocyte cou nt by microscopy (number/high power field) RARE NRG Automated urine sediment leukocyte count by microscopy (number/high power field) [HPF] NRG Bacteria detection in urine sediment by light microsco py FEW NRG Squamous epithelial cells detection in u rine sediment by light microscopy 5-10 NRG Crystals detection in urine sediment by light microsco py NONE NRG Casts detection in urine sediment by light microscopy NONE NRG Mucus detection in urine sediment by light microscopy NEGATIVE NRG Complete urinalysis with reflex to culture NO NRG Urine beta human chorionic gonadotropin (hCG) measurement - 02/09/19 07:15 Urine beta human chorionic gonadotropin (hCG) measurem ent NEGATIVE NEGATIVE Methicillin resistant Staphylococcus aur eus (MRSA) screening culture - 02/09/19 07:23 Methicillin resistant Staphylococcus aureus (MRSA) scr eening culture NEG NRG Comprehensive metabolic panel - 06/07/19 09:35 Serum or plasma sodium measurement (moles/volume) 139 mmol/L 135-145 Serum or plasma potassium measurement (moles/volume) 3.9 mmol/L 3.6-5.0 Serum or plasma chloride measurement (moles/volume) 105 mmol/L 98-107 Carbon dioxide 25 mmol/L 21-32 Serum or plasma anion gap determination (moles/volume) 9 mmol/L 5-14 Serum or plasma urea nitrogen measurement (mass/volume ) 11 mg/dL 7-18 Serum or plasma creatinine measurement (mass/volume) 0.83 mg/dL 0.60-1.30 Serum or plasma urea nitrogen/creatinine mass ratio 13 NRG Serum or plasma creatinine measurement w ith calculation of estimated glomerular filtration rate > NRG Serum or plasma glucose measurement (mass/volume) 87 mg/dL 70-105 Serum or plasma calcium measurement (mass/volume) 9.7 mg/dL 8.5-10.1 Serum or plasma total bilirubin measurement (mass/volu me) 0.5 mg/dL 0.1-1.0 Serum or plasma alkaline phosphatase jonnathan surement (enzymatic activity/volume) 107 U/L 40-136 Serum or plasma aspartate aminotransfera se measurement (enzymatic activity/volume) 16 U/L 5-34 Serum or plasma alanine aminotransferase measurement (enzymatic activity/volume) 16 U/L 0-55 Serum or plasma protein measurement (mass/volume) 7.1 g/dL 6.4-8.2 Serum or plasma albumin measurement (mass/volume) 4.1 g/dL 3.2-4.5 CALCIUM CORRECTED 9.6 mg/dL 8.5-10.1 Hemoglobin A1c measurement - 06/07/19 09 :35 Blood hemoglobin A1C measurement (mass/volume) 6.0 % 4.0-5.6 MEAN BLOOD GLUCOSE 126 % <=126 Methicillin resistant Staphylococcus aur eus (MRSA) screening culture - 08/25/19 10:35 Methicillin resistant Staphylococcus aureus (MRSA) scr eening culture NEG NRG Complete blood count (CBC) with automate d white blood cell (WBC) differential - 08/25/19 10:40 Blood leukocytes automated count (number/volume) 9.2 10*3/uL 4.3-11.0 Blood erythrocytes automated count (number/volume) 4.64 10*6/uL 4.35-5.85 Venous blood hemoglobin measurement (mass/volume) 13.9 g/dL 11.5-16.0 Blood hematocrit (volume fraction) 42 % 35-52 Automated erythrocyte mean corpuscular volume 91 [ foz_us] 80-99 Automated erythrocyte mean corpuscular h emoglobin (mass per erythrocyte) 30 pg 25-34 Automated erythrocyte mean corpuscular h emoglobin concentration measurement (mass/volume) 33 g/dL 32-36 Automated erythrocyte distribution width ratio 13. 0 % 10.0- 14.5 Automated blood platelet count (count/volume) 186 10*3/uL 130-400 Automated blood platelet mean volume measurement 11.1 [foz_us] 7.4-10.4 Automated blood neutrophils/100 leukocytes 70 % 42-75 Automated blood lymphocytes/100 leukocytes 18 % 12-44 Blood monocytes/100 leukocytes 9 % 0-12 Automated blood eosinophils/100 leukocytes 3 % 0-10 Automated blood basophils/100 leukocytes 0 % 0-10 Blood neutrophils automated count (number/volume) 6.5 10*3 1.8-7.8 Blood lymphocytes automated count (number/volume) 1.7 10*3 1.0-4.0 Blood monocytes automated count (number/volume) 0. 8 10*3 0.0-1.0 Automated eosinophil count 0.3 10*3/uL 0 .0-0.3 Automated blood basophil count (count/volume) 0.0 10*3/uL 0.0-0.1 Complete blood count (CBC) with automate d white blood cell (WBC) differential - 08/30/19 12:15 Blood leukocytes automated count (number/volume) 13.6 10*3/uL 4.3-11.0 Blood erythrocytes automated count (number/volume) 4.75 10*6/uL 4.35-5.85 Venous blood hemoglobin measurement (mass/volume) 14.0 g/dL 11.5-16.0 Blood hematocrit (volume fraction) 43 % 35-52 Automated erythrocyte mean corpuscular volume 90 [ foz_us] 80-99 Automated erythrocyte mean corpuscular h emoglobin (mass per erythrocyte) 30 pg 25-34 Automated erythrocyte mean corpuscular h emoglobin concentration measurement (mass/volume) 33 g/dL 32-36 Automated erythrocyte distribution width ratio 13. 2 % 10.0- 14.5 Automated blood platelet count (count/volume) 236 10*3/uL 130-400 Automated blood platelet mean volume measurement 10.7 [foz_us] 7.4-10.4 Automated blood neutrophils/100 leukocytes 69 % 42-75 Automated blood lymphocytes/100 leukocytes 19 % 12-44 Blood monocytes/100 leukocytes 9 % 0-12 Automated blood eosinophils/100 leukocytes 3 % 0-10 Automated blood basophils/100 leukocytes 0 % 0-10 Blood neutrophils automated count (number/volume) 9.4 10*3 1.8-7.8 Blood lymphocytes automated count (number/volume) 2.5 10*3 1.0-4.0 Blood monocytes automated count (number/volume) 1. 3 10*3 0.0-1.0 Automated eosinophil count 0.4 10*3/uL 0 .0-0.3 Automated blood basophil count (count/volume) 0.0 10*3/uL 0.0-0.1 Urine drug screening test - 08/30/19 12: 15 Urine phencyclidine detection by screening method NEGATIVE NEGATIVE Urine benzodiazepines detection by screening method POSITIVE NEGATIVE Urine cocaine detection NEGATIVE NEGATI VE Urine amphetamines detection by screening method N EGATIVE NEGATIVE Urine methamphetamine detection by screening method NEGATIVE NEGATIVE Urine cannabinoids detection by screening method N EGATIVE NEGATIVE Urine opiates detection by screening method NEGATI VE NEGATIVE Urine barbiturates detection NEGATIVE N EGATIVE Screening urine tricyclic antidepressants detection NEGATIVE NEGATIVE Urine methadone detection by screening method NEGA TIVE NEGATIVE Urine oxycodone detection NEGATIVE NEGA TIVE Urine propoxyphene detection NEGATIVE N EGATIVE Complete urinalysis with reflex to cultu re - 08/30/19 12:15 Urine color determination YELLOW NRG Urine clarity determination CLEAR NR G Urine pH measurement by test strip 7 5-9 Specific gravity of urine by test strip 1.005 1.016-1.022 Urine protein assay by test strip, semi-quantitative NEGATIVE NEGATIVE Urine glucose detection by automated test strip NE GATIVE NEGATIVE Erythrocytes detection in urine sediment by light micr oscopy 4+ NEGATIVE Urine ketones detection by automated test strip NE GATIVE NEGATIVE Urine nitrite detection by test strip NEGATIVE NEGATIVE Urine total bilirubin detection by test strip NEGA TIVE NEGATIVE Urine urobilinogen measurement by automated test strip (mass/volume) NORMAL NORMAL Urine leukocyte esterase detection by dipstick NEG ATIVE NEGATIVE Automated urine sediment erythrocyte cou nt by microscopy (number/high power field) NONE NRG Automated urine sediment leukocyte count by microscopy (number/high power field) [HPF] NRG Bacteria detection in urine sediment by light microsco py FEW NRG Squamous epithelial cells detection in u rine sediment by light microscopy 10-25 NRG Crystals detection in urine sediment by light microsco py NONE NRG Casts detection in urine sediment by light microscopy NONE NRG Mucus detection in urine sediment by light microscopy NEGATIVE NRG Complete urinalysis with reflex to culture NO NRG Comprehensive metabolic panel - 08/30/19 12:15 Serum or plasma sodium measurement (moles/volume) 138 mmol/L 135-145 Serum or plasma potassium measurement (moles/volume) 4.0 mmol/L 3.6-5.0 Serum or plasma chloride measurement (moles/volume) 103 mmol/L 98-107 Carbon dioxide 27 mmol/L 21-32 Serum or plasma anion gap determination (moles/volume) 8 mmol/L 5-14 Serum or plasma urea nitrogen measurement (mass/volume ) 7 mg/dL 7-18 Serum or plasma creatinine measurement (mass/volume) 0.79 mg/dL 0.60-1.30 Serum or plasma urea nitrogen/creatinine mass ratio 9 NRG Serum or plasma creatinine measurement w ith calculation of estimated glomerular filtration rate > NRG Serum or plasma glucose measurement (mass/volume) 76 mg/dL 70-105 Serum or plasma calcium measurement (mass/volume) 9.5 mg/dL 8.5-10.1 Serum or plasma total bilirubin measurement (mass/volu me) 0.4 mg/dL 0.1-1.0 Serum or plasma alkaline phosphatase jonnathan surement (enzymatic activity/volume) 122 U/L 40-136 Serum or plasma aspartate aminotransfera se measurement (enzymatic activity/volume) 26 U/L 5-34 Serum or plasma alanine aminotransferase measurement (enzymatic activity/volume) 35 U/L 0-55 Serum or plasma protein measurement (mass/volume) 7.1 g/dL 6.4-8.2 Serum or plasma albumin measurement (mass/volume) 4.0 g/dL 3.2-4.5 CALCIUM CORRECTED 9.5 mg/dL 8.5-10.1 Complete blood count (CBC) with automate d white blood cell (WBC) differential - 10/02/19 07:13 Blood leukocytes automated count (number/volume) 9.4 10*3/uL 4.3-11.0 Blood erythrocytes automated count (number/volume) 4.88 10*6/uL 4.35-5.85 Venous blood hemoglobin measurement (mass/volume) 14.8 g/dL 11.5-16.0 Blood hematocrit (volume fraction) 44 % 35-52 Automated erythrocyte mean corpuscular volume 89 [ foz_us] 80-99 Automated erythrocyte mean corpuscular h emoglobin (mass per erythrocyte) 30 pg 25-34 Automated erythrocyte mean corpuscular h emoglobin concentration measurement (mass/volume) 34 g/dL 32-36 Automated erythrocyte distribution width ratio 13. 6 % 10.0- 14.5 Automated blood platelet count (count/volume) 240 10*3/uL 130-400 Automated blood platelet mean volume measurement 10.8 [foz_us] 7.4-10.4 Automated blood neutrophils/100 leukocytes 65 % 42-75 Automated blood lymphocytes/100 leukocytes 21 % 12-44 Blood monocytes/100 leukocytes 11 % 0-12 Automated blood eosinophils/100 leukocytes 3 % 0-10 Automated blood basophils/100 leukocytes 0 % 0-10 Blood neutrophils automated count (number/volume) 6.1 10*3 1.8-7.8 Blood lymphocytes automated count (number/volume) 2.0 10*3 1.0-4.0 Blood monocytes automated count (number/volume) 1. 0 10*3 0.0-1.0 Automated eosinophil count 0.2 10*3/uL 0 .0-0.3 Automated blood basophil count (count/volume) 0.0 10*3/uL 0.0-0.1 Blood type T Indirect antibody screen pa russ - 10/02/19 07:13 WRISTBAND NUMBER [id number] NRG ABO+Rh group OP NRG Blood group antibody screen NEGATIVE NR G Capillary blood glucose measurement by g lucometer (mass/volume) - 10/02/19 13:36 Capillary blood glucose measurement by glucometer (mas s/volume) 140 mg/dL 70-110 Encounters ACCT No. Visit Date/Time Discharge Status Pt. Type Provider Facility Loc./Unit Complaint [id number] 03/21/2014 10:01:00 03/21/2014 23:59: 59 [facility] Outpatient EMILE NIEVES DO [id number] 01/30/2014 15:17:00 01/30/2014 23:59: 59 [facility] Out[facility] EMILE NIEVES DO [id number] 12/18/2013 09:59:00 12/18/2013 23:59: 59 [facility] Outpatient EMILE NIEVES DO [id number] 12/15/2013 15:24:00 12/15/2013 23:59: 59 [facility] Outpatient ARABELLA CARLOS APRN [id number] 11/08/2013 10:20:00 11/08/2013 23:59: 59 [facility] Outpatient EMILE NIEVES DO [id number] 09/29/2013 15:34:00 09/29/2013 23:59: 59 [facility] Outpatient EMILE NIEVES DO [id number] 07/28/2013 15:12:00 07/28/2013 23:59: 59 [place] [id number] 08/29/2012 16:01:00 08/29/2012 23:59:5 9 CLS Outpatient [id number] 04/04/2013 09:52:00 Document Registration [id number] 02/14/2013 10:13:00 Document Registration [id number] 10/13/2019 10:44:00 23:59:59 CLS Outpatient CAROL ALCANTAR [facility] ONC [id number] 10/02/2019 06:49:00 16:02:00 DIS Outpatient HALIMA ADAMS DO [facility] [facility] WELL DIFFERENTIATED TRAY ROENDOCRINE TUMOR APPENDIX [id number] 09/26/2019 08:30:00 09:07:00 DIS Outpatient HALIMA ADAMS DO Via [facility] PREOP WELL DIFFERENTIATED NEUROENDOCRINE TUMOR APPENDIX [id number] 09/20/2019 10:00:00 23:59:59 CLS Preadmit CAROL ALCANTAR Via [facility] CARD [id number] 09/19/2019 10:00:00 23:59:59 CLS Preadmit CAROL ALCANTAR Via [facility] CARD [id number] 09/18/2019 09:46:00 23:59:59 CLS Outpatient CAROL ALCANTAR V [facility] CARD CARCINOID TUMOR OF APPE NDIX [id number] 08/30/2019 11:44:00 13:57:00 DIS Emergency BILL READ Via [facility] ER BLOATING;ISSUES WITH FERMIN WEL MOVEMENTS;ABD PAIN [id number] 08/25/2019 10:25:00 16:00:00 DIS Outpatient AMINTA HIRSCH, MICHELLE Ortiz Via [facility] CHRONIC PELVIC PAIN [id number] 08/17/2019 05:28:00 09:45:00 DIS Outpatient MICHELLE LEMOS MD Via [facility] PREOP CHRONIC PELVIC PAIN [id number] 06/19/2019 11:00:00 23:59:59 CLS Outpatient RASHADMILES WHITTINGTON SHAYY Valdivia Via [facility] RAD ACUTE PELVIC PAIN [id number] 06/07/2019 09:25:00 23:59:59 CLS Outpatient LINNEA HARRISON APRN Via [facility] LAB HYPERGLYCEMIA [id number] 04/03/2019 07:03:00 10:00:00 DIS Outpatient HALIMA ADAMS DO Via [facility] ENDO FAMILY HX COLON CA/ABD PAIN [id number] 03/30/2019 05:45:00 09:57:00 DIS Outpatient HALIMA ADAMS DO Via [facility] PREOP COLONOSCOPY/EGD [id number] 03/24/2019 14:40:00 23:59:59 CLS Preadmit LINNEA HARRISON APRN Via [facility] CARD TACHYCARDIA, PALPITATIO NS [id number] 02/09/2019 06:59:00 11:50:00 DIS Outpatient RJ MCMULLEN DO [facility] BILIARY DYSKINESIA [id number] 02/08/2019 05:35:00 09:18:00 DIS Outpatient RJ MCMULLEN DO Via [facility] PREOP BILIARY DYSKINESIA [id number] 02/03/2019 08:33:00 23:59:59 CLS Outpatient RJ MCMULLEN DO Via [facility] CARD ABD PAIN,EPIGASTRIC [id number] 01/25/2019 07:51:00 23:59:59 CLS Outpatient RJ MCMULLEN DO Via [facility] RAD ABD PAIN [id number] 01/02/2019 12:46:00 019 15:00:00 DIS Emergency SHYLA GREGORIO Via [facility] ER LIGHT HEADED [id number] 01/17/2020 08:15:00 P EN Preadmit CAROL ALCANTAR [facility] RAD MALIGNANT CARCINOID TUMOR OF THE APPENDIX
== END 2019-10-03 16:02 | disposition home or self-care (01) | DRG 828 ==
LOC: 4TH 06:49 → SURG 06:50 → 4TH 11:10
PROVIDERS: ADMIT Surgery; ATTEND Surgery
PROC: 0DTF0ZZ Resection of Right Large Intestine, Open Approach (ICD-10-PCS; principal; 2019-10-02 08:13)
DX: C7A.8 Other malignant neuroendocrine tumors (principal); K21.9 Gastro-esophageal reflux disease without esophagitis; F17.210 Nicotine dependence, cigarettes, uncomplicated; F41.9 Anxiety disorder, unspecified; Z80.0 Family history of malignant neoplasm of digestive organs; Z90.49 Acquired absence of other specified parts of digestive tract
CPT/HCPCS: 36415; 82962; 84703; 85025; 86850; 86900; 86901; 87081; 88307

== ENCOUNTER 2019-10-13 10:44 | Outpatient (RCR) | payer OTHER ==
[2019-09-11 12:05] LABS: BASOPHILS # (AUTO) 0.1 10^3/uL (0.0-0.1); BASOPHILS % (AUTO) 1 % (0-10); EOSINOPHILS # (AUTO) 0.4 10^3/uL (0.0-0.3); EOSINOPHILS % (AUTO) 4 % (0-10); HEMATOCRIT 43 % (35-52); HEMOGLOBIN 14.2 G/DL (11.5-16.0); LYMPHOCYTES # (AUTO) 2.1 X 10^3 (1.0-4.0); LYMPHOCYTES % (AUTO) 21 % (12-44); MEAN CORPUSCULAR HEMOGLOBIN 30 PG (25-34); MEAN CORPUSCULAR HGB CONC 33 G/DL (32-36); MEAN CORPUSCULAR VOLUME 91 FL (80-99); MEAN PLATELET VOLUME 10.9 FL (7.4-10.4); MONOCYTES % (AUTO) 10 % (0-12); NEUTROPHILS # (AUTO) 6.5 X 10^3 (1.8-7.8); NEUTROPHILS % (AUTO) 65 % (42-75); PLATELET COUNT 229 10^3/uL (130-400); RED CELL DISTRIBUTION WIDTH 13.3 % (10.0-14.5); WHITE BLOOD COUNT 10.1 10^3/uL (4.3-11.0)
[~2019-10-13 10:44] MED LIST changes: +KETO10TA PO; +OMEP40CA27 PO
[2019-11-23] MEDS ORDERED: MULT-141 PO (16:13)
[2019-12-01] MEDS ORDERED: IBUP-1780 PO (08:42)
[2019-12-01] MEDS ORDERED: OXYC1TAB87 PO ×2 (08:42→08:44)
[2019-12-01] MEDS ORDERED: DOCU-143 PO (08:42)
[2019-12-01] MEDS ORDERED: SUCR1TAB36 PO (11:26)
[2019-12-01] MEDS ORDERED: ACET-789 PO (12:48)
[2019-12-01] MEDS ORDERED: NORG1TAB14 PO (12:49)
== END 2019-12-10 | disposition home or self-care (01) ==
LOC: ONC 10:44
PROVIDERS: ATTEND Internal Medicine Hematology & Oncology
DX: D3A.020 Benign carcinoid tumor of the appendix (principal); Z80.0 Family history of malignant neoplasm of digestive organs; Z87.891 Personal history of nicotine dependence
CPT/HCPCS: 36415; 83497; 83615; 85025; 86316; 99213; 99214

== ENCOUNTER → 2019-10-27 | Outpatient (CLI) | payer OTHER ==
[~2019-10-27] MED LIST changes: -OMEP40CA27 PO; +OMEP40CA36 PO
[2019-10-27 12:04] LABS: BILIRUBIN,URINE NEGATIVE (NEGATIVE); CLARITY,URINE CLEAR; COLOR,URINE YELLOW; GLUCOSE, URINE (UA) NEGATIVE (NEGATIVE); KETONES,URINE NEGATIVE (NEGATIVE); LEUKOCYTE ESTERASE ,URINE NEGATIVE (NEGATIVE); NITRITE,URINE NEGATIVE (NEGATIVE); PH,URINE 6.5 (5-9); PROTEIN,URINE NEGATIVE (NEGATIVE)
[2019-10-27 12:22] LABS: BACTERIA,URINE FEW /HPF; WBC,URINE 0-2 /HPF
== END ==
LOC: LAB 11:55
PROVIDERS: ATTEND Nurse Practitioner Family
DX: R30.0 Dysuria (principal)
CPT/HCPCS: 81000; 87088

== ENCOUNTER → 2019-11-03 | Outpatient (CLI) | payer OTHER | LOC: LAB 13:28 | PROVIDERS: ATTEND Family Medicine | DX: R30.0 Dysuria (principal) | CPT/HCPCS: 87088 ==

== ENCOUNTER 2019-11-23 05:36 | Outpatient (CLI) | payer OTHER ==
[~2019-11-23] VITALS: Ht 170.2 cm; Wt 82.3 kg
[~2019-11-23 05:36] MED LIST changes: +OMEP40CA27 PO; -OMEP40CA36 PO
[2019-11-23] MEDS ORDERED: MULT-141 PO (16:13)
== END 2019-11-23 16:21 | disposition home or self-care (01) ==
LOC: PREOP 05:36
PROVIDERS: ATTEND Obstetrics & Gynecology
DX: Z01.818 Encounter for other preprocedural examination (principal)

== ENCOUNTER 2019-12-01 10:58 | Day surgery (SDC) | payer OTHER ==
[~2019-12-01] VITALS: Ht 170.2 cm; Wt 82.3 kg
[2019-12-01] VITALS (10 sets, daily range): BP systolic 104–127; BP diastolic 61–75
--- NOTE | 2019-12-01 08:39 | Progress Note-Pre Operative ---
Pre-Operative Progress Note H&P Reviewed The H&P was reviewed, patient examined and no changes noted. Date Seen by Provider: Dec 01, 2019 Time Seen by Provider: 12:49 Date H&P Reviewed: Dec 01, 2019 Time H&P Reviewed: 12:49 Pre-Operative Diagnosis: CPP/Endometriosis MICHELLE LEMOS MD Dec 01, 2019 08:39
--- NOTE | 2019-12-01 08:40 | Progress Note-Post Operative ---
Post-Operative Progess Note Surgeon (s)/Gelatin Powder Mixer (s) Surgeon MICHELLE LEMOS MD Gelatin Powder Mixer: Lorenza Pre-Operative Diagnosis CPP/Endometriosis Post-Operative Diagnosis same with abdominal wall adhesions Procedure & Operative Findings Date of Procedure 12/01/19 Procedure Performed/Findings TLH/BSO/Adhesiolysis Anesthesia Type GETA Estimated Blood Loss Estimated blood loss (mL): min Specimens/Packing Specimens Removed TLH/BSO Packing: MICHELLE GALICIA MD Dec 01, 2019 08:40
--- NOTE | 2019-12-01 08:46 | Discharge Inst-Surgical ---
Discharge Inst-Surgical Depart Medication/Instructions New, Converted or Re-Newed RX: RX on Chart Consults/Follow Up Patient Instructions: DIRECTED Orders & Referrals Follow Up Appt: RTC on wednesday at 930 AM for staple removal Call to make follow up appt. for patient in 4 weeks. Activity: Rest for 24 hours, than as tolerated. Wound Care: May remove Band-Aid tomorrow. Replace as desired. Keep incisions clean and dry. Wash daily with soap and water. Please call in RX to patient pharmacy. Diet: As tolerated-Clear Liquids only if nauseated. shower or tub bathe as desired. No driving for 24 hours, no alcoholic beverages for 24 hours, and nothing per vagina (no tampons, douching, or intercourse) for 8 weeks. Patient to return to the clinic as soon as possible for: Temperature greater than 101F, Severe Pain, Foul discharge from incision or vagina, Excessive B leeding (more than a period). Activity Activity as Tolerated: No Diet Discharge Diet: No Restrictions MICHELLE LEMOS MD Dec 01, 2019 08:46
[~2019-12-01 10:58] MED LIST changes: +IBUP-1780 PO; +MULT-141 PO; +OXYC1TAB87 PO
[2019-12-01] MEDS ORDERED: ceFAZolin INJECTION 1,000 MG in WATER (STERILE) FOR INJECTION 10 ML IV ONE (11:15)
[2019-12-01] MEDS ORDERED: SUCR1TAB36 PO (11:26)
[2019-12-01] MEDS: LACTATED RINGERS 1,000 ML IV PRN ×2 (11:28→13:59)
[2019-12-01] MEDS ORDERED: MIDAZOLAM 2 MG/2 ML (VERSED) VIAL IV ONE (11:30)
[2019-12-01] MEDS ORDERED: CATHETER FLUSH 10 ML SYR IV PRN (11:30)
[2019-12-01 12:06] LABS: BASOPHILS % (AUTO) 0 % (0-10); EOSINOPHILS # (AUTO) 0.3 10^3/uL (0.0-0.3); EOSINOPHILS % (AUTO) 3 % (0-10); HEMATOCRIT 41 % (35-52); HEMOGLOBIN 13.8 G/DL (11.5-16.0); LYMPHOCYTES # (AUTO) 1.8 X 10^3 (1.0-4.0); LYMPHOCYTES % (AUTO) 20 % (12-44); MEAN CORPUSCULAR HEMOGLOBIN 30 PG (25-34); MEAN CORPUSCULAR HGB CONC 33 G/DL (32-36); MEAN CORPUSCULAR VOLUME 89 FL (80-99); MEAN PLATELET VOLUME 11.3 FL (7.4-10.4); MONOCYTES # (AUTO) 0.9 X 10^3 (0.0-1.0); MONOCYTES % (AUTO) 10 % (0-12); NEUTROPHILS % (AUTO) 67 % (42-75); PLATELET COUNT 211 10^3/uL (130-400); RED CELL DISTRIBUTION WIDTH 12.9 % (10.0-14.5); WHITE BLOOD COUNT 8.9 10^3/uL (4.3-11.0)
[2019-12-01] MEDS ORDERED: ROCURONIUM 10 MG/ML 5 ML SYRINGE IV ONE (12:21)
[2019-12-01] MEDS ORDERED: ONDANSETRON 4 MG/2 ML (SDV) Z0FRAN ONE (12:21)
[2019-12-01] MEDS ORDERED: MIDAZOLAM 2 MG/2 ML (VERSED) VIAL ONE (12:21)
[2019-12-01] MEDS ORDERED: SEVOFLURANE (ULTANE) 15 ML INHAL SOLN ONE ×2 (12:21→14:11)
[2019-12-01] MEDS ORDERED: DEXAMETHASONE 10 MG/ML (DECADRON) 1 ML VIAL ONE (12:21)
[2019-12-01] MEDS ORDERED: LIDOCAINE PF 2% 5 ML (XYLOCAINE) VIAL ONE (12:21)
[2019-12-01] MEDS ORDERED: proPOfol 200 MG/20 ML (DIPRIVAN) VIAL IV ONE (12:21)
[2019-12-01] MEDS ORDERED: NEOSTIGMINE 3 MG/3 ML VIAL ONE (12:21)
[2019-12-01] MEDS ORDERED: fentaNYL INJECTION 100 MCG/2 ML AMP ONE ×2 (12:21→14:28)
[2019-12-01] MEDS ORDERED: BUPIVACAINE 0.5% 30 ML (SENSORCAINE) VIAL ONE (12:34)
[2019-12-01] MEDS ORDERED: ACET-789 PO (12:48)
[2019-12-01] MEDS ORDERED: NORG1TAB14 PO (12:49)
[2019-12-01] MEDS ORDERED: GLYCOPYRROLATE 0.2 MG/ML (ROBINUL) 2 ML VIAL ONE (14:29)
[2019-12-01] MEDS ORDERED: fentaNYL INJECTION 100 MCG/2 ML AMP IVP ONE (15:00)
[2019-12-01] MEDS ORDERED: MEPERIDINE (DEMEROL) INJ 50 MG/ML IVP ONE (15:00)
[2019-12-01] MEDS ORDERED: morphine INJ 10 MG/ML 1ML (SYR OR VIAL) IVP ONE (15:00)
--- NOTE | 2019-12-01 15:45 | NUR ---
BLANCA CHAVEZ admitted to room , with an admitting diagnosis of postop hysterectomy, on 12-01-19 from Recovery via cart, accompanied by Recovery room nurse.BLANCA CHAVEZ introduced to surroundings, call light, bed controls, phone, TV, temperature control, lights, meal times, smoking policy, visitor policy, side rail policy, bathrooms and showers. Patient Rights given to patient in the handbook. BLANCA CHAVEZ verbalizes understanding that [facility] is not responsible for the loss or damage to any personal effects or valuables that are kept in the patients posession during their hospitalization. The following Patient Care Plans were discussed with the patient: Discharge Planning, pain management, SCD's, and postop care. BLANCA CHAVEZ verbalizes understanding of Interdisciplinary Patient Education. Patient and/or family were informed about the Rapid Response Team and its purpose.
[2019-12-01] MEDS ORDERED: KETOROLAC 30 MG/ML VIAL ONE (15:59)
[2019-12-01] MEDS ORDERED: MEPERIDINE (DEMEROL) INJ 100 MG/ML IM PRN (16:00)
[2019-12-01] MEDS ORDERED: APAP 300 MG/CODEINE 30 MG (TYLENOL #3) TAB PO PRN (16:00)
[2019-12-01] MEDS ORDERED: ONDANSETRON 4 MG/2 ML (SDV) Z0FRAN IVP PRN (16:00)
[2019-12-01] MEDS ORDERED: WATER (STERILE) FOR INJ 10 ML BTL INJ ONE (16:00)
[2019-12-01] MEDS ORDERED: ESTROGENS CONJ IV 25 MG/5 ML (PREMARIN) VIAL IVP ONE (16:00)
[2019-12-01] MEDS ORDERED: PROMETHAZINE INJ 25 MG/ML (PHENERGAN) AMP IM PRN (16:00)
--- NOTE | 2019-12-01 16:00 | NUR ---
IV converted to pump tubing. Scheduled Toradol IV given at this time. Patient denies any further needs or concerns at this time.
[2019-12-01] MEDS: ONDANSETRON 4 MG/2 ML (SDV) Z0FRAN IVP PRN ×2 (16:07→16:08)
[2019-12-01] MEDS: KETOROLAC 30 MG/ML VIAL IVP SCH ×2 (16:30→21:43)
[2019-12-01] MEDS ORDERED: D5 LR IV SOLUTION 1,000 ML IV ONE (16:30)
[2019-12-01] MEDS: D5 LR IV SOLUTION 1,000 ML IV SCH ×2 (16:35→21:02)
--- NOTE | 2019-12-01 20:13 | OPERATIVE REPORT ---
DATE OF SERVICE: 12/01/2019 PREOPERATIVE DIAGNOSES: Chronic pelvic pain with history of endometriosis as well as dysfunctional uterine bleeding. POSTOPERATIVE DIAGNOSES: Chronic pelvic pain with history of endometriosis as well as dysfunctional uterine bleeding with extensive endometriosis. OPERATIVE PROCEDURE: Total laparoscopic hysterectomy with bilateral salpingo-oophorectomy as well as adhesiolysis. OPERATIVE DESCRIPTION: With the patient in the supine position under satisfactory general anesthesia, she was repositioned in the dorsal lithotomy position in the [facility] and prepped and draped in the usual fashion for abdominal and vaginal surgery using the da Darrell robotic equipment. Weighted speculum placed in the posterior fornix of vagina, cervix exposed and grasped anteriorly with single tooth tenaculum. Uterus was sounded to 9.5 cm with uterine sound. The cervix was then serially dilated with Kev dilators to accommodate a Ivana II manipulator, which was placed using a 6 mm x 8 cm uterine probe and a 30 mm colpotomy ring. Sutures of #1 Vicryl placed at 3 and 9 o'clock position of the cervix to facilitate stabilizing the uterus to the manipulator. Benjamin catheter was placed in the urinary bladder and patient brought in low dorsal lithotomy position. The patient had a relatively recent midline vertical incision due to a hemicolectomy with fear of adhesions in that area. A 5 mm incision was made in the left upper quadrant. Veress needle was placed through that incision into the abdominal cavity and correct placement confirmed with water drop test. The abdomen was insufflated with 2.4 liters of carbon dioxide and the Veress needle was removed and a 5 mm Optiview laparoscopic port placed under direct vision. There were extensive adhesions of the omentum extending along the length of the vertical midline incision, which extended from below the umbilicus to approximately 5 cm above the umbilicus. The lateral abdominal wall showed no adhesions. The incisions were made of 8 mm approximately 9 cm lateral to the umbilicus and approximately 2.5 to 3 cm superior to the umbilicus. An 8 mm ports were placed through those incisions. EndoShears were then passed through one of the ports and the adhesions were taken down with very careful blunt and sharp dissection as well as dissection with electrocautery. Hemostasis was maintained. The tissue that involved in the adhesions was all omentum. There was no bowel in the area. With the adhesions freed, a 12 mm incision was then placed through an incision of that size 6 to 8 cm superior to the umbilicus in the midline. All 4 incision sites were infiltrated with 0.25% Marcaine with epinephrine prior to incision. The patient was now placed in Trendelenburg allowing the bowel spill out of the pelvis. The da Darrell column was advanced on the patient and docked and operative instruments placed in the right and left lateral ports and I retired to the da Darrell console. At the console, using the vessel sealer on the right and a bipolar fenestrated grasper on the left, the pelvis was first examined. There was extensive endometriosis involving the ovaries. The right ovary was densely adherent to the ovarian fossa on the right. The uterus was mottled in appearance consistent with adenomyosis. The appendix was surgically absent. There were some adhesions of the sigmoid to the left pelvic brim. These adhesions were taken down allowing complete access to the IP ligament on the left exposing the ovary. A vessel sealer was then used to clamp, cauterize and divide the IP ligament on the right and that process was continued stepwise across the mesovarium, across the round ligament, across the broad ligaments and down onto the cardinal ligament. The right ureter was seemed to peristalse medial to the area of dissection and was well clear of trauma. Same procedure performed on the left with the same findings of the left ureter as well. With the adnexa freed, the anterior lower uterine segment peritoneum was then divided with monopolar jany in place of the vessel sealer. The bladder was carefully dissected down off the lower uterine segment and colpotomy incision was started at 12 o'clock position on the cervix onto the colpotomy ring. The colpotomy ring was exposed by dissecting circumferentially until the entire colpotomy ring was seen and then the uterus with tubes and ovaries still attached was extracted through the vagina. Vaginal cuff was closed with two sutures of V-Loc barbed suture starting first from the right angle and continuing to approximately 80% across the cuff and then using a suture to come from the left side to meet the initiation of the closure to the right and then using the last several stitches to bring the peritoneum back down onto the vaginal cuff to reperitonealize it. The uterine vessels were included in the angle stitches of each side of the vagina. Both ureters were again seemed to peristalse throughout the entire procedure and were seemed again now to peristalse and were normal in caliber and freely peristalsing. With no remaining pathology and hemostasis assured, the procedure was terminated. The operative instruments were removed under direct vision as were the ports. The abdomen was evacuated of insufflating gas in the process of removing the ports. The skin incisions were closed with flako after closing the fascia at the supraumbilical incision with [id number]-[id number]-kwbgy suture of 2-0 Vicryl. Speculum was replaced in the vagina. The vaginal apex was examined and was completely intact and hemostatic. Benjamin catheter was left to dependent drainage and was draining somewhat concentrated, but otherwise clear yellow urine. Sponge and needle counts were correct. Estimated blood loss was minimal. The patient tolerated the procedure well and was transferred to the recovery room in stable condition. Job ID: [id number] DocumentID: [id number] Dictated Date: 12/01/2019 16:03:15 Blower Feeder Dyed Raw Stock Date: 12/01/2019 20:13:36 Dictated By: MICHELLE LEMOS MD
[2019-12-02 00:08] VITALS: BP 107/60
[2019-12-02] MEDS: D5 LR IV SOLUTION 1,000 ML IV SCH ×2 (00:27→03:12)
[2019-12-02 03:43] VITALS: BP 93/55
[2019-12-02] MEDS: KETOROLAC 30 MG/ML VIAL IVP SCH ×2 (04:10→10:23)
--- NOTE | 2019-12-02 07:18 | Progress Note ---
Standard Progress Note Progress Notes/Assess & Plan Date Seen by a Provider: Dec 02, 2019 Time Seen by a Provider: 07:17 Progress/Assessment & Plan This patient is without complaint. She is ambulating, voiding, tolerating oral intake well has good pain control. Vital Signs Date Time Temp Pulse Resp B/P (MAP) Pulse Ox O2 Delivery O2 Flow Rate FiO2 12/02/19 03:43 36.6 80 18 93/55 (68) 96 Room Air 12/02/19 00:08 36.5 84 16 107/60 (76) 95 Room Air 12/01/19 21:00 Room Air 12/01/19 20:00 36.4 95 14 112/61 (78) 96 Room Air 12/01/19 19:11 36.4 95 14 112/61 96 Room Air 12/01/19 16:15 96 Room Air 12/01/19 16:00 36.4 90 16 127/66 (86) 95 Room Air 12/01/19 15:45 Room Air 12/01/19 15:30 36.2 16 116/68 (84) 100 Room Air 12/01/19 15:30 Room Air 12/01/19 15:20 16 120/72 (88) 100 Simple Mask 5 12/01/19 15:15 Simple Mask 8 12/01/19 15:10 16 125/75 (92) 100 Room Air 8 12/01/19 15:00 18 125/74 (91) 100 Simple Mask 8 12/01/19 15:00 Simple Mask 8 12/01/19 14:54 16 121/69 (86) 100 Simple Mask 8 12/01/19 14:44 36.3 16 105/66 (79) 100 Simple Mask 8 12/01/19 14:44 8 12/01/19 11:54 36.4 81 18 104/72 (83) 98 Room Air I & O 12/02/19 07:00 Intake Total 4810 ml Output Total 3685 ml Balance 1125 ml Vital signs are stable. Patient is afebrile. The abdomen is benign. The surgical dressings are clean dry and intact. Extremities show no clubbing cyanosis. There is no Homans sign. Assessment and plan postoperative day number 1 doing well. Plan for routine postoperative care with discharge home and follow-up in clinic Final Diagnosis Chronic pelvic pain/endometriosis MICHELLE LEMOS MD Dec 02, 2019 07:18
[2019-12-02 08:00] VITALS: BP 98/56
--- NOTE | 2019-12-02 08:00 | NUR ---
VSS. VOIDING WELL. ANXIOUS TO GO HOME.
[2019-12-02] MEDS ORDERED: DOCUSATE SODIUM 100 MG (COLACE) CAP PO SCH (09:00)
--- NOTE | 2019-12-02 09:23 | Anesthesia-General Post-Op ---
General Patient Condition Mental Status/LOC: Same as Preop Cardiovascular: Satisfactory Nausea/Vomiting: Absent Respiratory: Satisfactory Pain: Controlled Complications: Absent Post Op Complications Complications None Follow Up Care/Instructions Patient Instructions None needed. Anesthesia/Patient Condition Patient Condition Patient is doing well, no complaints, stable vital signs, no apparent adverse anesthesia problems. No complications reported per nursing. D/C home per [facility] Criteria: Yes JENNIFFER WALKER CRNA Dec 02, 2019 09:23
--- NOTE | 2019-12-02 10:45 | NUR ---
SHOWERED WITHOUT PROBLEMS.
--- NOTE | 2019-12-02 11:50 | NUR ---
DISCHARGE INSTRUCTIONS REVIEWED WITH COPY TO PT. STATES UNDERSTANDING OF ALL INSTRUCTIONS AND NEED TO F/U SCHEDULED AND NEEDED.
[2019-12-02 11:55] VITALS: BP 98/56
--- NOTE | 2019-12-02 11:55 | NUR ---
DISMISSED AMB FROM [facility] IN STABLE CONDITION TO [facility]ILY [facility] BY [facility] STAFF.
[2019-12-02 11:59] VITALS: BP 104/58
[2019-12-02] MEDS ORDERED: IBUPROFEN 800 MG (MOTRIN) TAB PO SCH (16:00)
== END 2019-12-02 11:55 | disposition home or self-care (01) ==
LOC: SDC 10:58 → WS 16:02 → SDC 12-02 11:55
PROVIDERS: ATTEND Obstetrics & Gynecology
DX: N80.9 Endometriosis, unspecified (principal); N93.8 Other specified abnormal uterine and vaginal bleeding; N83.202 Unspecified ovarian cyst, left side; N83.201 Unspecified ovarian cyst, right side; N83.8 Other noninflammatory disorders of ovary, fallopian tube and broad ligament; K21.9 Gastro-esophageal reflux disease without esophagitis; F41.9 Anxiety disorder, unspecified; F17.210 Nicotine dependence, cigarettes, uncomplicated; Z88.2 Allergy status to sulfonamides; Z88.1 Allergy status to other antibiotic agents; Z90.89 Acquired absence of other organs; Z79.899 Other long term (current) drug therapy; Z83.3 Family history of diabetes mellitus
CPT/HCPCS: 36415; 84703; 85025; 86850; 86900; 86901; 87081

== ENCOUNTER → 2020-01-17 | Outpatient (CLI) | payer OTHER ==
[~2020-01-17] MED LIST changes: +BARIUM SUSPENSION 2.1% (VANILLA SILQ) 450 ML PO ONE; +HOLD METFORMIN - RECEIVED CONTRAST 20 ML VIAL IV SCH; +IOHEXOL 350 MG/ML 100 ML (OMNIPAQUE 350) VIAL IV ONE; -MECL-106 PO; +MECL-149 PO; +NORG1TAB14 PO; +NS 100 ML (IVPB) BAG IV ONE
--- NOTE | 2020-01-17 09:20 | Diagnostic Imaging Report ---
EXAMINATION: CT Abdomen Pelvis with and without intravenous contrast. TECHNIQUE: Precontrast acquisitions were acquired through the abdomen and pelvis. Multiple contiguous axial images were obtained through the abdomen and pelvis after the administration of intravenous contrast. All CT scans use one or more of the following dose optimizing techniques: automated exposure control, MA and/or KvP adjustment based on a patient size and exam type, or iterative reconstruction. HISTORY: MALIGNANT CARCINOID TUMOR OF THE APPENDIX. COMPARISON: 08/30/2019. FINDINGS: Limited views of the lower thorax are unremarkable. The liver is normal without focal lesion. There is no biliary ductal dilation. The gallbladder is absent. The pancreas is normal. The spleen is normal. The adrenal glands are normal. The kidneys are normal. There is no hydronephrosis. The urinary bladder is normal. The visualized bowel is normal in caliber without obstruction or inflammation. The appendix is not seen. No free fluid or air. No abdominal or pelvic lymphadenopathy. The aorta is normal in caliber without aneurysm. There are no suspicious osseus lesions. IMPRESSION: No metastatic disease in the abdomen or pelvis. Dictated by: Dictated on workstation # [id number]
== END ==
LOC: RAD 08:07
PROVIDERS: ATTEND Internal Medicine Hematology & Oncology
DX: C7A.020 Malignant carcinoid tumor of the appendix (principal)
CPT/HCPCS: 74178

== ENCOUNTER → 2020-01-19 | Outpatient (CLI) | payer OTHER ==
[~2020-01-19] MED LIST changes: -BARIUM SUSPENSION 2.1% (VANILLA SILQ) 450 ML PO ONE; -HOLD METFORMIN - RECEIVED CONTRAST 20 ML VIAL IV SCH; -IOHEXOL 350 MG/ML 100 ML (OMNIPAQUE 350) VIAL IV ONE; -NS 100 ML (IVPB) BAG IV ONE
== END ==
LOC: LABNPT 11:40
PROVIDERS: ATTEND Family Medicine
DX: R05 Cough (principal); R50.9 Fever, unspecified; R06.02 Shortness of breath
CPT/HCPCS: 87635

== ENCOUNTER → 2020-04-09 | Outpatient (CLI) | payer OTHER ==
--- NOTE | 2020-04-09 12:35 | Diagnostic Imaging Report ---
PROCEDURE: US Thyroid. TECHNIQUE: Multiple Real-time grayscale images were obtained of the thyroid in various projections. INDICATION: Difficulty swallowing. FINDINGS: The right lobe of the thyroid measures 4.7 x 1.4 x 1.5 cm and the left lobe measures 4.7 x 1.8 x 1.2 cm. The right lobe of the thyroid demonstrates a circumscribed hypoechoic nodule in the mid to lower pole measuring approximately 9 mm x 5 mm x 7 mm. A nodule in the lower pole of the left lobe is seen measuring 6 mm x 4 mm x 6 mm. No other masses are detected. IMPRESSION: Subcentimeter thyroid nodules. No dominant thyroid mass is detected. Dictated by: Dictated on workstation # [id number]
== END ==
LOC: RAD 08:03
PROVIDERS: ATTEND Surgery
DX: E04.2 Nontoxic multinodular goiter (principal)
CPT/HCPCS: 76536

== ENCOUNTER → 2020-04-24 | Outpatient (CLI) | payer OTHER ==
[2020-04-24 10:01] LABS: BASOPHILS % (AUTO) 0 % (0-10); EOSINOPHILS # (AUTO) 0.3 10^3/uL (0.0-0.3); EOSINOPHILS % (AUTO) 3 % (0-10); HEMATOCRIT 42 % (35-52); HEMOGLOBIN 13.8 G/DL (11.5-16.0); LYMPHOCYTES # (AUTO) 1.9 X 10^3 (1.0-4.0); LYMPHOCYTES % (AUTO) 16 % (12-44); MEAN CORPUSCULAR HEMOGLOBIN 30 PG (25-34); MEAN CORPUSCULAR HGB CONC 33 G/DL (32-36); MEAN CORPUSCULAR VOLUME 91 FL (80-99); MEAN PLATELET VOLUME 10.9 FL (7.4-10.4); MONOCYTES # (AUTO) 0.8 X 10^3 (0.0-1.0); MONOCYTES % (AUTO) 7 % (0-12); NEUTROPHILS # (AUTO) 8.9 X 10^3 (1.8-7.8); NEUTROPHILS % (AUTO) 75 % (42-75); PLATELET COUNT 285 10^3/uL (130-400); RED CELL DISTRIBUTION WIDTH 12.8 % (10.0-14.5); WHITE BLOOD COUNT 11.9 10^3/uL (4.3-11.0)
[2020-04-24 10:25] LABS: ALANINE AMINOTRANSFERASE 18 U/L (0-55); ALBUMIN 4.1 GM/DL (3.2-4.5); ALKALINE PHOSPHATASE 113 U/L (40-136); BILIRUBIN,TOTAL 0.3 MG/DL (0.1-1.0); BUN/CREATININE RATIO 11; CALCIUM 9.6 MG/DL (8.5-10.1); CARBON DIOXIDE 26 MMOL/L (21-32); CHLORIDE 102 MMOL/L (98-107); CREATININE SERUM 0.83 MG/DL (0.60-1.30); GFR ESTIMATED > 60; GLUCOSE 97 MG/DL (70-105); POTASSIUM 4.2 MMOL/L (3.6-5.0); SODIUM 137 MMOL/L (135-145); TOTAL PROTEIN 7.7 GM/DL (6.4-8.2)
[2020-04-24 10:47] LABS: FREE T4 (FREE THYROXINE) 0.88 NG/DL (0.70-1.48)
== END ==
LOC: LAB 09:21
PROVIDERS: ATTEND Nurse Practitioner Family
DX: E04.1 Nontoxic single thyroid nodule (principal); R73.09 Other abnormal glucose
CPT/HCPCS: 36415; 80053; 83036; 84439; 84443; 84480; 85025; 86376; 86800

== ENCOUNTER 2020-04-26 08:23 | Outpatient (RCR) | payer OTHER ==
[2020-02-05 15:48] LABS: BASOPHILS % (AUTO) 0 % (0-10); EOSINOPHILS # (AUTO) 0.3 10^3/uL (0.0-0.3); EOSINOPHILS % (AUTO) 3 % (0-10); HEMATOCRIT 38 % (35-52); HEMOGLOBIN 12.7 G/DL (11.5-16.0); LYMPHOCYTES # (AUTO) 2.4 X 10^3 (1.0-4.0); LYMPHOCYTES % (AUTO) 25 % (12-44); MEAN CORPUSCULAR HEMOGLOBIN 30 PG (25-34); MEAN CORPUSCULAR HGB CONC 33 G/DL (32-36); MEAN CORPUSCULAR VOLUME 90 FL (80-99); MEAN PLATELET VOLUME 10.7 FL (7.4-10.4); MONOCYTES # (AUTO) 0.7 X 10^3 (0.0-1.0); MONOCYTES % (AUTO) 8 % (0-12); NEUTROPHILS # (AUTO) 6.2 X 10^3 (1.8-7.8); NEUTROPHILS % (AUTO) 64 % (42-75); PLATELET COUNT 283 10^3/uL (130-400); WHITE BLOOD COUNT 9.7 10^3/uL (4.3-11.0)
[2020-02-05 16:08] LABS: ALANINE AMINOTRANSFERASE 12 U/L (0-55); ALBUMIN 3.8 GM/DL (3.2-4.5); ALKALINE PHOSPHATASE 96 U/L (40-136); BILIRUBIN,TOTAL 0.2 MG/DL (0.1-1.0); BUN/CREATININE RATIO 13; CALCIUM 9.1 MG/DL (8.5-10.1); CARBON DIOXIDE 25 MMOL/L (21-32); CHLORIDE 104 MMOL/L (98-107); CREATININE SERUM 0.79 MG/DL (0.60-1.30); GFR ESTIMATED > 60; GLUCOSE 87 MG/DL (70-105); SODIUM 138 MMOL/L (135-145); TOTAL PROTEIN 6.7 GM/DL (6.4-8.2)
[2020-04-26 08:39] LABS: BASOPHILS % (AUTO) 0 % (0-10); EOSINOPHILS # (AUTO) 0.3 10^3/uL (0.0-0.3); EOSINOPHILS % (AUTO) 4 % (0-10); HEMATOCRIT 38 % (35-52); HEMOGLOBIN 12.5 G/DL (11.5-16.0); LYMPHOCYTES # (AUTO) 1.9 X 10^3 (1.0-4.0); LYMPHOCYTES % (AUTO) 25 % (12-44); MEAN CORPUSCULAR HEMOGLOBIN 30 PG (25-34); MEAN CORPUSCULAR HGB CONC 33 G/DL (32-36); MEAN CORPUSCULAR VOLUME 91 FL (80-99); MEAN PLATELET VOLUME 10.9 FL (7.4-10.4); MONOCYTES # (AUTO) 0.6 X 10^3 (0.0-1.0); MONOCYTES % (AUTO) 7 % (0-12); NEUTROPHILS % (AUTO) 64 % (42-75); PLATELET COUNT 234 10^3/uL (130-400); RED CELL DISTRIBUTION WIDTH 12.5 % (10.0-14.5); WHITE BLOOD COUNT 7.9 10^3/uL (4.3-11.0)
[2020-04-26 09:12] LABS: ALANINE AMINOTRANSFERASE 14 U/L (0-55); ALBUMIN 3.6 GM/DL (3.2-4.5); ALKALINE PHOSPHATASE 90 U/L (40-136); BILIRUBIN,TOTAL 0.2 MG/DL (0.1-1.0); BUN/CREATININE RATIO 15; CALCIUM 8.9 MG/DL (8.5-10.1); CARBON DIOXIDE 24 MMOL/L (21-32); CHLORIDE 105 MMOL/L (98-107); CREATININE SERUM 0.74 MG/DL (0.60-1.30); GFR ESTIMATED > 60; GLUCOSE 153 MG/DL (70-105); POTASSIUM 3.9 MMOL/L (3.6-5.0); SODIUM 137 MMOL/L (135-145); TOTAL PROTEIN 6.6 GM/DL (6.4-8.2)
== END 2020-05-05 | disposition home or self-care (01) ==
LOC: ONC 08:23
PROVIDERS: ATTEND Internal Medicine Hematology & Oncology
DX: D3A.020 Benign carcinoid tumor of the appendix (principal); Z80.0 Family history of malignant neoplasm of digestive organs; Z87.891 Personal history of nicotine dependence
CPT/HCPCS: 80053; 83497; 83615; 85025; 86316; 99213

== ENCOUNTER → 2020-05-09 | Outpatient (CLI) | payer OTHER | LOC: EDSTATUS 05-06 16:41 → ONC 14:56 | PROVIDERS: ATTEND Internal Medicine Hematology & Oncology | DX: C7A.020 Malignant carcinoid tumor of the appendix (principal); R79.89 Other specified abnormal findings of blood chemistry; R53.83 Other fatigue; Z90.49 Acquired absence of other specified parts of digestive tract | CPT/HCPCS: 99213 ==

== ENCOUNTER → 2020-06-06 | Outpatient (CLI) | payer OTHER | LOC: LAB 10:07 | PROVIDERS: ATTEND Family Medicine | DX: R63.5 Abnormal weight gain (principal); Z90.710 Acquired absence of both cervix and uterus | CPT/HCPCS: 36415; 82672; 84144 ==

== ENCOUNTER 2020-07-19 13:43 | Outpatient (RCR) | payer OTHER ==
[2020-10-11] MEDS ORDERED: VITAMIN B PO (10:51)
== END 2020-10-09 10:52 | disposition home or self-care (01) ==
PROVIDERS: ATTEND Nurse Practitioner Family
DX: R42 Dizziness and giddiness (principal); K21.9 Gastro-esophageal reflux disease without esophagitis; F32.9 Major depressive disorder, single episode, unspecified; H91.90 Unspecified hearing loss, unspecified ear; H66.90 Otitis media, unspecified, unspecified ear; Z90.710 Acquired absence of both cervix and uterus; Z90.49 Acquired absence of other specified parts of digestive tract

== ENCOUNTER → 2020-07-23 | Outpatient (CLI) | payer OTHER ==
[~2020-07-23] MED LIST changes: +GADOBUTROL 10 MMOL/10 ML (GADAVIST) VIAL IV ONE
--- NOTE | 2020-07-23 18:20 | Diagnostic Imaging Report ---
PROCEDURE: MR imaging of the brain with and without contrast. TECHNIQUE: Multiplanar, multisequence MR imaging of the brain was performed with and without contrast. INDICATION: Dizziness. COMPARISON: None. FINDINGS: No abnormal intracranial signal or enhancement. No restricted water diffusion or hemosiderin deposition. Normal morphology including the major midline structures, sella, posterior fossa and cerebellar pontine angle. No hydrocephalus or extra-axial fluid collections. Normal intracranial flow voids. The orbits are unremarkable. The paranasal sinuses and mastoids are clear. Normal bone marrow signal. IMPRESSION: Normal MRI of the brain without and with IV contrast. No acute findings. Dictated by: Dictated on workstation # [id number]
== END ==
LOC: RAD 15:30
PROVIDERS: ATTEND Nurse Practitioner Family
DX: R42 Dizziness and giddiness (principal)
CPT/HCPCS: 70553

== ENCOUNTER → 2020-09-12 | Outpatient (CLI) | payer OTHER ==
[~2020-09-12] MED LIST changes: -GADOBUTROL 10 MMOL/10 ML (GADAVIST) VIAL IV ONE
== END ==
LOC: LAB 08:24
PROVIDERS: ATTEND Otolaryngology Otolaryngology/Facial Plastic Surgery
DX: J30.9 Allergic rhinitis, unspecified (principal)
CPT/HCPCS: 36415; 86003

== ENCOUNTER → 2020-09-12 | Outpatient (CLI) | payer OTHER ==
[2020-09-12 12:49] LABS: BASOPHILS # (AUTO) 0.1 10^3/uL (0.0-0.1); BASOPHILS % (AUTO) 1 % (0-10); EOSINOPHILS # (AUTO) 0.3 10^3/uL (0.0-0.3); EOSINOPHILS % (AUTO) 4 % (0-10); HEMATOCRIT 42 % (35-52); HEMOGLOBIN 13.3 g/dL (11.5-16.0); LYMPHOCYTES # (AUTO) 1.6 10^3/uL (1.0-4.0); LYMPHOCYTES % (AUTO) 23 % (12-44); MEAN CORPUSCULAR HEMOGLOBIN 29 pg (25-34); MEAN CORPUSCULAR HGB CONC 32 g/dL (32-36); MEAN CORPUSCULAR VOLUME 92 fL (80-99); MEAN PLATELET VOLUME 11.3 fL (9.0-12.2); MONOCYTES # (AUTO) 0.6 10^3/uL (0.0-1.0); MONOCYTES % (AUTO) 8 % (0-12); NEUTROPHILS # (AUTO) 4.5 10^3/uL (1.8-7.8); NEUTROPHILS % (AUTO) 63 % (42-75); PLATELET COUNT 231 10^3/uL (130-400); WHITE BLOOD COUNT 7.1 10^3/uL (4.3-11.0)
[2020-09-12 12:56] LABS: ALANINE AMINOTRANSFERASE 151 U/L (0-55); ALBUMIN 4.2 GM/DL (3.2-4.5); ALKALINE PHOSPHATASE 151 U/L (40-136); BILIRUBIN,TOTAL 0.6 MG/DL (0.1-1.0); BUN/CREATININE RATIO 20; CALCIUM 10.1 MG/DL (8.5-10.1); CARBON DIOXIDE 22 MMOL/L (21-32); CHLORIDE 102 MMOL/L (98-107); CHOLESTEROL 173 MG/DL (< 200); CREATININE SERUM 0.76 MG/DL (0.60-1.30); GFR ESTIMATED > 60; GLUCOSE 96 MG/DL (70-105); HDL CHOLESTEROL 52 MG/DL (40-60); POTASSIUM 4.1 MMOL/L (3.6-5.0); SODIUM 139 MMOL/L (135-145); TOTAL PROTEIN 7.4 GM/DL (6.4-8.2); TRIGLYCERIDES 144 MG/DL (<150); VLDL CHOLESTEROL 29 MG/DL (5-40)
== END ==
LOC: LAB 12:34
PROVIDERS: ATTEND Nurse Practitioner Family
DX: Z00.01 Encounter for general adult medical examination with abnormal findings (principal); Z13.220 Encounter for screening for lipoid disorders; R73.01 Impaired fasting glucose
CPT/HCPCS: 36415; 80053; 80061; 83036; 84443; 85025

== ENCOUNTER → 2020-10-02 | Outpatient (CLI) | payer OTHER ==
[~2020-10-02] MED LIST changes: +BARIUM SUSPENSION 2.1% (VANILLA SILQ) 450 ML PO ONE; +CATHETER FLUSH 10 ML SYR IV PRN; +HOLD METFORMIN - RECEIVED CONTRAST 20 ML VIAL IV SCH; +IOHEXOL 350 MG/ML 100 ML (OMNIPAQUE 350) VIAL IV ONE; +NS 100 ML (IVPB) BAG IV ONE
--- NOTE | 2020-10-02 09:33 | Diagnostic Imaging Report ---
PROCEDURE: CT abdomen and pelvis with and without contrast. TECHNIQUE: Precontrast acquisitions were acquired through the abdomen and pelvis. Multiple contiguous axial images were obtained through the abdomen and pelvis after the administration of intravenous contrast. Auto Exposure Controls were utilized during the CT exam to meet ALARA standards for radiation dose reduction. INDICATION: Appendix carcinoma with elevated liver enzymes. Correlation is made with prior CT from 01/17/2020. The lung bases are clear. There is a 6 mm low-density in the posterior right lobe of the liver, uncertain if this was present on prior CT due to very small size. This is indeterminate. No other liver lesions are seen. Gallbladder IS surgically absent. There is no biliary ductal dilatation. Pancreas and spleen are unremarkable. No adrenal mass is detected. Kidneys are unremarkable. Aorta is non-aneurysmal. No central retroperitoneal or mesenteric lymphadenopathy is identified. Bowel loops demonstrate postsurgical changes to the right colon. There is no obstruction. No free fluid or fluid collection is seen. The bladder is decompressed. No pelvic lymphadenopathy is identified. Uterus appears to be surgically absent. IMPRESSION: 1. 6 mm right liver lobe density, indeterminate. No other liver lesions are seen. Remainder of abdomen and pelvis are unremarkable. Dictated by: Dictated on workstation # [id number]
== END ==
LOC: RAD 08:45
PROVIDERS: ATTEND Nurse Practitioner Adult Health
DX: D37.3 Neoplasm of uncertain behavior of appendix (principal); R94.5 Abnormal results of liver function studies
CPT/HCPCS: 74178

== ENCOUNTER → 2020-10-04 | Outpatient (CLI) | payer OTHER ==
[~2020-10-04] MED LIST changes: -BARIUM SUSPENSION 2.1% (VANILLA SILQ) 450 ML PO ONE; -CATHETER FLUSH 10 ML SYR IV PRN; -HOLD METFORMIN - RECEIVED CONTRAST 20 ML VIAL IV SCH; -IOHEXOL 350 MG/ML 100 ML (OMNIPAQUE 350) VIAL IV ONE; -NS 100 ML (IVPB) BAG IV ONE
--- NOTE | 2020-10-04 10:47 | Diagnostic Imaging Report ---
PROCEDURE: US Thyroid. TECHNIQUE: Multiple real-time grayscale images were obtained of the thyroid in various projections. INDICATION: Dysphagia. The prior thyroid ultrasound exam of 04/09/2020 noted that the thyroid gland was not enlarged. There was a small 9 x 5 x 7 mm circumscribed hypoechoic nodule in the mid to lower pole of the right lobe. There is also a 6 x 4 x 6 mm nodule in the left lobe. Those findings are again evident on this study and virtually unchanged in size or appearance. I would describe these nodules as a TI-RADS 3 or 4. The thyroid gland itself is not enlarged with the right lobe measuring 4.5 x 1.5 x 1.6 cm and the left lobe estimated to be 4.7 x 1.5 x 1.4 cm (normal gland size 4-5 x 2 x 2 cm or less). IMPRESSION: 1. When compared to the previous study there has been no significant change. The subcentimeter nodules in each lobe of the thyroid seen previously appear similar to the prior study. I would recommend that a six-month follow-up thyroid ultrasound exam be obtained for continued evaluation however. Dictated by: Dictated on workstation # [id number]
== END ==
LOC: RAD 08:00
PROVIDERS: ATTEND Surgery
DX: R13.10 Dysphagia, unspecified (principal); E04.2 Nontoxic multinodular goiter
CPT/HCPCS: 76536

== ENCOUNTER → 2020-10-08 | Outpatient (CLI) | payer OTHER ==
[~2020-10-08] MED LIST changes: +VITAMIN B PO
== END ==
LOC: CARD 09:00
PROVIDERS: ATTEND Internal Medicine Cardiovascular Disease
DX: R07.89 Other chest pain (principal); R00.2 Palpitations
CPT/HCPCS: 93306; 93351

== ENCOUNTER 2020-10-09 06:44 | Outpatient (RCR) | payer OTHER ==
[~2020-10-09 06:44] MED LIST changes: -VITAMIN B PO
[2020-10-11] MEDS ORDERED: VITAMIN B PO (10:51)
== END 2020-10-09 11:42 | disposition home or self-care (01) ==
LOC: PREOP 06:44
PROVIDERS: ATTEND Surgery
DX: Z01.812 Encounter for preprocedural laboratory examination (principal); J02.9 Acute pharyngitis, unspecified; R10.13 Epigastric pain; Z20.828 Contact with and (suspected) exposure to other viral communicable diseases
CPT/HCPCS: 87635

== ENCOUNTER → 2020-10-11 | Day surgery (SDC) | payer OTHER ==
[2020-10-11] VITALS (7 sets, daily range): BP systolic 98–121; BP diastolic 57–80
[~2020-10-11] VITALS: Ht 170.2 cm; Wt 79.1 kg
[~2020-10-11] MED LIST changes: +HURRICAINE EXT TUBE (BENZOCAINE) XX PRN; +LACTATED RINGERS 1,000 ML IV ONE; +LACTATED RINGERS 1,000 ML IV STA; +MIDAZOLAM 2 MG/2 ML (VERSED) VIAL ONE; +PROPOFOL INJECTION 50 ML IV ONE; +VITAMIN B PO
--- NOTE | 2020-10-11 11:31 | Progress Note-Post Operative ---
Post-Operative Progess Note Surgeon (s)/Business Process Specialist (s) Surgeon HALIMA ADAMS DO Business Process Specialist: none Pre-Operative Diagnosis Epigastric pain, Dysphagia Post-Operative Diagnosis same plus Gastritis Procedure & Operative Findings Date of Procedure 10/11/20 Procedure Performed/Findings EGD with bx Anesthesia Type IV sedation by LPN Estimated Blood Loss Estimated blood loss (mL): scant Specimens/Packing Specimens Removed antral bx body of stomach bx GE jxn bx HALIMA ADAMS DO Oct 11, 2020 11:31
--- NOTE | 2020-10-11 11:31 | Endoscopy Discharge Instruct ---
Endo Procedure/Findings Findings 1.: Gastritis Discharge Instructions - Activity: You might feel a little sleepy until tomorrow. This is due to the medicine you received to relax you. Until tomorrow, you should: NOT drive a car, operate machinery or power tools. NOT drink any alcoholic beverages. NOT make any important decisions or sign importortant papers. Do not return to work until tomorrow, unless otherwise instructed. Resume previous activities tomorrow. Diet: Start by taking liquids. If you tolerate liquids, advance to solid food. 1.: EGD in 3 years Notify Physician - If you experience excessive bleeding, unusual abdominal pain, fever, or chest pain, contact your doctor immediately. HALIMA ADAMS DO Oct 11, 2020 11:31
--- NOTE | 2020-10-11 11:58 | Anesthesia-General Post-Op ---
MAC Patient Condition Mental Status/LOC: Same as Preop Cardiovascular: Satisfactory Nausea/Vomiting: Absent Respiratory: Satisfactory Pain: Controlled Complications: Absent Post Op Complications Complications None Follow Up Care/Instructions Patient Instructions None needed. Anesthesiology Discharge Order Discharge Order Patient is doing well, no complaints, stable vital signs, no apparent adverse anesthesia problems. No complications reported per nursing. MERLYN LOVELACE CRNA Oct 11, 2020 11:58
--- NOTE | 2020-10-11 20:58 | OPERATIVE REPORT ---
DATE OF SERVICE: PREOPERATIVE DIAGNOSES: Epigastric pain and dysphagia. POSTOPERATIVE DIAGNOSES: 1. Epigastric pain and dysphagia. 2. Gastritis. PROCEDURE: EGD with biopsy. SURGEON: Vivek Platt DO [place] WORKER: None. ANESTHESIA: IV sedation by the MISSILE MECHANIC. SPECIMEN: Biopsy of the antrum, biopsy of body of stomach, biopsy of the GE junction. BLOOD LOSS: Scant. FLUIDS: Per anesthesia. POSTOPERATIVE CONDITION: Stable. INDICATION FOR PROCEDURE: The patient is a 35-year-old female, who has been having some epigastric pain and dysphagia; which are the same previous symptoms she had when they found her thyroid nodule. Also has history of carcinoid and needed a workup. FINDINGS: The patient had some mild gastritis. No other obvious pathology. PROCEDURE NOTE: After informed consent was obtained, the patient was brought to the endoscopy suite, placed in bed in left lateral decubitus position. She was administered IV sedation by the MISSILE MECHANIC who then monitored her vitals the entire time, heart rate, blood pressure and pulse ox and the scope was inserted down the mouth through the esophagus into the stomach. In the stomach, saw some mild gastritis, took a picture, pushed into the duodenum. Duodenum looked fine. Pulled back into the antrum, did a biopsy of the antrum. Retroflexed the scope, did not really see hiatal hernia and did a biopsy of body of stomach and then pulled up into the GE junction, did a biopsy of the GE junction, then pushed the scope back in the stomach, suctioned all the air out and then pulled the scope up the esophagus, taken pictures. There were no strictures or any signs of inflammation in the esophagus and pulled out up and took a picture of the vocal cords and then pulled the scope completely out. The patient tolerated the procedure. She recovered in endoscopy suite. Job ID: [id number] DocumentID: [id number] Dictated Date: 10/11/2020 13:26:44 Field Staff Date: 10/11/2020 20:57:15 Dictated By: VIVEK PLATT DO [facility]
== END ==
LOC: SDC 09:48
PROVIDERS: ATTEND Surgery
DX: K29.50 Unspecified chronic gastritis without bleeding (principal); K21.9 Gastro-esophageal reflux disease without esophagitis; Z79.899 Other long term (current) drug therapy; Z88.2 Allergy status to sulfonamides; Z88.8 Allergy status to other drugs, medicaments and biological substances; Z88.1 Allergy status to other antibiotic agents
CPT/HCPCS: 88305

== ENCOUNTER → 2020-10-31 | Outpatient (RCR) | payer OTHER ==
[2020-08-02 09:14] LABS: BASOPHILS # (AUTO) 0.1 10^3/uL (0.0-0.1); BASOPHILS % (AUTO) 0 % (0-10); EOSINOPHILS # (AUTO) 0.1 10^3/uL (0.0-0.3); EOSINOPHILS % (AUTO) 1 % (0-10); HEMATOCRIT 42 % (35-52); HEMOGLOBIN 13.5 g/dL (11.5-16.0); LYMPHOCYTES # (AUTO) 3.5 10^3/uL (1.0-4.0); LYMPHOCYTES % (AUTO) 26 % (12-44); MEAN CORPUSCULAR HEMOGLOBIN 29 pg (25-34); MEAN CORPUSCULAR HGB CONC 32 g/dL (32-36); MEAN CORPUSCULAR VOLUME 92 fL (80-99); MEAN PLATELET VOLUME 9.9 fL (9.0-12.2); MONOCYTES % (AUTO) 8 % (0-12); NEUTROPHILS # (AUTO) 8.5 10^3/uL (1.8-7.8); NEUTROPHILS % (AUTO) 64 % (42-75); PLATELET COUNT 268 10^3/uL (130-400); WHITE BLOOD COUNT 13.3 10^3/uL (4.3-11.0)
[2020-08-02 09:37] LABS: ALANINE AMINOTRANSFERASE 178 U/L (0-55); ALBUMIN 4.1 GM/DL (3.2-4.5); ALKALINE PHOSPHATASE 129 U/L (40-136); BILIRUBIN,TOTAL 0.4 MG/DL (0.1-1.0); BUN/CREATININE RATIO 13; CALCIUM 9.4 MG/DL (8.5-10.1); CARBON DIOXIDE 26 MMOL/L (21-32); CHLORIDE 100 MMOL/L (98-107); CREATININE SERUM 0.98 MG/DL (0.60-1.30); GFR ESTIMATED > 60; GLUCOSE 91 MG/DL (70-105); POTASSIUM 3.4 MMOL/L (3.6-5.0); SODIUM 140 MMOL/L (135-145); TOTAL PROTEIN 6.9 GM/DL (6.4-8.2)
[2020-09-12 08:51] LABS: BASOPHILS % (AUTO) 1 % (0-10); EOSINOPHILS # (AUTO) 0.3 10^3/uL (0.0-0.3); EOSINOPHILS % (AUTO) 4 % (0-10); HEMATOCRIT 42 % (35-52); HEMOGLOBIN 13.5 g/dL (11.5-16.0); LYMPHOCYTES # (AUTO) 1.7 10^3/uL (1.0-4.0); LYMPHOCYTES % (AUTO) 23 % (12-44); MEAN CORPUSCULAR HEMOGLOBIN 30 pg (25-34); MEAN CORPUSCULAR HGB CONC 32 g/dL (32-36); MEAN CORPUSCULAR VOLUME 92 fL (80-99); MEAN PLATELET VOLUME 10.6 fL (9.0-12.2); MONOCYTES # (AUTO) 0.6 10^3/uL (0.0-1.0); MONOCYTES % (AUTO) 8 % (0-12); NEUTROPHILS # (AUTO) 4.6 10^3/uL (1.8-7.8); NEUTROPHILS % (AUTO) 64 % (42-75); PLATELET COUNT 233 10^3/uL (130-400); WHITE BLOOD COUNT 7.2 10^3/uL (4.3-11.0)
[2020-09-12 09:14] LABS: ALANINE AMINOTRANSFERASE 151 U/L (0-55); ALBUMIN 4.2 GM/DL (3.2-4.5); ALKALINE PHOSPHATASE 152 U/L (40-136); BILIRUBIN,TOTAL 0.6 MG/DL (0.1-1.0); BUN/CREATININE RATIO 20; CARBON DIOXIDE 24 MMOL/L (21-32); CHLORIDE 101 MMOL/L (98-107); CREATININE SERUM 0.76 MG/DL (0.60-1.30); GFR ESTIMATED > 60; GLUCOSE 96 MG/DL (70-105); POTASSIUM 4.1 MMOL/L (3.6-5.0); SODIUM 139 MMOL/L (135-145); TOTAL PROTEIN 7.3 GM/DL (6.4-8.2)
[~2020-10-31] MED LIST changes: -HURRICAINE EXT TUBE (BENZOCAINE) XX PRN; -LACTATED RINGERS 1,000 ML IV ONE; -LACTATED RINGERS 1,000 ML IV STA; -MIDAZOLAM 2 MG/2 ML (VERSED) VIAL ONE; -PROPOFOL INJECTION 50 ML IV ONE
[2020-10-31 09:37] LABS: BASOPHILS # (AUTO) 0.1 10^3/uL (0.0-0.1); BASOPHILS % (AUTO) 1 % (0-10); EOSINOPHILS # (AUTO) 0.2 10^3/uL (0.0-0.3); EOSINOPHILS % (AUTO) 3 % (0-10); HEMATOCRIT 44 % (35-52); LYMPHOCYTES # (AUTO) 1.7 10^3/uL (1.0-4.0); LYMPHOCYTES % (AUTO) 25 % (12-44); MEAN CORPUSCULAR HEMOGLOBIN 29 pg (25-34); MEAN CORPUSCULAR HGB CONC 32 g/dL (32-36); MEAN CORPUSCULAR VOLUME 93 fL (80-99); MEAN PLATELET VOLUME 10.3 fL (9.0-12.2); MONOCYTES # (AUTO) 0.6 10^3/uL (0.0-1.0); MONOCYTES % (AUTO) 8 % (0-12); NEUTROPHILS # (AUTO) 4.5 10^3/uL (1.8-7.8); NEUTROPHILS % (AUTO) 63 % (42-75); PLATELET COUNT 254 10^3/uL (130-400); WHITE BLOOD COUNT 7.1 10^3/uL (4.3-11.0)
[2020-10-31 09:56] LABS: ALANINE AMINOTRANSFERASE 32 U/L (0-55); ALBUMIN 4.6 GM/DL (3.2-4.5); ALKALINE PHOSPHATASE 138 U/L (40-136); BILIRUBIN,TOTAL 0.4 MG/DL (0.1-1.0); BUN/CREATININE RATIO 14; CALCIUM 10.3 MG/DL (8.5-10.1); CARBON DIOXIDE 30 MMOL/L (21-32); CHLORIDE 100 MMOL/L (98-107); CREATININE SERUM 0.88 MG/DL (0.60-1.30); GFR ESTIMATED > 60; GLUCOSE 77 MG/DL (70-105); POTASSIUM 3.9 MMOL/L (3.6-5.0); SODIUM 139 MMOL/L (135-145); TOTAL PROTEIN 8.5 GM/DL (6.4-8.2)
== END | disposition home or self-care (01) ==
LOC: ONC 08-02 09:00
PROVIDERS: ATTEND Internal Medicine Hematology & Oncology
DX: C7A.020 Malignant carcinoid tumor of the appendix (principal)
CPT/HCPCS: 80053; 83497; 83615; 85025; 86316; 99213

== ENCOUNTER → 2020-11-04 | Outpatient (CLI) | payer OTHER ==
[~2020-11-04] MED LIST changes: +CATHETER FLUSH 10 ML SYR IV PRN; +HOLD METFORMIN - RECEIVED CONTRAST 20 ML VIAL IV SCH; +IOHEXOL 350 MG/ML 100 ML (OMNIPAQUE 350) VIAL IV ONE; +NS 100 ML (IVPB) BAG IV ONE
--- NOTE | 2020-11-04 10:39 | Diagnostic Imaging Report ---
PROCEDURE: CT abdomen and pelvis with and without contrast. TECHNIQUE: Precontrast acquisitions were acquired through the abdomen and pelvis. Multiple contiguous axial images were obtained through the abdomen and pelvis after the administration of intravenous contrast. Auto Exposure Controls were utilized during the CT exam to meet ALARA standards for radiation dose reduction. INDICATION: History of malignant carcinoid tumor of the appendix. Follow-up possible liver lesion. COMPARISON: 10/02/2020 FINDINGS: Included portions of the lung bases are clear. CT ABDOMEN: Appendix is surgically absent. Small bowel loops are nondistended. Evaluation of the liver again demonstrates subtle faint area of relative hypoenhancement within the posterior margins of the right lobe of the liver near the junction of segments 6 and 7. It measures approximately 6 mm in diameter (image 16, series 4). This is stable in comparison to 08/30/2019 (image 16, series 2 on that exam). No new suspicious hepatic masses are seen. Portal vein shows normal enhancement. The kidneys, adrenal glands, spleen, and pancreas have a normal CT appearance as well. There is no loculated fluid collection, free fluid or free air within the abdomen. No abnormal mesenteric or retroperitoneal adenopathy is seen. Osseous structures show no acute abnormalities. CT PELVIS: Urinary bladder is grossly unremarkable. There is no loculated fluid collection, free fluid, nor free air within the pelvis. No abnormal lymph nodes are identified. Osseous structures show no acute abnormalities. IMPRESSION: 1. Small subtle area of relative hypoenhancement within the right lobe of the liver is stable compared to 08/30/2019. 2. No adverse interval change to the abdomen or pelvis. Dictated by: Dictated on workstation # [id number]
== END ==
LOC: RAD 08:15
PROVIDERS: ATTEND Internal Medicine Hematology & Oncology
DX: K76.89 Other specified diseases of liver (principal); Z85.060 Personal history of malignant carcinoid tumor of small intestine
CPT/HCPCS: 74178

== ENCOUNTER 2021-01-30 14:57 | Outpatient (RCR) | payer OTHER ==
[~2021-01-30 14:57] MED LIST changes: -CATHETER FLUSH 10 ML SYR IV PRN; -HOLD METFORMIN - RECEIVED CONTRAST 20 ML VIAL IV SCH; -IOHEXOL 350 MG/ML 100 ML (OMNIPAQUE 350) VIAL IV ONE; -NS 100 ML (IVPB) BAG IV ONE
[2021-01-30 15:16] LABS: BASOPHILS # (AUTO) 0.1 10^3/uL (0.0-0.1); BASOPHILS % (AUTO) 1 % (0-10); EOSINOPHILS # (AUTO) 0.3 10^3/uL (0.0-0.3); EOSINOPHILS % (AUTO) 3 % (0-10); HEMATOCRIT 39 % (35-52); HEMOGLOBIN 12.6 g/dL (11.5-16.0); LYMPHOCYTES # (AUTO) 2.4 10^3/uL (1.0-4.0); LYMPHOCYTES % (AUTO) 27 % (12-44); MEAN CORPUSCULAR HEMOGLOBIN 29 pg (25-34); MEAN CORPUSCULAR HGB CONC 33 g/dL (32-36); MEAN CORPUSCULAR VOLUME 91 fL (80-99); MEAN PLATELET VOLUME 10.4 fL (9.0-12.2); MONOCYTES # (AUTO) 0.7 10^3/uL (0.0-1.0); MONOCYTES % (AUTO) 8 % (0-12); NEUTROPHILS # (AUTO) 5.5 10^3/uL (1.8-7.8); NEUTROPHILS % (AUTO) 62 % (42-75); PLATELET COUNT 237 10^3/uL (130-400); WHITE BLOOD COUNT 8.9 10^3/uL (4.3-11.0)
[2021-01-30 15:41] LABS: ALANINE AMINOTRANSFERASE 46 U/L (0-55); ALBUMIN 3.9 GM/DL (3.2-4.5); ALKALINE PHOSPHATASE 101 U/L (40-136); BILIRUBIN,TOTAL 0.3 MG/DL (0.1-1.0); BUN/CREATININE RATIO 22; CALCIUM 9.2 MG/DL (8.5-10.1); CARBON DIOXIDE 30 MMOL/L (21-32); CHLORIDE 101 MMOL/L (98-107); CREATININE SERUM 0.83 MG/DL (0.60-1.30); GFR ESTIMATED > 60; GLUCOSE 103 MG/DL (70-105); POTASSIUM 3.8 MMOL/L (3.6-5.0); SODIUM 138 MMOL/L (135-145)
== END 2021-02-12 | disposition home or self-care (01) ==
LOC: ONC 14:57
PROVIDERS: ATTEND Internal Medicine Hematology & Oncology
DX: D37.3 Neoplasm of uncertain behavior of appendix (principal); C7A.020 Malignant carcinoid tumor of the appendix
CPT/HCPCS: 80053; 85025; 86316; 99213

== ENCOUNTER 2021-04-01 11:37 | Outpatient (RCR) | payer OTHER ==
[~2021-04-01 11:37] MED LIST changes: -OMEP40CA27 PO; +OMEP40CA6 PO
[2021-04-01 12:20] LABS: ALANINE AMINOTRANSFERASE 40 U/L (0-55); ALBUMIN 4.3 GM/DL (3.2-4.5); ALKALINE PHOSPHATASE 121 U/L (40-136); BILIRUBIN,TOTAL 0.3 MG/DL (0.1-1.0); BUN/CREATININE RATIO 19; CALCIUM 10.2 MG/DL (8.5-10.1); CARBON DIOXIDE 28 MMOL/L (21-32); CHLORIDE 101 MMOL/L (98-107); CREATININE SERUM 0.85 MG/DL (0.60-1.30); GFR ESTIMATED > 60; GLUCOSE 105 MG/DL (70-105); POTASSIUM 4.4 MMOL/L (3.6-5.0); SODIUM 135 MMOL/L (135-145); TOTAL PROTEIN 7.5 GM/DL (6.4-8.2)
== END 2021-05-14 | disposition home or self-care (01) ==
LOC: ONC 11:37
PROVIDERS: ATTEND Internal Medicine Hematology & Oncology
DX: D37.3 Neoplasm of uncertain behavior of appendix (principal); C7A.020 Malignant carcinoid tumor of the appendix; Z72.0 Tobacco use
CPT/HCPCS: 80053; 86316; 99213

== ENCOUNTER → 2021-04-02 | Outpatient (CLI) | payer OTHER ==
[~2021-04-02] MED LIST changes: +OMEP40CA27 PO; -OMEP40CA6 PO
--- NOTE | 2021-04-02 12:31 | Diagnostic Imaging Report ---
INDICATION: DYSPHAGIA TECHNIQUE: Grayscale sonographic images of the thyroid gland. CORRELATION STUDY: 10/04/2020 and 04/09/2020 FINDINGS: RIGHT LOBE: 4.4 x 1.5 x 1.8 cm. Centrally, there is a rounded solid slightly hypoechoic nodule. This currently measures 0.9 x 0.6 x 0.6 cm, (at baseline 0.9 x 0.5 x 0.7 cm). LEFT LOBE: 4.8 x 1.4 x 1.5 cm. At the inferior pole is a very slightly hypoechoic solid-appearing nodule currently measuring 0.8 x 0.4 x 0.5 cm relatively stable, (at baseline 0.6 x 0.4 x 0.6 cm). Isthmus appears unremarkable. IMPRESSION: Generally stable appearance about the thyroid gland with a stable small subcentimeter solid nodules of both lobes. (Normal gland size: 4-5 x 2 x 2 cm) Dictated by: Dictated on workstation # [id number]
== END ==
LOC: RAD 10:15
PROVIDERS: ATTEND Surgery
DX: E04.2 Nontoxic multinodular goiter (principal)
CPT/HCPCS: 76536

== ENCOUNTER → 2021-04-17 | Outpatient (CLI) | payer OTHER ==
[2021-04-17 08:25] LABS: BASOPHILS # (AUTO) 0.1 10^3/uL (0.0-0.1); BASOPHILS % (AUTO) 1 % (0-10); EOSINOPHILS # (AUTO) 0.3 10^3/uL (0.0-0.3); EOSINOPHILS % (AUTO) 4 % (0-10); HEMATOCRIT 41 % (35-52); HEMOGLOBIN 13.3 g/dL (11.5-16.0); LYMPHOCYTES # (AUTO) 2.1 10^3/uL (1.0-4.0); LYMPHOCYTES % (AUTO) 29 % (12-44); MEAN CORPUSCULAR HEMOGLOBIN 30 pg (25-34); MEAN CORPUSCULAR HGB CONC 32 g/dL (32-36); MEAN CORPUSCULAR VOLUME 91 fL (80-99); MEAN PLATELET VOLUME 10.4 fL (9.0-12.2); MONOCYTES # (AUTO) 0.6 10^3/uL (0.0-1.0); MONOCYTES % (AUTO) 9 % (0-12); NEUTROPHILS % (AUTO) 57 % (42-75); PLATELET COUNT 233 10^3/uL (130-400)
[2021-04-17 08:46] LABS: ALANINE AMINOTRANSFERASE 19 U/L (0-55); ALKALINE PHOSPHATASE 93 U/L (40-136); BILIRUBIN,TOTAL 0.4 MG/DL (0.1-1.0); BUN/CREATININE RATIO 12; CALCIUM 9.8 MG/DL (8.5-10.1); CARBON DIOXIDE 29 MMOL/L (21-32); CHLORIDE 104 MMOL/L (98-107); CREATININE SERUM 0.82 MG/DL (0.60-1.30); GFR ESTIMATED > 60; GLUCOSE 90 MG/DL (70-105); POTASSIUM 3.9 MMOL/L (3.6-5.0); SODIUM 141 MMOL/L (135-145); TOTAL PROTEIN 7.1 GM/DL (6.4-8.2)
== END ==
LOC: LAB 08:06
PROVIDERS: ATTEND Family Medicine
DX: I10 Essential (primary) hypertension (principal); F41.1 Generalized anxiety disorder; D37.3 Neoplasm of uncertain behavior of appendix; R53.83 Other fatigue; R73.01 Impaired fasting glucose
CPT/HCPCS: 36415; 80053; 83036; 84443; 85025

== ENCOUNTER 2021-05-29 15:01 | Outpatient (RCR) | payer OTHER ==
[2021-05-15 11:37] LABS: BASOPHILS % (AUTO) 1 % (0-10); EOSINOPHILS # (AUTO) 0.2 10^3/uL (0.0-0.3); EOSINOPHILS % (AUTO) 3 % (0-10); HEMATOCRIT 41 % (35-52); HEMOGLOBIN 13.2 g/dL (11.5-16.0); LYMPHOCYTES # (AUTO) 1.9 10^3/uL (1.0-4.0); LYMPHOCYTES % (AUTO) 29 % (12-44); MEAN CORPUSCULAR HEMOGLOBIN 30 pg (25-34); MEAN CORPUSCULAR HGB CONC 32 g/dL (32-36); MEAN CORPUSCULAR VOLUME 92 fL (80-99); MEAN PLATELET VOLUME 10.4 fL (9.0-12.2); MONOCYTES # (AUTO) 0.5 10^3/uL (0.0-1.0); MONOCYTES % (AUTO) 8 % (0-12); NEUTROPHILS # (AUTO) 3.8 10^3/uL (1.8-7.8); NEUTROPHILS % (AUTO) 59 % (42-75); PLATELET COUNT 231 10^3/uL (130-400); WHITE BLOOD COUNT 6.4 10^3/uL (4.3-11.0)
[2021-05-15 12:01] LABS: ALANINE AMINOTRANSFERASE 25 U/L (0-55); ALKALINE PHOSPHATASE 94 U/L (40-136); BILIRUBIN,TOTAL 0.3 MG/DL (0.1-1.0); BUN/CREATININE RATIO 11; CALCIUM 9.3 MG/DL (8.5-10.1); CARBON DIOXIDE 30 MMOL/L (21-32); CHLORIDE 104 MMOL/L (98-107); CREATININE SERUM 0.82 MG/DL (0.60-1.30); GFR ESTIMATED > 60; GLUCOSE 115 MG/DL (70-105); POTASSIUM 3.9 MMOL/L (3.6-5.0); SODIUM 140 MMOL/L (135-145)
[~2021-05-29 15:01] MED LIST changes: -OMEP40CA27 PO; +OMEP40CA6 PO
== END 2021-08-13 | disposition home or self-care (01) ==
LOC: ONC 15:01
PROVIDERS: ATTEND Internal Medicine Hematology & Oncology
DX: D3A.020 Benign carcinoid tumor of the appendix (principal); Z72.0 Tobacco use; Z90.49 Acquired absence of other specified parts of digestive tract
CPT/HCPCS: 80053; 85025; 86316; 99213

== ENCOUNTER 2021-11-26 15:21 | Outpatient (RCR) | payer OTHER ==
[2021-11-12 12:13] LABS: BASOPHILS # (AUTO) 0.1 10^3/uL (0.0-0.1); BASOPHILS % (AUTO) 1 % (0-10); EOSINOPHILS # (AUTO) 0.2 10^3/uL (0.0-0.3); EOSINOPHILS % (AUTO) 3 % (0-10); HEMATOCRIT 44 % (35-52); HEMOGLOBIN 14.6 g/dL (11.5-16.0); LYMPHOCYTES # (AUTO) 2.3 10^3/uL (1.0-4.0); LYMPHOCYTES % (AUTO) 34 % (12-44); MEAN CORPUSCULAR HEMOGLOBIN 30 pg (25-34); MEAN CORPUSCULAR HGB CONC 33 g/dL (32-36); MEAN CORPUSCULAR VOLUME 89 fL (80-99); MEAN PLATELET VOLUME 10.4 fL (9.0-12.2); MONOCYTES # (AUTO) 0.4 10^3/uL (0.0-1.0); MONOCYTES % (AUTO) 6 % (0-12); NEUTROPHILS # (AUTO) 3.8 10^3/uL (1.8-7.8); NEUTROPHILS % (AUTO) 56 % (42-75); PLATELET COUNT 236 10^3/uL (130-400); WHITE BLOOD COUNT 6.7 10^3/uL (4.3-11.0)
[2021-11-12 12:29] LABS: ALBUMIN 4.1 GM/DL (3.2-4.5); BILIRUBIN,TOTAL 0.4 MG/DL (0.1-1.0); CALCIUM 9.7 MG/DL (8.5-10.1); CREATININE SERUM 0.72 MG/DL (0.60-1.30); POTASSIUM 4.2 MMOL/L (3.6-5.0); TOTAL PROTEIN 7.3 GM/DL (6.4-8.2)
== END 2021-12-01 | disposition home or self-care (01) ==
LOC: ONC 15:21
PROVIDERS: ATTEND Internal Medicine Hematology & Oncology
DX: D37.3 Neoplasm of uncertain behavior of appendix (principal); K21.9 Gastro-esophageal reflux disease without esophagitis; F41.9 Anxiety disorder, unspecified; Z90.49 Acquired absence of other specified parts of digestive tract
CPT/HCPCS: 80053; 83497; 85025; 86316; 99213

== ENCOUNTER → 2021-11-26 | Outpatient (CLI) | payer OTHER ==
[2021-11-26 09:10] LABS: FREE T4 (FREE THYROXINE) 0.77 NG/DL (0.70-1.48)
== END ==
LOC: LAB 08:03
PROVIDERS: ATTEND Nurse Practitioner Family
DX: Z00.01 Encounter for general adult medical examination with abnormal findings (principal); E89.40 Asymptomatic postprocedural ovarian failure; R73.9 Hyperglycemia, unspecified; E04.1 Nontoxic single thyroid nodule; F41.9 Anxiety disorder, unspecified; D3A.020 Benign carcinoid tumor of the appendix
CPT/HCPCS: 36415; 80061; 82672; 83036; 84439; 84443

== ENCOUNTER → 2021-12-09 | Outpatient (CLI) | payer OTHER ==
[~2021-12-09] MED LIST changes: +CATHETER FLUSH 10 ML SYR IV PRN; +HOLD METFORMIN - RECEIVED CONTRAST 20 ML VIAL IV SCH; +IOHEXOL 350 MG/ML 100 ML (OMNIPAQUE 350) VIAL IV ONE; +NS 100 ML (IVPB) BAG IV ONE
--- NOTE | 2021-12-09 09:12 | Diagnostic Imaging Report ---
EXAMINATION: CT abdomen and pelvis with and without intravenous contrast. TECHNIQUE: Precontrast acquisitions were acquired through the abdomen and pelvis. Multiple contiguous axial images were obtained through the abdomen and pelvis after the administration of intravenous contrast. All CT scans use one or more of the following dose optimizing techniques: automated exposure control, MA and/or KvP adjustment based on patient size and exam type or iterative reconstruction. HISTORY: CARCINOID TUMOR OF APPENDIX COMPARISON: 11/04/2020 FINDINGS: Lung bases: The lung bases are clear. Solid organs: Stable small subcentimeter hypoattenuating lesion within the right hepatic lobe. The gallbladder is surgically absent. There is no biliary ductal dilation. Pancreas is normal. Spleen is normal. Adrenal glands are normal. The kidneys are normal without hydronephrosis. Bowel: The stomach and small bowel are normal without obstruction. The colon is unremarkable. The appendix is surgically absent. Peritoneum: There is no intraperitoneal free fluid or free air. No suspicious lymphadenopathy. Stable 0.9 cm nodule within the right lower quadrant near the cecum. Vasculature: Calcification of the aorta without aneurysm. Musculoskeletal: No suspicious osseous lesion or compression fracture. Pelvis: The uterus is surgically absent. No adnexal mass. The urinary bladder is normal. IMPRESSION: 1. Stable right lower quadrant peritoneal nodules measuring up to 0.9 cm. 2. Stable subcentimeter hypoattenuating lesion within the right hepatic lobe. 3. No other findings of metastatic disease within the abdomen or pelvis. Dictated by: Dictated on workstation # [id number]
== END ==
LOC: RAD 08:16
PROVIDERS: ATTEND Internal Medicine Hematology & Oncology
DX: K76.89 Other specified diseases of liver (principal); R19.03 Right lower quadrant abdominal swelling, mass and lump; Z90.49 Acquired absence of other specified parts of digestive tract; Z90.89 Acquired absence of other organs; Z85.038 Personal history of other malignant neoplasm of large intestine
CPT/HCPCS: 74178

== ENCOUNTER → 2021-12-09 | Outpatient (CLI) | payer OTHER ==
--- NOTE | 2021-12-09 09:57 | Diagnostic Imaging Report ---
PROCEDURE: US Thyroid. TECHNIQUE: Multiple real-time grayscale images were obtained of the thyroid in various projections. INDICATION: Follow-up thyroid nodule. Comparison with 04/02/2021. FINDINGS: Right lobe measures 4.3 x 1.2 x 1.8 cm. There is a heterogeneous oval well-circumscribed slightly hyperechoic nodule with a few calcifications present measuring 8 x 4 x 7 mm. This is essentially unchanged from previous exam. The left lobe measures 4.5 x 1.1 x 1.6 cm. There is a slightly hypoechoic oval nodule measuring 6 x 3 x 5 mm. There are no calcifications. This is along the lower portion. No new nodules have developed. IMPRESSION: The bilateral thyroid nodules which are stable in appearance since previous exam. The right nodule is the most suspicious and is considered a TI-RADS 4. Dictated by: Dictated on workstation # [id number]
== END ==
LOC: RAD 09:15
PROVIDERS: ATTEND Nurse Practitioner Family
DX: E04.2 Nontoxic multinodular goiter (principal)
CPT/HCPCS: 76536

== ENCOUNTER → 2021-12-24 | Outpatient (CLI) | payer OTHER ==
[~2021-12-24] VITALS: Ht 170 cm; Wt 78.0 kg
[~2021-12-24] MED LIST changes: -CATHETER FLUSH 10 ML SYR IV PRN; -HOLD METFORMIN - RECEIVED CONTRAST 20 ML VIAL IV SCH; -IOHEXOL 350 MG/ML 100 ML (OMNIPAQUE 350) VIAL IV ONE; +LIDOCAINE 1% INJ 20 ML VIAL INJ ONE; +LIDOCAINE 1% INJ 20 ML VIAL ONE; -NS 100 ML (IVPB) BAG IV ONE
--- NOTE | 2021-12-24 14:25 | Diagnostic Imaging Report ---
INDICATION: Right lobe thyroid nodule. Patient presents for ultrasound-guided fine-needle aspiration and biopsy. DETAILS OF THE PROCEDURE: The patient was brought to the procedure room and placed on the table in the supine position. Ultrasound imaging of the right neck was performed to evaluate for an appropriate entry site. The right neck was prepped and draped in the usual sterile fashion. A small amount of 1% lidocaine was utilized for local anesthesia. A total of 4 passes was made into the hypoechoic nodule in the right lobe of the thyroid utilizing 25-gauge needles and fine needle aspiration technique. A single pass was made with a Rotex needle and a Rotex biopsy was performed. [place] were removed. Hemostasis was obtained using manual compression. The patient tolerated the procedure well and left the Department in stable condition. IMPRESSION: Successful ultrasound guided fine needle aspiration and Rotex biopsy of a right lobe thyroid nodule. Pathology results are currently pending. Dictated by: Dictated on workstation # [id number]
== END ==
LOC: RAD 12:09
PROVIDERS: ATTEND Surgery
DX: E04.1 Nontoxic single thyroid nodule (principal)
CPT/HCPCS: 10005; 88173; 88305

== ENCOUNTER → 2022-03-04 | Outpatient (CLI) | payer OTHER ==
[~2022-03-04] MED LIST changes: -LIDOCAINE 1% INJ 20 ML VIAL INJ ONE; -LIDOCAINE 1% INJ 20 ML VIAL ONE; +OMEP20TA56 PO; -OMEP20TA7 PO
--- NOTE | 2022-03-04 09:52 | Diagnostic Imaging Report ---
INDICATION: Left flank pain. EXAMINATION: KUB at 8:16 AM. FINDINGS: The gallbladder is surgically absent. The bowel gas pattern is normal. There is a moderate amount of stool throughout the colon. There are no pathologic masses or calcifications. IMPRESSION: Unremarkable abdomen. Dictated by: Dictated on workstation # [id number]
== END ==
LOC: RAD 08:02
PROVIDERS: ATTEND Nurse Practitioner Family
DX: R10.9 Unspecified abdominal pain (principal)
CPT/HCPCS: 74018

== ENCOUNTER 2022-06-03 08:55 | Outpatient (RCR) | payer OTHER | END 2022-07-01 | disposition home or self-care (01) | LOC: ONC 08:55 | PROVIDERS: ATTEND Internal Medicine Hematology & Oncology | DX: D37.3 Neoplasm of uncertain behavior of appendix (principal) | CPT/HCPCS: 99213 ==

== ENCOUNTER → 2022-06-17 | Outpatient (CLI) | payer OTHER | LOC: CARD 13:00 | PROVIDERS: ATTEND Nurse Practitioner Family | DX: R55 Syncope and collapse (principal) | CPT/HCPCS: 93225; 93226 ==

== ENCOUNTER 2022-07-09 05:33 | Outpatient (CLI) | payer OTHER ==
[~2022-07-09] VITALS: Ht 170.2 cm; Wt 83.9 kg
[2022-07-09] MEDS ORDERED: LEVO75CA5 PO (10:23)
[2022-07-09] MEDS ORDERED: DIPH25CA79 PO (10:23)
[2022-07-09] MEDS ORDERED: PANT40TA52 PO (10:23)
[2022-07-09] MEDS ORDERED: ESTR10TA9 PO (10:23)
== END 2022-07-09 10:35 | disposition home or self-care (01) ==
LOC: PREOP 05:33
PROVIDERS: ATTEND Surgery
DX: Z01.818 Encounter for other preprocedural examination (principal)

== ENCOUNTER 2022-08-10 07:42 | Day surgery (SDC) | payer OTHER ==
[~2022-08-10] VITALS: Ht 170.2 cm; Wt 83.9 kg
[~2022-08-10 07:42] MED LIST changes: +DIPH25CA79 PO; +ESTR10TA9 PO; +LEVO75CA5 PO; +PANT40TA52 PO
[2022-08-10] MEDS ORDERED: HURRICAINE EXT TUBE (BENZOCAINE) XX PRN (07:45)
[2022-08-10] MEDS ORDERED: LACTATED RINGERS 1,000 ML IV STA (07:45)
[2022-08-10 08:03] VITALS: BP 111/85
[2022-08-10] MEDS ORDERED: proPOfol 200 MG/20 ML (DIPRIVAN) VIAL IV ONE ×2 (08:04→09:10)
[2022-08-10] MEDS ORDERED: MIDAZOLAM 2 MG/2 ML (VERSED) VIAL ONE (08:05)
[2022-08-10 09:25] VITALS: BP 92/55
[2022-08-10 09:30] VITALS: BP 100/59
--- NOTE | 2022-08-10 09:31 | Progress Note-Post Operative ---
Post-Operative Progess Note Surgeon (s)/Process Planner (s) Surgeon HALIMA ADAMS DO Process Planner: Rebecca Olson, MSIII Pre-Operative Diagnosis Epigastric pain, Dysphagia Post-Operative Diagnosis Gastritis with bleed Very small sliding Hiatal hernia Diverticula int hemorrhoids Procedure & Operative Findings Date of Procedure 08/10/22 Procedure Performed/Findings EGD with bx Colonoscopy PROCEDURE NOTE: After informed consent was obtained, the patient was brought to the endoscopy suite, placed in bed in left lateral decubitus position. She was administered IV sedation by the ACCOUNT DEVELOPMENT SPECIALIST who then monitored vitals the entire time, heart rate, blood pressure and pulse ox and the scope was inserted down the mouth through the esophagus into the stomach. On the way down, noted some mild esophagitis, took a picture, pushed into the stomach, pushed past the antrum into the duodenum. Duodenum looked good. The stomach had some old blood, looked like a Gastritis with bleed. Elected to do a biopsy of the antrum and the cardia. Then retroflexed the scope, saw very small sliding hiatal hernia, took a picture of this and then pulled the scope into the GE junction and did a biopsy of the GE junction. Pushed the scope back into the stomach, suctioned all the air out of the stomach. At this point pulled the scope up the esophagus and out the mouth. Switched camera, switched gloves, went down below and started the colonoscopy. Pushed all the way into about 110 cm to get all the anastomosis and took a picture of this. On the way in had noted a small diverticula and taken a picture of it. From the anastomosis, slowly withdrew the scope, insufflating to look circumferentially at the [place]; from the hepatic flexure, then down the transverse colon to the splenic flexure, into the descending colon, down into the sigmoid and finally into the rectum, retroflexed in the rectal vault, saw some very minimal internal hemorrhoids and took a picture of them. The patient tolerated the procedure and she recovered in the endoscopy suite. Recommended for repeat colonoscopy in 5 years Anesthesia Type IV sedation by ACCOUNT DEVELOPMENT SPECIALIST Estimated Blood Loss Estimated blood loss (mL): scant Specimens/Packing Specimens Removed antral bx cardia bx GE jxn bx HALIMA ADAMS DO Aug 10, 2022 09:31
--- NOTE | 2022-08-10 09:32 | Endoscopy Discharge Instruct ---
Endo Procedure/Findings Findings 1.: Gastritis 2.: Hiatal Hernia 3.: Diverticulosis 4.: Internal Hemorrhoids Discharge Instructions - Activity: You might feel a little sleepy until tomorrow. This is due to the medicine you received to relax you. Until tomorrow, you should: NOT drive a car, operate machinery or power tools. NOT drink any alcoholic beverages. NOT make any important decisions or sign importortant papers. Do not return to work until tomorrow, unless otherwise instructed. Resume previous activities tomorrow. Diet: Start by taking liquids. If you tolerate liquids, advance to solid food. 1.: EGD in 3 years 2.: Colonscopy in 5 years Notify Physician - If you experience excessive bleeding, unusual abdominal pain, fever, or chest pain, contact your doctor immediately. HALIMA ADAMS DO Aug 10, 2022 09:32
[2022-08-10 09:35] VITALS: BP 104/63
[2022-08-10 10:10] VITALS: BP 100/59
--- NOTE | 2022-08-10 12:22 | Anesthesia-General Post-Op ---
MAC Patient Condition Mental Status/LOC: Same as Preop Cardiovascular: Satisfactory Nausea/Vomiting: Absent Respiratory: Satisfactory Pain: Controlled Complications: Absent Post Op Complications Complications None Follow Up Care/Instructions Patient Instructions None needed. Anesthesiology Discharge Order Discharge Order Patient is doing well, no complaints, stable vital signs, no apparent adverse anesthesia problems. No complications reported per nursing. MERLYN LOVELACE CRNA Aug 10, 2022 12:21
== END 2022-08-10 10:15 | disposition home or self-care (01) ==
LOC: ENDO 07:42
PROVIDERS: ATTEND Surgery
DX: K21.00 Gastro-esophageal reflux disease with esophagitis, without bleeding (principal); K31.89 Other diseases of stomach and duodenum; K44.9 Diaphragmatic hernia without obstruction or gangrene; K57.30 Diverticulosis of large intestine without perforation or abscess without bleeding; K64.8 Other hemorrhoids; Z87.891 Personal history of nicotine dependence; K29.51 Unspecified chronic gastritis with bleeding

== ENCOUNTER → 2022-11-19 | Outpatient (CLI) | payer OTHER ==
--- NOTE | 2022-11-19 09:23 | Diagnostic Imaging Report ---
PROCEDURE: CT sinuses without contrast TECHNIQUE: Multiple contiguous axial images were obtained through the sinuses without the use of intravenous contrast. Coronal and sagittal reformations were then performed. Auto Exposure Controls were utilized during the CT exam to meet ALARA standards for radiation dose reduction. INDICATION: Chronic sinus infections. FINDINGS: The frontal, ethmoid, and sphenoid sinuses are clear. There is minimal mucosal thickening in the right maxillary sinus. The osteomeatal complexes are widely patent. There are no sandra bullosa. There is minimal tortuosity of the nasal septum. Mastoid air cells are clear. IMPRESSION: Mild right maxillary sinus disease, otherwise unremarkable. Dictated by: Dictated on workstation # [id number]
== END ==
LOC: RAD 07:45
PROVIDERS: ATTEND Nurse Practitioner Family
DX: J32.0 Chronic maxillary sinusitis (principal)
CPT/HCPCS: 70486

== ENCOUNTER → 2023-01-19 | Outpatient (CLI) | payer OTHER ==
[2023-01-19 09:44] VITALS: BP 112/78
== END ==
LOC: CARD 09:00
PROVIDERS: ATTEND Internal Medicine Cardiovascular Disease
DX: R07.89 Other chest pain (principal)
CPT/HCPCS: C8929; C8930; 93306

== ENCOUNTER → 2023-03-30 | Outpatient (CLI) | payer OTHER ==
--- NOTE | 2023-03-30 18:49 | Diagnostic Imaging Report ---
PROCEDURE: CT sinuses without contrast TECHNIQUE: Multiple contiguous axial images were obtained through the sinuses without the use of intravenous contrast. Coronal and sagittal reformations were then performed. Auto Exposure Controls were utilized during the CT exam to meet ALARA standards for radiation dose reduction. INDICATION: Chronic sinusitis. Correlation is made with prior study from 11/19/2022. The frontal sinus is clear. There is some mucosal thickening of multiple ethmoid air cells. The maxillary sinuses are well aerated. Sphenoid is well-aerated. Bilateral mastoids are well aerated. Ostiomeatal complexes are patent bilaterally. Nasal septum is midline. IMPRESSION: There is some mucosal thickening of multiple ethmoid air cells. The study is otherwise unremarkable. Dictated by: Dictated on workstation # [id number]
== END ==
LOC: RAD 16:22
PROVIDERS: ATTEND Otolaryngology Otolaryngology/Facial Plastic Surgery
DX: J32.9 Chronic sinusitis, unspecified (principal); J34.89 Other specified disorders of nose and nasal sinuses
CPT/HCPCS: 70486

== ENCOUNTER → 2023-06-07 | Outpatient (CLI) | payer OTHER ==
[2023-06-07 17:06] LABS: BASOPHILS % (AUTO) 0 % (0-10); EOSINOPHILS # (AUTO) 0.3 10^3/uL (0.0-0.3); EOSINOPHILS % (AUTO) 4 % (0-10); HEMATOCRIT 40 % (35-52); HEMOGLOBIN 13.2 g/dL (11.5-16.0); LYMPHOCYTES # (AUTO) 1.8 X 10^3 (1.0-4.0); LYMPHOCYTES % (AUTO) 24 % (12-44); MEAN CORPUSCULAR HEMOGLOBIN 29 pg (25-34); MEAN CORPUSCULAR HGB CONC 33 g/dL (32-36); MEAN CORPUSCULAR VOLUME 90 fL (80-99); MEAN PLATELET VOLUME 10.1 fL (9.0-12.2); MONOCYTES # (AUTO) 0.6 X 10^3 (0.0-1.0); MONOCYTES % (AUTO) 8 % (0-12); NEUTROPHILS # (AUTO) 4.9 X 10^3 (1.8-7.8); NEUTROPHILS % (AUTO) 63 % (42-75); PLATELET COUNT 225 10^3/uL (130-400); WHITE BLOOD COUNT 7.7 10^3/uL (4.3-11.0)
[2023-06-07 17:28] LABS: ALBUMIN 4.1 GM/DL (3.2-4.5)
[2023-06-07 17:29] LABS: CALCIUM 9.9 MG/DL (8.5-10.1)
[2023-06-07 17:31] LABS: TOTAL PROTEIN 7.4 GM/DL (6.4-8.2)
[2023-06-07 17:32] LABS: BILIRUBIN,TOTAL 0.3 MG/DL (0.1-1.0)
[2023-06-07 17:34] LABS: CREATININE SERUM 0.85 MG/DL (0.60-1.30)
== END ==
LOC: LAB 16:38
PROVIDERS: ATTEND Physician Assistant
DX: R10.32 Left lower quadrant pain (principal); R11.0 Nausea; R35.89 Other polyuria
CPT/HCPCS: 36415; 80053; 83036; 85025; 86141

== ENCOUNTER 2023-09-09 05:40 | Outpatient (CLI) | payer OTHER ==
[~2023-09-09] VITALS: Ht 172.7 cm; Wt 83.6 kg
[~2023-09-09 05:40] MED LIST changes: -MECL-149 PO; +MECL-291 PO
[2023-09-09] MEDS ORDERED: LORA10CA PO (16:02)
[2023-09-09] MEDS ORDERED: FLUT9.9S NS (16:02)
[2023-09-09] MEDS ORDERED: LEVO25CA4 PO (16:02)
[2023-09-09] MEDS ORDERED: ESTR0.5T3 PO (16:02)
[2023-09-09] MEDS ORDERED: CHOL500050 PO (16:02)
== END 2023-09-09 16:25 | disposition home or self-care (01) ==
LOC: PREOP 05:40
PROVIDERS: ATTEND Otolaryngology Otolaryngology/Facial Plastic Surgery
DX: Z01.818 Encounter for other preprocedural examination (principal)

== ENCOUNTER 2023-09-16 07:51 | Day surgery (SDC) | payer OTHER ==
[2023-09-16] VITALS (12 sets, daily range): BP systolic 91–133; BP diastolic 53–91
[~2023-09-16] VITALS: Ht 172.7 cm; Wt 83.6 kg
[~2023-09-16 07:51] MED LIST changes: +CHOL500050 PO; +ESTR0.5T3 PO; +FLUT9.9S NS; +LEVO25CA4 PO; +LORA10CA PO
[2023-09-16] MEDS ORDERED: NITR-65 PO (08:05)
[2023-09-16] MEDS ORDERED: AMPICILLIN/SULBACTAM INJECTION 1.5 GM in NS (IVPB) 100 ML 100 ML IV ONE (08:15)
[2023-09-16] MEDS: LACTATED RINGERS 1,000 ML 1,000 ML IV PRN ×2 (08:24→11:13)
[2023-09-16 08:35] LABS: BASOPHILS # (AUTO) 0.1 10^3/uL (0.0-0.1); BASOPHILS % (AUTO) 1 % (0-10); EOSINOPHILS # (AUTO) 0.4 10^3/uL (0.0-0.3); EOSINOPHILS % (AUTO) 5 % (0-10); HEMATOCRIT 40 % (35-52); LYMPHOCYTES # (AUTO) 1.6 10^3/uL (1.0-4.0); LYMPHOCYTES % (AUTO) 22 % (12-44); MEAN CORPUSCULAR HEMOGLOBIN 30 pg (25-34); MEAN CORPUSCULAR HGB CONC 33 g/dL (32-36); MEAN CORPUSCULAR VOLUME 92 fL (80-99); MEAN PLATELET VOLUME 10.4 fL (9.0-12.2); MONOCYTES # (AUTO) 0.6 10^3/uL (0.0-1.0); MONOCYTES % (AUTO) 8 % (0-12); NEUTROPHILS # (AUTO) 4.5 10^3/uL (1.8-7.8); NEUTROPHILS % (AUTO) 63 % (42-75); PLATELET COUNT 228 10^3/uL (130-400); WHITE BLOOD COUNT 7.2 10^3/uL (4.3-11.0)
[2023-09-16 08:44] LABS: POTASSIUM 4.1 MMOL/L (3.6-5.0)
[2023-09-16 08:45] LABS: CALCIUM 9.4 MG/DL (8.5-10.1)
[2023-09-16 08:49] LABS: CREATININE SERUM 0.79 MG/DL (0.60-1.30)
[2023-09-16] MEDS ORDERED: MIDAZOLAM INJ 2 MG/2 ML VIAL IV ONE (09:00)
[2023-09-16] MEDS ORDERED: fentaNYL INJECTION 100 MCG/2 ML VIAL ONE (09:10)
[2023-09-16] MEDS ORDERED: MIDAZOLAM INJ 2 MG/2 ML VIAL ONE (09:10)
[2023-09-16] MEDS ORDERED: PHENYLEPHRINE 0.5% (REGULAR) NASAL SPRAY 15 ML ONE (09:23)
[2023-09-16] MEDS ORDERED: COCAINE 4% TOPICAL SOLN 2 ML SYR ONE (09:23)
[2023-09-16] MEDS ORDERED: BSS 15 ML ONE (09:23)
[2023-09-16] MEDS ORDERED: LIDOCAINE 2% w/EPI 1:100,000 20 ML VIAL ONE (09:23)
--- NOTE | 2023-09-16 10:03 | Progress Note-Pre Operative ---
Pre-Operative Progress Note Date of Available H&P: Sep 16, 2023 Date H&P Reviewed: Sep 16, 2023 Time H&P Reviewed: 06:30 History & Physical: H&P Reviewed, Patient Examed, No changes noted Changes from last HP none Pre-Operative Diagnosis: Bilat Chronic Sinusitis, Bialt Hyper of Inf Turbs SHAYY CABALLERO MD Sep 16, 2023 10:02
--- NOTE | 2023-09-16 10:04 | Progress Note-Post Operative ---
Post-Operative Progess Note Surgeon (s)/Rn Birthing (s) Surgeon SHAYY CABALLERO MD Rn Birthing n/a Pre-Operative Diagnosis Bilat Chronic Sinusitis, Bialt Hyper of Inf Turbs Post-Operative Diagnosis same Post-Op Procedure Note Date of Procedure: Sep 16, 2023 Name of Procedure Performed: Bilat ESS, Bilat Partia lREd of Inf Turbs Description & Findings Description and Findings: n/a Anesthesia Type get Estimated Blood Loss minimal Packing none. Specimen(s) collected/removed bilat chronic sinusitis SHAYY CABALLERO MD Sep 16, 2023 10:03
[2023-09-16] MEDS ORDERED: PROMETHAZINE INJ 25 MG/ML VIAL IVP PRN (10:15)
[2023-09-16] MEDS ORDERED: HYDROcodone/ACETAMINOPHEN 5 MG/325 MG TABLET PO PRN (10:15)
[2023-09-16] MEDS ORDERED: D5 1/2NS + KCL 20 MEQ/L 1000ML 1,000 ML IV SCH (10:15)
[2023-09-16] MEDS ORDERED: BSS 15 ML TOP ONE (10:39)
[2023-09-16] MEDS ORDERED: COCAINE 4% TOPICAL SOLN 2 ML SYR NS ONE (10:41)
[2023-09-16] MEDS ORDERED: PHENYLEPHRINE 0.5% (REGULAR) NASAL SPRAY 15 ML NS ONE (10:43)
[2023-09-16] MEDS ORDERED: LIDOCAINE 2% w/EPI 1:100,000 20 ML VIAL INJ ONE (10:43)
[2023-09-16] MEDS ORDERED: proPOfol INJECTION 200 MG/20 ML VIAL IV ONE (10:50)
[2023-09-16] MEDS ORDERED: ROCURONIUM 50 MG/5 ML VIAL IV ONE (10:51)
[2023-09-16] MEDS ORDERED: ONDANSETRON INJECTION 4 MG/2 ML (SDV) ONE (10:51)
[2023-09-16] MEDS ORDERED: LIDOCAINE PF 2% 5 ML VIAL ONE (10:51)
[2023-09-16] MEDS ORDERED: SEVOFLURANE (ULTANE) 15 ML INHAL SOLN ONE (10:52)
[2023-09-16] MEDS ORDERED: NEOSTIGMINE 1 MG/1ML 10 ML VIAL ONE (10:53)
[2023-09-16] MEDS ORDERED: GLYCOPYRROLATE INJ 0.2 MG/ML 2 ML VIAL ONE (10:53)
[2023-09-16] MEDS ORDERED: LACTATED RINGERS 1,000 ML 1,000 ML IV ONE (11:11)
--- NOTE | 2023-09-16 11:11 | Anesthesia-General Post-Op ---
General Patient Condition Mental Status/LOC: Same as Preop Cardiovascular: Satisfactory Nausea/Vomiting: Absent Respiratory: Satisfactory Pain: Controlled Complications: Absent Post Op Complications Complications None Follow Up Care/Instructions Patient Instructions None needed. Anesthesia/Patient Condition Patient Condition Patient is doing well, no complaints, stable vital signs, no apparent adverse anesthesia problems. No complications reported per nursing. MARTINEZ KELLY CRNA Sep 16, 2023 11:10
[2023-09-16] MEDS ORDERED: PROMETHAZINE INJ 25 MG/ML VIAL IVP ONE (11:15)
[2023-09-16] MEDS ORDERED: morphine INJ 10 MG/ML 1ML (SYR OR VIAL) IVP ONE (11:15)
[2023-09-16] MEDS ORDERED: ONDANSETRON INJECTION 4 MG/2 ML (SDV) IVP PRN (11:15)
[2023-09-16] MEDS ORDERED: HYDROmorphone INJECTION 2 MG/ML VIAL IV ONE (11:15)
[2023-09-16] MEDS ORDERED: MEPERIDINE INJ 50 MG/ML VIAL IVP ONE (11:15)
[2023-09-16] MEDS ORDERED: ACHD5005 PO (12:23)
[2023-09-16] MEDS ORDERED: AMOX-355 PO (12:23)
== END 2023-09-16 13:11 | disposition home or self-care (01) ==
LOC: SDC 07:51
PROVIDERS: ATTEND Otolaryngology Otolaryngology/Facial Plastic Surgery
DX: J32.8 Other chronic sinusitis (principal); J34.3 Hypertrophy of nasal turbinates; R09.81 Nasal congestion; K21.9 Gastro-esophageal reflux disease without esophagitis
CPT/HCPCS: 36415; 80048; 85025; 87081